=== PATIENT | female | born 1955 | race African-American/Black ===

== ENCOUNTER 2016-06-05 21:15 | Inpatient (IN) | payer BC ==
--- NOTE | 2016-06-05 17:16 | PDOC ---
[id number]: No Limitations - History of Present Illness Initial Comments: 06/05/16 17:45 The patient is a 61 year old female, with a significant past medical history of ETOH abuse, diabetes, GERD, hypertension, hyperlipidemia, who presents to the emergency department complaining of dyspnea and difficulty walking since earlier today. As per friend, the patient mixed some of her medications with ETOH (smirnoff) before the onset of her symptoms. The patient reports SOB, but denies any associated chest pain, palpitations, or diaphoresis. The patient reports overall decreased appetite after starting prednisone prescribed by her neurologist for an infection in the scalp. The patient states she has continued to take prednisone, because her neurologist did not tell her when to stop taking it. As a result, the patient states she has began to get sores in her mouth. The patient reports she has been experiencing high BGL, for which she went to see her PCP, Dr. Cross for further evaluation. As per patient, Dr. Cross prescribed glipiside with minimal change in her BGL. The patient denies any nausea, vomiting, diarrhea, constipation, or changes in urination patterns. The patient denies any fever, chills, cough, headache, or dizziness. Allergies: None reported. Past Surgical History: None reported. Social History: ETOH, abuse. No smoking or drug use history. PCP: Dr. Cross ([phone]) <Carli Campbell - Last Filed: 06/05/16 20:45> <Shaista Nunez - Last Filed: 06/05/16 20:50> - General Chief Complaint: Blood Sugar Problem Stated Complaint: INTOX Time Seen by Provider: 06/05/16 17:09 Past History <Carli Campbell - Last Filed: 06/05/16 20:45> - Past Medical History Diabetes: Yes (diet controlled) GI Disorders: Yes (gerd) HTN: Yes Hypercholesterolemia: Yes - Family Disease History Family Disease History: Diabetes: Mother - Psycho/Social/Smoking Cessation Hx Anxiety: No Suicidal Ideation: No Smoking Status: Yes Smoking History: Former smoker Have you smoked in the past 12 months: No Number of Cigarettes Smoked Daily: 0 If you are a former smoker, when did you quit?: 30 years ago Hx Alcohol Use: Yes (1/2 pint of vodka daily) Drug/Substance Use Hx: No Substance Use Type: None <Shaista Nunez - Last Filed: 06/05/16 20:50> - Past Medical History Allergies/Adverse Reactions: Allergies Allergy/AdvReac Type Severity Reaction Status Date / Time No Known Allergies Allergy Verified 09/18/15 21:51 Home Medications: Ambulatory Orders Losartan Potassium 100 mg PO DAILY 07/08/15 Omeprazole 20 mg PO DAILY 07/08/15 Metoprolol Tartrate [Lopressor -] 12.5 mg PO BID #60 tablet 07/10/15 Rivaroxaban [Xarelto] 1 each PO HS #60 tab.ds.pk 07/10/15 Amlodipine Besylate [Norvasc -] 0 mg PO DAILY 06/05/16 Atorvastatin Ca [Lipitor] 0 mg PO HS 06/05/16 Glipizide [Glucotrol -] 0 mg PO DAILY 06/05/16 Review of Systems - Review of Systems Able to Perform ROS?: Yes Comments:: 06/05/16 17:45 GENERAL/CONSTITUTIONAL: No fever or chills. No weakness. HEAD, EYES, EARS, NOSE AND THROAT: +Sores in mouth. No change in vision. No ear pain or discharge. No sore throat. CARDIOVASCULAR: +Shortness of breath. No chest pain. RESPIRATORY: No cough, wheezing, or hemoptysis. GASTROINTESTINAL: No nausea, vomiting, diarrhea or constipation. GENITOURINARY: No dysuria, frequency, or change in urination. MUSCULOSKELETAL: No joint or muscle swelling or pain. No neck or back pain. SKIN: No rash NEUROLOGIC: +Difficulty walking. No headache, vertigo, loss of consciousness, or change in strength/sensation. ENDOCRINE: +Decreased appetite. No increased thirst. No abnormal weight change. HEMATOLOGIC/LYMPHATIC: No anemia, easy bleeding, or history of blood clots. ALLERGIC/IMMUNOLOGIC: No hives or skin allergy. <Carli Campbell - Last Filed: 06/05/16 20:45> *Physical Exam - Vital Signs Last Vital Signs Temp Pulse Resp BP Pulse Ox 98.0 F 99 H 19 136/75 95 06/05/16 17:10 06/05/16 17:10 06/05/16 17:10 06/05/16 17:10 06/05/16 17:10 - Physical Exam Comments: 06/05/16 17:47 GENERAL: Awake, alert, and fully oriented, in no acute distress HEAD: No signs of trauma EYES: PERRLA, EOMI, sclera anicteric, conjunctiva clear ENT: +Mouth is erythematous. +Positive thrush in mouth. Auricles normal inspection, hearing grossly normal, nares patent. Moist mucosa NECK: Normal ROM, supple, no lymphadenopathy, JVD, or masses LUNGS: Breath sounds equal, clear to auscultation bilaterally. No wheezes, and no crackles HEART: Regular rate and rhythm, normal S1 and S2, no murmurs, rubs or gallops ABDOMEN: Soft, nontender, normoactive bowel sounds. No guarding, no rebound. No masses EXTREMITIES: Normal range of motion, no edema. No clubbing or cyanosis. No cords, erythema, or tenderness NEUROLOGICAL: Cranial nerves II through XII grossly intact. Normal speech, normal gait SKIN: Warm, Dry, normal turgor, no rashes or lesions noted. <Carli Campbell - Last Filed: 06/05/16 20:45> ED Treatment Course - LABORATORY CBC & Chemistry Diagram: 06/05/16 17:50 06/05/16 17:50 - Medications Given in the ED: ED Medications Discontinued Medications Generic Name Dose Route Start Last Admin Trade Name Guru PRN Reason Stop Dose Admin Dextrose 50 ml 06/05/16 17:17 06/05/16 17:20 D50w (Vial) - IVPUSH 06/05/16 17:18 50 ml NOW ONE Administration <Carli Campbell - Last Filed: 06/05/16 20:45> - LABORATORY CBC & Chemistry Diagram: 06/05/16 17:50 06/05/16 17:50 <Shaista Nunez - Last Filed: 06/05/16 20:50> Medical Decision Making - Medical Decision Making 06/05/16 20:24 First call placed to Dr. Martines([phone]) at 20:23. Awaiting call back. Case discussed with Dr. Martines at 20:35. <Carli Campbell - Last Filed: 06/05/16 20:45> - Medical Decision Making 06/05/16 20:46 Pt was not initially forthcoming with her history, but later was stating that she did not want to go home, her legs were weak. On observation I noted that she was breathing rapidly with tremors in her hands and feet. She stated that she drinks "every other day". However, noted to have tongue fasciculations as well. Her immigration case worker later approached me and said that she drinks vodka daily, approximately a quarter of a bottle. Symptoms make sense with the whole picture. Will admit for EtOH withdrawal, thrush (which I have treated). She was hypoglycemic because she has avoided eating due to thrush, but has still been drinking vodka. She had some food from a tray in the ED, but did not want to continue to eat. I have given librium and valium. Will continue to monitor. <Shaista Nunez - Last Filed: 06/05/16 20:50> *DC/Admit/Observation/Transfer - Attestations Scribe Attestion: 06/05/16 17:50 Documentation prepared by Carli Campbell, acting as clinical medical transcriptionist for Shaista Nunez MD. <Carli Campbell - Last Filed: 06/05/16 20:45> - Discharge Dispostion Admit: Yes <Shaista Nunez - Last Filed: 06/05/16 20:50> Diagnosis at time of Disposition: Hypoglycemia, Thrush Alcohol withdrawal Qualifiers: Complication of substance-induced condition: uncomplicated Qualified Code(s): F10.230 - Alcohol dependence with withdrawal, uncomplicated - Discharge Dispostion Condition at time of disposition: Stable - Patient Instructions Printed Discharge Instructions: DI for Thrush, DI for Hypoglycemia
[2016-06-05 18:01] LABS: EOSINOPHIL 0.9 % (0-4.5); MCH 31.6 pg (25.7-33.7); MCHC 32.8 g/dl (32.0-36.0); MEAN CELL VOLUME 96.1 fl (80-96); MEAN PLT VOLUME 8.2 fl (7.5-11.1); NEUTROPHILS 78.9 % (42.8-82.8); PLATELET COUNT 259 K/MM3 (134-434); RDW 14.2 % (11.6-15.6); WHITE BLOOD COUNT 6.3 K/mm3 (4.0-10.0)
[2016-06-05 18:04] LABS: URINE APPEARANCE CLEAR; URINE BILIRUBIN NEGATIVE (NEGATIVE); URINE BLOOD NEGATIVE (NEGATIVE); URINE COLOR STRAW; URINE GLUCOSE (UA) 1+ (NEGATIVE); URINE KETONE NEGATIVE (NEGATIVE); URINE LEUK ESTERASE NEGATIVE (NEGATIVE); URINE NITRITE NEGATIVE (NEGATIVE); URINE PROTEIN NEGATIVE (NEGATIVE); URINE UROBILINOGEN NEGATIVE E.U./dl (0.2-1.0)
[2016-06-05 18:34] LABS: ALBUMIN 2.5 g/dl (3.4-5.0); ALK PHOS 96 U/L (45-117); ANION GAP 17 (8-16); BILIRUBIN,TOTAL 0.2 mg/dL (0.2-1.0); CALCIUM 8.4 mg/dL (8.5-10.1); CO2 17 mmol/L (21-32); CREATININE 1.3 mg/dL (0.55-1.02); GLUCOSE,RANDOM 219 mg/dL (74-106); SGOT/AST 36 U/L (15-37); SGPT/ALT 19 U/L (12-78); TOT PROT 6.3 g/dl (6.4-8.2)
[2016-06-05 19:09] LABS: ACETONE SERUM NEGATIVE (NEGATIVE)
[~2016-06-05 21:15] MED LIST: DEXTROSE 50%-WATER 50 ML DISP.SYRIN ONE; DEXTROSE 50%-WATER 50 ML VIAL IVPUSH ONE; FLUCONAZOLE 100 MG TABLET (UD) ONE; FLUCONAZOLE 100 MG TABLET (UD) PO ONE; SODIUM CHLORIDE 1,000 ML IV STA; chlordiazePOXIDE HCL 25 MG CAPSULE ONE; chlordiazePOXIDE HCL 25 MG CAPSULE PO ONE; diazePAM CARPU-JECT 10 MG/2 ML DISP.SYRIN IVPUSH ONE; diazePAM CARPU-JECT 10 MG/2 ML DISP.SYRIN ONE
[2016-06-05] MEDS ORDERED: ACETAMINOPHEN INJECTION 100 ML IVPB ONE (21:20)
[2016-06-05] MEDS ORDERED: ACETAMINOPHEN 1000 MG/100 ML VIAL (NON FORMULARY) IVPB ONE (22:10)
[2016-06-05] MEDS ORDERED: PANTOPRAZOLE 20 MG TABLET (FP) PO SCH (22:15)
[2016-06-05] MEDS ORDERED: OSELTAMIVIR PHOSPHATE 75 MG CAPSULE PO ONE (22:44)
[2016-06-05] MEDS ORDERED: OSELTAMIVIR PHOSPHATE 75 MG CAPSULE ONE (23:28)
[2016-06-05] MEDS ORDERED: chlordiazePOXIDE HCL 25 MG CAPSULE ONE (23:28)
[2016-06-05] MEDS ORDERED: METOPROLOL TARTRATE 25 MG TABLET (FP) ONE (23:29)
[2016-06-05] MEDS: ATORVASTATIN CA 10 MG TABLET (FP) PO SCH (23:32)
[2016-06-05] MEDS: RIVAROXABAN 20 MG TABLET PO SCH (23:32)
[2016-06-05] MEDS: chlordiazePOXIDE HCL 25 MG CAPSULE PO SCH (23:32)
[2016-06-05] MEDS: METOPROLOL TARTRATE 25 MG TABLET (FP) PO SCH (23:32)
[2016-06-06] MEDS: INSULIN SLIDING SCALE (NOVOLOG) 1 VIAL SQ SCH ×5 (00:40→23:25)
[2016-06-06] MEDS: MAG HYDROX/ALH/SMC/DPHA/LIDO 240 ML MOUTHWASH MM SCH ×4 (00:56→18:03)
[2016-06-06] MEDS ORDERED: ACETAMINOPHEN 325 MG TABLET (FP) ONE ×2 (01:02→19:57)
[2016-06-06] MEDS: ACETAMINOPHEN 325 MG TABLET (FP) PO PRN ×2 (01:05→20:02)
[2016-06-06] MEDS ORDERED: chlordiazePOXIDE HCL 25 MG CAPSULE ONE ×3 (05:23→15:53)
[2016-06-06] MEDS: chlordiazePOXIDE HCL 25 MG CAPSULE PO SCH ×3 (06:16→16:51)
[2016-06-06 06:40] LABS: BASOPHIL 1.2 % (0-2.0); EOSINOPHIL 1.7 % (0-4.5); MCH 31.6 pg (25.7-33.7); MCHC 33.1 g/dl (32.0-36.0); MEAN CELL VOLUME 95.5 fl (80-96); MEAN PLT VOLUME 8.3 fl (7.5-11.1); NEUTROPHILS 64.7 % (42.8-82.8); PLATELET COUNT 228 K/MM3 (134-434); RDW 14.3 % (11.6-15.6); WHITE BLOOD COUNT 4.9 K/mm3 (4.0-10.0)
[2016-06-06 07:09] LABS: ALBUMIN 2.2 g/dl (3.4-5.0); CALCIUM 7.5 mg/dL (8.5-10.1)
[2016-06-06 07:12] LABS: BILIRUBIN,TOTAL 0.3 mg/dL (0.2-1.0); CREATININE 1.3 mg/dL (0.55-1.02); TOT PROT 5.2 g/dl (6.4-8.2)
[2016-06-06] MEDS: amLODIPine BESYLATE 10 MG TABLET (FP) PO SCH (09:57)
[2016-06-06] MEDS: LOSARTAN POTASSIUM 50 MG TABLET (FP) PO SCH (09:57)
[2016-06-06] MEDS: METOPROLOL TARTRATE 25 MG TABLET (FP) PO SCH (09:57)
[2016-06-06] MEDS: PANTOPRAZOLE 20 MG TABLET (FP) PO SCH (09:57)
--- NOTE | 2016-06-06 09:58 | HP ---
Admitting History and Physical - Primary Care Physician PCP: Anirudh Cross - Admission Chief Complaint: not feeling well History of Present Illness: The patient is a 61 year old female, with a significant past medical history of ETOH abuse, diabetes, GERD, hypertension, hyperlipidemia, who presents to the emergency department complaining of dyspnea and difficulty walking since earlier today. As per friend, the patient mixed some of her medications with ETOH (smirnoff) before the onset of her symptoms. The patient reports SOB, but denies any associated chest pain, palpitations, or diaphoresis. The patient reports overall decreased appetite after starting prednisone prescribed by her neurologist for an infection in the scalp. The patient states she has continued to take prednisone, because her neurologist did not tell her when to stop taking it. As a result, the patient states she has began to get sores in her mouth. The patient reports she has been experiencing high BGL, for which she went to see her PCP, Dr. Cross for further evaluation. As per patient, Dr. Cross prescribed glipiside with minimal change in her BGL. The patient denies any nausea, vomiting, diarrhea, constipation, or changes in urination patterns. The patient denies any fever, chills, cough, headache, or dizziness. Allergies: None reported. Past Surgical History: None reported. Social History: ETOH, abuse. No smoking or drug use history. PCP: Dr. Cross ([phone]) Pt found to have etoh abuse / withdrawl also spiked in er 105- tamiflu -ve pt started on librium and admitted to tele Pt seen this am- still in er sleepy but arousable feels better still having fever denies cp/sob/ abd pain/ urinary burning cxr -ve u/a -ve pt also given diflucan for thrush History Source: Patient Limitations to Obtaining History: No Limitations - Past Medical History Cardiovascular: Yes: AFIB, HTN, Hyperlipdemia, Murmur Gastrointestinal: Yes: GERD ENT: Yes: Other (early cataracts) Endocrine: Yes: Diabetes Mellitus (NIDDM- diet controlled, diagnosed > 10 years ago; self d/c'd metformin due to weight loss) - Past Surgical History Past Surgical History: Yes: None - Smoking History Smoking history: Former smoker Have you smoked in the past 12 months: No Aproximately how many cigarettes per day: 0 If you are a former smoker, when did you quit?: 30 years ago - Alcohol/Substance Use Hx Alcohol Use: Yes (1/2 pint of vodka daily) History of Substance Use: reports: None - Social History ADL: Independent 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 [employer] History of Recent Travel: No Home Medications - Allergies Allergies/Adverse Reactions: Allergies Allergy/AdvReac Type Severity Reaction Status Date / Time No Known Allergies Allergy Verified 09/18/15 21:51 - Home Medications Home Medications: Ambulatory Orders Losartan Potassium 100 mg PO DAILY 07/08/15 Omeprazole 20 mg PO DAILY 07/08/15 Metoprolol Tartrate [Lopressor -] 12.5 mg PO BID #60 tablet 07/10/15 Rivaroxaban [Xarelto] 1 each PO HS #60 tab.ds.pk 07/10/15 Amlodipine Besylate [Norvasc -] 0 mg PO DAILY 06/05/16 Atorvastatin Ca [Lipitor] 0 mg PO HS 06/05/16 Glipizide [Glucotrol -] 0 mg PO DAILY 06/05/16 Family Disease History - Family Disease History Family Disease History: Heart Disease: Father (50 ), CA: Mother (lung 72 ), Other: Sister (? uterine Ca-58, alive) Review of Systems Unable to obtain ROS, reason: see [place] Physical Examination Vital Signs: Vital Signs Temperature 100 F H 06/06/16 09:04 Pulse Rate 100 H 06/06/16 09:04 Respiratory Rate 18 06/06/16 09:04 Blood Pressure 124/60 06/06/16 09:04 O2 Sat by Pulse Oximetry (%) 100 06/06/16 09:04 Constitutional: Yes: No Distress, Calm Eyes: Yes: Conjunctiva Clear HENT: Yes: Other (thrush) Neck: Yes: Supple Cardiovascular: Yes: Regular Rate and Rhythm Respiratory: Yes: CTA Bilaterally Gastrointestinal: Yes: Normal Bowel Sounds, Soft Edema: No Neurological: Yes: Other (sleepy but arousable- no shaking) Labs: CBC, BMP 06/06/16 05:45 06/06/16 05:45 Imaging - Results Chest X-ray: Report Reviewed EKG: Report Reviewed Problem List - Problems (1) Alcohol withdrawal Code(s): F10.239 - ALCOHOL DEPENDENCE WITH WITHDRAWAL, UNSPECIFIED Qualifiers : Complication of substance-induced condition: with unspecified complication Qualified Code(s): F10.239 - Alcohol dependence with withdrawal, unspecified (2) Hypoglycemia Code(s): E16.2 - HYPOGLYCEMIA, UNSPECIFIED (3) Thrush Code(s): B37.0 - CANDIDAL STOMATITIS (4) HTN (hypertension) Code(s): I10 - ESSENTIAL (PRIMARY) HYPERTENSION (6) Paroxysmal atrial fibrillation Code(s): I48.0 - PAROXYSMAL ATRIAL FIBRILLATION Assessment/Plan Monitor on tele for Dts Detox with librium Banana bag monitor bgm fever-- source ? influenza -ve f/u cultures Emperic Levaquin for now Hold diabetic meds sliding scale will follow MM mouthwash.
[2016-06-06] MEDS ORDERED: QUINAPRIL HCL 5 MG TABLET (FP) PO SCH (10:00)
[2016-06-06] MEDS: LEVOFLOXACIN 500 MG IVPB 100 ML IVPB SCH (10:01)
[2016-06-06] MEDS ORDERED: LEVOFLOXACIN 500 MG IVPB 100 ML IVPB ONE (10:03)
[2016-06-06] MEDS ORDERED: FOLIC ACID INJECTION - 1 MG, THIAMINE HCL 100 MG, MULTIVIT INJECTION ADULT 10 ML in SOD... IVPB ONE ×2 (14:14)
[2016-06-06] MEDS ORDERED: INSULIN REGULAR HUMAN 100 UNITS/ML *VIAL ONE (16:43)
[2016-06-06 19:01] VITALS: BMI 24.7
[2016-06-06] MEDS ORDERED: PNEUMOC 13-VAL CONJ-DIP CRM/PF 0.5 ML DISP.SYRIN IM ONE (19:02)
--- NOTE | 2016-06-06 23:25 | EKG ---
Test Reason : Blood Pressure : / mmHG Vent. Rate : 103 BPM Atrial Rate : 103 BPM P-R Int : 170 ms QRS Dur : 060 ms QT Int : 302 ms P-R-T Axes : 030 011 -01 degrees QTc Int : 395 ms SINUS TACHYCARDIA WITH PREMATURE ATRIAL COMPLEXES OTHERWISE NORMAL ECG WHEN COMPARED WITH ECG OF 05-JUN-2016 17:56, NO SIGNIFICANT CHANGE WAS FOUND Confirmed by MYRON BUCHANAN MD ([id number]) on 06/06/2016 11:25:20 PM Referred By: Confirmed By:MYRON BUCHANAN MD
[2016-06-06] MEDS ORDERED: METOPROLOL TARTRATE 25 MG TABLET (FP) ONE (23:29)
--- NOTE | 2016-06-06 23:31 | EKG ---
Test Reason : Blood Pressure : / mmHG Vent. Rate : 107 BPM Atrial Rate : 107 BPM P-R Int : 150 ms QRS Dur : 058 ms QT Int : 316 ms P-R-T Axes : 038 022 026 degrees QTc Int : 421 ms SINUS TACHYCARDIA OTHERWISE NORMAL ECG WHEN COMPARED WITH ECG OF 08-JUL-2015 14:54, VENT. RATE HAS INCREASED BY 43 BPM T WAVE VARIATION Confirmed by MYRON BUCHANAN MD ([id number]) on 06/06/2016 11:31:03 PM Referred By: Confirmed By:MYRON BUCHANAN MD
[2016-06-07] MEDS: ATORVASTATIN CA 10 MG TABLET (FP) PO SCH ×2 (00:09→21:50)
[2016-06-07] MEDS: METOPROLOL TARTRATE 25 MG TABLET (FP) PO SCH ×3 (00:10→21:50)
[2016-06-07] MEDS: RIVAROXABAN 20 MG TABLET PO SCH (00:10)
[2016-06-07] MEDS: MAG HYDROX/ALH/SMC/DPHA/LIDO 240 ML MOUTHWASH MM SCH ×4 (00:22→18:44)
[2016-06-07] MEDS ORDERED: chlordiazePOXIDE HCL 25 MG CAPSULE ONE ×4 (01:34→16:32)
[2016-06-07] MEDS: chlordiazePOXIDE HCL 25 MG CAPSULE PO SCH ×4 (01:36→16:38)
[2016-06-07] MEDS: INSULIN SLIDING SCALE (NOVOLOG) 1 VIAL SQ SCH ×4 (07:43→21:51)
[2016-06-07] MEDS ORDERED: FOLIC ACID INJECTION - 1 MG, THIAMINE HCL 100 MG, MULTIVIT INJECTION ADULT 10 ML in SOD... IVPB SCH (08:00)
--- NOTE | 2016-06-07 08:07 | PN ---
Progress Note (short form) - Note Progress Note: Subjective Patient seen and examined. Chief complaint: "whole body hurts" No distress Had fever last night also. Afebrile today so far. Cultures negative. Patient is hypoxic. Saturation is 93% on 3L nasal cannula. Objective Last Vital Signs Temp Pulse Resp BP Pulse Ox 98.7 F 86 18 105/59 90 L 06/07/16 08:07 06/07/16 08:07 06/07/16 08:07 06/07/16 08:07 06/07/16 08:07 Physical Exam Constitutional: Yes: Mild Distress, Calm Eyes: Yes: Conjunctiva Clear HENT: Yes: Other (thrush) Neck: Yes: Supple Cardiovascular: Yes: Regular Rate and Rhythm Respiratory: Yes: CTA Bilaterally Gastrointestinal: Yes: Normal Bowel Sounds, Soft Edema: No Neurological: Alert and awake. Labs: Laboratory Results - last 24 hr 06/06/16 06/06/16 06/06/16 10:05 15:59 20:49 POC Glucometer 130.29978 213.69158 104.67995 06/07/16 06:18 POC Glucometer 130.50754 Imaging - Results Chest X-ray: Report Reviewed EKG: Report Reviewed Assessment/Plan Clinically better. Detox with librium Banana bag monitor bgm fever-- source ? Cultures negative so far. influenza -ve f/u cultures Emperic Levaquin for now Hold diabetic meds sliding scale MM mouthwash Patient hypoxic CXR reviewed. Concern of PE Will do VQ scan and D-Dimer Will follow. Documentation prepared by Mae Barrera, acting as a medical records assistant for Dalton Martines MD. <Mae Barrera - Last Filed: 06/07/16 09:47> Problem List - Problems (1) Alcohol withdrawal Code(s): F10.239 - ALCOHOL DEPENDENCE WITH WITHDRAWAL, UNSPECIFIED Qualifiers : Complication of substance-induced condition: with unspecified complication Qualified Code(s): F10.239 - Alcohol dependence with withdrawal, unspecified (2) Hypoglycemia Code(s): E16.2 - HYPOGLYCEMIA, UNSPECIFIED (3) Thrush Code(s): B37.0 - CANDIDAL STOMATITIS (4) HTN (hypertension) Code(s): I10 - ESSENTIAL (PRIMARY) HYPERTENSION (6) Paroxysmal atrial fibrillation Code(s): I48.0 - PAROXYSMAL ATRIAL FIBRILLATION <Dalton Martines - Last Filed: 06/07/16 08:07>
[2016-06-07 09:44] LABS: EOSINOPHIL 1.5 % (0-4.5); MCH 32.1 pg (25.7-33.7); MCHC 33.1 g/dl (32.0-36.0); MEAN CELL VOLUME 96.7 fl (80-96); MEAN PLT VOLUME 7.8 fl (7.5-11.1); NEUTROPHILS 70.4 % (42.8-82.8); PLATELET COUNT 272 K/MM3 (134-434); WHITE BLOOD COUNT 5.5 K/mm3 (4.0-10.0)
[2016-06-07 10:05] LABS: ALBUMIN 2.2 g/dl (3.4-5.0); ANION GAP 7 (8-16); CALCIUM 7.9 mg/dL (8.5-10.1); CO2 21 mmol/L (21-32); CREATININE 1.3 mg/dL (0.55-1.02); GLUCOSE,RANDOM 168 mg/dL (74-106); SGOT/AST 30 U/L (15-37); SGPT/ALT 18 U/L (12-78)
[2016-06-07 10:06] LABS: ALK PHOS 81 U/L (45-117); BILIRUBIN,TOTAL 0.4 mg/dL (0.2-1.0); TOT PROT 5.5 g/dl (6.4-8.2)
[2016-06-07] MEDS: amLODIPine BESYLATE 10 MG TABLET (FP) PO SCH (11:01)
[2016-06-07] MEDS: PANTOPRAZOLE 20 MG TABLET (FP) PO SCH (11:01)
[2016-06-07] MEDS: LEVOFLOXACIN 500 MG IVPB 100 ML IVPB SCH (11:01)
[2016-06-07] MEDS: LOSARTAN POTASSIUM 50 MG TABLET (FP) PO SCH (11:01)
[2016-06-07] MEDS ORDERED: INSULIN (NOVOLOG) ASPART 100 UNITS/ML 10ML VIAL ONE ×2 (11:30→16:34)
--- NOTE | 2016-06-07 16:24 | PN ---
Progress Note (short form) - Note Progress Note: ID consult dictated FUO elevated ESR hypoxia etoh withdrawal quite alert recent course of steroids apparently for possible temporal arteritis, biopsy per patient negative, steroids tapered off reports fevers over the last one month - intermittent +etoh- now on librium no headaches no vision changes high grade fever on admission now resolved empirically on levaquin Day #2 influenza screen negative blod cultures negative ?fever due to withdrawal- normal wbc improved check abg pulmonary to see f/u v/q scan may need ct scan chest/abd/pelvis hiv testing ordered (patient agrees)
--- NOTE | 2016-06-07 17:41 | CONSULT ---
Consult Consult Specialty:: PULM/CCM Referred by:: SUZANNA Reason for Consultation:: SOB / hypoxemia - History of Present Illness Chief Complaint: Fever / generalized weakness History of Present Illness: 61 F, AFib on Xarelto, daily vodka intact (at least 1/2 pint), diabetes, GERD, hypertension, and hyperlipidemia. Admitted via the ER due to SOB and difficulty walking. Symptoms started earlier this AM. Noted to have fever of 106 (?). Reports a history that sounded like TA, and placed on prednisone, which was stopped. Reports "sores" in her mouth. No travel history or sick contacts. No hemoptysis or night sweats. Noted V/Q performed. Intermediate for PE. No personal or family history of VTE. CXR: essentially clear - History Source History Provided By: Patient Limitations to Obtaining History: No Limitations - Past Medical History Cardio/Vascular: Yes: AFIB, HTN, Hyperlipdemia, Murmur Gastrointestinal: Yes: GERD ENT: Yes: Other (early cataracts) Endocrine: Yes: Diabetes Mellitus (NIDDM- diet controlled, diagnosed > 10 years ago; self d/c'd metformin due to weight loss) - Past Surgical History Past Surgical History: Yes: None - Alcohol/Substance Use Hx Alcohol Use: Yes (1/2 pint of vodka daily) History of Substance Use: reports: None - Smoking History Smoking history: Former smoker Have you smoked in the past 12 months: No Aproximately how many cigarettes per day: 0 If you are a former smoker, when did you quit?: 30 years ago - Social History ADL: Independent 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 History of Recent Travel: No Home Medications - Allergies Allergies/Adverse Reactions: Allergies Allergy/AdvReac Type Severity Reaction Status Date / Time No Known Allergies Allergy Verified 09/18/15 21:51 - Home Medications Home Medications: Ambulatory Orders Losartan Potassium 100 mg PO DAILY 07/08/15 Omeprazole 20 mg PO DAILY 07/08/15 Metoprolol Tartrate [Lopressor -] 12.5 mg PO BID #60 tablet 07/10/15 Amlodipine Besylate [Norvasc -] 5 mg PO DAILY 06/05/16 Atorvastatin Ca [Lipitor] 20 mg PO HS 06/05/16 Glipizide [Glucotrol -] 0 mg PO DAILY 06/05/16 Rivaroxaban [Xarelto -] 20 mg PO DAILY 06/06/16 Family Disease History - Family Disease History Family Disease History: Heart Disease: Father (50 ), CA: Mother (lung 72 ), Other: Sister (? uterine Ca-58, alive) Review of Systems - Review of Systems Constitutional: reports: Chills, Fever, Lethargy, Loss of Appetite, Malaise, Weakness. denies: Night Sweats, Unintentional Wgt. Loss Eyes: reports: No Symptoms HENT: reports: No Symptoms Neck: reports: No Symptoms Cardiovascular: reports: Shortness of Breath. denies: Chest Pain, Edema, Palpitations Respiratory: reports: Cough, SOB, SOB on Exertion. denies: Hemoptysis, Wheezing Gastrointestinal: reports: No Symptoms Genitourinary: reports: No Symptoms Breasts: reports: No Symptoms Reported Musculoskeletal: reports: Extremity Pain, Muscle Cramps Integumentary: reports: No Symptoms Neurological: reports: No Symptoms Endocrine: reports: No Symptoms Hematology/Lymphatic: reports: No Symptoms Psychiatric: reports: No Symptoms Physical Exam Vital Signs: Vital Signs Temperature 98.5 F 06/07/16 16:31 Pulse Rate 81 06/07/16 16:31 Respiratory Rate 20 06/07/16 16:31 Blood Pressure 111/59 06/07/16 16:31 O2 Sat by Pulse Oximetry (%) 90 L 06/07/16 16:31 Constitutional: Yes: Mild Distress Eyes: Yes: Conjunctiva Clear, EOM Intact HENT: Yes: Atraumatic, Normocephalic Neck: Yes: Supple, Trachea Midline Cardiovascular: Yes: Regular Rate and Rhythm Respiratory: Yes: Cough, On Nasal O2, Rhonchi, SOB, SOB on Exertion, Tachypnea. No: Accessory Muscle Use, Rales, Stridor, Wheezes Gastrointestinal: Yes: Normal Bowel Sounds, Soft ...Rectal Exam: Yes: Deferred Renal/: Yes: WNL Musculoskeletal: Yes: WNL Extremities: Yes: WNL Edema: No Peripheral Pulses WNL: Yes Integumentary: Yes: WNL Neurological: Yes: Alert, Oriented ...Motor Strength: WNL Psychiatric: Yes: Alert, Oriented Labs: CBC, BMP 06/07/16 09:10 06/07/16 09:10 Imaging - Results Chest X-ray: Report Reviewed, Image Reviewed Problem List - Problems (1) Alcohol withdrawal Code(s): F10.239 - ALCOHOL DEPENDENCE WITH WITHDRAWAL, UNSPECIFIED Qualifiers : Complication of substance-induced condition: with unspecified complication Qualified Code(s): F10.239 - Alcohol dependence with withdrawal, unspecified (2) GERD (gastroesophageal reflux disease) Code(s): K21.9 - GASTRO-ESOPHAGEAL REFLUX DISEASE WITHOUT ESOPHAGITIS Qualifiers: Esophagitis presence: without esophagitis Qualified Code(s): K21.9 - Gastro-esophageal reflux disease without esophagitis (3) Paroxysmal atrial fibrillation Code(s): I48.0 - PAROXYSMAL ATRIAL FIBRILLATION (4) Renal insufficiency Code(s): N28.9 - DISORDER OF KIDNEY AND URETER, UNSPECIFIED (6) Pulmonary embolism Assessment/Plan: V/Q scan intermediate Code(s): I26.99 - OTHER PULMONARY EMBOLISM WITHOUT ACUTE COR PULMONALE (7) Viral respiratory illness Code(s): J98.8 - OTHER SPECIFIED RESPIRATORY DISORDERS B97.89 - OTH VIRAL AGENTS THE CAUSE OF DISEASES CLASSD ELSWHR Assessment/Plan PLAN: O2 to maintain saturation LE doppler Lovenox BID IV hydration Receiving "banana bag" now Monitor for withdrawal Berkowitz-culture Hopefully if creatinine improves or remains stable -> CT chest with contrast BD TX ABX per ID Will follow Thank you. Dr Arias
[2016-06-07] MEDS ORDERED: ACETAMINOPHEN 325 MG TABLET (FP) ONE (17:48)
[2016-06-07] MEDS: ACETAMINOPHEN 325 MG TABLET (FP) PO PRN (18:16)
[2016-06-07] MEDS: NYSTATIN 500,000 UNITS/5 ML SUSPENSION PO SCH (18:44)
--- NOTE | 2016-06-07 21:19 | CONS ---
DATE OF CONSULTATION: 06/07/2016 REQUESTED BY: Dalton Martines MD This is a 61-year-old woman who presented to the hospital with dyspnea and generalized weakness and muscle aches. She is an active alcohol user. She had apparently mixed some of her medications with alcohol before the onset of her symptoms. She noted some overall generalized weakness. She reports having a very poor appetite due to oral lesions. She apparently had been having headaches and was referred by her PCP, Dr. Cross, to a ironing pleater, Dr. Juliann Lang, who she saw for her headaches and it is apparently temporal arteritis. She underwent a temporal artery biopsy. She was on high-dose steroid. She reports that the biopsy was negative and it was ultimately stopped. During the course of this, she began to get sores in her mouth, which really resulted in a poor appetite. As well, she had high blood sugars. She presented to the emergency room with these complaints. She admitted to some intermittent alcohol use. In the emergency room, she was felt to be having DTs. She was also noted to have a high-grade fever but a normal white count. She was admitted for alcohol withdrawal and fever. She had cultures drawn and was started on Levaquin. This afternoon when I saw her, she was in V/Q scan but she was afebrile. She was alert. She is now on Librium. She was able to give me all this history. She reports no history of any travel. She lives with her partner. 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 She reports intermittent fevers but reports she has been going to work anyway. To me, she denied shortness of breath or cough. She denies history of TB or TB exposure. Her past medical history is notable for a history of atrial fibrillation, hypertension, hyperlipidemia, GERD, cataracts, diabetes, and no surgeries in the past. She has no known drug allergies. Her medications as an outpatient include losartan and omeprazole, metoprolol, Xarelto, amlodipine, Lipitor, and Glucotrol. Family history is notable for heart disease, lung cancer, and uterine cancer. SOCIAL HISTORY: She lives with her partner. She is a former smoker. She quit 30 years ago. She does admit to alcohol use. She works as a sales receptionist and states she is able to work despite her chronic alcohol use. REVIEW OF SYSTEMS: Currently she denies any cough. She reports feeling improved. She denies any weakness. She has no headache, no visual changes. She reports a dry mouth but no difficulty swallowing. No nausea, vomiting. No diarrhea or dysuria. PHYSICAL EXAMINATION: General: She is in no acute distress. She is lying flat. Vital Signs: Her temperature is 98.5. T-max was the day of admission, which was 2 days ago on the when her temperature was 105.7. Pulse is 81. Blood pressure is 111/59. Respiratory rate is 20. She is saturating 90% on 4 L. HEENT: Normocephalic. Eyes are anicteric. She has no thrush but very dry oral mucosa. Neck: Supple. Lungs: Clear to auscultation. Heart: Regular rate and rhythm. Abdomen: Soft, nontender. Extremities: Without edema. Skin: She has no rash. Her white count is 5.5, hemoglobin is 10, her platelets are 272, sedimentation rate is 122. BUN 9, creatinine 1.3. Her LFTs are normal. Urinalysis is negative. The alcohol level is 88 on admission. OLEKSANDR screen is pending. Rheumatoid factor is negative. In summary, this is a 61-year-old woman admitted with alcohol withdrawal, fever of unknown origin, elevated ESR, and hypoxia. She is quite alert. No real source for fever is noted. She is empirically on Levaquin day 2. Cultures at 24 hours were all negative. Influenza screen is negative as well. I would check an ABG. I would follow up her V/Q scan. She has agreed to HIV testing, which I would obtain as well. Would consider CT scan of the chest, abdomen and pelvis if fevers recur. Further recommendations to follow. This was all discussed with Dr. Martines. PRO MENDOZA M.D. [id number] [facility]
[2016-06-07] MEDS: ARFORMOTEROL TARTRATE 15 MCG/2 ML VIAL NEB SCH (21:50)
[2016-06-07] MEDS: ENOXAPARIN NA (PORCINE) 80 MG/0.8 ML DISP.SYRIN SQ SCH (21:50)
[2016-06-08] MEDS: MAG HYDROX/ALH/SMC/DPHA/LIDO 240 ML MOUTHWASH MM SCH ×4 (00:51→17:24)
[2016-06-08] MEDS: NYSTATIN 500,000 UNITS/5 ML SUSPENSION PO SCH ×4 (00:51→17:24)
[2016-06-08] MEDS: chlordiazePOXIDE HCL 25 MG CAPSULE PO SCH ×4 (00:51→22:53)
[2016-06-08] MEDS: ACETAMINOPHEN 325 MG TABLET (FP) PO PRN ×2 (03:54→20:10)
[2016-06-08] MEDS: INSULIN SLIDING SCALE (NOVOLOG) 1 VIAL SQ SCH ×4 (06:24→22:52)
[2016-06-08 08:14] LABS: CALCIUM 7.1 mg/dL (8.5-10.1); CREATININE 1.2 mg/dL (0.55-1.02)
[2016-06-08] MEDS ORDERED: PT OWN MED DRAWER 7, Y5N ONE (09:02)
[2016-06-08] MEDS: ARFORMOTEROL TARTRATE 15 MCG/2 ML VIAL NEB SCH ×2 (10:20→22:11)
[2016-06-08] MEDS: METOPROLOL TARTRATE 25 MG TABLET (FP) PO SCH ×2 (10:39→22:43)
[2016-06-08] MEDS: amLODIPine BESYLATE 10 MG TABLET (FP) PO SCH (10:39)
[2016-06-08] MEDS: LOSARTAN POTASSIUM 50 MG TABLET (FP) PO SCH ×2 (10:39→12:33)
--- NOTE | 2016-06-08 10:39 | PN ---
Progress Note, Physician History of Present Illness: PULMONARY DROWSY,NAD,-SOB,-CP,-COUGH - Current Medication List Current Medications: Active Medications Acetaminophen (Tylenol -) 650 mg PO Q6H PRN PRN Reason: FEVER OR PAIN Last Admin: 06/08/16 03:54 Dose: 650 mg Amlodipine Besylate (Norvasc -) 10 mg PO DAILY [facility] Last Admin: 06/07/16 11:01 Dose: 10 mg Arformoterol Tartrate (Brovana (Restricted To Pulmonology/Resp) -) 1 amp NEB BID [facility] Last Admin: 06/07/16 21:50 Dose: 1 amp Atorvastatin Calcium (Lipitor -) 10 mg PO HS [facility] Last Admin: 06/07/16 21:50 Dose: 10 mg Enoxaparin Sodium (Lovenox -) 70 mg SQ BID [facility] Last Admin: 06/07/16 21:50 Dose: 70 mg Levofloxacin (Levaquin 500 Mg Premixed Ivpb -) 100 mls @ 100 mls/hr IVPB DAILY [facility] Last Admin: 06/07/16 11:01 Dose: 100 mls/hr Folic Acid 1 mg/ Thiamine HCl 100 mg/ Multivitamins/Minerals 10 ml/ Sodium Chloride 1,000 mls @ 125 mls/hr IVPB DAILY@0800 [facility] Last Admin: 06/07/16 08:07 Dose: 125 mls/hr Insulin Aspart (Novolog Vial Sliding Scale -) 1 vial SQ ACHS [facility] PRN Reason: Protocol Last Admin: 06/08/16 06:24 Dose: Not Given Lidocaine/Aluminum/Magnesium/Simeth (Magic Mouthwash *Sjr Formula* -) 5 ml MM Q6HPO [facility] Last Admin: 06/08/16 06:45 Dose: Not Given Losartan Potassium (Cozaar -) 100 mg PO DAILY [facility] Last Admin: 06/07/16 11:01 Dose: 100 mg Metoprolol Tartrate (Lopressor -) 12.5 mg PO BID [facility] Last Admin: 06/07/16 21:50 Dose: 12.5 mg Nystatin (Nystatin Oral Suspension -) 500,000 units PO Q6HPO [facility] Last Admin: 06/08/16 06:26 Dose: 500,000 units Pantoprazole Sodium (Protonix -) 20 mg PO DAILY [facility] Last Admin: 06/07/16 11:01 Dose: 20 mg Pneumococcal 13-Valent Conj Vacc (Prevnar 13 Syringe -) 0.5 ml IM .ONCE ONE Stop: 06/06/16 19:03 - Objective Vital Signs: Vital Signs Temperature 99.9 F H 06/08/16 05:00 Pulse Rate 76 06/08/16 05:00 Respiratory Rate 20 06/08/16 05:00 Blood Pressure 99/60 06/08/16 05:00 O2 Sat by Pulse Oximetry (%) 91 L 06/07/16 20:00 Constitutional: Yes: Well Nourished, Other (DROWSY) Eyes: Yes: WNL HENT: Yes: WNL Neck: Yes: WNL Cardiovascular: Yes: Regular Rate and Rhythm, S1, S2 Respiratory: Yes: Diminished Gastrointestinal: Yes: WNL Extremities: Yes: WNL Edema: No Labs: CBC, BMP 06/07/16 09:10 06/08/16 05:40 Assessment/Plan Problem List - Problems (1) Alcohol withdrawal Code(s): F10.239 - ALCOHOL DEPENDENCE WITH WITHDRAWAL, UNSPECIFIED Qualifiers : Complication of substance-induced condition: with unspecified complication Qualified Code(s): F10.239 - Alcohol dependence with withdrawal, unspecified (2) GERD (gastroesophageal reflux disease) Code(s): K21.9 - GASTRO-ESOPHAGEAL REFLUX DISEASE WITHOUT ESOPHAGITIS Qualifiers: Esophagitis presence: without esophagitis Qualified Code(s): K21.9 - Gastro-esophageal reflux disease without esophagitis (3) Paroxysmal atrial fibrillation Code(s): I48.0 - PAROXYSMAL ATRIAL FIBRILLATION (4) Renal insufficiency Code(s): N28.9 - DISORDER OF KIDNEY AND URETER, UNSPECIFIED IMPROVING (6) Pulmonary embolism Assessment/Plan: V/Q scan intermediate Code(s): I26.99 - OTHER PULMONARY EMBOLISM WITHOUT ACUTE COR PULMONALE (7) Viral respiratory illness Code(s): J98.8 - OTHER SPECIFIED RESPIRATORY DISORDERS B97.89 - OTH VIRAL AGENTS THE CAUSE OF DISEASES CLASSD ELSWHR Assessment/Plan PLAN: O2 to maintain saturation Lovenox BID IV hydration Montor lytes Monitor for withdrawal if creatinine improves or remains stable -> CT chest with contrast BD TX ABX per ID DR JENSEN
[2016-06-08] MEDS ORDERED: chlordiazePOXIDE HCL 25 MG CAPSULE PO PRN (10:40)
[2016-06-08] MEDS: PANTOPRAZOLE 20 MG TABLET (FP) PO SCH (10:41)
[2016-06-08] MEDS: LEVOFLOXACIN 500 MG IVPB 100 ML IVPB SCH (10:41)
[2016-06-08] MEDS: ENOXAPARIN NA (PORCINE) 80 MG/0.8 ML DISP.SYRIN SQ SCH ×2 (10:41→22:42)
--- NOTE | 2016-06-08 11:07 | PN ---
Progress Note, Physician Chief Complaint: Events noted Pt is sleepy Denies any SOB , or chest pain - Current Medication List Current Medications: Active Medications Acetaminophen (Tylenol -) 650 mg PO Q6H PRN PRN Reason: FEVER OR PAIN Last Admin: 06/08/16 03:54 Dose: 650 mg Amlodipine Besylate (Norvasc -) 10 mg PO DAILY [facility] Last Admin: 06/08/16 10:39 Dose: Not Given Arformoterol Tartrate (Brovana (Restricted To Pulmonology/Resp) -) 1 amp NEB BID [facility] Last Admin: 06/08/16 10:20 Dose: 1 amp Atorvastatin Calcium (Lipitor -) 10 mg PO HS [facility] Last Admin: 06/07/16 21:50 Dose: 10 mg Chlordiazepoxide HCl (Librium -) 25 mg PO Q4H PRN PRN Reason: WITHDRAWAL(CONT SUBST) Stop: 06/11/16 10:39 Chlordiazepoxide HCl (Librium -) 25 mg PO [id number] [facility] Stop: 06/09/16 05:01 Chlordiazepoxide HCl (Librium -) 20 mg PO [id number] [facility] Stop: 06/10/16 05:01 Chlordiazepoxide HCl (Librium -) 10 mg PO [id number] [facility] Stop: 06/11/16 05:01 Enoxaparin Sodium (Lovenox -) 70 mg SQ BID [facility] Last Admin: 06/08/16 10:41 Dose: 70 mg Levofloxacin (Levaquin 500 Mg Premixed Ivpb -) 100 mls @ 100 mls/hr IVPB DAILY [facility] Last Admin: 06/08/16 10:41 Dose: 100 mls/hr Folic Acid 1 mg/ Thiamine HCl 100 mg/ Multivitamins/Minerals 10 ml/ Sodium Chloride 1,000 mls @ 125 mls/hr IVPB DAILY@0800 [facility] Last Admin: 06/07/16 08:07 Dose: 125 mls/hr Insulin Aspart (Novolog Vial Sliding Scale -) 1 vial SQ ACHS [facility] PRN Reason: Protocol Last Admin: 06/08/16 06:24 Dose: Not Given Lidocaine/Aluminum/Magnesium/Simeth (Magic Mouthwash *Sjr Formula* -) 5 ml MM Q6HPO [facility] Last Admin: 06/08/16 06:45 Dose: Not Given Losartan Potassium (Cozaar -) 100 mg PO DAILY [facility] Last Admin: 06/08/16 10:39 Dose: Not Given Metoprolol Tartrate (Lopressor -) 12.5 mg PO BID [facility] Last Admin: 06/08/16 10:39 Dose: Not Given Nystatin (Nystatin Oral Suspension -) 500,000 units PO Q6HPO [facility] Last Admin: 06/08/16 06:26 Dose: 500,000 units Pantoprazole Sodium (Protonix -) 20 mg PO DAILY [facility] Last Admin: 06/08/16 10:41 Dose: 20 mg Pneumococcal 13-Valent Conj Vacc (Prevnar 13 Syringe -) 0.5 ml IM .ONCE ONE Stop: 06/06/16 19:03 - Objective Vital Signs: Vital Signs Temperature 99.9 F H 06/08/16 05:00 Pulse Rate 76 06/08/16 05:00 Respiratory Rate 20 06/08/16 05:00 Blood Pressure 99/60 06/08/16 05:00 O2 Sat by Pulse Oximetry (%) 91 L 06/07/16 20:00 Constitutional: Yes: No Distress, Calm Cardiovascular: Yes: Pulse Irregular Respiratory: Yes: Diminished Gastrointestinal: Yes: Normal Bowel Sounds, Soft, Abdomen, Obese. No: Distention, Tenderness Edema: No Psychiatric: Yes: Alert Labs: CBC, BMP 06/07/16 09:10 06/08/16 05:40 Problem List - Problems (1) Alcohol withdrawal Code(s): F10.239 - ALCOHOL DEPENDENCE WITH WITHDRAWAL, UNSPECIFIED Qualifiers : Complication of substance-induced condition: with unspecified complication Qualified Code(s): F10.239 - Alcohol dependence with withdrawal, unspecified (2) Aortic regurgitation Code(s): I35.1 - NONRHEUMATIC AORTIC (VALVE) INSUFFICIENCY (3) GERD (gastroesophageal reflux disease) Code(s): K21.9 - GASTRO-ESOPHAGEAL REFLUX DISEASE WITHOUT ESOPHAGITIS Qualifiers: Esophagitis presence: without esophagitis Qualified Code(s): K21.9 - Gastro-esophageal reflux disease without esophagitis (4) Paroxysmal atrial fibrillation Code(s): I48.0 - PAROXYSMAL ATRIAL FIBRILLATION (5) Pulmonary embolism Code(s): I26.99 - OTHER PULMONARY EMBOLISM WITHOUT ACUTE COR PULMONALE (6) Renal insufficiency Code(s): N28.9 - DISORDER OF KIDNEY AND URETER, UNSPECIFIED (7) Thrush Code(s): B37.0 - CANDIDAL STOMATITIS (8) Viral respiratory illness Code(s): J98.8 - OTHER SPECIFIED RESPIRATORY DISORDERS B97.89 - OT VIRAL AGENTS THE CAUSE OF DISEASES CLASSD ELSWHR Assessment/Plan PLAN -- Still has low grade fever, normal WBC -- HIV test pending -- cultures negative-- possibly viral fever -- CXR clear -- on Lovenox for PE- indeterminate on V/Q scan -- creatinine still elevated -- pending CT chest -- change fluids -- Librium protocol -- fall precautions -- check echo today -- cardiology eval
--- NOTE | 2016-06-08 13:46 | PN ---
Progress Note (short form) - Note Progress Note: awake and alert no complaints no cough Vital Signs Period Temp Pulse Resp BP Sys/Sharma Pulse Ox Last 24 Hr 98.5 F-101.6 F 70-94 20-20 91-111/50-62 89-99 cor-rrr lungs clear abd soft,nt ext no edema esr 122 CBC, BMP 06/07/16 09:10 06/08/16 05:40 Microbiology 06/05/16 22:48 Blood - Peripheral Venous Blood Culture - Preliminary NO GROWTH OBTAINED AFTER 48 HOURS, INCUBATION TO CONTINUE FOR 3 DAYS. 06/05/16 23:12 Blood - Peripheral Venous Blood Culture - Preliminary NO GROWTH OBTAINED AFTER 48 HOURS, INCUBATION TO CONTINUE FOR 3 DAYS. 06/05/16 21:50 Nasopharyngeal Swab Respiratory Virus Panel - Preliminary 06/05/16 21:50 Nasopharyngeal Swab Influenza Types A,B Antigen (REGAN) - Final 06/05/16 21:50 Nasopharyngeal Swab - Final a/p fevers elevated esr hypoxia intermediate VQ scan etoh use on librium continue levaquin day #3 if creatinine improves she will have chest ct- echo pending collagen vascular w/u pending
[2016-06-08] MEDS: POTASSIUM CHLORIDE 10 MEQ in SODIUM CHLORIDE 1,000 ML IVPB SCH ×2 (15:25→22:54)
--- NOTE | 2016-06-08 15:55 | CONSULT ---
Consult Detox [facility] Reason for Current Admission/Consult: ALCOHOL WITHDRAWAL SX. Referred by:: FRED LE MD - History History of Present Illness: 61 Y/O WOMAN WITH HX. OF ALCOHOLISM IS ADMITTED WITH SOB,DIFFICULTY WALKING & WITHDRAWAL SX. PT. ADMITS TO PREVIOUS ALCOHOL TREATMENT AND SOBRIETY X 10 YRS.? - History Source History Provided By: Patient, Medical Record - Alcohol/Substance Use Hx Alcohol Use: Yes (1/2 pint of vodka daily) - Current Drug/Alcohol Use Alcohol Route: Oral Frequency: Daily Amount used: VODKA 1/2 PINT Age of first use: 19 Date of Last Use: 06/05/16 - Past Medical History Cardio/Vascular: Yes: AFIB, HTN, Hyperlipdemia, Murmur Gastrointestinal: Yes: GERD ENT: Yes: Other (early cataracts) Endocrine: Yes: Diabetes Mellitus (NIDDM- diet controlled, diagnosed > 10 years ago; self d/c'd metformin due to weight loss) - Past Surgical History Past Surgical History: Yes: None - Significant Medical Findings: Laboratory Last Values WBC 5.5 K/mm3 (4.0-10.0) 06/07/16 09:10 RBC 3.12 M/mm3 (3.60-5.2) L 06/07/16 09:10 Hgb 10.0 GM/dL (10.7-15.3) L 06/07/16 09:10 Hct 30.2 % (32.4-45.2) L 06/07/16 09:10 MCV 96.7 fl (80-96) H 06/07/16 09:10 MCHC 33.1 g/dl (32.0-36.0) 06/07/16 09:10 RDW 14.0 % (11.6-15.6) 06/07/16 09:10 Plt Count 272 K/MM3 (134-434) 06/07/16 09:10 MPV 7.8 fl (7.5-11.1) 06/07/16 09:10 Neutrophils % 70.4 % (42.8-82.8) 06/07/16 09:10 Lymphocytes % 17.6 % (8-40) 06/07/16 09:10 Monocytes % 9.5 % (3.8-10.2) 06/07/16 09:10 Eosinophils % 1.5 % (0-4.5) 06/07/16 09:10 Basophils % 1.0 % (0-2.0) 06/07/16 09:10 ESR 122 mm/hr (0-30) H 06/07/16 09:10 D-Dimer 355 ng/ml (<200-235) H 06/07/16 13:53 Sodium 139 mmol/L (136-145) 06/08/16 05:40 Potassium 4.2 mmol/L (3.5-5.1) 06/08/16 05:40 Chloride 110 mmol/L (98-107) H 06/08/16 05:40 Carbon Dioxide 20 mmol/L (21-32) L 06/08/16 05:40 Anion Gap 9 (8-16) 06/08/16 05:40 BUN 10 mg/dL (7-18) 06/08/16 05:40 Creatinine 1.2 mg/dL (0.55-1.02) H 06/08/16 05:40 Creat Clearance w eGFR 41.50 (>60) 06/07/16 09:10 POC Glucometer 185 UNITS (()) 06/08/16 12:14 Random Glucose 136 mg/dL (74-106) H 06/08/16 05:40 Hemoglobin A1c % 9.8 % (4.8-6.0) H D 06/06/16 05:45 Lactic Acid 1.165 mmol/L (0.4-2.0) 06/05/16 23:13 Calcium 7.1 mg/dL (8.5-10.1) L 06/08/16 05:40 Magnesium 1.0 mg/dL (1.8-2.4) L D 06/06/16 05:45 Total Bilirubin 0.4 mg/dL (0.2-1.0) D 06/07/16 09:10 AST 30 U/L (15-37) D 06/07/16 09:10 ALT 18 U/L (12-78) 06/07/16 09:10 Alkaline Phosphatase 81 U/L (45-117) 06/07/16 09:10 Total Protein 5.5 g/dl (6.4-8.2) L 06/07/16 09:10 Albumin 2.2 g/dl (3.4-5.0) L 06/07/16 09:10 Urine Color Straw 06/05/16 17:50 Urine Appearance Clear 06/05/16 17:50 Urine pH 6.0 (5.0-8.0) 06/05/16 17:50 Ur Specific [place] 1.003 (1.001-1.035) 06/05/16 17:50 Urine Protein Negative (NEGATIVE) 06/05/16 17:50 Urine Glucose (UA) 1+ (NEGATIVE) H 06/05/16 17:50 Urine Ketones Negative (NEGATIVE) 06/05/16 17:50 Urine Blood Negative (NEGATIVE) 06/05/16 17:50 Urine Nitrite Negative (NEGATIVE) 06/05/16 17:50 Urine Bilirubin Negative (NEGATIVE) 06/05/16 17:50 Urine Urobilinogen Negative E.U./dl (0.2-1.0) 06/05/16 17:50 Ur Leukocyte Esterase Negative (NEGATIVE) 06/05/16 17:50 Alcohol, Quantitative 88.7 mg/dl (0-5) H* 06/05/16 17:50 Acetone, Qual Negative (NEGATIVE) L 06/05/16 17:50 Rheumatoid Factor < 10.0 IU/mL (0-15) 06/07/16 09:10 LABS NOTED CIWA Score - CIWA Score Nausea/Vomitin-Mild Nausea/No Vomiting Muscle Tremors: 4-Moderate,w/Arms Extend Anxiety: 4-Mod. Anxious/Guarded Agitation: 3 Paroxysmal Sweats: 3 Orientation: 0-Oriented Tacttile Disturbances: 1-Very Mild Itch/Numbness Auditory Disturbances: 0-None Visual Disturbances: 0-None Headache: 0-None Present CIWA-Ar Total Score: 16 Assessment Plan - Diagnosis (1) Alcohol dependence with uncomplicated withdrawal Status: Acute - Plan Plan: DETOX WITH LIBRIUM - Medication Detox Regimen/Protocol: Librium
--- NOTE | 2016-06-08 16:24 | CON.CARD ---
Consult Consult Specialty:: cardio Referred by:: liz Reason for Consultation:: sob - History of Present Illness Chief Complaint: same History of Present Illness: 61 year old female admitted 06/05 with sob. As per friend, the patient mixed some of her medications with ETOH (smirnoff) before the onset of her symptoms. she denied any associated chest pain, palpitations, or diaphoresis to ER. had been rx'd prednisone as outpt and had continued it for unknown duration of time, resulting in elevated blood glucose recently. also c/o diffuse body pains. to me, she denies sob and cannot elaborate why she came to the ER on DOA-- states it had to do with the prednisone she was taking. she states she was breathing thru her mouth and this explains her breathlessness feeling she was experiencing, and denies overt sob. she denies cp or palpitations says was dx'd with afib about 1 mo ago and started on xarelto then noted to have hi fever in hospital, with hi ESR but no obvious source of infection. hypoxic to 86% on RA. being tested for HIV. being tx'd for etoh withdrawal. she had V/Q with intermediate prob of PE--treated by pulm with full dose AC ( lovenox), while await creatinine trend with IVF and plan for possible CTA later PMH: ETOH abuse, DM2, GERD, hypertension, hyperlipidemia, parox AF - Past Medical History Cardio/Vascular: Yes: AFIB, HTN, Hyperlipdemia, Murmur Gastrointestinal: Yes: GERD ENT: Yes: Other (early cataracts) Endocrine: Yes: Diabetes Mellitus (NIDDM- diet controlled, diagnosed > 10 years ago; self d/c'd metformin due to weight loss) - Past Surgical History Past Surgical History: Yes: None - Alcohol/Substance Use Hx Alcohol Use: Yes (1/2 pint of vodka daily) History of Substance Use: reports: None - Smoking History Smoking history: Former smoker Have you smoked in the past 12 months: No Aproximately how many cigarettes per day: 0 If you are a former smoker, when did you quit?: 30 years ago - Social History ADL: Independent 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 History of Recent Travel: No Home Medications - Allergies Allergies/Adverse Reactions: Allergies Allergy/AdvReac Type Severity Reaction Status Date / Time No Known Allergies Allergy Verified 05/05/16 21:51 - Home Medications Home Medications: Ambulatory Orders Losartan Potassium 100 mg PO DAILY 07/08/15 Omeprazole 20 mg PO DAILY 07/08/15 Metoprolol Tartrate [Lopressor -] 12.5 mg PO BID #60 tablet 07/10/15 Amlodipine Besylate [Norvasc -] 5 mg PO DAILY 06/05/16 Atorvastatin Ca [Lipitor] 20 mg PO HS 06/05/16 Glipizide [Glucotrol -] 0 mg PO DAILY 06/05/16 Rivaroxaban [Xarelto -] 20 mg PO DAILY 06/06/16 Family Disease History - Family Disease History Family Disease History: Heart Disease: Father (50 ), CA: Mother (lung 72 ), Other: Sister (? uterine Ca-58, alive) Review of Systems - Review of Systems Constitutional: denies: Chills, Fever Eyes: denies: Eye Pain HENT: denies: Nasal Congestion Neck: denies: Stiffness Cardiovascular: denies: Palpitations Respiratory: denies: Orthopnea, PND Gastrointestinal: denies: Diarrhea, Rectal Bleeding Genitourinary: denies: Burning, Hematuria Musculoskeletal: denies: Muscle Pain Integumentary: denies: Rash Neurological: denies: Numbness, Seizure, Syncope Endocrine: denies: Excessive Sweating Hematology/Lymphatic: denies: Excessive Bleeding Vital Signs: Vital Signs Temperature 98.4 F 06/08/16 14:15 Pulse Rate 72 06/08/16 14:15 Respiratory Rate 20 06/08/16 14:15 Blood Pressure 104/69 06/08/16 14:15 O2 Sat by Pulse Oximetry (%) 99 06/08/16 10:00 Constitutional: Yes: Well Nourished, No Distress Eyes: No: Sclera Icterus HENT: No: Nasal Congestion Neck: No: Decreased ROM Respiratory: Yes: CTA Bilaterally. No: Accessory Muscle Use, Rales, Wheezes Gastrointestinal: Yes: Normal Bowel Sounds. No: Distention, Hepatomegaly, Palpable Mass, Tenderness Cardiovascular: Yes: Regular Rate and Rhythm JVD: No Carotid Bruit: No PMI: Non-Displaced Heart Sounds: Yes: S1, S2. No: Gallop Murmur: No: Systolic Murmur, Diastolic Murmur Musculoskeletal: Yes: Other (No kyphosis) Extremities: No: Cold, Cyanosis Edema: No Peripheral Pulses: 2+ Left Carotid, 2+ Right Carotid, 2+ Left Doralis Pedis, 2+ Right Dorsalis Pedis Integumentary: No: Jaundice Neurological: Yes: Alert. No: Seizure Psychiatric: No: Agitated - Other Data Labs, Other Data: CBC, BMP 06/07/16 09:10 06/08/16 05:40 Laboratory Tests 06/06/16 06/07/16 06/07/16 05:45 09:10 09:10 WBC 5.5 Hgb 10.0 L Plt Count 272 Sodium Potassium Carbon Dioxide BUN Creatinine Hemoglobin A1c % 9.8 H D AST 30 D ALT 18 06/08/16 05:40 WBC Hgb Plt Count Sodium 139 Potassium 4.2 Carbon Dioxide 20 L BUN 10 Creatinine 1.2 H Hemoglobin A1c % AST ALT ekg x 2: sinus tach 100s, normal axis/intervals; no path q's; nonsp TWA inferior (no old) tele: NSR Imaging - Results Chest X-ray: Report Reviewed Assessment/Plan Echo 06/08/16: nl LV/EF, no RWMA; nl RV; nl LA; mild-mod AI, mild MR; RVSP 30-40 fever: -hi fever, sed rate 122 -treated with prednisone for ? T.A. as outpt -BCx's here NGTD, no vegetations seen on echo -infectious w/u per ID -? rheum w/u--defer to pmd hypoxia, ? sob (equivocal history): -CXR has remained clear with no signs infiltrate or congestion -clinically euvolemic without signs of volume excess -V/Q intermediate, with plans for CTA once creatinine is acceptable -of note, large airways dz suggested by the ventilation part of V/Q scan--? copd --defer to pulm (outpt PFTs? empiric MDIs?) paroxysmal AFib: -d/w'd dr hill/harshil--dr cook has been treating pt in office for paroxysmal afib with xarelto -AC changed to lovenox here when was nauseated in ER, for more reliable drug administration due to concerns of not being able to take PO -CHADS-VASC score = 3, for which AC is reasonable for cva prevention; however, the safety of this approach will need to be re-evaluated based on whether or not pt is to continue abusing etoh--will defer this assessment to dr cook who will continue to follow pt as outpt HTN: -bp controlled, to at times low (sbp 90s), in setting of w/u for ongoing infection/sepsis -hold amlodpine 10mg, cont losartan -trend bp's DM2, uncontrolled with hyperglycemia: -A1c 9s% here -per pmd thrush: -tx per pmd/ID NO INDICATION FOR ONGOING TELE MONITORING--D/C'D
[2016-06-08] MEDS ORDERED: PNEUMOCOCCAL 23 VACCINE 0.5 ML VIAL IM ONE (17:00)
[2016-06-08] MEDS: THIAMINE HCL 100 MG TABLET (FP) PO SCH (22:43)
[2016-06-08] MEDS: ATORVASTATIN CA 10 MG TABLET (FP) PO SCH (22:43)
[2016-06-09] MEDS: NYSTATIN 500,000 UNITS/5 ML SUSPENSION PO SCH ×4 (00:29→18:29)
[2016-06-09] MEDS: MAG HYDROX/ALH/SMC/DPHA/LIDO 240 ML MOUTHWASH MM SCH ×4 (00:29→18:29)
[2016-06-09] MEDS: chlordiazePOXIDE HCL 25 MG CAPSULE PO SCH (05:30)
[2016-06-09] MEDS: INSULIN SLIDING SCALE (NOVOLOG) 1 VIAL SQ SCH ×4 (06:10→23:36)
[2016-06-09 08:16] LABS: MCH 31.4 pg (25.7-33.7); MCHC 32.9 g/dl (32.0-36.0); MEAN CELL VOLUME 95.4 fl (80-96); PLATELET COUNT 253 K/MM3 (134-434); RDW 14.1 % (11.6-15.6); WHITE BLOOD COUNT 4.9 K/mm3 (4.0-10.0)
[2016-06-09 09:10] LABS: CALCIUM 7.1 mg/dL (8.5-10.1); CREATININE 1.2 mg/dL (0.55-1.02)
[2016-06-09 09:36] LABS: HIV 1 & 2 AB NEGATIVE; HIV 1 AGp24 NEGATIVE
[2016-06-09] MEDS: ARFORMOTEROL TARTRATE 15 MCG/2 ML VIAL NEB SCH ×2 (09:50→23:26)
[2016-06-09] MEDS: LOSARTAN POTASSIUM 50 MG TABLET (FP) PO SCH (11:00)
[2016-06-09] MEDS: FOLIC ACID 1 MG TABLET (FP) PO SCH (11:00)
[2016-06-09] MEDS ORDERED: TUBERCULIN PPD 5 TU/0.1ML SYRINGE (IN PATIENT USE ONLY) ID ONE (11:00)
[2016-06-09] MEDS: MULTIVITAMINS (DAILY MVI) TABLET (FP) PO SCH (11:00)
[2016-06-09] MEDS: THIAMINE HCL 100 MG TABLET (FP) PO SCH ×2 (11:00→22:46)
[2016-06-09] MEDS: METOPROLOL TARTRATE 25 MG TABLET (FP) PO SCH ×2 (11:00→22:46)
[2016-06-09] MEDS: LEVOFLOXACIN 500 MG IVPB 100 ML IVPB SCH (11:00)
[2016-06-09] MEDS ORDERED: chlordiazePOXIDE 5 MG CAPSULE PO SCH (11:00)
[2016-06-09] MEDS: PANTOPRAZOLE 20 MG TABLET (FP) PO SCH (11:00)
[2016-06-09] MEDS ORDERED: chlordiazePOXIDE HCL 25 MG CAPSULE PO PRN (11:18)
--- NOTE | 2016-06-09 11:24 | PN ---
Progress Note, Physician Chief Complaint: Febrile yesterday and today She is coughing bloody sputum into the tissues feels weak and has body aches - Current Medication List Current Medications: Active Medications Acetaminophen (Tylenol -) 650 mg PO Q6H PRN PRN Reason: FEVER OR PAIN Last Admin: 06/08/16 20:10 Dose: 650 mg Arformoterol Tartrate (Brovana (Restricted To Pulmonology/Resp) -) 1 amp NEB BID [facility] Last Admin: 06/09/16 09:50 Dose: 1 amp Atorvastatin Calcium (Lipitor -) 10 mg PO HS [facility] Last Admin: 06/08/16 22:43 Dose: 10 mg Chlordiazepoxide HCl (Librium -) 25 mg PO Q4H PRN PRN Reason: WITHDRAWAL(CONT SUBST) Stop: 06/11/16 10:39 Chlordiazepoxide HCl (Librium -) 25 mg PO Q6H PRN PRN Reason: WITHDRAWAL(CONT SUBST) Enoxaparin Sodium (Lovenox -) 70 mg SQ BID [facility] Last Admin: 06/08/16 22:42 Dose: 70 mg Folic Acid (Folic Acid -) 1 mg PO DAILY [facility] Levofloxacin (Levaquin 500 Mg Premixed Ivpb -) 100 mls @ 100 mls/hr IVPB DAILY [facility] Last Admin: 06/08/16 10:41 Dose: 100 mls/hr Potassium Chloride 10 meq/ (Sodium Chloride) 1,005 mls @ 83 mls/hr IVPB Q12H [facility] Last Admin: 06/08/16 22:54 Dose: 83 mls/hr Insulin Aspart (Novolog Vial Sliding Scale -) 1 vial SQ ACHS [facility] PRN Reason: Protocol Last Admin: 06/09/16 06:10 Dose: Not Given Lidocaine/Aluminum/Magnesium/Simeth (Magic Mouthwash *Sjr Formula* -) 5 ml MM Q6HPO [facility] Last Admin: 06/09/16 06:09 Dose: 5 ml Losartan Potassium (Cozaar -) 50 mg PO DAILY [facility] Last Admin: 06/08/16 12:33 Dose: Not Given Metoprolol Tartrate (Lopressor -) 12.5 mg PO BID [facility] Last Admin: 06/08/16 22:43 Dose: 12.5 mg Multivitamins/Minerals/Vitamin C (Tab-A-Vit -) 1 tab PO DAILY [facility] Nystatin (Nystatin Oral Suspension -) 500,000 units PO Q6HPO [facility] Last Admin: 06/09/16 06:09 Dose: 500,000 units Pantoprazole Sodium (Protonix -) 20 mg PO DAILY [facility] Last Admin: 06/08/16 10:41 Dose: 20 mg Thiamine HCl (Vitamin B1 -) 100 mg PO BID [facility] Last Admin: 06/08/16 22:43 Dose: 100 mg - Objective Vital Signs: Vital Signs Temperature 98.2 F 06/09/16 06:00 Pulse Rate 75 06/09/16 06:00 Respiratory Rate 19 06/09/16 06:00 Blood Pressure 98/61 06/09/16 06:00 O2 Sat by Pulse Oximetry (%) 96 06/09/16 06:00 Constitutional: Yes: Mild Distress Cardiovascular: Yes: Regular Rate and Rhythm Respiratory: Yes: Diminished, Rales Gastrointestinal: Yes: Normal Bowel Sounds, Soft. No: Distention, Tenderness Edema: No Psychiatric: Yes: Alert, Oriented, Other (weak, sleepy) Labs: CBC, BMP 06/09/16 05:38 06/09/16 05:38 Problem List - Problems (1) Alcohol withdrawal Code(s): F10.239 - ALCOHOL DEPENDENCE WITH WITHDRAWAL, UNSPECIFIED Qualifiers : Complication of substance-induced condition: with unspecified complication Qualified Code(s): F10.239 - Alcohol dependence with withdrawal, unspecified (2) Aortic regurgitation Code(s): I35.1 - NONRHEUMATIC AORTIC (VALVE) INSUFFICIENCY (3) GERD (gastroesophageal reflux disease) Code(s): K21.9 - GASTRO-ESOPHAGEAL REFLUX DISEASE WITHOUT ESOPHAGITIS Qualifiers: Esophagitis presence: without esophagitis Qualified Code(s): K21.9 - Gastro-esophageal reflux disease without esophagitis (4) Paroxysmal atrial fibrillation Code(s): I48.0 - PAROXYSMAL ATRIAL FIBRILLATION (5) Pulmonary embolism Code(s): I26.99 - OTHER PULMONARY EMBOLISM WITHOUT ACUTE COR PULMONALE (6) Renal insufficiency Code(s): N28.9 - DISORDER OF KIDNEY AND URETER, UNSPECIFIED (7) Thrush Code(s): B37.0 - CANDIDAL STOMATITIS (8) Viral respiratory illness Code(s): J98.8 - OTHER SPECIFIED RESPIRATORY DISORDERS B97.89 - OTH VIRAL AGENTS THE CAUSE OF DISEASES CLASSD ELSWHR Assessment/Plan PLAN -- fever with normal WBC -- HIV negative -- she has h/o positive PPD -- previous CXR did not show infiltrates -- hemoptysis due to Lovenox or PE ? -- on isolation -- ID follow up -- check sputum cultures, AFB -- on Lovenox for PE- indeterminate on V/Q scan -- creatinine same-- maybe her baseline now-- will speak to pulmonary on getting CT chest with contrast using mucomyst and fluids -- Librium as needed now-- she did not receive yesterday or today as she was too sleepy -- fall precautions -- Echo noted -- cardiology eval appreciated
--- NOTE | 2016-06-09 11:31 | PN ---
Progress Note (short form) - Note Progress Note: s: no cp palps dizzy; sob better o: Vital Signs Period Temp Pulse Resp BP Sys/Sharma Pulse Ox Last 24 Hr 98.2 F-101 F 72-100 18-20 96-112/51-69 96-99 Constitutional: Yes: Well Nourished, No Distress Eyes: No: Sclera Icterus Respiratory: Yes: CTA Bilaterally. No: Accessory Muscle Use, Rales, Wheezes Gastrointestinal: Yes: Normal Bowel Sounds. No: Distention, Hepatomegaly, Palpable Mass, Tenderness Cardiovascular: Yes: Regular Rate and Rhythm JVD: No Heart Sounds: Yes: S1, S2. No: Gallop Murmur: No: Systolic Murmur, Diastolic Murmur Extremities: No: Cold, Cyanosis Edema: No Integumentary: No: Jaundice Neurological: Yes: Alert. No: Seizure Psychiatric: No: Agitated Current Medications Generic Name Dose Route Start Last Admin Trade Name Freq PRN Reason Stop Dose Admin Acetaminophen 650 mg 06/05/16 21:15 06/08/16 20:10 Tylenol - PO 650 mg Q6H PRN Administration FEVER OR PAIN Arformoterol Tartrate 1 amp 06/07/16 22:00 06/09/16 09:50 Brovana (Restricted To Pulmonology/Resp) - NEB 1 amp BID [facility] Administration Atorvastatin Calcium 10 mg 06/05/16 22:00 06/08/16 22:43 Lipitor - PO 10 mg HS [facility] Administration Chlordiazepoxide HCl 25 mg 06/08/16 10:40 Librium - PO 06/11/16 10:39 Q4H PRN WITHDRAWAL(CONT SUBST) Chlordiazepoxide HCl 25 mg 06/09/16 11:18 Librium - PO Q6H PRN WITHDRAWAL(CONT SUBST) Enoxaparin Sodium 70 mg 06/07/16 22:00 06/08/16 22:42 Lovenox - SQ 70 mg BID [facility] Administration Folic Acid 1 mg 06/09/16 10:00 Folic Acid - PO DAILY [facility] Levofloxacin 100 mls @ 100 mls/hr 06/06/16 10:00 06/08/16 10:41 Levaquin 500 Mg Premixed Ivpb - IVPB 100 mls/hr DAILY [facility] Administration Potassium Chloride 10 meq/ 1,005 mls @ 83 mls/hr 06/08/16 11:15 06/08/16 22:54 Sodium Chloride IVPB 83 mls/hr Q12H [facility] Administration Insulin Aspart 1 vial 06/05/16 22:00 06/09/16 06:10 Novolog Vial Sliding Scale - SQ Not Given ACHS [facility] Protocol Lidocaine/Aluminum/Magnesium/Simeth 5 ml 06/06/16 00:00 06/09/16 06:09 Magic Mouthwash *Sjr Formula* - MM 5 ml Q6HPO [facility] Administration Losartan Potassium 50 mg 06/08/16 12:00 06/08/16 12:33 Cozaar - PO Not Given DAILY [facility] Metoprolol Tartrate 12.5 mg 06/05/16 22:00 06/08/16 22:43 Lopressor - PO 12.5 mg BID [facility] Administration Multivitamins/Minerals/Vitamin C 1 tab 06/09/16 10:00 Tab-A-Vit - PO DAILY [facility] Nystatin 500,000 units 06/07/16 18:00 06/09/16 06:09 Nystatin Oral Suspension - PO 500,000 units Q6HPO [facility] Administration Pantoprazole Sodium 20 mg 06/06/16 10:00 06/08/16 10:41 Protonix - PO 20 mg DAILY [facility] Administration Thiamine HCl 100 mg 06/08/16 22:00 06/08/16 22:43 Vitamin B1 - PO 100 mg BID [facility] Administration CBC, BMP 06/09/16 05:38 06/09/16 05:38 ekg x 2: sinus tach 100s, normal axis/intervals; no path q's; nonsp TWA inferior (no old) tele: SR Echo 06/08/16: nl LV/EF, no RWMA; nl RV; nl LA; mild-mod AI, mild MR; RVSP 30-40 Assessment/Plan fever: -hi fever, sed rate 122 -treated with prednisone for ? T.A. as outpt -BCx's here NGTD, no vegetations seen on echo -infectious w/u per ID -? rheum w/u--defer to pmd hypoxia, ? sob (equivocal history): -CXR has remained clear with no signs infiltrate or congestion -clinically euvolemic without signs of volume excess -V/Q intermediate, with plans for CTA once creatinine is acceptable -of note, large airways dz suggested by the ventilation part of V/Q scan--? copd --defer to pulm paroxysmal AFib: -d/w'd dr hill/harshil--dr cook has been treating pt in office for paroxysmal afib with xarelto -AC changed to lovenox here when was nauseated in ER, for more reliable drug administration due to concerns of not being able to take PO -CHADS-VASC score = 3, for which AC is reasonable for cva prevention; however, the safety of this approach will need to be re-evaluated based on whether or not pt is to continue abusing etoh--will defer this assessment to dr cook who will continue to follow pt as outpt HTN: -bp controlled, to at times low (sbp 90s), in setting of w/u for ongoing infection/sepsis -hold amlodpine 10mg, cont losartan -trend bp's DM2, uncontrolled with hyperglycemia: -A1c 9s% here -per pmd NO INDICATION FOR ONGOING TELE MONITORING--D/C'D
[2016-06-09 11:47] LABS: MCH 31.2 pg (25.7-33.7); MCHC 32.8 g/dl (32.0-36.0); MEAN CELL VOLUME 95.3 fl (80-96); PLATELET COUNT 261 K/MM3 (134-434); RDW 14.3 % (11.6-15.6); WHITE BLOOD COUNT 5.6 K/mm3 (4.0-10.0)
[2016-06-09] MEDS: POTASSIUM CHLORIDE 10 MEQ in SODIUM CHLORIDE 1,000 ML IVPB SCH (14:56)
[2016-06-09] MEDS: ENOXAPARIN NA (PORCINE) 80 MG/0.8 ML DISP.SYRIN SQ SCH (14:56)
--- NOTE | 2016-06-09 15:00 | PN ---
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 06/05/16 23:12 Blood - Peripheral Venous Blood Culture - Preliminary NO GROWTH OBTAINED AFTER 72 HOURS, INCUBATION TO CONTINUE FOR 2 DAYS. 06/05/16 21:50 Nasopharyngeal Swab Respiratory Virus Panel - Preliminary 06/05/16 21:50 Nasopharyngeal Swab Influenza Types A,B Antigen (REGAN) - Final 06/05/16 21:50 Nasopharyngeal Swab - Final a/p fever etoh withdrawal on a/c for intermediate probability v/q scan hemoptysis- now with bilateral infiltrates on cxray d/c levaquin afb isolation sputum afb, quant gold chest ct to evaluate infiltrates sputum culture new infiltrates on cxray - switch to cefepime/flagyl d/w pulmonary
--- NOTE | 2016-06-09 15:07 | PN ---
Progress Note (short form) - Note Progress Note: PULMONARY LOW GRADE TEMPS/SPO2 89 R/A ANICTERIC BIBASILAR CRACKLES S1S2 BS+ OBESE NO EDEMA/NO CALF TENDERNESS LABS/MEDS/NOTES/MICRO/IMAGING NOTED (1) Alcohol withdrawal Code(s): F10.239 - ALCOHOL DEPENDENCE WITH WITHDRAWAL, UNSPECIFIED Qualifiers : Complication of substance-induced condition: with unspecified complication Qualified Code(s): F10.239 - Alcohol dependence with withdrawal, unspecified (2) GERD (gastroesophageal reflux disease) Code(s): K21.9 - GASTRO-ESOPHAGEAL REFLUX DISEASE WITHOUT ESOPHAGITIS Qualifiers: Esophagitis presence: without esophagitis Qualified Code(s): K21.9 - Gastro-esophageal reflux disease without esophagitis (3) Paroxysmal atrial fibrillation Code(s): I48.0 - PAROXYSMAL ATRIAL FIBRILLATION (4) Renal insufficiency Code(s): N28.9 - DISORDER OF KIDNEY AND URETER, UNSPECIFIED IMPROVING (6) Pulmonary embolism Assessment/Plan: V/Q scan intermediate Code(s): I26.99 - OTHER PULMONARY EMBOLISM WITHOUT ACUTE COR PULMONALE (7) Viral respiratory illness Code(s): J98.8 - OTHER SPECIFIED RESPIRATORY DISORDERS B97.89 - OTH VIRAL AGENTS THE CAUSE OF DISEASES CLASSD ELSWHR Assessment/Plan PLAN: O2 to maintain saturation Lovenox BID IV hydration Jose Eduardo fuentes Monitor for withdrawal CT chest with contrast BD TX ABX per ID WILL FOLLOW Torsten BENTON MD
[2016-06-09] MEDS ORDERED: CEFEPIME HCL 1 GM VIAL (RESTRICTED TO ID) IVPB SCH (15:15)
[2016-06-09] MEDS: METRONIDAZOLE 500 MG PREMIXED 100 ML IVPB SCH (18:29)
[2016-06-09] MEDS: ATORVASTATIN CA 10 MG TABLET (FP) PO SCH (22:46)
[2016-06-09] MEDS: RIVAROXABAN 20 MG TABLET PO SCH (22:47)
[2016-06-09] MEDS: CEFEPIME 1 GM/100 ML BAG PRE-DOCKED IVPB SCH (22:47)
[2016-06-10] MEDS: METRONIDAZOLE 500 MG PREMIXED 100 ML IVPB SCH ×2 (03:00→09:50)
[2016-06-10] MEDS: CEFEPIME 1 GM/100 ML BAG PRE-DOCKED IVPB SCH ×2 (04:08→09:51)
[2016-06-10] MEDS: POTASSIUM CHLORIDE 10 MEQ in SODIUM CHLORIDE 1,000 ML IVPB SCH ×2 (06:53→12:12)
[2016-06-10] MEDS: MAG HYDROX/ALH/SMC/DPHA/LIDO 240 ML MOUTHWASH MM SCH ×3 (06:53→12:13)
[2016-06-10] MEDS: NYSTATIN 500,000 UNITS/5 ML SUSPENSION PO SCH ×3 (06:53→12:13)
[2016-06-10] MEDS: INSULIN SLIDING SCALE (NOVOLOG) 1 VIAL SQ SCH ×2 (06:56→12:12)
[2016-06-10 08:09] LABS: MCH 31.6 pg (25.7-33.7); MEAN CELL VOLUME 95.6 fl (80-96); MEAN PLT VOLUME 7.6 fl (7.5-11.1); PLATELET COUNT 292 K/MM3 (134-434); RDW 14.4 % (11.6-15.6); WHITE BLOOD COUNT 5.5 K/mm3 (4.0-10.0)
[2016-06-10 08:55] LABS: CALCIUM 7.7 mg/dL (8.5-10.1); CREATININE 1.2 mg/dL (0.55-1.02)
[2016-06-10] MEDS: FOLIC ACID 1 MG TABLET (FP) PO SCH (09:52)
[2016-06-10] MEDS: RIVAROXABAN 20 MG TABLET PO SCH (09:53)
[2016-06-10] MEDS: MULTIVITAMINS (DAILY MVI) TABLET (FP) PO SCH (09:53)
[2016-06-10] MEDS: PANTOPRAZOLE 20 MG TABLET (FP) PO SCH (09:53)
[2016-06-10] MEDS: THIAMINE HCL 100 MG TABLET (FP) PO SCH (09:53)
[2016-06-10] MEDS: METOPROLOL TARTRATE 25 MG TABLET (FP) PO SCH (09:54)
[2016-06-10] MEDS: ARFORMOTEROL TARTRATE 15 MCG/2 ML VIAL NEB SCH (10:30)
--- NOTE | 2016-06-10 10:43 | PN ---
Progress Note, Physician Chief Complaint: awake, alert Not coughing much no further episodes of hemoptysis No SOB No pain wants to go home - Current Medication List Current Medications: Active Medications Acetaminophen (Tylenol -) 650 mg PO Q6H PRN PRN Reason: FEVER OR PAIN Last Admin: 06/08/16 20:10 Dose: 650 mg Arformoterol Tartrate (Brovana (Restricted To Pulmonology/Resp) -) 1 amp NEB BID [facility] Last Admin: 06/09/16 23:26 Dose: 1 amp Atorvastatin Calcium (Lipitor -) 10 mg PO HS [facility] Last Admin: 06/09/16 22:46 Dose: 10 mg Cefepime HCl (Maxipime 1gm Ivpb Pre-Docked) 1 gm IVPB Q8H-IV [facility] Last Admin: 06/10/16 09:51 Dose: 1 gm Chlordiazepoxide HCl (Librium -) 25 mg PO Q4H PRN PRN Reason: WITHDRAWAL(CONT SUBST) Stop: 06/11/16 10:39 Chlordiazepoxide HCl (Librium -) 25 mg PO Q6H PRN PRN Reason: WITHDRAWAL(CONT SUBST) Folic Acid (Folic Acid -) 1 mg PO DAILY [facility] Last Admin: 06/10/16 09:52 Dose: 1 mg Potassium Chloride 10 meq/ (Sodium Chloride) 1,005 mls @ 83 mls/hr IVPB Q12H [facility] Last Admin: 06/10/16 06:53 Dose: Not Given Metronidazole (Flagyl 500mg Premixed Ivpb -) 100 mls @ 100 mls/hr IVPB Q8H-IV [facility] Last Admin: 06/10/16 09:50 Dose: 100 mls/hr Insulin Aspart (Novolog Vial Sliding Scale -) 1 vial SQ ACHS [facility] PRN Reason: Protocol Last Admin: 06/10/16 06:56 Dose: 2 units Lidocaine/Aluminum/Magnesium/Simeth (Magic Mouthwash *Sjr Formula* -) 5 ml MM Q6HPO [facility] Last Admin: 06/10/16 06:53 Dose: Not Given Metoprolol Tartrate (Lopressor -) 12.5 mg PO BID [facility] Last Admin: 06/10/16 09:54 Dose: 12.5 mg Multivitamins/Minerals/Vitamin C (Tab-A-Vit -) 1 tab PO DAILY [facility] Last Admin: 06/10/16 09:53 Dose: 1 tab Nystatin (Nystatin Oral Suspension -) 500,000 units PO Q6HPO [facility] Last Admin: 06/10/16 06:53 Dose: 500,000 units Pantoprazole Sodium (Protonix -) 20 mg PO DAILY [facility] Last Admin: 06/10/16 09:53 Dose: 20 mg Rivaroxaban (Xarelto -) 20 mg PO DAILY [facility] Last Admin: 06/10/16 09:53 Dose: 20 mg Thiamine HCl (Vitamin B1 -) 100 mg PO BID [facility] Last Admin: 06/10/16 09:53 Dose: 100 mg - Objective Vital Signs: Vital Signs Temperature 100.4 F H 06/10/16 05:59 Pulse Rate 78 06/10/16 05:59 Respiratory Rate 20 06/10/16 05:59 Blood Pressure 92/50 06/10/16 05:59 O2 Sat by Pulse Oximetry (%) 96 06/09/16 23:39 Constitutional: Yes: No Distress Cardiovascular: Yes: Regular Rate and Rhythm Respiratory: Yes: Diminished, Rhonchi Gastrointestinal: Yes: Normal Bowel Sounds, Soft, Abdomen, Obese. No: Distention, Tenderness Edema: No Neurological: Yes: Alert, Oriented Labs: CBC, BMP 06/10/16 06:10 06/10/16 06:10 - ....Imaging Cat Scan: Report Reviewed Problem List - Problems (1) Alcohol withdrawal Code(s): F10.239 - ALCOHOL DEPENDENCE WITH WITHDRAWAL, UNSPECIFIED Qualifiers : Complication of substance-induced condition: with unspecified complication Qualified Code(s): F10.239 - Alcohol dependence with withdrawal, unspecified (2) Aortic regurgitation Code(s): I35.1 - NONRHEUMATIC AORTIC (VALVE) INSUFFICIENCY (3) GERD (gastroesophageal reflux disease) Code(s): K21.9 - GASTRO-ESOPHAGEAL REFLUX DISEASE WITHOUT ESOPHAGITIS Qualifiers: Esophagitis presence: without esophagitis Qualified Code(s): K21.9 - Gastro-esophageal reflux disease without esophagitis (4) Paroxysmal atrial fibrillation Code(s): I48.0 - PAROXYSMAL ATRIAL FIBRILLATION (5) Pulmonary embolism Code(s): I26.99 - OTHER PULMONARY EMBOLISM WITHOUT ACUTE COR PULMONALE (6) Renal insufficiency Code(s): N28.9 - DISORDER OF KIDNEY AND URETER, UNSPECIFIED (7) Thrush Code(s): B37.0 - CANDIDAL STOMATITIS (8) Viral respiratory illness Code(s): J98.8 - OTHER SPECIFIED RESPIRATORY DISORDERS B97.89 - OTH VIRAL AGENTS THE CAUSE OF DISEASES CLASSD ELSWHR (9) Pneumonia Code(s): J18.9 - PNEUMONIA, UNSPECIFIED ORGANISM Assessment/Plan PLAN -- fever with normal WBC -- HIV negative -- Quanteron test pending -- pt is on IV antibiotics for pneumonia -- b/l consolidation and effusion on CT chest-- no PE -- pt is back on Xarelto -- decrease iv fluids -- on isolation -- ID follow up noted -- sputum AFB not sent due to lack of sputum now -- Librium as needed - no evidence of withdrawal -- fall precautions -- will not be able to dc pt home as she is still acute , she needs antibiotics, still febrile
--- NOTE | 2016-06-10 10:44 | PN ---
Progress Note (short form) - Note Progress Note: s: no cp palps dizzy; sob better o: Vital Signs Period Temp Pulse Resp BP Sys/Sharma Pulse Ox Last 24 Hr 97.7 F-100.6 F 76-94 20-20 90-104/50-65 96 Constitutional: Yes: Well Nourished, No Distress Eyes: No: Sclera Icterus Respiratory: Yes: CTA Bilaterally. No: Accessory Muscle Use, Rales, Wheezes Gastrointestinal: Yes: Normal Bowel Sounds. No: Distention, Hepatomegaly, Palpable Mass, Tenderness Cardiovascular: Yes: Regular Rate and Rhythm JVD: No Heart Sounds: Yes: S1, S2. No: Gallop Murmur: No: Systolic Murmur, Diastolic Murmur Extremities: No: Cold, Cyanosis Edema: No Integumentary: No: Jaundice Neurological: Yes: Alert. No: Seizure Psychiatric: No: Agitated Current Medications Generic Name Dose Route Start Last Admin Trade Name Freq PRN Reason Stop Dose Admin Acetaminophen 650 mg 06/05/16 21:15 06/08/16 20:10 Tylenol - PO 650 mg Q6H PRN Administration FEVER OR PAIN Arformoterol Tartrate 1 amp 06/07/16 22:00 06/09/16 23:26 Brovana (Restricted To Pulmonology/Resp) - NEB 1 amp BID [facility] Administration Atorvastatin Calcium 10 mg 06/05/16 22:00 06/09/16 22:46 Lipitor - PO 10 mg HS [facility] Administration Cefepime HCl 1 gm 06/09/16 18:00 06/10/16 09:51 Maxipime 1gm Ivpb Pre-Docked IVPB 1 gm Q8H-IV [facility] Administration Chlordiazepoxide HCl 25 mg 06/08/16 10:40 Librium - PO 06/11/16 10:39 Q4H PRN WITHDRAWAL(CONT SUBST) Chlordiazepoxide HCl 25 mg 06/09/16 11:18 Librium - PO Q6H PRN WITHDRAWAL(CONT SUBST) Folic Acid 1 mg 06/09/16 10:00 06/10/16 09:52 Folic Acid - PO 1 mg DAILY [facility] Administration Potassium Chloride 10 meq/ 1,005 mls @ 83 mls/hr 06/08/16 11:15 06/10/16 06:53 Sodium Chloride IVPB Not Given Q12H [facility] Metronidazole 100 mls @ 100 mls/hr 06/09/16 17:00 06/10/16 09:50 Flagyl 500mg Premixed Ivpb - IVPB 100 mls/hr Q8H-IV [facility] Administration Insulin Aspart 1 vial 06/05/16 22:00 06/10/16 06:56 Novolog Vial Sliding Scale - SQ 2 units ACHS [facility] Administration Protocol Lidocaine/Aluminum/Magnesium/Simeth 5 ml 06/06/16 00:00 06/10/16 06:53 Magic Mouthwash *Sjr Formula* - MM Not Given Q6HPO [facility] Metoprolol Tartrate 12.5 mg 06/05/16 22:00 06/10/16 09:54 Lopressor - PO 12.5 mg BID [facility] Administration Multivitamins/Minerals/Vitamin C 1 tab 06/09/16 10:00 06/10/16 09:53 Tab-A-Vit - PO 1 tab DAILY [facility] Administration Nystatin 500,000 units 06/07/16 18:00 06/10/16 06:53 Nystatin Oral Suspension - PO 500,000 units Q6HPO [facility] Administration Pantoprazole Sodium 20 mg 06/06/16 10:00 06/10/16 09:53 Protonix - PO 20 mg DAILY [facility] Administration Rivaroxaban 20 mg 06/09/16 20:00 06/10/16 09:53 Xarelto - PO 20 mg DAILY [facility] Administration Thiamine HCl 100 mg 06/08/16 22:00 06/10/16 09:53 Vitamin B1 - PO 100 mg BID [facility] Administration CBC, BMP 06/10/16 06:10 06/10/16 06:10 ekg x 2: sinus tach 100s, normal axis/intervals; no path q's; nonsp TWA inferior (no old) Echo 06/08/16: nl LV/EF, no RWMA; nl RV; nl LA; mild-mod AI, mild MR; RVSP 30-40 Assessment/Plan fever: -hi fever, sed rate 122 -treated with prednisone for ? T.A. as outpt -BCx's here NGTD, no vegetations seen on echo -infectious w/u per ID -? rheum w/u--defer to pmd hypoxia, ? sob (equivocal history): -CXR has remained clear with no signs infiltrate or congestion -clinically euvolemic without signs of volume excess -V/Q intermediate, with plans for CTA once creatinine is acceptable -of note, large airways dz suggested by the ventilation part of V/Q scan--? copd --defer to pulm paroxysmal AFib: -d/w'd dr hill/harshil--dr cook has been treating pt in office for paroxysmal afib with xarelto -AC changed to lovenox here when was nauseated in ER, for more reliable drug administration due to concerns of not being able to take PO -CHADS-VASC score = 3, for which AC is reasonable for cva prevention; however, the safety of this approach will need to be re-evaluated based on whether or not pt is to continue abusing etoh--will defer this assessment to dr ocok who will continue to follow pt as outpt HTN: -bp controlled, to at times low (sbp 90s), in setting of w/u for ongoing infection/sepsis -have been holding amlodipine 10mg, will also hold losartan 50. cont bb for now DM2, uncontrolled with hyperglycemia: -A1c 9s% here -per pmd
[2016-06-10 10:57] VITALS: BP 105/50; PULSE 79; TEMP 99
[2016-06-10] MEDS ORDERED: chlordiazePOXIDE 5 MG CAPSULE PO SCH (11:00)
--- NOTE | 2016-06-10 12:00 | PN ---
Progress Note, Physician History of Present Illness: Dyspneic at rest Denies she had hemopytsis No c/o chest pain + low grade fever WBC WNL HIV (-) CT bilateral ground-glass infitrates, bibasilar infiltrates Wants to sign out AMA - Current Medication List Current Medications: Active Medications Acetaminophen (Tylenol -) 650 mg PO Q6H PRN PRN Reason: FEVER OR PAIN Last Admin: 06/08/16 20:10 Dose: 650 mg Arformoterol Tartrate (Brovana (Restricted To Pulmonology/Resp) -) 1 amp NEB BID [facility] Last Admin: 06/09/16 23:26 Dose: 1 amp Atorvastatin Calcium (Lipitor -) 10 mg PO HS [facility] Last Admin: 06/09/16 22:46 Dose: 10 mg Cefepime HCl (Maxipime 1gm Ivpb Pre-Docked) 1 gm IVPB Q8H-IV [facility] Last Admin: 06/10/16 09:51 Dose: 1 gm Chlordiazepoxide HCl (Librium -) 25 mg PO Q4H PRN PRN Reason: WITHDRAWAL(CONT SUBST) Stop: 06/11/16 10:39 Chlordiazepoxide HCl (Librium -) 25 mg PO Q6H PRN PRN Reason: WITHDRAWAL(CONT SUBST) Folic Acid (Folic Acid -) 1 mg PO DAILY [facility] Last Admin: 06/10/16 09:52 Dose: 1 mg Potassium Chloride 10 meq/ (Sodium Chloride) 1,005 mls @ 83 mls/hr IVPB Q12H [facility] Last Admin: 06/10/16 06:53 Dose: Not Given Metronidazole (Flagyl 500mg Premixed Ivpb -) 100 mls @ 100 mls/hr IVPB Q8H-IV [facility] Last Admin: 06/10/16 09:50 Dose: 100 mls/hr Insulin Aspart (Novolog Vial Sliding Scale -) 1 vial SQ ACHS [facility] PRN Reason: Protocol Last Admin: 06/10/16 06:56 Dose: 2 units Lidocaine/Aluminum/Magnesium/Simeth (Magic Mouthwash *Sjr Formula* -) 5 ml MM Q6HPO [facility] Last Admin: 06/10/16 06:53 Dose: Not Given Metoprolol Tartrate (Lopressor -) 12.5 mg PO BID [facility] Last Admin: 06/10/16 09:54 Dose: 12.5 mg Multivitamins/Minerals/Vitamin C (Tab-A-Vit -) 1 tab PO DAILY [facility] Last Admin: 06/10/16 09:53 Dose: 1 tab Nystatin (Nystatin Oral Suspension -) 500,000 units PO Q6HPO [facility] Last Admin: 06/10/16 06:53 Dose: 500,000 units Pantoprazole Sodium (Protonix -) 20 mg PO DAILY [facility] Last Admin: 06/10/16 09:53 Dose: 20 mg Rivaroxaban (Xarelto -) 20 mg PO DAILY [facility] Last Admin: 06/10/16 09:53 Dose: 20 mg Thiamine HCl (Vitamin B1 -) 100 mg PO BID [facility] Last Admin: 06/10/16 09:53 Dose: 100 mg - Objective Vital Signs: Vital Signs Temperature 99.0 F 06/10/16 10:00 Pulse Rate 79 06/10/16 10:00 Respiratory Rate 18 06/10/16 10:00 Blood Pressure 105/50 06/10/16 10:00 O2 Sat by Pulse Oximetry (%) 92 L 06/10/16 09:00 Constitutional: Yes: Other (OOB mildly dyspneic at rest) Eyes: Yes: Conjunctiva Clear Cardiovascular: Yes: Regular Rate and Rhythm, S1, S2 Respiratory: Yes: Diminished Gastrointestinal: Yes: Normal Bowel Sounds, Soft. No: Tenderness Labs: CBC, BMP 06/10/16 06:10 06/10/16 06:10 Assessment/Plan Bilateral pneumonia Hx +PPD Possible hemoptysis- pt denies Encouraged continued impatient care, IV antibiotics, bronchodilators
[2016-06-10] MEDS ORDERED: PT OWN MED DRAWER 7, Y5N ONE (12:08)
--- NOTE | 2016-06-10 13:27 | DS ---
Physical Examination Vital Signs: Vital Signs Temperature 99.0 F 06/10/16 10:00 Pulse Rate 79 06/10/16 10:00 Respiratory Rate 18 06/10/16 10:00 Blood Pressure 105/50 06/10/16 10:00 O2 Sat by Pulse Oximetry (%) 92 L 06/10/16 09:00 Labs: CBC, BMP 06/10/16 06:10 06/10/16 06:10 Discharge Summary Reason For Visit: HYPOGLYCEMIA, THRUSH, ALCOHOL WITHDRAWAL Current Active Problems Aortic regurgitation (Acute) Atypical chest pain (Acute) Chest pain (Acute) GERD (gastroesophageal reflux disease) (Acute) New onset a-fib (Acute) Renal insufficiency (Acute) Hospital Course: see progress note Condition: Stable - Instructions Disposition: AGAINST MEDICAL ADVICE - Home Medications Comprehensive Discharge Medication List: Ambulatory Orders Losartan Potassium 100 mg PO DAILY 07/08/15 Omeprazole 20 mg PO DAILY 07/08/15 Metoprolol Tartrate [Lopressor -] 12.5 mg PO BID #60 tablet 07/10/15 Amlodipine Besylate [Norvasc -] 5 mg PO DAILY 06/05/16 Atorvastatin Ca [Lipitor] 20 mg PO HS 06/05/16 Glipizide [Glucotrol -] 0 mg PO DAILY 06/05/16 Rivaroxaban [Xarelto -] 20 mg PO DAILY 06/06/16
== END 2016-06-10 13:24 | disposition left against medical advice (07) | DRG 894 ==
LOC: JER 21:15 → JERBED 06-06 00:26 → J4W 06-07 19:40
PROVIDERS: ADMIT Internal Medicine; ATTEND Internal Medicine
PROC: HZ2ZZZZ Detoxification Services for Substance Abuse Treatment (ICD-10-PCS; principal; 2016-06-06)
DX: F10.239 Alcohol dependence with withdrawal, unspecified (principal); B37.0 Candidal stomatitis; R04.2 Hemoptysis; I10 Essential (primary) hypertension; I48.0 Paroxysmal atrial fibrillation; K21.9 Gastro-esophageal reflux disease without esophagitis; E78.5 Hyperlipidemia, unspecified; E11.65 Type 2 diabetes mellitus with hyperglycemia; I35.1 Nonrheumatic aortic (valve) insufficiency; N28.9 Disorder of kidney and ureter, unspecified; Z87.891 Personal history of nicotine dependence
CPT/HCPCS: 36415; 71010-TC; 71260-TC; 78582-TC; 80048; 80053; 80307; 81003; 82009; 83036; 83605; 83735; 85025; 85027; 85379; 85651; 86038; 86431; 86480; 87040; 87116; 87206; 87254; 87389; 87804; 93005; 93010; 93306-TC; 94640; 99285-25; A9539; A9540

== ENCOUNTER 2016-07-10 21:31 | Emergency (ER) | payer BC ==
[2016-07-10 21:57] VITALS: BP 120/68; PULSE 71; TEMP 98.1; BMI 19.8
[2016-07-10] MEDS ORDERED: SODIUM CHLORIDE 1,000 ML IV STA (22:06)
[2016-07-10] MEDS ORDERED: METOCLOPRAMIDE HCL INJECTION 10 MG/2 ML VIAL IVPB ONE (22:06)
[2016-07-10] MEDS ORDERED: METOCLOPRAMIDE HCL INJECTION 10 MG/2 ML VIAL ONE (22:14)
[2016-07-10 22:38] LABS: BASOPHIL 0.9 % (0-2.0); EOSINOPHIL 1.4 % (0-4.5); MCH 31.4 pg (25.7-33.7); MCHC 33.1 g/dl (32.0-36.0); MEAN CELL VOLUME 94.7 fl (80-96); MEAN PLT VOLUME 8.4 fl (7.5-11.1); NEUTROPHILS 58.5 % (42.8-82.8); PLATELET COUNT 135 K/MM3 (134-434); RDW 16.3 % (11.6-15.6); WHITE BLOOD COUNT 7.4 K/mm3 (4.0-10.0)
[2016-07-10 23:02] LABS: ALBUMIN 2.8 g/dl (3.4-5.0); BILIRUBIN,TOTAL 0.1 mg/dL (0.2-1.0); CALCIUM 8.4 mg/dL (8.5-10.1); TOT PROT 7.1 g/dl (6.4-8.2)
--- NOTE | 2016-07-11 04:08 | PDOC ---
History of Present Illness - General Chief Complaint: Alcohol intoxication Stated Complaint: INTOXIFICATION Time Seen by Provider: 07/10/16 21:41 History Source: Patient, Significant Other Exam Limitations: Intoxication - History of Present Illness Initial Comments: 07/10/16 22:00 61yo Female patient presented to ED via EMS from home with significant other. Patients' girlfriend called EMS because she found patient vomiting violently after a night of drinking lots of alcohol and then she went unresponsive per girlfriend. She denies head injury but is unsure. Patient denies any other complaints at this time. Past History - Travel Traveled outside of the country in the last 30 days: No Close contact w/someone who was outside of country & ill: No - Past Medical History Allergies/Adverse Reactions: Allergies Allergy/AdvReac Type Severity Reaction Status Date / Time No Known Allergies Allergy Verified 07/10/16 21:53 Home Medications: Ambulatory Orders Losartan Potassium 100 mg PO DAILY 07/08/15 Omeprazole 20 mg PO DAILY 07/08/15 Metoprolol Tartrate [Lopressor -] 12.5 mg PO BID #60 tablet 07/10/15 Amlodipine Besylate [Norvasc -] 5 mg PO DAILY 06/05/16 Atorvastatin Ca [Lipitor] 20 mg PO HS 06/05/16 Glipizide [Glucotrol -] 0 mg PO DAILY 06/05/16 Rivaroxaban [Xarelto -] 20 mg PO DAILY 06/06/16 Diabetes: Yes (diet controlled) GI Disorders: Yes (gerd) HTN: Yes Hypercholesterolemia: Yes - Family Disease History Family Disease History: Diabetes: Mother - Immunization History Immunization Up to Date: Yes - Psycho/Social/Smoking Cessation Hx Anxiety: No Suicidal Ideation: No Smoking Status: Yes Smoking History: Never smoked Have you smoked in the past 12 months: No Number of Cigarettes Smoked Daily: 0 If you are a former smoker, when did you quit?: 30 years ago Information on smoking cessation initiated: No Hx Alcohol Use: Yes Drug/Substance Use Hx: No Substance Use Type: Alcohol Review of Systems - Review of Systems Able to Perform ROS?: No Is the patient limited Pakistani proficient: No Constitutional: No: Fever HEENTM: No: Blurred Vision, Double Vision, Throat Pain, Difficulty Swallowing Respiratory: No: Cough, Stridor, Wheezing Cardiac (ROS): No: Chest Pain, Lightheadedness, Palpitations, Chest Tightness ABD/GI: Yes: Nausea, Vomiting. No: Constipated, Diarrhea, Poor Appetite, Poor Fluid Intake, Rectal Bleeding : No: Burning, Dysuria, Frequency, Pain, Urgency Musculoskeletal: No: Back Pain Integumentary: No: Rash Neurological: No: Headache, Numbness, Paresthesia, Seizure, Tingling, Tremors, Weakness All Other Systems: Reviewed and Negative *Physical Exam - Vital Signs Last Vital Signs Temp Pulse Resp BP Pulse Ox 98.1 F 71 20 120/68 95 07/10/16 21:53 07/10/16 21:53 07/10/16 21:53 07/10/16 21:53 07/10/16 21:53 - Physical Exam General Appearance: Yes: Disheveled, Alcohol on Breath, Intoxicated HEENT: positive: EOMI, Normal ENT Inspection, Normal Voice, Symmetrical, TMs Normal, Pharynx Normal. negative: DAYO (sluggish pupil response), Pharyngeal Erythema, Tonsillar Exudate, Tonsillar Erythema, Nasal Congestion, Rhinorrhea, TM Bulging, TM Dull, TM Erythema Neck: positive: Trachea midline, Supple. negative: Stridor Respiratory/Chest: positive: Lungs Clear, Normal Breath Sounds. negative: Respiratory Distress, Accessory Muscle Use, Labored Respiration, Rapid RR Cardiovascular: positive: Regular Rhythm, Regular Rate. negative: Edema, JVD, Murmur Gastrointestinal/Abdominal: positive: Normal Bowel Sounds, Soft. negative: Distended, Guarding, Rebound, Tenderness Musculoskeletal: positive: Normal Inspection. negative: CVA Tenderness Extremity: positive: Normal Capillary Refill, Normal Inspection, Normal Range of Motion. negative: Pedal Edema, Swelling, Calf Tenderness Integumentary: positive: Normal Color, Dry, Warm. negative: Hives, Petechiae, Rash, Swelling, Bruising Neurologic: positive: cash posting specialist II-XII NML intact, Alert, Normal Mood/Affect, Normal Response, Motor Strength 09/17 ED Treatment Course - LABORATORY CBC & Chemistry Diagram: 07/10/16 22:25 07/10/16 22:25 - ADDITIONAL ORDERS Additional order review: Laboratory Results 07/10/16 07/10/16 22:25 22:25 Sodium 145 Potassium 3.6 Chloride 110 H Carbon Dioxide 21 D Anion Gap 14 BUN 11 D Creatinine 1.0 Creat Clearance w eGFR 56.18 Random Glucose 139 H D Calcium 8.4 L Total Bilirubin 0.1 L D AST 45 H D ALT 38 D Alkaline Phosphatase 113 D Total Protein 7.1 D Albumin 2.8 L D Alcohol, Quantitative 413.2 H* 07/10/16 22:25 RBC 3.57 L D MCV 94.7 MCHC 33.1 RDW 16.3 H D MPV 8.4 D Neutrophils % 58.5 Lymphocytes % 29.3 D Monocytes % 9.9 Eosinophils % 1.4 Basophils % 0.9 - RADIOLOGY Radiology Studies Ordered: Category Date Time Status HEAD CT WITHOUT CONTRAST [CT] Stat CT Scan 07/10/16 22:06 Taken - Medications Given in the ED: ED Medications Discontinued Medications Generic Name Dose Route Start Last Admin Trade Name Guru PRN Reason Stop Dose Admin Sodium Chloride 1,000 mls @ 1,000 mls/hr 07/10/16 22:06 07/10/16 22:35 Normal Saline - IV 07/10/16 23:05 1,000 mls/hr ASDIR STA Administration Metoclopramide HCl 10 mg 07/10/16 22:06 07/10/16 22:35 Reglan Injection - IVPB 07/10/16 22:07 10 mg ONCE ONE Administration *DC/Admit/Observation/Transfer Diagnosis at time of Disposition: Intoxication - Discharge Dispostion Disposition: HOME Condition at time of disposition: Improved Admit: No - Patient Instructions Printed Discharge Instructions: DI for Alcohol Abuse Additional Instructions: GET PLENTY REST WHEN HOME. DRINK LOTS OF WATER TO HYDRATE YOURSELF. RETURN IF ANY CONCERNS FOR FURTHER EVALUATION. Print Language: BANGLADESHI Progress Note - Progress Note Progress Note: This patient called her significant other (girlfriend) to pick her up. When the girlfriend arrived she as well appear to be under the influence. It was explained to patient that her girlfriend could not legally sign her out of the hospital. Patient girlfriend states she just woke up, however is slurring her speech. I explained more than a hand full of times that her girlfriend can not sign her out, and to have someone sober pick her up or wait until 7am. Patient is refusing to wait until 7am, and is getting dressed to walk out. Security is called to the bedside and girlfriend is ask to wait in the waiting room until patient disposition is final. Girlfriend began shouting, calling this author a little boy multiple times. ---Familia Hammer NP
== END 2016-07-11 06:34 | disposition home or self-care (01) ==
LOC: JER 21:31
PROC: 3E033GC Introduction of Other Therapeutic Substance into Peripheral Vein, Percutaneous Approach (ICD-10-PCS; principal; 2016-07-10)
DX: F10.120 Alcohol abuse with intoxication, uncomplicated (principal); I10 Essential (primary) hypertension; E11.9 Type 2 diabetes mellitus without complications; Z79.84 Long term (current) use of oral hypoglycemic drugs; E78.00 Pure hypercholesterolemia, unspecified; K21.9 Gastro-esophageal reflux disease without esophagitis; Y90.8 Blood alcohol level of 240 mg/100 ml or more
CPT/HCPCS: 36415; 70450-TC; 80053; 80307; 85025; 99283-25

== ENCOUNTER 2016-12-21 21:31 | Inpatient (IN) | payer BC ==
[2016-12-21 21:58] VITALS: BMI 21.8
[2016-12-21] MEDS ORDERED: SODIUM CHLORIDE 1,000 ML IV STA (22:17)
[2016-12-21] MEDS ORDERED: ONDANSETRON 4 MG/2 ML VIAL IVPB ONE (22:17)
--- NOTE | 2016-12-21 22:17 | PDOC ---
History of Present Illness - General History Source: Patient, Old Records Exam Limitations: No Limitations - History of Present Illness Initial Comments: 12/21/16 22:23 The patient is a 61 year old female with past medical history of Afib, hypertension, hyperlipidemia, NIDDM, GERD, and alcoholism who presents to the ED with complaints of decreased appetite and nausea for a week. She states that she vomits everything she ingests and cannot even hold down ensure. She states that she called her PCP to ask for a supplement to help her appetite but he explained that those are only prescribed to cancer patients. She complains of generalized pain as well. The patient denies any fevers, chills, diarrhea, cough , SOB, CP, or urinary symptoms. PCP: Anirudh Cross Social History: Drinks pint of vodka daily <Bella Vang - Last Filed: 12/22/16 01:24> <Louisa Alejandro - Last Filed: 12/22/16 03:22> - General Chief Complaint: Nausea/Vomiting Stated Complaint: PAIN Time Seen by Provider: 12/21/16 21:59 Past History <Bella Vang - Last Filed: 12/22/16 01:24> - Past Medical History Diabetes: Yes (diet controlled) GI Disorders: Yes (gerd) HTN: Yes Hypercholesterolemia: Yes - Family Disease History Family Disease History: Diabetes: Mother - Immunization History Immunization Up to Date: Yes - Psycho/Social/Smoking Cessation Hx Anxiety: No Suicidal Ideation: No Smoking Status: Yes Smoking History: Never smoked Have you smoked in the past 12 months: No Number of Cigarettes Smoked Daily: 0 If you are a former smoker, when did you quit?: 30 years ago Information on smoking cessation initiated: No Hx Alcohol Use: No Drug/Substance Use Hx: No Substance Use Type: Alcohol <Louisa Alejandro - Last Filed: 12/22/16 03:22> - Past Medical History Allergies/Adverse Reactions: Allergies Allergy/AdvReac Type Severity Reaction Status Date / Time No Known Allergies Allergy Verified 07/10/16 21:53 Home Medications: Ambulatory Orders Losartan Potassium 100 mg PO DAILY 07/08/15 Omeprazole 20 mg PO DAILY 07/08/15 Metoprolol Tartrate [Lopressor -] 12.5 mg PO BID #60 tablet 07/10/15 Amlodipine Besylate [Norvasc -] 5 mg PO DAILY 06/05/16 Atorvastatin Ca [Lipitor] 20 mg PO HS 06/05/16 Glipizide [Glucotrol -] 0 mg PO DAILY 06/05/16 Rivaroxaban [Xarelto -] 20 mg PO DAILY 06/06/16 Review of Systems - Review of Systems Able to Perform ROS?: Yes Comments:: 12/21/16 22:24 CONSTITUTIONAL: Present: loss of appetite, generalized pain Absent: fever, chills, diaphoresis HEENT: Absent: rhinorrhea, nasal congestion, throat pain, throat swelling, difficulty swallowing, mouth swelling, ear pain, eye pain, visual Changes CARDIOVASCULAR: Absent: chest pain, syncope, palpitations, irregular heart rate, lightheadedness , peripheral edema RESPIRATORY: Absent: cough, shortness of breath, dyspnea with exertion, orthopnea, wheezing, stridor, hemoptysis GASTROINTESTINAL: Present: nausea, vomiting Absent: abdominal pain, abdominal distension, diarrhea, constipation, melena, hematochezia GENITOURINARY: Absent: dysuria, frequency, urgency, hesitancy, hematuria, flank pain, genital pain SKIN: Absent: rash, itching, pallor HEMATOLOGIC/IMMUNOLOGIC: Absent: easy bleeding, easy bruising, lymphadenopathy, frequent infections ENDOCRINE: Absent: unexplained weight gain, unexplained weight loss, heat intolerance, cold intolerance NEUROLOGIC: Absent: headache, focal weakness or paresthesias, dizziness, unsteady gait, seizure, mental status changes, bladder or bowel incontinence PSYCHIATRIC: Absent: anxiety, depression, suicidal or homicidal ideation, hallucinations. All Other Systems: Reviewed and Negative <Bella Vang - Last Filed: 12/22/16 01:24> *Physical Exam - Vital Signs Last Vital Signs Temp Pulse Resp BP Pulse Ox 98.5 F 83 14 126/59 100 12/21/16 21:48 12/21/16 21:48 12/21/16 21:48 12/21/16 21:48 12/21/16 21:48 - Physical Exam Comments: 12/21/16 22:27 GENERAL: Well developed, well nourished. Awake and alert. No acute distress. HEENT: Normocephalic, atraumatic. PERRLA, EOMI. No conjunctival pallor. Sclera are non- icteric. Moist mucous membranes. Oropharynx is clear. NECK: Supple. Full ROM. No JVD. Carotid pulses 2+ and symmetric, without bruits. No thyromegaly. No lymphadenopathy. CARDIOVASCULAR: Regular rate and rhythm. No murmurs, rubs, or gallops. Distal pulses are 2+ and symmetric. PULMONARY: No evidence of respiratory distress. Lungs clear to auscultation bilaterally. No wheezing, rales or rhonchi. ABDOMINAL: Diffuse tenderness to palpation. No rebound or guarding. No organomegaly. Normoactive bowel sounds. MUSCULOSKELETAL Normal range of motion at all joints. No bony deformities or tenderness. No CVA tenderness. EXTREMITIES: No cyanosis. No clubbing. No edema. No calf tenderness. SKIN: Warm and dry. Normal capillary refill. No rashes. No jaundice. NEUROLOGICAL: Alert, awake, appropriate. Cranial nerves 2-12 intact. No deficits to light touch and temperature in face, upper extremities and lower extremities. No motor deficits in the in face, upper extremities and lower extremities. Normoreflexic in the upper and lower extremities. Normal speech. Toes are down-going bilaterally. Gait is normal without ataxia. PSYCHIATRIC: Cooperative. Good eye contact. Appropriate mood and affect. <Bella Vang - Last Filed: 12/22/16 01:24> - Vital Signs Last Vital Signs Temp Pulse Resp BP Pulse Ox 98.5 F 83 14 126/59 100 12/21/16 21:48 12/21/16 21:48 12/21/16 21:48 12/21/16 21:48 12/21/16 21:48 <Louisa Alejandro - Last Filed: 12/22/16 03:22> Heart Score/ECG Review - ECG Intrepretation Comment:: 12/22/16 00:07 ECG obtained at 22:50 normal sinus at 75 bpm low voltage QRS T wave abnormality <Bella Vang - Last Filed: 12/22/16 01:24> ED Treatment Course - LABORATORY CBC & Chemistry Diagram: 12/21/16 22:30 12/21/16 22:30 <Bella Vang - Last Filed: 12/22/16 01:24> - LABORATORY CBC & Chemistry Diagram: 12/21/16 22:30 12/21/16 22:30 <Louisa Alejandro - Last Filed: 12/22/16 03:22> Medical Decision Making - Medical Decision Making 12/22/16 00:21 Phone call placed to Dr. Thornton. Call returned promptly and case discussed 0:28 Phone call placed to Dr. Trish Conteh answering service. Call returned promptly and case discussed. 12/22/16 01:24 Phone call sent to nephrology research nutritionist, Dr. Torres <Bella Vang - Last Filed: 12/22/16 01:24> - Medical Decision Making 12/22/16 03:15 61-year-old female presents with 1 week of nausea and vomiting and decreased appetite Stable vital signs with no fever. She is normotensive Exam she had some diffuse abdominal pain CBC was unremarkable However, reviewing her chemistries ,her creatinine = 5.8, reviewing her old records. Her prior creatinine was 1.0 in June of this year Her potassium was 6.3 and she was given IV insulin IV dextrose and IV calcium gluconate Her liver function tests within normal limits. However, her lipase was over 10, 000. CAT scan of the abdomen and pelvis revealed that she had acute pancreatitis. Dr. Trish Cabrera was informed and she said she DID NOT want any antibiotics at this time Patient admitted to the ICU <Louisa Alejandro - Last Filed: 12/22/16 03:22> *DC/Admit/Observation/Transfer - Attestations Scribe Attestion: 12/21/16 22:28 Documentation prepared by Bella Vang, acting as medical transcription for Louisa Alejandro MD. <Bella Vang - Last Filed: 12/22/16 01:24> - Discharge Dispostion Admit: Yes <Louisa Alejandro - Last Filed: 12/22/16 03:22> Diagnosis at time of Disposition: Hyperkalemia, NIDDM, Elevated lipase Acute renal failure Qualifiers: Acute renal failure type: unspecified Qualified Code(s): N17.9 - Acute kidney failure, unspecified Vomiting Qualifiers: Vomiting type: unspecified Vomiting Intractability: intractable Nausea presence : with nausea Qualified Code(s): R11.2 - Nausea with vomiting, unspecified Abdominal pain Qualifiers: Abdominal location: generalized Qualified Code(s): R10.84 - Generalized abdominal pain Pancreatitis Qualifiers: Chronicity: acute Pancreatitis type: unspecified pancreatitis type Acute pancreatitis complication: unspecified Qualified Code(s): K85.90 - Acute pancreatitis without necrosis or infection, unspecified - Referrals
[2016-12-21] MEDS ORDERED: ONDANSETRON 4 MG/2 ML VIAL ONE (22:42)
[2016-12-21] MEDS ORDERED: FAMOTIDINE 20 MG/50 ML IVPB 50 ML IVPB ONE ×2 (22:44→22:50)
[2016-12-21 23:17] LABS: BASOPHIL 0.3 % (0-2.0); MCH 34.8 pg (25.7-33.7); MCHC 32.3 g/dl (32.0-36.0); MEAN PLT VOLUME 8.8 fl (7.5-11.1); NEUTROPHILS 78.6 % (42.8-82.8); PLATELET COUNT 98 K/MM3 (134-434); RDW 14.2 % (11.6-15.6); WHITE BLOOD COUNT 6.7 K/mm3 (4.0-10.0)
[2016-12-21 23:42] LABS: ALBUMIN 3.4 g/dl (3.4-5.0); ANION GAP 28 (8-16); BILIRUBIN,TOTAL 0.4 mg/dL (0.2-1.0); CALCIUM 7.8 mg/dL (8.5-10.1); CO2 8 mmol/L (21-32); CREATININE 5.8 mg/dL (0.55-1.02); GLUCOSE,RANDOM 89 mg/dL (74-106); SGPT/ALT 23 U/L (12-78); TOT PROT 7.5 g/dl (6.4-8.2)
[2016-12-21 23:43] LABS: ALK PHOS 111 U/L (45-117)
[2016-12-22] LABS: SGOT/AST 53 U/L (15-37)
[2016-12-22] MEDS ORDERED: DEXTROSE 50%-WATER - 25 GM/50 ML VIAL IVPUSH ONE (00:11)
[2016-12-22] MEDS ORDERED: INSULIN REGULAR HUMAN 100 UNITS/ML *VIAL IVPUSH STA (00:11)
[2016-12-22] MEDS ORDERED: DEXTROSE 50%-WATER 50 ML DISP.SYRIN ONE (00:12)
[2016-12-22] MEDS ORDERED: morphine CARPU-JECT 4 MG/1 ML DISP.SYRIN ONE (00:19)
[2016-12-22] MEDS ORDERED: morphine CARPU-JECT 2 MG/1 ML DISP.SYRIN IVPUSH ONE (00:30)
[2016-12-22] MEDS ORDERED: CALCIUM GLUCONATE 10% - 1,000 MG/10 ML VIAL IVPB ONE (01:31)
--- NOTE | 2016-12-22 02:08 | CONSULT ---
Consult - text type - Consultation Consultation Note: Pulm/CCM Pt seen and examined in ICU Reason for Admission; acute renal failure, pancreatitis CC: abd pain, n/v HPI: Briefly Ms Sauceda is a 61 yo woman with past medical history of Afib, hypertension, hyperlipidemia, NIDDM, GERD, and alcoholism near daily use) who presents to the ED with complaints of decreased appetite and nausea for a week. Relates has intractable vomiting and thus has had poor PO intake. C/o generalized pain as well. The patient denies any LOC, chest pain, SOB, fevers, chills, diarrhea, cough, or urinary symptoms. Recently had bought of gastroenteritis In ED pt was afebrile, non-toxic, normotensive, without distress. Labs were notable for SARA 60/5.8 with K 6.3 and HCO3 8. Lipase 10K (appears to have low Toño score, no LDH sent). Received hyperkalemia cocktail. Nephrology consulted. CTAP appears to show pancreatitis, no hydro, and no cholecystitis or stones, bladder moderately distended (my read). Wilson was placed with 300cc return. Transfered to ICU for further care. . 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 Ambulatory Orders Omeprazole 20 mg PO DAILY 07/08/15 Metoprolol Tartrate [Lopressor -] 12.5 mg PO BID #60 tablet 07/10/15 Atorvastatin Ca [Lipitor] 20 mg PO HS 06/05/16 Rivaroxaban [Xarelto -] 20 mg PO DAILY 06/06/16 Valsartan 40 mg PO DAILY 12/22/16 Current Medications Hydromorphone HCl (Dilaudid Injection -) 0.5 mg IVPUSH Q3H PRN PRN Reason: PAIN LEVEL 1-5 Stop: 12/23/16 05:14 Hydromorphone HCl (Dilaudid Injection -) 1 mg IVPUSH ONCE ONE Stop: 12/22/16 05:04 Sodium Chloride (Normal Saline -) 1,000 ml IV ONCE ONE Stop: 12/22/16 05:04 CBCD WBC 6.7 K/mm3 (4.0-10.0) 12/21/16 22:30 RBC 3.05 M/mm3 (3.60-5.2) L 12/21/16 22:30 Hgb 10.6 GM/dL (10.7-15.3) L 12/21/16 22:30 Hct 32.9 % (32.4-45.2) 12/21/16 22:30 MCV 108.0 fl (80-96) H 12/21/16 22:30 MCHC 32.3 g/dl (32.0-36.0) 12/21/16 22:30 RDW 14.2 % (11.6-15.6) D 12/21/16 22:30 Plt Count 98 K/MM3 (134-434) L D 12/21/16 22:30 MPV 8.8 fl (7.5-11.1) 12/21/16 22:30 CMP Sodium 133 mmol/L (136-145) L 12/21/16 22:30 Potassium 6.3 mmol/L (3.5-5.1) H* D 12/21/16 22:30 Chloride 97 mmol/L (98-107) L D 12/21/16 22:30 Carbon Dioxide 8 mmol/L (21-32) L D 12/21/16 22:30 Anion Gap 28 (8-16) H 12/21/16 22:30 BUN 61 mg/dL (7-18) H D 12/21/16 22:30 Creatinine 5.8 mg/dL (0.55-1.02) H D 12/21/16 22:30 Creat Clearance w eGFR 7.39 (>60) 12/21/16 22:30 Random Glucose 89 mg/dL (74-106) D 12/21/16 22:30 Calcium 7.8 mg/dL (8.5-10.1) L 12/21/16 22:30 Total Bilirubin 0.4 mg/dL (0.2-1.0) D 12/21/16 22:30 AST 53 U/L (15-37) H 12/21/16 22:30 ALT 23 U/L (12-78) D 12/21/16 22:30 Alkaline Phosphatase 111 U/L (45-117) 12/21/16 22:30 Total Protein 7.5 g/dl (6.4-8.2) 12/21/16 22:30 Albumin 3.4 g/dl (3.4-5.0) D 12/21/16 22:30 ROS: 9 pt review of systems unreveal save a per HPI GENERAL: Well developed, well nourished. Awake and alert. No acute distress. HEENT:Normocephalic, atraumatic. PERRLA, EOMI. No conjunctival pallor. Sclera are non-icteric. NECK: No JVP,No LAD Supple. Full ROM. . Carotid pulses 2+ and symmetric, without bruits. CARDIOVASCULAR:Regular rate and rhythm. DELORIS III/ RSB, no: rubs, or gallops. Distal pulses are 2+ and symmetric. PULMONARY: Clear anterior, no distress, no wheezes ABDOMINAL:Diffuse tenderness to palpation. No rebound or guarding. No organomegaly. +BS, No [place] MUSCULOSKELETAL:Normal range of motion at all joints. No bony deformities or tenderness. No CVA tenderness. EXTREMITIES: No cyanosis. No clubbing. No edema. No calf tenderness. SKIN: Warm and dry. Normal capillary refill. No rashes. No jaundice. NEUROLOGICAL: Non focal exam, no facial droop, no pronator drift. intact sensorium PSYCHIATRIC: Cooperative. Good eye contact. Appropriate mood and affect. EKG: Sinus, normal axis, non ischemic changes CXR: no infitrates CTAP w/o: pancreatitis, no hydro (final read pending) A/ 61 y/o woman with ETOH pancreatitis and ARF likely 2/2 dehydration from intractable vomiting Current Active Problems Abdominal pain (Acute) Acute renal failure (Acute) Aortic regurgitation (Acute) Atypical chest pain (Acute) Chest pain (Acute) Elevated lipase (Acute) GERD (gastroesophageal reflux disease) (Acute) Hyperkalemia (Acute) New onset a-fib (Acute) Pancreatitis (Acute) Renal insufficiency (Acute) Vomiting (Acute) NIDDM (Chronic) P/ -fluid resuscitation -medically manage K, now some UOP, nephrology following -repeat full set of labs including LDH, lipase -pain control -no indication for abx in simple pancreatitis -f/u on formal CTAP read -hold anti-htn and xarelto, can restart if repeat labs down trending -monitor in ICU today -Prophy: SCD, omeprozole as outpt Wili Rosenthal [facility] [id number] Critical Care Total Critical Care Time (in minutes): 35 Critical Care Statement: The care of this patient involved high complexity decision making to prevent further life threatening deterioration of the patient 's condition and/or to evalute & treat vital organ system(s) failure or risk of failure.
[2016-12-22] MEDS ORDERED: CALCIUM GLUCONATE 10% - 1,000 MG/10 ML VIAL ONE (02:28)
[2016-12-22 03:57] LABS: URINE APPEARANCE CLEAR; URINE BILIRUBIN NEGATIVE (NEGATIVE); URINE BLOOD 2+ (NEGATIVE); URINE COLOR STRAW; URINE GLUCOSE (UA) NEGATIVE (NEGATIVE); URINE KETONE 1+ (NEGATIVE); URINE LEUK ESTERASE NEGATIVE (NEGATIVE); URINE NITRITE NEGATIVE (NEGATIVE); URINE UROBILINOGEN NEGATIVE mg/dL (0.2-1.0)
[2016-12-22 03:59] LABS: URINE PROTEIN 1+ (NEGATIVE)
[2016-12-22] MEDS ORDERED: HYDROmorphone HCL CARPU-JECT 1 MG/1 ML DISP.SYRIN ONE (04:29)
[2016-12-22 04:43] LABS: URINE BACTERIA RARE /hpf (NONE SEEN); URINE RBC 2 /hpf (0-3); URINE WBC <1 /hpf (3-5)
[2016-12-22] MEDS ORDERED: SODIUM CHLORIDE 0.9% 1000 ML INFUS.BAG IV ONE (05:03)
[2016-12-22] MEDS ORDERED: HYDROmorphone HCL CARPU-JECT 1 MG/1 ML DISP.SYRIN IVPUSH ONE (05:03)
[2016-12-22 08:44] LABS: MCH 34.1 pg (25.7-33.7); MCHC 32.1 g/dl (32.0-36.0); MEAN CELL VOLUME 106.3 fl (80-96); MEAN PLT VOLUME 9.9 fl (7.5-11.1); PLATELET COUNT 92 K/MM3 (134-434); WHITE BLOOD COUNT 4.6 K/mm3 (4.0-10.0)
[2016-12-22] MEDS: HYDROmorphone HCL CARPU-JECT 1 MG/1 ML DISP.SYRIN IVPUSH PRN ×3 (08:45→20:54)
[2016-12-22 09:04] LABS: ALBUMIN 2.9 g/dl (3.4-5.0); ANION GAP 19 (8-16); BILIRUBIN,DIRECT 0.2 mg/dL (0.0-0.2); BILIRUBIN,TOTAL 0.5 mg/dL (0.2-1.0); CALCIUM 7.7 mg/dL (8.5-10.1); CO2 12 mmol/L (21-32); CREATININE 4.5 mg/dL (0.55-1.02); GLUCOSE,RANDOM 111 mg/dL (74-106); LDH 161 U/L (84-246); MAGNESIUM 1.9 mg/dL (1.8-2.4); PHOSPHOROUS 4.5 mg/dL (2.5-4.9); SGOT/AST 40 U/L (15-37); SGPT/ALT 19 U/L (12-78); TOT PROT 6.3 g/dl (6.4-8.2)
[2016-12-22 09:05] LABS: ALK PHOS 94 U/L (45-117)
[2016-12-22 09:06] LABS: AMYLASE 831 U/L (25-115)
[2016-12-22] MEDS ORDERED: RIVAROXABAN 20 MG TABLET PO SCH (10:00)
[2016-12-22] MEDS ORDERED: PANTOPRAZOLE 20 MG TABLET (FP) PO SCH (10:00)
[2016-12-22] MEDS ORDERED: METOPROLOL TARTRATE 25 MG TABLET (FP) PO SCH (10:00)
--- NOTE | 2016-12-22 10:20 | HP ---
Admitting History and Physical - Primary Care Physician PCP: Anirudh Cross - Admission Chief Complaint: acute renal failure and acute pancreatitis History of Present Illness: ER HISTORY - History of Present Illness Initial Comments: 12/21/16 22:23 The patient is a 61 year old female with past medical history of Afib, hypertension, hyperlipidemia, NIDDM, GERD, and alcoholism who presents to the ED with complaints of decreased appetite and nausea for a week. She states that she vomits everything she ingests and cannot even hold down ensure. She states that she called her PCP to ask for a supplement to help her appetite but he explained that those are only prescribed to cancer patients. She complains of generalized pain as well. The patient denies any fevers, chills, diarrhea, cough , SOB, CP, or urinary symptoms. PCP: Anirudh Cross Social History: Drinks pint of vodka daily Pt examined by me in the ER- Known alcoholic--drinks about a couple of glasses of Smirnoff at night-- last drink was the night before she came to ER. C/O few weeks of abdominal pain , nausea, decreased appetite and diarrhea. She had seen Dr Cross 2 weeks earlier and he did blood work and told her she had gastroenteritis-- gave her imodium which helped diarrhea. Never was told she had pancreas problems in the past Takes Motrin as needed for an occasional headache. History Source: Patient - Past Medical History Cardiovascular: Yes: AFIB (-paroxysmal), HTN, Hyperlipdemia, Murmur Gastrointestinal: Yes: GERD ...: No ENT: Yes: Other (early cataracts) Endocrine: Yes: Diabetes Mellitus (NIDDM- diet controlled, diagnosed > 10 years ago; self d/c'd metformin due to weight loss) - Past Surgical History Past Surgical History: Yes: None - Smoking History Smoking history: Never smoked Have you smoked in the past 12 months: No Aproximately how many cigarettes per day: 0 If you are a former smoker, when did you quit?: 30 years ago - Alcohol/Substance Use Hx Alcohol Use: No History of Substance Use: reports: None - Social History ADL: Independent 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 History of Recent Travel: No Home Medications - Allergies Allergies/Adverse Reactions: Allergies Allergy/AdvReac Type Severity Reaction Status Date / Time No Known Allergies Allergy Verified 12/22/16 03:35 - Home Medications Home Medications: Ambulatory Orders Omeprazole 20 mg PO DAILY 07/08/15 Metoprolol Tartrate [Lopressor -] 12.5 mg PO BID #60 tablet 07/10/15 Atorvastatin Ca [Lipitor] 20 mg PO HS 06/05/16 Rivaroxaban [Xarelto -] 20 mg PO DAILY 06/06/16 Valsartan 40 mg PO DAILY 12/22/16 Family Disease History - Family Disease History Family Disease History: Heart Disease: Father (50 ), CA: Mother (lung 72 ), Other: Sister (? uterine Ca-58, alive) Review of Systems - Review of Systems Constitutional: reports: Loss of Appetite, Weakness. denies: Chills, Fever Gastrointestinal: reports: Abdominal Pain, Diarrhea, Nausea, Vomiting Physical Examination Vital Signs: Vital Signs Temperature 98.7 F 12/22/16 05:06 Pulse Rate 70 12/22/16 07:07 Respiratory Rate 17 12/22/16 07:57 Blood Pressure 129/65 12/22/16 07:07 O2 Sat by Pulse Oximetry (%) 100 12/22/16 07:57 Constitutional: Yes: No Distress Cardiovascular: Yes: Regular Rate and Rhythm, Murmur Respiratory: Yes: CTA Bilaterally Gastrointestinal: Yes: Normal Bowel Sounds, Soft, Distention (slight distension) , Tenderness (generalized) Edema: No Psychiatric: Yes: Alert, Oriented Labs: CBC, BMP 12/22/16 08:00 12/22/16 08:00 Imaging - Results Chest X-ray: Image Reviewed Cat Scan: Report Reviewed EKG: Image Reviewed (NSR) Problem List - Problems (1) Abdominal pain Code(s): R10.9 - UNSPECIFIED ABDOMINAL PAIN Qualifiers: Abdominal location: generalized Qualified Code(s): R10.84 - Generalized abdominal pain (2) Acute renal failure Code(s): N17.9 - ACUTE KIDNEY FAILURE, UNSPECIFIED Qualifiers: Acute renal failure type: unspecified Qualified Code(s): N17.9 - Acute kidney failure, unspecified (3) Elevated lipase Code(s): R74.8 - ABNORMAL LEVELS OF OTHER SERUM ENZYMES (4) Hyperkalemia Code(s): E87.5 - HYPERKALEMIA (5) Pancreatitis Code(s): K85.90 - ACUTE PANCREATITIS WITHOUT NECROSIS OR INFECTION, UNSP Qualifiers: Chronicity: acute Pancreatitis type: unspecified pancreatitis type Acute pancreatitis complication: unspecified Qualified Code(s): K85.90 - Acute pancreatitis without necrosis or infection, unspecified Assessment/Plan PLAN Keep NPO IV fluids IV Protonix May hold off Xarelto and give Heparin infusion for P.Afib-- currently sinus -- monitor platelets pain control pt is alcoholic-- monitor for withdrawals-- may need ATivan iv as needed GI and Renal eval Check urine output Spoke with resident and ICU attending Time spent 40 min
[2016-12-22] MEDS ORDERED: SODIUM CHLORIDE 1,000 ML IV SCH (10:45)
[2016-12-22] MEDS ORDERED: HEPARIN NA (PORCINE) 5,000 UNITS/ML 1ML VIAL IVPUSH PRN ×2 (10:52)
[2016-12-22] MEDS ORDERED: LACTATED RINGERS SOLUTION 1,000 ML IV SCH (11:00)
[2016-12-22] MEDS ORDERED: HEPARIN INFUSION - 500 ML IVPB ONE (11:08)
[2016-12-22] MEDS: DEXTROSE 5%-LACTATED RINGERS 1,000 ML IV SCH (11:16)
[2016-12-22] MEDS: HEPARIN - 25,000 UNIT in SODIUM CHLORIDE 495 ML IV SCH (11:20)
[2016-12-22] MEDS ORDERED: PANTOPRAZOLE SODIUM 100 ML IVPB ONE (11:39)
--- NOTE | 2016-12-22 12:20 | PN ---
Teaching Attending Note Name of Resident: Tiara Soria ATTENDING PHYSICIAN STATEMENT I saw and evaluated the patient. I reviewed the resident's note and discussed the case with the resident. I agree with the resident's findings and plan as documented. SUBJECTIVE: Patient seen and examined in the ICU. Awake and alert. Still with significant abdominal pain. No CP or SOB. No signs of withdrawal. Intake & Output 12/19/16 12/20/16 12/21/16 12/22/16 23:59 23:59 23:59 23:59 Output Total 300 Balance -300 Weight 131 lb 131 lb 6.328 oz Last Vital Signs Temp Pulse Resp BP Pulse Ox 98.5 F 74 20 106/60 100 12/22/16 10:00 12/22/16 10:00 12/22/16 10:00 12/22/16 10:00 12/22/16 07:57 Active Medications Heparin Sodium (Porcine) (Heparin -) 1,000 unit IVPUSH PRN PRN PRN Reason: Heparin Heparin Sodium (Porcine) (Heparin -) 5,000 unit IVPUSH PRN PRN PRN Reason: Heparin Hydromorphone HCl (Dilaudid Injection -) 0.5 mg IVPUSH Q3H PRN PRN Reason: PAIN LEVEL 1-5 Stop: 12/23/16 05:14 Last Admin: 12/22/16 08:45 Dose: 0.5 mg Pantoprazole Sodium (Protonix 40mg Ivpb (Pre-Docked)) 100 mls @ 200 mls/hr IVPB DAILY YONNY Heparin Sodium (Porcine) 25, (000 unit/ Sodium Chloride) 500 mls @ 16 mls/hr IV TITR YONNY; 800 UNIT/HR PRN Reason: Protocol Last Admin: 12/22/16 11:20 Dose: 16 mls/hr Dextrose/Lactated Ringer's (D5-Lr -) 1,000 mls @ 200 mls/hr IV ASDIR YONNY Last Admin: 12/22/16 11:16 Dose: 200 mls/hr Lorazepam (Ativan Injection -) 1 mg IVPUSH Q4H PRN PRN Reason: WITHDRAWAL(CONT SUBST) Metoprolol Tartrate (Lopressor -) 12.5 mg PO BID YONNY Last Admin: 12/22/16 11:00 Dose: Not Given GENERAL: Awake and alert. Mildly uncomfortable due to pain HEENT: Normocephalic, atraumatic. PERRLA, EOMI. No conjunctival pallor. Sclera are non-icteric. NECK: No JVP,No LAD Supple. Full ROM. CARDIOVASCULAR:Regular rate and rhythm. (+) ESM; No rubs, or gallops. PULMONARY: Clear anterior, no distress, no wheezes ABDOMINAL: Diffuse tenderness to palpation. No rebound or guarding. (+) BS MUSCULOSKELETAL:Normal range of motion at all joints. No bony deformities or tenderness. EXTREMITIES: No cyanosis. No clubbing. No edema. No calf tenderness. SKIN: Warm and dry. Normal capillary refill. No rashes. No jaundice. NEUROLOGICAL: Non focal exam PSYCHIATRIC: Cooperative. Laboratory Results - last 24 hr 12/21/16 12/21/16 12/22/16 22:30 22:30 03:45 WBC 6.7 RBC 3.05 L Hgb 10.6 L Hct 32.9 MCV 108.0 H MCH 34.8 H D MCHC 32.3 RDW 14.2 D Plt Count 98 L D MPV 8.8 Neutrophils % 78.6 D Lymphocytes % 12.0 D Monocytes % 9.1 Eosinophils % 0.0 D Basophils % 0.3 Macrocytosis 1+ Sodium 133 L Potassium 6.3 H* D Chloride 97 L D Carbon Dioxide 8 L D Anion Gap 28 H BUN 61 H D Creatinine 5.8 H D Creat Clearance w eGFR 7.39 Random Glucose 89 D Calcium 7.8 L Phosphorus Magnesium Total Bilirubin 0.4 D Direct Bilirubin AST 53 H ALT 23 D Alkaline Phosphatase 111 LD Total Total Protein 7.5 Albumin 3.4 D Total Amylase Lipase 81717 H Urine Color Straw Urine Appearance Clear Urine pH 5.0 Urine Protein 1+ H Urine Glucose (UA) Negative Urine Ketones 1+ H Urine Blood 2+ H Urine Nitrite Negative Urine Bilirubin Negative Urine Urobilinogen Negative Ur Leukocyte Esterase Negative Urine RBC 2 Urine WBC <1 Urine Bacteria Rare 12/22/16 12/22/16 08:00 08:00 WBC 4.6 D RBC 2.78 L Hgb 9.5 L D Hct 29.5 L MCV 106.3 H MCH 34.1 H MCHC 32.1 RDW 14.0 Plt Count 92 L MPV 9.9 D Neutrophils % Lymphocytes % Monocytes % Eosinophils % Basophils % Macrocytosis Sodium 137 Potassium 5.7 H Chloride 106 Carbon Dioxide 12 L D Anion Gap 19 H BUN 56 H Creatinine 4.5 H D Creat Clearance w eGFR 9.90 Random Glucose 111 H D Calcium 7.7 L Phosphorus 4.5 D Magnesium 1.9 D Total Bilirubin 0.5 D Direct Bilirubin 0.2 AST 40 H D ALT 19 Alkaline Phosphatase 94 LD Total 161 Total Protein 6.3 L Albumin 2.9 L Total Amylase 831 H Lipase Urine Color Urine Appearance Urine pH Urine Protein Urine Glucose (UA) Urine Ketones Urine Blood Urine Nitrite Urine Bilirubin Urine Urobilinogen Ur Leukocyte Esterase Urine RBC Urine WBC Urine Bacteria IMP: Acute ETOH Pancreatitis Abdominal pain (Acute) Acute renal failure (Acute) Aortic regurgitation (Acute) Atypical chest pain (Acute) Chest pain (Acute) Elevated lipase (Acute) GERD (gastroesophageal reflux disease) (Acute) Hyperkalemia (Acute) New onset a-fib (Acute) Pancreatitis (Acute) Renal insufficiency (Acute) Vomiting (Acute) NIDDM (Chronic) PLAN: -fluid resuscitation with LR -Strict I&O -Follow chemistry -Pain control -Monitor off ABX for now -AC with IV Heparin -NPO Dr Arias Critical Care Total Critical Care Time (in minutes): 35 Critical Care Statement: The care of this patient involved high complexity decision making to prevent further life threatening deterioration of the patient 's condition and/or to evalute & treat vital organ system(s) failure or risk of failure.
--- NOTE | 2016-12-22 13:53 | CONSULT ---
Consult Consult Specialty:: Nephrology Reason for Consultation:: sara and hyperkalemia - History of Present Illness Chief Complaint: abdominal pain and vomiting History of Present Illness: Pt is a 61 year old female with pmhx of a-fib, HTN, chol, DM, GERD and etoh abuse who presents to the ER with abdominal pain and nausea. She says she has had several episodes of vomiting before admission. She was found to have pancreatitis and admitted to the ICU for treatment. I was called to evaluate her for SARA. Pt denies history of kidney disease. She denies dysuria or hematuria. She denies drinks alcohol daily. She was also found to be hyperkalemic. She is awake and alert. She still complains of abdominal pain. - History Source History Provided By: Patient, Medical Record - Past Medical History Cardio/Vascular: Yes: AFIB (-paroxysmal), HTN, Hyperlipdemia, Murmur Gastrointestinal: Yes: GERD ...: No ENT: Yes: Other (early cataracts) Endocrine: Yes: Diabetes Mellitus (NIDDM- diet controlled, diagnosed > 10 years ago; self d/c'd metformin due to weight loss) - Past Surgical History Past Surgical History: Yes: None - Alcohol/Substance Use Hx Alcohol Use: Yes History of Substance Use: reports: None - Smoking History Smoking history: Never smoked Have you smoked in the past 12 months: No Aproximately how many cigarettes per day: 0 If you are a former smoker, when did you quit?: 30 years ago - Social History ADL: Independent 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 History of Recent Travel: No Home Medications - Allergies Allergies/Adverse Reactions: Allergies Allergy/AdvReac Type Severity Reaction Status Date / Time No Known Allergies Allergy Verified 12/22/16 03:35 - Home Medications Home Medications: Ambulatory Orders Omeprazole 20 mg PO DAILY 07/08/15 Metoprolol Tartrate [Lopressor -] 12.5 mg PO BID #60 tablet 07/10/15 Atorvastatin Ca [Lipitor] 20 mg PO HS 06/05/16 Rivaroxaban [Xarelto -] 20 mg PO DAILY 06/06/16 Valsartan 40 mg PO DAILY 12/22/16 Family Disease History - Family Disease History Family Disease History: Heart Disease: Father (50 ), CA: Mother (lung 72 ), Other: Sister (? uterine Ca-58, alive) Review of Systems - Review of Systems Constitutional: reports: Malaise Eyes: reports: No Symptoms HENT: reports: No Symptoms Neck: reports: No Symptoms Cardiovascular: reports: No Symptoms Respiratory: reports: No Symptoms Gastrointestinal: reports: Abdominal Pain, Vomiting Genitourinary: reports: No Symptoms Musculoskeletal: reports: No Symptoms Endocrine: reports: No Symptoms Hematology/Lymphatic: reports: No Symptoms Psychiatric: reports: No Symptoms Physical Exam Vital Signs: Vital Signs Temperature 98.5 F 12/22/16 10:00 Pulse Rate 74 12/22/16 10:00 Respiratory Rate 20 12/22/16 10:00 Blood Pressure 106/60 12/22/16 10:00 O2 Sat by Pulse Oximetry (%) 100 12/22/16 07:57 Constitutional: Yes: Calm Eyes: Yes: Conjunctiva Clear HENT: Yes: Atraumatic Cardiovascular: Yes: S1, S2 Respiratory: Yes: CTA Bilaterally Gastrointestinal: Yes: Tenderness, Tenderness, Epigastrium Renal/: Yes: Wilson Present Musculoskeletal: Yes: WNL Edema: No Neurological: Yes: Oriented Psychiatric: Yes: Oriented Labs: CBC, BMP 12/22/16 08:00 12/22/16 08:00 Laboratory Tests 12/21/16 12/22/16 12/22/16 22:30 08:00 08:00 WBC 4.6 D Hgb 9.5 L D Sodium 133 L 137 Potassium 6.3 H* D 5.7 H Carbon Dioxide 12 L D Anion Gap 19 H BUN 61 H D 56 H Creatinine 5.8 H D 4.5 H D Imaging - Results Cat Scan: Report Reviewed (acute pancreatitis, kidneys appear normal on report) Problem List - Problems (1) Abdominal pain Code(s): R10.9 - UNSPECIFIED ABDOMINAL PAIN Qualifiers: Abdominal location: generalized Qualified Code(s): R10.84 - Generalized abdominal pain (2) Acute renal failure Code(s): N17.9 - ACUTE KIDNEY FAILURE, UNSPECIFIED Qualifiers: Acute renal failure type: unspecified Qualified Code(s): N17.9 - Acute kidney failure, unspecified (3) Hyperkalemia Code(s): E87.5 - HYPERKALEMIA (4) Pancreatitis Code(s): K85.90 - ACUTE PANCREATITIS WITHOUT NECROSIS OR INFECTION, UNSP Qualifiers: Chronicity: acute Pancreatitis type: unspecified pancreatitis type Acute pancreatitis complication: unspecified Qualified Code(s): K85.90 - Acute pancreatitis without necrosis or infection, unspecified Assessment/Plan Current Medications Generic Name Dose Route Start Last Admin Trade Name Freq PRN Reason Stop Dose Admin Heparin Sodium (Porcine) 1,000 unit 12/22/16 10:52 Heparin - IVPUSH PRN PRN Heparin Heparin Sodium (Porcine) 5,000 unit 12/22/16 10:52 12/22/16 14:51 Heparin - IVPUSH 5,000 unit PRN PRN Administration Heparin Hydromorphone HCl 0.5 mg 12/22/16 05:01 12/22/16 15:33 Dilaudid Injection - IVPUSH 12/23/16 05:14 0.5 mg Q3H PRN Administration PAIN LEVEL 1-5 Pantoprazole Sodium 100 mls @ 200 mls/hr 12/23/16 10:00 Protonix 40mg Ivpb (Pre-Docked) IVPB DAILY YONNY Heparin Sodium (Porcine) 25, 500 mls @ 16 mls/hr 12/22/16 11:00 12/22/16 14:38 000 unit/ Sodium Chloride IV 950 unit/hr TITR YONNY Titration Protocol 800 UNIT/HR Dextrose/Lactated Ringer's 1,000 mls @ 200 mls/hr 12/22/16 11:00 12/22/16 11:16 D5-Lr - IV 200 mls/hr ASDIR YONNY Administration Lorazepam 1 mg 12/22/16 11:04 Ativan Injection - IVPUSH Q4H PRN WITHDRAWAL(CONT SUBST) Metoprolol Tartrate 1.25 mg 12/22/16 16:30 Lopressor Injection - IVPUSH Q6H-IV YONNY Impression 1. SARA 2. hyperkalemia 3. hx etoh use 4. pancreatitis 5. abdominal pain 6. vomiting 7. anemia 8. HTN Plan - renal function is improving - potassium is improving - caution with LR as it has potassium - monitor urine output - repeat labs to evaluate lytes - check ultrasound kidneys when abdominal pain improves - will follow - admit to ICU Dr Torres
[2016-12-22] MEDS ORDERED: PT OWN MED DRAWER 7, Y5N ONE (14:05)
--- NOTE | 2016-12-22 14:41 | EKG ---
Test Reason : Blood Pressure : / mmHG Vent. Rate : 075 BPM Atrial Rate : 075 BPM P-R Int : 174 ms QRS Dur : 072 ms QT Int : 408 ms P-R-T Axes : 047 026 060 degrees QTc Int : 455 ms NORMAL SINUS RHYTHM LOW VOLTAGE QRS T WAVE ABNORMALITY, CONSIDER ANTERIOR ISCHEMIA ABNORMAL ECG WHEN COMPARED WITH ECG OF 05-JUN-2016 22:43, PREMATURE ATRIAL COMPLEXES ARE NO LONGER PRESENT NONSPECIFIC T WAVE ABNORMALITY HAS REPLACED INVERTED T WAVES IN INFERIOR LEADS T WAVE INVERSION NOW EVIDENT IN ANTERIOR LEADS QT HAS LENGTHENED Confirmed by CLEOPATRA ELIZABETH, DANILO ([id number]) on 12/22/2016 2:41:17 PM Referred By: Confirmed By:DANILO WHELAN MD
--- NOTE | 2016-12-22 16:10 | PN ---
Physical Exam: SUBJECTIVE: Patient seen and examined. She was found lying in bed in moderate distress due to pain. She states that the pain is felt all over the abdomen, but has improved since yesterday. She states that her pain is controlled with her current medication. OBJECTIVE: Vital Signs Period Temp Pulse Resp BP Sys/Sharma Pulse Ox Last 24 Hr 98.0 F-98.7 F 70-81 17-29 106-142/60-74 100-100 GENERAL: The patient is awake, alert, and fully oriented, in mild distress due to pain. HEAD: Normal with no signs of trauma. EYES: PERRL, extraocular movements intact, sclera anicteric, conjunctiva clear. No ptosis. NECK: Trachea midline, full range of motion, supple. LUNGS: Breath sounds equal, clear to auscultation bilaterally, no wheezes, no crackles, no accessory muscle use. HEART: Regular rate and rhythm, S1, S2 without murmur, rub or gallop. ABDOMEN: Soft, tenderness to palpation over all 4 quadrants, nondistended, normoactive bowel sounds, no guarding, no rebound. EXTREMITIES: 2+ pulses, warm, well-perfused, no edema. NEUROLOGICAL: Cranial nerves II through X grossly intact. Normal speech, gait not observed. PSYCH: Normal mood, normal affect. SKIN: Warm, dry, normal turgor, no rashes or lesions noted Laboratory Results - last 24 hr 12/22/16 12/22/16 12/22/16 03:45 08:00 08:00 WBC 4.6 D RBC 2.78 L Hgb 9.5 L D Hct 29.5 L MCV 106.3 H MCH 34.1 H MCHC 32.1 RDW 14.0 Plt Count 92 L MPV 9.9 D PTT (Actin FS) Sodium 137 Potassium 5.7 H Chloride 106 Carbon Dioxide 12 L D Anion Gap 19 H BUN 56 H Creatinine 4.5 H D Creat Clearance w eGFR 9.90 Random Glucose 111 H D Calcium 7.7 L Phosphorus 4.5 D Magnesium 1.9 D Total Bilirubin 0.5 D Direct Bilirubin 0.2 AST 40 H D ALT 19 Alkaline Phosphatase 94 LD Total 161 Total Protein 6.3 L Albumin 2.9 L Total Amylase 831 H Urine Color Straw Urine Appearance Clear Urine pH 5.0 Ur Specific [place] 1.015 Urine Protein 1+ H Urine Glucose (UA) Negative Urine Ketones 1+ H Urine Blood 2+ H Urine Nitrite Negative Urine Bilirubin Negative Urine Urobilinogen Negative Ur Leukocyte Esterase Negative Urine RBC 2 Urine WBC <1 Urine Bacteria Rare 12/22/16 12:35 WBC RBC Hgb Hct MCV MCH MCHC RDW Plt Count MPV PTT (Actin FS) 38.1 H Sodium Potassium Chloride Carbon Dioxide Anion Gap BUN Creatinine Creat Clearance w eGFR Random Glucose Calcium Phosphorus Magnesium Total Bilirubin Direct Bilirubin AST ALT Alkaline Phosphatase LD Total Total Protein Albumin Total Amylase Urine Color Urine Appearance Urine pH Ur Specific [place] Urine Protein Urine Glucose (UA) Urine Ketones Urine Blood Urine Nitrite Urine Bilirubin Urine Urobilinogen Ur Leukocyte Esterase Urine RBC Urine WBC Urine Bacteria Active Medications Generic Name Dose Route Start Last Admin Trade Name Freq PRN Reason Stop Dose Admin Heparin Sodium (Porcine) 1,000 unit 12/22/16 10:52 Heparin - IVPUSH PRN PRN Heparin Heparin Sodium (Porcine) 5,000 unit 12/22/16 10:52 12/22/16 14:51 Heparin - IVPUSH 5,000 unit PRN PRN Administration Heparin Hydromorphone HCl 0.5 mg 12/22/16 05:01 12/22/16 15:33 Dilaudid Injection - IVPUSH 12/23/16 05:14 0.5 mg Q3H PRN Administration PAIN LEVEL 1-5 Pantoprazole Sodium 100 mls @ 200 mls/hr 12/23/16 10:00 Protonix 40mg Ivpb (Pre-Docked) IVPB DAILY YONNY Heparin Sodium (Porcine) 25, 500 mls @ 16 mls/hr 12/22/16 11:00 12/22/16 14:38 000 unit/ Sodium Chloride IV 950 unit/hr TITR YONNY Titration Protocol 800 UNIT/HR Dextrose/Lactated Ringer's 1,000 mls @ 200 mls/hr 12/22/16 11:00 12/22/16 11:16 D5-Lr - IV 200 mls/hr ASDIR YONNY Administration Lorazepam 1 mg 12/22/16 11:04 Ativan Injection - IVPUSH Q4H PRN WITHDRAWAL(CONT SUBST) Metoprolol Tartrate 12.5 mg 12/22/16 10:00 12/22/16 11:00 Lopressor - PO Not Given BID [facility] ASSESSMENT/PLAN: Neuro: -patient is A&Ox3 -Patient drinks "a couple of glasses of smirnoff" daily -CIWA score 3 -will continue to monitor for alcohol withdrawal symptoms -ativan 1mg Q4H PRN withdrawal ssx Cardio: -PMH Afib; currently in NSR -Lopressor 1.25mg q6h -was on xarelto 20 PO as an outpatient -on heparin drip as patient is NPO; will restart home meds when patient can eat -PMH HTN -BP controlled Abdominal: -acute pancreatitis -CT shows edematous head and uncinate process of pancreas with stranding -D5LR running at 200 -monitor fluid status -Dilaudid .5mg IV Q3H PRN pain -GI consult with Dr. Valero FEN: -D5LR @ 200 -will continue to monitor lytes -NPO Prophylaxis: -protonix 40 IV Dispo: -continue to monitor in the ICU Problem List - Problems (1) Abdominal pain Code(s): R10.9 - UNSPECIFIED ABDOMINAL PAIN Qualifiers: Abdominal location: generalized Qualified Code(s): R10.84 - Generalized abdominal pain (2) Acute renal failure Code(s): N17.9 - ACUTE KIDNEY FAILURE, UNSPECIFIED Qualifiers: Acute renal failure type: unspecified Qualified Code(s): N17.9 - Acute kidney failure, unspecified (3) Elevated lipase Code(s): R74.8 - ABNORMAL LEVELS OF OTHER SERUM ENZYMES (4) Pancreatitis Code(s): K85.90 - ACUTE PANCREATITIS WITHOUT NECROSIS OR INFECTION, UNSP Qualifiers: Chronicity: acute Pancreatitis type: unspecified pancreatitis type Acute pancreatitis complication: unspecified Qualified Code(s): K85.90 - Acute pancreatitis without necrosis or infection, unspecified (5) Vomiting Code(s): R11.10 - VOMITING, UNSPECIFIED Qualifiers: Vomiting type: unspecified Vomiting Intractability: intractable Nausea presence: with nausea Qualified Code(s): R11.2 - Nausea with vomiting , unspecified Visit type - Emergency Visit Emergency Visit: Yes ED Registration Date: 12/22/16 Care time: The patient presented to the Emergency Department on the above date and was hospitalized for further evaluation of their emergent condition. - New Patient This patient is new to me today: Yes Date on this admission: 12/22/16 - Critical Care Critical Care patient: Yes Total Critical Care Time (in minutes): 35 Critical Care Statement: The care of this patient involved high complexity decision making to prevent further life threatening deterioration of the patient 's condition and/or to evalute & treat vital organ system(s) failure or risk of failure.
[2016-12-22 16:34] LABS: MAGNESIUM 1.8 mg/dL (1.8-2.4); PHOSPHOROUS 2.9 mg/dL (2.5-4.9)
[2016-12-22] MEDS: METOPROLOL TARTRATE 5 MG/5 ML VIAL IVPUSH SCH ×2 (17:25→22:26)
[2016-12-22 18:47] LABS: ANION GAP 15 (8-16); CALCIUM 8.4 mg/dL (8.5-10.1); CO2 15 mmol/L (21-32); CREATININE 3.8 mg/dL (0.55-1.02); GLUCOSE,RANDOM 233 mg/dL (74-106)
--- NOTE | 2016-12-22 19:43 | CON.GI ---
Consult Consult Specialty:: gastroenterology - History of Present Illness History of Present Illness: 61 year old female with past medical history of Afib, hypertension, hyperlipidemia, NIDDM, GERD, and alcoholism on chronic Aspirin use and Xarelto who presents to the ED with progressive epigastric pain nausea andn vomiting for the past 3 days. She drinks 3 oz of vodka for manuy years The patient denies any fevers, chills, diarrhea, cough, SOB, CP, or urinary symptoms. - Past Medical History Cardio/Vascular: Yes: AFIB (-paroxysmal), HTN, Hyperlipdemia, Murmur Gastrointestinal: Yes: GERD ...: No ENT: Yes: Other (early cataracts) Endocrine: Yes: Diabetes Mellitus (NIDDM- diet controlled, diagnosed > 10 years ago; self d/c'd metformin due to weight loss) - Past Surgical History Past Surgical History: Yes: None - Alcohol/Substance Use Hx Alcohol Use: Yes History of Substance Use: reports: None - Smoking History Smoking history: Never smoked Have you smoked in the past 12 months: No Aproximately how many cigarettes per day: 0 If you are a former smoker, when did you quit?: 30 years ago - Social History ADL: Independent 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 History of Recent Travel: No Home Medications - Allergies Allergies/Adverse Reactions: Allergies Allergy/AdvReac Type Severity Reaction Status Date / Time No Known Allergies Allergy Verified 12/22/16 03:35 - Home Medications Home Medications: Ambulatory Orders Omeprazole 20 mg PO DAILY 07/08/15 Metoprolol Tartrate [Lopressor -] 12.5 mg PO BID #60 tablet 07/10/15 Atorvastatin Ca [Lipitor] 20 mg PO HS 06/05/16 Rivaroxaban [Xarelto -] 20 mg PO DAILY 06/06/16 Valsartan 40 mg PO DAILY 12/22/16 Family Disease History - Family Disease History Family Disease History: Heart Disease: Father (50 ), CA: Mother (lung 72 ), Other: Sister (? uterine Ca-58, alive) Review of Systems - Review of Systems Constitutional: denies: Fever Eyes: denies: Blurred Vision HENT: denies: Difficult Swallowing Neck: denies: Decreased ROM Cardiovascular: denies: Chest Pain Respiratory: denies: Cough Gastrointestinal: reports: Abdominal Pain, Nausea, Vomiting. denies: Bloating, Diarrhea, Dysphagia, Indigestion, Melena Physical Exam-GI Vital Signs: Vital Signs Temperature 98.4 F 12/22/16 18:00 Pulse Rate 76 12/22/16 18:00 Respiratory Rate 24 12/22/16 18:00 Blood Pressure 127/73 12/22/16 18:00 O2 Sat by Pulse Oximetry (%) 100 12/22/16 07:57 Constitutional: Yes: Well Nourished Eyes: Yes: Conjunctiva Clear HENT: Yes: Atraumatic Neck: Yes: Supple Cardiovascular: Yes: Regular Rate and Rhythm Respiratory: Yes: CTA Bilaterally ...Palpate: Yes: Soft. No: Firm/Rigid, Guarding, Hepatomegaly, Mass, Pulsatile Mass, Splenomegaly, Tenderness, Tenderness, Epigastium Labs: CBC, BMP 12/22/16 08:00 12/22/16 18:00 Problem List - Problems (1) Epigastric abdominal pain Assessment/Plan: r/o peptic ulcer disease R> inrease Protonix 40mg bid stool guaiac od x 3 will need to switch to Coumadin due to the possibility of occult gi bleeding will need gi w/u once pancreatitis has resolved as an outpatient' she was made aware to follow-up Code(s): R10.13 - EPIGASTRIC PAIN (2) Acute pancreatitis Assessment/Plan: R. continue IV hydration Code(s): K85.90 - ACUTE PANCREATITIS WITHOUT NECROSIS OR INFECTION, UNSP Qualifiers: Pancreatitis type: alcohol induced (3) Acute renal failure Assessment/Plan: R> conitnue IV hydration Code(s): N17.9 - ACUTE KIDNEY FAILURE, UNSPECIFIED Qualifiers: Acute renal failure type: unspecified Qualified Code(s): N17.9 - Acute kidney failure, unspecified
[2016-12-22] MEDS ORDERED: ATORVASTATIN CA 10 MG TABLET (FP) PO SCH (22:00)
[2016-12-22] MEDS: INSULIN SLIDING SCALE (NOVOLOG) 1 VIAL SQ SCH (23:27)
[2016-12-22] MEDS: LORazepam 2 MG/ML SDV VIAL IVPUSH PRN (23:57)
[2016-12-23] MEDS ORDERED: HEMOQUE CONTROL SOLUTION ONE (01:07)
[2016-12-23] MEDS ORDERED: HALOPERIDOL LACTATE 5 MG/ML IM ONE (01:51)
[2016-12-23] MEDS: METOPROLOL TARTRATE 5 MG/5 ML VIAL IVPUSH SCH ×4 (02:00→22:58)
[2016-12-23] MEDS: HYDROmorphone HCL CARPU-JECT 1 MG/1 ML DISP.SYRIN IVPUSH PRN (05:20)
[2016-12-23] MEDS: INSULIN SLIDING SCALE (NOVOLOG) 1 VIAL SQ SCH ×4 (06:02→22:58)
[2016-12-23 06:30] LABS: MCH 34.9 pg (25.7-33.7); MCHC 33.7 g/dl (32.0-36.0); MEAN CELL VOLUME 103.6 fl (80-96); MEAN PLT VOLUME 10.2 fl (7.5-11.1); PLATELET COUNT 71 K/MM3 (134-434); RDW 13.8 % (11.6-15.6); WHITE BLOOD COUNT 4.4 K/mm3 (4.0-10.0)
[2016-12-23] MEDS: PANTOPRAZOLE SODIUM 100 ML IVPB SCH ×2 (09:12→22:58)
[2016-12-23 09:15] LABS: ALBUMIN 2.6 g/dl (3.4-5.0); ALK PHOS 84 U/L (45-117); ANION GAP 12 (8-16); BILIRUBIN,TOTAL 0.3 mg/dL (0.2-1.0); CALCIUM 8.1 mg/dL (8.5-10.1); CO2 19 mmol/L (21-32); CREATININE 2.3 mg/dL (0.55-1.02); GLUCOSE,RANDOM 183 mg/dL (74-106); SGOT/AST 28 U/L (15-37); SGPT/ALT 13 U/L (12-78); TOT PROT 5.7 g/dl (6.4-8.2)
[2016-12-23] MEDS ORDERED: PANTOPRAZOLE SODIUM 100 ML IVPB SCH (10:00)
--- NOTE | 2016-12-23 10:20 | PN ---
Progress Note (short form) - Note Progress Note: pt seen/examined in icu. chart reviewed awake/ comfortable. no distress passing urine Vital Signs Temp 98.5 F 12/23/16 06:00 Pulse 88 12/23/16 09:07 Resp 16 12/23/16 08:14 BP 128/73 12/23/16 09:07 Pulse Ox 100 12/22/16 20:40 Intake & Output 12/22/16 12/22/16 12/23/16 11:59 23:59 11:59 Intake Total 2425 2454 Output Total 300 1000 400 Balance -300 1425 2054 Weight 131 lb 6.328 oz 137 lb 5.568 oz Intake: IV 2425 2404 Heparin - 25,000 Unit In 105 204 Normal Saline - 495 ml @ 800 UNIT/HR 16 mls/hr IV TITR YONNY Rx#:[id number] D5-Lr - 1,000 ml @ 200 2320 2200 mls/hr IV ASDIR YONNY Rx#: [id number] IVPB 50 Output: Urine 300 1000 400 Wilson 300 1000 400 Other: Voiding Method Indwelling Catheter Indwelling Catheter Indwelling Catheter Height 5 ft 5 in Body Mass Index (BMI) 21.8 Weight Measurement Method Built in Bedscale Built in Bedscale Active Medications Heparin Sodium (Porcine) (Heparin -) 1,000 unit IVPUSH PRN PRN PRN Reason: Heparin Heparin Sodium (Porcine) (Heparin -) 5,000 unit IVPUSH PRN PRN PRN Reason: Heparin Last Admin: 12/22/16 14:51 Dose: 5,000 unit Heparin Sodium (Porcine) 25, (000 unit/ Sodium Chloride) 500 mls @ 16 mls/hr IV TITR YONNY; 800 UNIT/HR PRN Reason: Protocol Last Titration: 12/22/16 23:00 Dose: 800 unit/hr Dextrose/Lactated Ringer's (D5-Lr -) 1,000 mls @ 200 mls/hr IV ASDIR YONNY Last Admin: 12/22/16 11:16 Dose: 200 mls/hr Pantoprazole Sodium (Protonix 40mg Ivpb (Pre-Docked)) 100 mls @ 200 mls/hr IVPB BID YONNY Last Admin: 12/23/16 09:12 Dose: 200 mls/hr Insulin Aspart (Novolog Vial Sliding Scale -) 1 vial SQ ACHS YONNY PRN Reason: Protocol Last Admin: 12/23/16 06:02 Dose: 1 units Lorazepam (Ativan Injection -) 1 mg IVPUSH Q4H PRN PRN Reason: WITHDRAWAL(CONT SUBST) Last Admin: 12/22/16 23:57 Dose: 1 mg Metoprolol Tartrate (Lopressor Injection -) 1.25 mg IVPUSH Q6H-IV YONNY Last Admin: 12/23/16 09:07 Dose: 1.25 mg CBC, BMP 12/23/16 05:15 12/23/16 05:15 Physical Examination Constitutional: Yes: No Distress/ comfortable Cardiovascular: Yes: Regular Rate and Rhythm, Murmur Respiratory: Yes: CTA Bilaterally Gastrointestinal: Yes: Normal Bowel Sounds, Soft, Distention (slight distension) , Tenderness (generalized) Edema: No Psychiatric: Yes: Alert, awake Wilson + Imaging - Results Chest X-ray: Image Reviewed Cat Scan: Report Reviewed EKG: Image Reviewed (NSR) Problem List - Problems (1) Abdominal pain Code(s): R10.9 - UNSPECIFIED ABDOMINAL PAIN Qualifiers: Abdominal location: generalized Qualified Code(s): R10.84 - Generalized abdominal pain (2) Acute renal failure Code(s): N17.9 - ACUTE KIDNEY FAILURE, UNSPECIFIED Qualifiers: Acute renal failure type: unspecified Qualified Code(s): N17.9 - Acute kidney failure, unspecified (3) Elevated lipase Code(s): R74.8 - ABNORMAL LEVELS OF OTHER SERUM ENZYMES (4) Hyperkalemia Code(s): E87.5 - HYPERKALEMIA (5) Pancreatitis Code(s): K85.90 - ACUTE PANCREATITIS WITHOUT NECROSIS OR INFECTION, UNSP Qualifiers: Chronicity: acute Pancreatitis type: unspecified pancreatitis type Acute pancreatitis complication: unspecified Qualified Code(s): K85.90 - Acute pancreatitis without necrosis or infection, unspecified Assessment/Plan better Keep NPO IV fluids IV Protonix continue other meds f/u labs closely improving renal function. oob - chair stable for transfer to floor care. cc time 30 min will follow
[2016-12-23] MEDS ORDERED: HEMOQUE TEST 1 EACH EACH ONE (10:54)
--- NOTE | 2016-12-23 13:58 | PN ---
Teaching Attending Note Name of Resident: Jonatan Parra ATTENDING PHYSICIAN STATEMENT I saw and evaluated the patient. I reviewed the resident's note and discussed the case with the resident. I agree with the resident's findings and plan as documented. SUBJECTIVE: Patient seen and examined in the ICU. Awake and alert. Drowsy due to medications. Reports that abdominal pain is better today. Denies CP or SOB. No signs of withdrawal. Intake & Output 12/20/16 12/21/16 12/22/16 12/23/16 23:59 23:59 23:59 23:59 Intake Total 2425 2454 Output Total 1300 400 Balance 1125 2054 Weight 131 lb 131 lb 6.328 oz 137 lb 5.568 oz Last Vital Signs Temp Pulse Resp BP Pulse Ox 98.5 F 93 H 26 H 172/74 100 12/23/16 06:00 12/23/16 12:00 12/23/16 12:00 12/23/16 12:00 12/23/16 09:00 Active Medications Heparin Sodium (Porcine) (Heparin -) 1,000 unit IVPUSH PRN PRN PRN Reason: Heparin Heparin Sodium (Porcine) (Heparin -) 5,000 unit IVPUSH PRN PRN PRN Reason: Heparin Last Admin: 12/22/16 14:51 Dose: 5,000 unit Heparin Sodium (Porcine) 25, (000 unit/ Sodium Chloride) 500 mls @ 16 mls/hr IV TITR YONNY; 800 UNIT/HR PRN Reason: Protocol Last Titration: 12/22/16 23:00 Dose: 800 unit/hr Dextrose/Lactated Ringer's (D5-Lr -) 1,000 mls @ 200 mls/hr IV ASDIR YONNY Last Admin: 12/22/16 11:16 Dose: 200 mls/hr Pantoprazole Sodium (Protonix 40mg Ivpb (Pre-Docked)) 100 mls @ 200 mls/hr IVPB BID YONNY Last Admin: 12/23/16 09:12 Dose: 200 mls/hr Insulin Aspart (Novolog Vial Sliding Scale -) 1 vial SQ ACHS YONNY PRN Reason: Protocol Last Admin: 12/23/16 12:54 Dose: Not Given Lorazepam (Ativan Injection -) 1 mg IVPUSH Q4H PRN PRN Reason: WITHDRAWAL(CONT SUBST) Last Admin: 12/22/16 23:57 Dose: 1 mg Metoprolol Tartrate (Lopressor Injection -) 1.25 mg IVPUSH Q6H-IV YONNY Last Admin: 12/23/16 09:07 Dose: 1.25 mg GENERAL: Awake and alert. Mildly uncomfortable due to pain HEENT: Normocephalic, atraumatic. PERRLA, EOMI. No conjunctival pallor. Sclera are non-icteric. NECK: No JVP,No LAD Supple. Full ROM. CARDIOVASCULAR:Regular rate and rhythm. (+) ESM; No rubs, or gallops. PULMONARY: Clear anterior, no distress, no wheezes ABDOMINAL: Diffuse tenderness to palpation. No rebound or guarding. (+) BS MUSCULOSKELETAL:Normal range of motion at all joints. No bony deformities or tenderness. EXTREMITIES: No cyanosis. No clubbing. No edema. No calf tenderness. SKIN: Warm and dry. Normal capillary refill. No rashes. No jaundice. NEUROLOGICAL: Non focal exam PSYCHIATRIC: Cooperative. Laboratory Results - last 24 hr 12/22/16 12/22/16 12/22/16 12:35 15:45 18:00 WBC RBC Hgb Hct MCV MCH MCHC RDW Plt Count MPV PTT (Actin FS) 38.1 H Sodium 138 Potassium 5.0 Chloride 108 H Carbon Dioxide 15 L D Anion Gap 15 BUN 49 H Creatinine 3.8 H Creat Clearance w eGFR Random Glucose 233 H D Calcium 8.4 L Phosphorus 2.9 D Magnesium 1.8 Total Bilirubin AST ALT Alkaline Phosphatase Total Protein Albumin 12/22/16 12/23/16 12/23/16 20:40 05:15 05:15 WBC 4.4 RBC 2.39 L Hgb 8.3 L D Hct 24.8 L D MCV 103.6 H MCH 34.9 H MCHC 33.7 RDW 13.8 Plt Count 71 L D MPV 10.2 PTT (Actin FS) 144.8 H D Sodium 143 Potassium 4.4 Chloride 112 H Carbon Dioxide 19 L D Anion Gap 12 BUN 34 H D Creatinine 2.3 H D Creat Clearance w eGFR 21.49 Random Glucose 183 H D Calcium 8.1 L Phosphorus Magnesium Total Bilirubin 0.3 D AST 28 D ALT 13 D Alkaline Phosphatase 84 Total Protein 5.7 L Albumin 2.6 L 12/23/16 07:35 WBC RBC Hgb Hct MCV MCH MCHC RDW Plt Count MPV PTT (Actin FS) 67.5 H D Sodium Potassium Chloride Carbon Dioxide Anion Gap BUN Creatinine Creat Clearance w eGFR Random Glucose Calcium Phosphorus Magnesium Total Bilirubin AST ALT Alkaline Phosphatase Total Protein Albumin IMP: Acute ETOH Pancreatitis Abdominal pain (Acute) Acute renal failure (Acute) Aortic regurgitation (Acute) Atypical chest pain (Acute) Chest pain (Acute) Elevated lipase (Acute) GERD (gastroesophageal reflux disease) (Acute) Hyperkalemia (Acute) New onset a-fib (Acute) Pancreatitis (Acute) Renal insufficiency (Acute) Vomiting (Acute) NIDDM (Chronic) PLAN: -IVF : LR -Strict I&O -Follow chemistry -Pain control -Monitor off ABX for now -AC with IV Heparin as patient with AFib history and no active sign of bleeding -Follow CBC -NPO Dr Arias Critical Care Total Critical Care Time (in minutes): 35 Critical Care Statement: The care of this patient involved high complexity decision making to prevent further life threatening deterioration of the patient 's condition and/or to evalute & treat vital organ system(s) failure or risk of failure.
--- NOTE | 2016-12-23 15:16 | PN ---
Physical Exam: SUBJECTIVE: Patient seen and examined. She was sleepy on examination. she states her pain is better today and is being controlled with her current medication. OBJECTIVE: Vital Signs Period Temp Pulse Resp BP Sys/Sharma Pulse Ox Last 24 Hr 98.2 F-98.8 F 74-98 16-26 127-172/53-79 100-100 GENERAL: The patient is awake, alert, transiently disoriented, in no acute distress. HEAD: Normal with no signs of trauma. EYES: PERRL, extraocular movements intact, sclera anicteric, conjunctiva clear. No ptosis. ENT: Ears normal, nares patent, oropharynx clear without exudates, moist mucous membranes. NECK: Trachea midline, full range of motion, supple. LUNGS: Breath sounds equal, clear to auscultation bilaterally, no wheezes, no crackles, no accessory muscle use. HEART: Regular rate and rhythm, S1, S2 without murmur, rub or gallop. ABDOMEN: Soft, nontender, nondistended, normoactive bowel sounds, no guarding, no rebound. NEUROLOGICAL: Cranial nerves II through X grossly intact. Normal speech, gait not observed. PSYCH: Normal mood, normal affect. SKIN: Warm, dry, normal turgor, no rashes or lesions noted Laboratory Results - last 24 hr 12/22/16 12/22/16 12/22/16 15:45 18:00 20:40 WBC RBC Hgb Hct MCV MCH MCHC RDW Plt Count MPV PTT (Actin FS) 144.8 H D Sodium 138 Potassium 5.0 Chloride 108 H Carbon Dioxide 15 L D Anion Gap 15 BUN 49 H Creatinine 3.8 H Creat Clearance w eGFR POC Glucometer Random Glucose 233 H D Calcium 8.4 L Phosphorus 2.9 D Magnesium 1.8 Total Bilirubin AST ALT Alkaline Phosphatase Total Protein Albumin 12/22/16 12/23/16 12/23/16 23:24 05:15 05:15 WBC 4.4 RBC 2.39 L Hgb 8.3 L D Hct 24.8 L D MCV 103.6 H MCH 34.9 H MCHC 33.7 RDW 13.8 Plt Count 71 L D MPV 10.2 PTT (Actin FS) Sodium 143 Potassium 4.4 Chloride 112 H Carbon Dioxide 19 L D Anion Gap 12 BUN 34 H D Creatinine 2.3 H D Creat Clearance w eGFR 21.49 POC Glucometer [phone] Random Glucose 183 H D Calcium 8.1 L Phosphorus Magnesium Total Bilirubin 0.3 D AST 28 D ALT 13 D Alkaline Phosphatase 84 Total Protein 5.7 L Albumin 2.6 L 12/23/16 12/23/16 05:57 07:35 WBC RBC Hgb Hct MCV MCH MCHC RDW Plt Count MPV PTT (Actin FS) 67.5 H D Sodium Potassium Chloride Carbon Dioxide Anion Gap BUN Creatinine Creat Clearance w eGFR POC Glucometer [phone] Random Glucose Calcium Phosphorus Magnesium Total Bilirubin AST ALT Alkaline Phosphatase Total Protein Albumin Active Medications Generic Name Dose Route Start Last Admin Trade Name Freq PRN Reason Stop Dose Admin Heparin Sodium (Porcine) 1,000 unit 12/22/16 10:52 Heparin - IVPUSH PRN PRN Heparin Heparin Sodium (Porcine) 5,000 unit 12/22/16 10:52 12/22/16 14:51 Heparin - IVPUSH 5,000 unit PRN PRN Administration Heparin Heparin Sodium (Porcine) 25, 500 mls @ 16 mls/hr 12/22/16 11:00 12/22/16 23:00 000 unit/ Sodium Chloride IV 800 unit/hr TITR YONNY Titration Protocol 800 UNIT/HR Dextrose/Lactated Ringer's 1,000 mls @ 200 mls/hr 12/22/16 11:00 12/22/16 11:16 D5-Lr - IV 200 mls/hr ASDIR YONNY Administration Pantoprazole Sodium 100 mls @ 200 mls/hr 12/23/16 10:00 12/23/16 09:12 Protonix 40mg Ivpb (Pre-Docked) IVPB 200 mls/hr BID YONNY Administration Insulin Aspart 1 vial 12/23/16 07:00 12/23/16 12:54 Novolog Vial Sliding Scale - SQ Not Given ACHS YONNY Protocol Lorazepam 1 mg 12/22/16 11:04 12/22/16 23:57 Ativan Injection - IVPUSH 1 mg Q4H PRN Administration WITHDRAWAL(CONT SUBST) Metoprolol Tartrate 1.25 mg 12/22/16 16:30 12/23/16 09:07 Lopressor Injection - IVPUSH 1.25 mg Q6H-IV YONNY Administration ASSESSMENT/PLAN: Neuro: -patient is A&Ox3 -Patient drinks "a couple of glasses of smirnoff" daily -CIWA score 6 today, was 3 -will continue to monitor for alcohol withdrawal symptoms -ativan 1mg Q4H PRN withdrawal ssx Cardio: -PMH Afib; currently in NSR -Lopressor 1.25mg q6h -was on xarelto 20 PO as an outpatient -on heparin drip as patient is NPO; will restart home meds when patient can eat -PMH HTN -BP controlled Abdominal: -acute pancreatitis -CT shows edematous head and uncinate process of pancreas with stranding -D5LR running at 200 -monitor fluid status -Dilaudid .5mg IV Q3H PRN pain -GI requests stool guiac daily for 3 days FEN: -D5LR @ 200 -will continue to monitor lytes -NPO Prophylaxis: -protonix 40 IV BID Dispo: -continue to monitor in the ICU Problem List - Problems (1) Abdominal pain Code(s): R10.9 - UNSPECIFIED ABDOMINAL PAIN Qualifiers: Abdominal location: generalized Qualified Code(s): R10.84 - Generalized abdominal pain (2) Acute renal failure Code(s): N17.9 - ACUTE KIDNEY FAILURE, UNSPECIFIED Qualifiers: Acute renal failure type: unspecified Qualified Code(s): N17.9 - Acute kidney failure, unspecified (3) Elevated lipase Code(s): R74.8 - ABNORMAL LEVELS OF OTHER SERUM ENZYMES (4) Pancreatitis Code(s): K85.90 - ACUTE PANCREATITIS WITHOUT NECROSIS OR INFECTION, UNSP Qualifiers: Chronicity: acute Pancreatitis type: unspecified pancreatitis type Acute pancreatitis complication: unspecified Qualified Code(s): K85.90 - Acute pancreatitis without necrosis or infection, unspecified (5) Vomiting Code(s): R11.10 - VOMITING, UNSPECIFIED Qualifiers: Vomiting type: unspecified Vomiting Intractability: intractable Nausea presence: with nausea Qualified Code(s): R11.2 - Nausea with vomiting , unspecified Visit type - Emergency Visit Emergency Visit: Yes ED Registration Date: 12/22/16 Care time: The patient presented to the Emergency Department on the above date and was hospitalized for further evaluation of their emergent condition. - New Patient This patient is new to me today: No - Critical Care Critical Care patient: Yes Total Critical Care Time (in minutes): 35 Critical Care Statement: The care of this patient involved high complexity decision making to prevent further life threatening deterioration of the patient 's condition and/or to evaluate & treat vital organ system(s) failure or risk of failure.
[2016-12-23 15:33] LABS: MAGNESIUM 1.2 mg/dL (1.8-2.4)
[2016-12-23] MEDS: HEPARIN - 25,000 UNIT in SODIUM CHLORIDE 495 ML IV SCH (15:40)
[2016-12-23] MEDS: DEXTROSE 5%-LACTATED RINGERS 1,000 ML IV SCH (15:41)
[2016-12-23 15:42] LABS: PHOSPHOROUS 1.2 mg/dL (2.5-4.9)
[2016-12-23] MEDS: LORazepam 2 MG/ML SDV VIAL IVPUSH PRN (16:06)
--- NOTE | 2016-12-23 16:45 | PN ---
Progress Note, Physician History of Present Illness: Pt seen and examined at bedside. She is awake but confused. She denies shortness of breath. - Current Medication List Current Medications: Active Medications Heparin Sodium (Porcine) (Heparin -) 1,000 unit IVPUSH PRN PRN PRN Reason: Heparin Heparin Sodium (Porcine) (Heparin -) 5,000 unit IVPUSH PRN PRN PRN Reason: Heparin Last Admin: 12/22/16 14:51 Dose: 5,000 unit Heparin Sodium (Porcine) 25, (000 unit/ Sodium Chloride) 500 mls @ 16 mls/hr IV TITR YONNY; 800 UNIT/HR PRN Reason: Protocol Last Admin: 12/23/16 15:40 Dose: 16 mls/hr Dextrose/Lactated Ringer's (D5-Lr -) 1,000 mls @ 200 mls/hr IV ASDIR YONNY Last Admin: 12/23/16 15:41 Dose: 200 mls/hr Pantoprazole Sodium (Protonix 40mg Ivpb (Pre-Docked)) 100 mls @ 200 mls/hr IVPB BID YONNY Last Admin: 12/23/16 09:12 Dose: 200 mls/hr Insulin Aspart (Novolog Vial Sliding Scale -) 1 vial SQ ACHS YONNY PRN Reason: Protocol Last Admin: 12/23/16 12:54 Dose: Not Given Lorazepam (Ativan Injection -) 1 mg IVPUSH Q4H PRN PRN Reason: WITHDRAWAL(CONT SUBST) Last Admin: 12/23/16 16:06 Dose: 1 mg Metoprolol Tartrate (Lopressor Injection -) 1.25 mg IVPUSH Q6H-IV YONNY Last Admin: 12/23/16 15:36 Dose: 1.25 mg - Objective Vital Signs: Vital Signs Temperature 100.4 F H 12/23/16 14:00 Pulse Rate 98 H 12/23/16 15:36 Respiratory Rate 22 12/23/16 14:00 Blood Pressure 161/82 12/23/16 15:36 O2 Sat by Pulse Oximetry (%) 100 12/23/16 09:00 Constitutional: Yes: Calm Eyes: Yes: Conjunctiva Clear HENT: Yes: Atraumatic Neck: Yes: Supple Cardiovascular: Yes: S1, S2 Respiratory: Yes: CTA Bilaterally Gastrointestinal: Yes: Tenderness, Tenderness, Epigastrium Genitourinary: Yes: Wilson Present Musculoskeletal: Yes: Muscle Weakness Edema: No Integumentary: Yes: WNL Neurological: Yes: Confusion Labs: CBC, BMP 12/23/16 05:15 12/23/16 05:15 Problem List - Problems (1) Abdominal pain Code(s): R10.9 - UNSPECIFIED ABDOMINAL PAIN Qualifiers: Abdominal location: generalized Qualified Code(s): R10.84 - Generalized abdominal pain (2) Acute renal failure Code(s): N17.9 - ACUTE KIDNEY FAILURE, UNSPECIFIED Qualifiers: Acute renal failure type: unspecified Qualified Code(s): N17.9 - Acute kidney failure, unspecified (3) Hyperkalemia Code(s): E87.5 - HYPERKALEMIA (4) Pancreatitis Code(s): K85.90 - ACUTE PANCREATITIS WITHOUT NECROSIS OR INFECTION, UNSP Qualifiers: Chronicity: acute Pancreatitis type: unspecified pancreatitis type Acute pancreatitis complication: unspecified Qualified Code(s): K85.90 - Acute pancreatitis without necrosis or infection, unspecified Assessment/Plan Current Medications Generic Name Dose Route Start Last Admin Trade Name Freq PRN Reason Stop Dose Admin Heparin Sodium (Porcine) 1,000 unit 12/22/16 10:52 Heparin - IVPUSH PRN PRN Heparin Heparin Sodium (Porcine) 5,000 unit 12/22/16 10:52 12/22/16 14:51 Heparin - IVPUSH 5,000 unit PRN PRN Administration Heparin Heparin Sodium (Porcine) 25, 500 mls @ 16 mls/hr 12/22/16 11:00 12/23/16 15:40 000 unit/ Sodium Chloride IV 16 mls/hr TITR YONNY Administration Protocol 800 UNIT/HR Dextrose/Lactated Ringer's 1,000 mls @ 200 mls/hr 12/22/16 11:00 12/23/16 15:41 D5-Lr - IV 200 mls/hr ASDIR YONNY Administration Pantoprazole Sodium 100 mls @ 200 mls/hr 12/23/16 10:00 12/23/16 09:12 Protonix 40mg Ivpb (Pre-Docked) IVPB 200 mls/hr BID YONNY Administration Insulin Aspart 1 vial 12/23/16 07:00 12/23/16 12:54 Novolog Vial Sliding Scale - SQ Not Given ACHS YONNY Protocol Lorazepam 1 mg 12/22/16 11:04 12/23/16 16:06 Ativan Injection - IVPUSH 1 mg Q4H PRN Administration WITHDRAWAL(CONT SUBST) Metoprolol Tartrate 1.25 mg 12/22/16 16:30 12/23/16 15:36 Lopressor Injection - IVPUSH 1.25 mg Q6H-IV YONNY Administration Impression 1. SARA 2. hyperkalemia 3. hx etoh use 4. pancreatitis 5. abdominal pain 6. vomiting 7. anemia 8. HTN Plan - renal function continues to improve - potassium has stabilized - cont fluids - discussed with ICU team - check cxr - replace mag and phos - monitor urine output - check ultrasound kidneys when abdominal pain improves - will follow Dr Torres
[2016-12-23] MEDS ORDERED: MAGNESIUM SULF 50% (8.12 MEQ/2 ML-1 GM VIAL) IVPB ONE (16:46)
[2016-12-23] MEDS ORDERED: POTASSIUM PHOSPHATE 30 MM in SODIUM CHLORIDE 250 ML IVPB ONE (16:46)
[2016-12-23] MEDS ORDERED: PT OWN MED DRAWER 7, Y5N ONE (22:57)
[2016-12-24] MEDS: METOPROLOL TARTRATE 5 MG/5 ML VIAL IVPUSH SCH ×4 (03:00→23:42)
[2016-12-24 06:02] LABS: BASOPHIL 0.6 % (0-2.0); EOSINOPHIL 0.5 % (0-4.5); MCH 34.7 pg (25.7-33.7); MCHC 33.3 g/dl (32.0-36.0); MEAN PLT VOLUME 10.3 fl (7.5-11.1); NEUTROPHILS 78.7 % (42.8-82.8); PLATELET COUNT 65 K/MM3 (134-434); RDW 13.5 % (11.6-15.6); WHITE BLOOD COUNT 7.2 K/mm3 (4.0-10.0)
[2016-12-24 07:07] LABS: ALBUMIN 2.3 g/dl (3.4-5.0); ANION GAP 9 (8-16); BILIRUBIN,TOTAL 0.3 mg/dL (0.2-1.0); CALCIUM 7.6 mg/dL (8.5-10.1); CO2 21 mmol/L (21-32); CREATININE 1.4 mg/dL (0.55-1.02); GLUCOSE,RANDOM 239 mg/dL (74-106); SGOT/AST 19 U/L (15-37); SGPT/ALT 10 U/L (12-78); TOT PROT 5.2 g/dl (6.4-8.2)
[2016-12-24 07:08] LABS: ALK PHOS 79 U/L (45-117)
[2016-12-24] MEDS: INSULIN SLIDING SCALE (NOVOLOG) 1 VIAL SQ SCH ×4 (07:46→23:55)
[2016-12-24] MEDS: DEXTROSE 5%-LACTATED RINGERS 1,000 ML IV SCH (08:33)
[2016-12-24 08:53] LABS: MAGNESIUM 1.8 mg/dL (1.8-2.4); PHOSPHOROUS 3.3 mg/dL (2.5-4.9)
[2016-12-24] MEDS ORDERED: DEXTROSE 5%-LACTATED RINGERS 1,000 ML IV SCH ×2 (09:28→12:01)
--- NOTE | 2016-12-24 09:29 | PN ---
Physical Exam: SUBJECTIVE: Patient seen and examined. Patient states that her abdominal pain is better today, but now complaints of a headache. She states that she has been having some shortness of breath, but states that she has been having is at home as well. OBJECTIVE: Vital Signs Period Temp Pulse Resp BP Sys/Sharma Pulse Ox Last 24 Hr 98.4 F-100.4 F 73-100 16-35 118-172/56-82 94-96 GENERAL: The patient is awake, alert, transiently disoriented, in no acute distress. HEAD: Normal with no signs of trauma. EYES: PERRL, extraocular movements intact, sclera anicteric, conjunctiva clear. No ptosis. ENT: Ears normal, nares patent, oropharynx clear without exudates, moist mucous membranes. NECK: Trachea midline, full range of motion, supple. LUNGS: Breath sounds equal, mild expiratory wheezes and inspiratory crackles, worse at bases, no accessory muscle use. HEART: Regular rate and rhythm, S1, S2 without murmur, rub or gallop. ABDOMEN: Soft, nontender, nondistended, normoactive bowel sounds, no guarding, no rebound. NEUROLOGICAL: Cranial nerves II through X grossly intact. Normal speech, gait not observed. PSYCH: Normal mood, normal affect. SKIN: Warm, dry, normal turgor, no rashes or lesions noted Laboratory Results - last 24 hr 12/22/16 12/23/16 12/23/16 23:24 05:57 14:15 WBC RBC Hgb Hct MCV MCH MCHC RDW Plt Count MPV Neutrophils % Lymphocytes % Monocytes % Eosinophils % Basophils % PTT (Actin FS) Sodium Potassium Chloride Carbon Dioxide Anion Gap BUN Creatinine Creat Clearance w eGFR POC Glucometer [phone] Random Glucose Calcium Phosphorus 1.2 L D Magnesium 1.2 L D Total Bilirubin AST ALT Alkaline Phosphatase Total Protein Albumin Lipase Stool Occult Blood 12/23/16 12/23/16 12/23/16 16:22 16:54 22:54 WBC RBC Hgb Hct MCV MCH MCHC RDW Plt Count MPV Neutrophils % Lymphocytes % Monocytes % Eosinophils % Basophils % PTT (Actin FS) Sodium Potassium Chloride Carbon Dioxide Anion Gap BUN Creatinine Creat Clearance w eGFR POC Glucometer [phone] Random Glucose Calcium Phosphorus Magnesium Total Bilirubin AST ALT Alkaline Phosphatase Total Protein Albumin Lipase Stool Occult Blood Negative 12/24/16 12/24/16 12/24/16 05:10 05:10 05:10 WBC 7.2 D RBC 2.09 L Hgb 7.2 L D Hct 21.7 L MCV 104.0 H MCH 34.7 H MCHC 33.3 RDW 13.5 Plt Count 65 L MPV 10.3 Neutrophils % 78.7 Lymphocytes % 12.9 Monocytes % 7.3 Eosinophils % 0.5 D Basophils % 0.6 PTT (Actin FS) 61.2 H Sodium 144 Potassium 3.9 Chloride 114 H Carbon Dioxide 21 Anion Gap 9 BUN 20 H D Creatinine 1.4 H D Creat Clearance w eGFR 38.10 POC Glucometer Random Glucose 239 H D Calcium 7.6 L Phosphorus Magnesium Total Bilirubin 0.3 AST 19 D ALT 10 L D Alkaline Phosphatase 79 Total Protein 5.2 L Albumin 2.3 L Lipase Stool Occult Blood 12/24/16 12/24/16 05:10 05:10 WBC RBC Hgb Hct MCV MCH MCHC RDW Plt Count MPV Neutrophils % Lymphocytes % Monocytes % Eosinophils % Basophils % PTT (Actin FS) Sodium Potassium Chloride Carbon Dioxide Anion Gap BUN Creatinine Creat Clearance w eGFR POC Glucometer Random Glucose Calcium Phosphorus 3.3 D Cancelled Magnesium 1.8 D Cancelled Total Bilirubin AST ALT Alkaline Phosphatase Total Protein Albumin Lipase 719 H Stool Occult Blood Active Medications Generic Name Dose Route Start Last Admin Trade Name Freq PRN Reason Stop Dose Admin Heparin Sodium (Porcine) 1,000 unit 12/22/16 10:52 Heparin - IVPUSH PRN PRN Heparin Heparin Sodium (Porcine) 5,000 unit 12/22/16 10:52 12/22/16 14:51 Heparin - IVPUSH 5,000 unit PRN PRN Administration Heparin Heparin Sodium (Porcine) 25, 500 mls @ 16 mls/hr 12/22/16 11:00 12/23/16 15:40 000 unit/ Sodium Chloride IV 16 mls/hr TITR YONNY Administration Protocol 800 UNIT/HR Pantoprazole Sodium 100 mls @ 200 mls/hr 12/23/16 10:00 12/23/16 22:58 Protonix 40mg Ivpb (Pre-Docked) IVPB 200 mls/hr BID YONNY Administration Dextrose/Lactated Ringer's 1,000 mls @ 100 mls/hr 12/24/16 09:28 D5-Lr - IV ASDIR YONNY Insulin Aspart 1 vial 12/23/16 07:00 12/24/16 07:46 Novolog Vial Sliding Scale - SQ 2 units ACHS YONNY Administration Protocol Lorazepam 1 mg 12/22/16 11:04 12/23/16 16:06 Ativan Injection - IVPUSH 1 mg Q4H PRN Administration WITHDRAWAL(CONT SUBST) Metoprolol Tartrate 1.25 mg 12/22/16 16:30 12/24/16 08:52 Lopressor Injection - IVPUSH 1.25 mg Q6H-IV YONNY Administration ASSESSMENT/PLAN: Neuro: -patient is A&Ox3 -Patient drinks "a couple of glasses of smirnoff" daily -CIWA score 6 again today -will continue to monitor for alcohol withdrawal symptoms -ativan 1mg Q4H PRN withdrawal ssx Cardio: -PMH Afib; currently in NSR -continue Lopressor 1.25mg q6h -was on xarelto 20 PO as an outpatient -on heparin drip as patient is NPO; will restart home meds when patient can eat -PMH HTN -BP controlled Abdominal: -acute pancreatitis -CT shows edematous head and uncinate process of pancreas with stranding -D5LR decreased to 50 -monitor fluid status -Guiac negative x1 -lipase 98429, decreased at 719 today Renal: -patient with SARA on admission -resolving, 2.3 -> 1.4 -renal u/s shows normal kidneys with incidental finding of pulmonary edema -will discontinue lee today FEN: -D5LR @ 50 -will continue to monitor lytes -NPO Prophylaxis: -protonix 40 IV BID Dispo: -continue to monitor in the ICU Problem List - Problems (1) Abdominal pain Code(s): R10.9 - UNSPECIFIED ABDOMINAL PAIN Qualifiers: Abdominal location: generalized Qualified Code(s): R10.84 - Generalized abdominal pain (2) Acute renal failure Code(s): N17.9 - ACUTE KIDNEY FAILURE, UNSPECIFIED Qualifiers: Acute renal failure type: unspecified Qualified Code(s): N17.9 - Acute kidney failure, unspecified (3) Elevated lipase Code(s): R74.8 - ABNORMAL LEVELS OF OTHER SERUM ENZYMES (4) Pancreatitis Code(s): K85.90 - ACUTE PANCREATITIS WITHOUT NECROSIS OR INFECTION, UNSP Qualifiers: Chronicity: acute Pancreatitis type: unspecified pancreatitis type Acute pancreatitis complication: unspecified Qualified Code(s): K85.90 - Acute pancreatitis without necrosis or infection, unspecified (5) Vomiting Code(s): R11.10 - VOMITING, UNSPECIFIED Qualifiers: Vomiting type: unspecified Vomiting Intractability: intractable Nausea presence: with nausea Qualified Code(s): R11.2 - Nausea with vomiting , unspecified Visit type - Emergency Visit Emergency Visit: Yes ED Registration Date: 12/22/16 Care time: The patient presented to the Emergency Department on the above date and was hospitalized for further evaluation of their emergent condition. - New Patient This patient is new to me today: No - Critical Care Critical Care patient: Yes Total Critical Care Time (in minutes): 35 Critical Care Statement: The care of this patient involved high complexity decision making to prevent further life threatening deterioration of the patient 's condition and/or to evaluate & treat vital organ system(s) failure or risk of failure.
[2016-12-24] MEDS: PANTOPRAZOLE SODIUM 100 ML IVPB SCH ×2 (09:37→23:43)
--- NOTE | 2016-12-24 11:56 | PN ---
Teaching Attending Note Name of Resident: Jonatan Parra ATTENDING PHYSICIAN STATEMENT I saw and evaluated the patient. I reviewed the resident's note and discussed the case with the resident. I agree with the resident's findings and plan as documented. SUBJECTIVE: Patient seen and examined in the ICU. Sleepy but easily arousable. Once awake she is appropriate and able to follow commands. (+) mild diffuse abdominal discomfort. Denies CP or SOB. No signs of withdrawal. CXR: Increasing bilateral pleural effusions R>L Intake & Output 12/21/16 12/22/16 12/23/16 12/24/16 23:59 23:59 23:59 23:59 Intake Total 2425 4280 2442 Output Total 1300 1500 300 Balance 1125 2780 2142 Weight 131 lb 131 lb 6.328 oz 137 lb 5.568 oz 145 lb 8.081 oz Last Vital Signs Temp Pulse Resp BP Pulse Ox 98.4 F 78 22 133/72 94 L 12/24/16 06:00 12/24/16 10:00 12/24/16 10:00 12/24/16 10:00 12/24/16 09:00 Active Medications Heparin Sodium (Porcine) (Heparin -) 1,000 unit IVPUSH PRN PRN PRN Reason: Heparin Heparin Sodium (Porcine) (Heparin -) 5,000 unit IVPUSH PRN PRN PRN Reason: Heparin Last Admin: 12/22/16 14:51 Dose: 5,000 unit Heparin Sodium (Porcine) 25, (000 unit/ Sodium Chloride) 500 mls @ 16 mls/hr IV TITR YONNY; 800 UNIT/HR PRN Reason: Protocol Last Admin: 12/23/16 15:40 Dose: 16 mls/hr Pantoprazole Sodium (Protonix 40mg Ivpb (Pre-Docked)) 100 mls @ 200 mls/hr IVPB BID YONNY Last Admin: 12/24/16 09:37 Dose: 200 mls/hr Dextrose/Lactated Ringer's (D5-Lr -) 1,000 mls @ 100 mls/hr IV ASDIR YONNY Last Admin: 12/24/16 09:37 Dose: 100 mls/hr Insulin Aspart (Novolog Vial Sliding Scale -) 1 vial SQ ACHS YONNY PRN Reason: Protocol Last Admin: 12/24/16 07:46 Dose: 2 units Lorazepam (Ativan Injection -) 1 mg IVPUSH Q4H PRN PRN Reason: WITHDRAWAL(CONT SUBST) Last Admin: 12/23/16 16:06 Dose: 1 mg Metoprolol Tartrate (Lopressor Injection -) 1.25 mg IVPUSH Q6H-IV YONNY Last Admin: 12/24/16 08:52 Dose: 1.25 mg GENERAL: Awake and alert. Mildly uncomfortable due to pain HEENT: Normocephalic, atraumatic. PERRLA, EOMI. No conjunctival pallor. Sclera are non-icteric. NECK: No JVP,No LAD Supple. Full ROM. CARDIOVASCULAR:Regular rate and rhythm. (+) ESM; No rubs, or gallops. PULMONARY: Clear anterior, no distress, no wheezes ABDOMINAL: Diffuse tenderness to palpation. No rebound or guarding. (+) BS MUSCULOSKELETAL:Normal range of motion at all joints. No bony deformities or tenderness. EXTREMITIES: No cyanosis. No clubbing. No edema. No calf tenderness. SKIN: Warm and dry. Normal capillary refill. No rashes. No jaundice. NEUROLOGICAL: Non focal exam PSYCHIATRIC: Cooperative. Laboratory Results - last 24 hr 12/22/16 12/23/16 12/23/16 23:24 05:57 14:15 WBC RBC Hgb Hct MCV MCH MCHC RDW Plt Count MPV Neutrophils % Lymphocytes % Monocytes % Eosinophils % Basophils % PTT (Actin FS) Sodium Potassium Chloride Carbon Dioxide Anion Gap BUN Creatinine Creat Clearance w eGFR POC Glucometer 279.13519 199.80224 Random Glucose Calcium Phosphorus 1.2 L D Magnesium 1.2 L D Total Bilirubin AST ALT Alkaline Phosphatase Total Protein Albumin Lipase Stool Occult Blood 12/23/16 12/23/16 12/23/16 16:22 16:54 22:54 WBC RBC Hgb Hct MCV MCH MCHC RDW Plt Count MPV Neutrophils % Lymphocytes % Monocytes % Eosinophils % Basophils % PTT (Actin FS) Sodium Potassium Chloride Carbon Dioxide Anion Gap BUN Creatinine Creat Clearance w eGFR POC Glucometer [phone] Random Glucose Calcium Phosphorus Magnesium Total Bilirubin AST ALT Alkaline Phosphatase Total Protein Albumin Lipase Stool Occult Blood Negative 12/24/16 12/24/16 12/24/16 05:10 05:10 05:10 WBC 7.2 D RBC 2.09 L Hgb 7.2 L D Hct 21.7 L MCV 104.0 H MCH 34.7 H MCHC 33.3 RDW 13.5 Plt Count 65 L MPV 10.3 Neutrophils % 78.7 Lymphocytes % 12.9 Monocytes % 7.3 Eosinophils % 0.5 D Basophils % 0.6 PTT (Actin FS) 61.2 H Sodium 144 Potassium 3.9 Chloride 114 H Carbon Dioxide 21 Anion Gap 9 BUN 20 H D Creatinine 1.4 H D Creat Clearance w eGFR 38.10 POC Glucometer Random Glucose 239 H D Calcium 7.6 L Phosphorus Magnesium Total Bilirubin 0.3 AST 19 D ALT 10 L D Alkaline Phosphatase 79 Total Protein 5.2 L Albumin 2.3 L Lipase Stool Occult Blood 12/24/16 12/24/16 05:10 05:10 WBC RBC Hgb Hct MCV MCH MCHC RDW Plt Count MPV Neutrophils % Lymphocytes % Monocytes % Eosinophils % Basophils % PTT (Actin FS) Sodium Potassium Chloride Carbon Dioxide Anion Gap BUN Creatinine Creat Clearance w eGFR POC Glucometer Random Glucose Calcium Phosphorus 3.3 D Cancelled Magnesium 1.8 D Cancelled Total Bilirubin AST ALT Alkaline Phosphatase Total Protein Albumin Lipase 719 H Stool Occult Blood IMP: Acute ETOH Pancreatitis Abdominal pain (Acute) Acute renal failure (Acute) Aortic regurgitation (Acute) Atypical chest pain (Acute) Chest pain (Acute) Elevated lipase (Acute) GERD (gastroesophageal reflux disease) (Acute) Hyperkalemia (Acute) New onset a-fib (Acute) Pancreatitis (Acute) Renal insufficiency (Acute) Vomiting (Acute) NIDDM (Chronic) PLAN: -Decrease IVF -Strict I&O -Follow chemistry -Pain control -Monitor off ABX for now -AC with IV Heparin as patient with AFib history and no active sign of bleeding -Follow CBC -PO when OK with GI Dr Arias Critical Care Total Critical Care Time (in minutes): 35 Critical Care Statement: The care of this patient involved high complexity decision making to prevent further life threatening deterioration of the patient 's condition and/or to evalute & treat vital organ system(s) failure or risk of failure. OBJECTIVE: ASSESSMENT AND PLAN:
[2016-12-24] MEDS: HEPARIN - 25,000 UNIT in SODIUM CHLORIDE 495 ML IV SCH (14:42)
[2016-12-24] MEDS: LORazepam 2 MG/ML SDV VIAL IVPUSH PRN ×2 (14:46→23:43)
--- NOTE | 2016-12-24 15:12 | PN ---
Progress Note, Physician History of Present Illness: Pt seen and examined at bedside. Pt says she has shortness of breath but it is better than yesterday. - Current Medication List Current Medications: Active Medications Heparin Sodium (Porcine) (Heparin -) 1,000 unit IVPUSH PRN PRN PRN Reason: Heparin Heparin Sodium (Porcine) (Heparin -) 5,000 unit IVPUSH PRN PRN PRN Reason: Heparin Last Admin: 12/22/16 14:51 Dose: 5,000 unit Heparin Sodium (Porcine) 25, (000 unit/ Sodium Chloride) 500 mls @ 16 mls/hr IV TITR YONNY; 800 UNIT/HR PRN Reason: Protocol Last Admin: 12/24/16 14:42 Dose: 16 mls/hr Pantoprazole Sodium (Protonix 40mg Ivpb (Pre-Docked)) 100 mls @ 200 mls/hr IVPB BID YONNY Last Admin: 12/24/16 09:37 Dose: 200 mls/hr Dextrose/Lactated Ringer's (D5-Lr -) 1,000 mls @ 50 mls/hr IV ASDIR YONNY Last Admin: 12/24/16 12:12 Dose: 50 mls/hr Insulin Aspart (Novolog Vial Sliding Scale -) 1 vial SQ ACHS YONNY PRN Reason: Protocol Last Admin: 12/24/16 13:07 Dose: 3 units Lorazepam (Ativan Injection -) 1 mg IVPUSH Q4H PRN PRN Reason: WITHDRAWAL(CONT SUBST) Last Admin: 12/24/16 14:46 Dose: 1 mg Metoprolol Tartrate (Lopressor Injection -) 1.25 mg IVPUSH Q6H-IV YONNY Last Admin: 12/24/16 14:45 Dose: 1.25 mg - Objective Vital Signs: Vital Signs Temperature 98.3 F 12/24/16 14:00 Pulse Rate 70 12/24/16 14:45 Respiratory Rate 27 H 12/24/16 14:00 Blood Pressure 140/68 12/24/16 14:45 O2 Sat by Pulse Oximetry (%) 94 L 12/24/16 09:00 Constitutional: Yes: Calm Eyes: Yes: Conjunctiva Clear HENT: Yes: Atraumatic Cardiovascular: Yes: S1, S2 Respiratory: Yes: On Nasal O2, Rhonchi Gastrointestinal: Yes: Soft Genitourinary: Yes: Wilson Present Edema: Yes Edema: LLE: Trace, RLE: Trace Neurological: Yes: Confusion Psychiatric: Yes: Oriented Labs: CBC, BMP 12/24/16 05:10 12/24/16 05:10 - ....Imaging Chest X-ray: Report Reviewed Ultrasound: Report Reviewed Problem List - Problems (1) Abdominal pain Code(s): R10.9 - UNSPECIFIED ABDOMINAL PAIN Qualifiers: Abdominal location: generalized Qualified Code(s): R10.84 - Generalized abdominal pain (2) Acute renal failure Code(s): N17.9 - ACUTE KIDNEY FAILURE, UNSPECIFIED Qualifiers: Acute renal failure type: unspecified Qualified Code(s): N17.9 - Acute kidney failure, unspecified (3) Hyperkalemia Code(s): E87.5 - HYPERKALEMIA (4) Pancreatitis Code(s): K85.90 - ACUTE PANCREATITIS WITHOUT NECROSIS OR INFECTION, UNSP Qualifiers: Chronicity: acute Pancreatitis type: unspecified pancreatitis type Acute pancreatitis complication: unspecified Qualified Code(s): K85.90 - Acute pancreatitis without necrosis or infection, unspecified Assessment/Plan Current Medications Generic Name Dose Route Start Last Admin Trade Name Freq PRN Reason Stop Dose Admin Heparin Sodium (Porcine) 1,000 unit 12/22/16 10:52 Heparin - IVPUSH PRN PRN Heparin Heparin Sodium (Porcine) 5,000 unit 12/22/16 10:52 12/22/16 14:51 Heparin - IVPUSH 5,000 unit PRN PRN Administration Heparin Heparin Sodium (Porcine) 25, 500 mls @ 16 mls/hr 12/22/16 11:00 12/24/16 14:42 000 unit/ Sodium Chloride IV 16 mls/hr TITR YONNY Administration Protocol 800 UNIT/HR Pantoprazole Sodium 100 mls @ 200 mls/hr 12/23/16 10:00 12/24/16 09:37 Protonix 40mg Ivpb (Pre-Docked) IVPB 200 mls/hr BID YONNY Administration Dextrose/Lactated Ringer's 1,000 mls @ 50 mls/hr 12/24/16 12:01 12/24/16 12:12 D5-Lr - IV 50 mls/hr ASDIR YONNY Administration Insulin Aspart 1 vial 12/23/16 07:00 12/24/16 13:07 Novolog Vial Sliding Scale - SQ 3 units ACHS YONNY Administration Protocol Lorazepam 1 mg 12/22/16 11:04 12/24/16 14:46 Ativan Injection - IVPUSH 1 mg Q4H PRN Administration WITHDRAWAL(CONT SUBST) Metoprolol Tartrate 1.25 mg 12/22/16 16:30 12/24/16 14:45 Lopressor Injection - IVPUSH 1.25 mg Q6H-IV YONNY Administration Impression 1. SARA 2. hyperkalemia 3. hx etoh use 4. pancreatitis 5. abdominal pain 6. vomiting 7. anemia 8. HTN Plan - renal function is improving - decrease rate of fluids and may need diuretics if she does not improve - monitor lytes - monitor pulse ox - daily cxr - monitor urine output - will follow Dr Torres
[2016-12-24] MEDS ORDERED: FUROSEMIDE 40 MG/4 ML INJECTABLE VIAL IVPUSH ONE (16:12)
[2016-12-24] MEDS ORDERED: ALBUTEROL SO4 2.5/IPRATROPIUM 0.5 INH SOL 3 ML VIAL.NEB. NEB PRN (16:12)
[2016-12-24] MEDS ORDERED: FUROSEMIDE 40 MG/4 ML INJECTABLE VIAL ONE (16:14)
[2016-12-24 17:13] LABS: PHOSPHOROUS 2.8 mg/dL (2.5-4.9)
[2016-12-24 17:14] LABS: MAGNESIUM 1.7 mg/dL (1.8-2.4)
--- NOTE | 2016-12-24 19:24 | PN ---
Progress Note, Physician Chief Complaint: Pt had Episode of SOB with Volume overload Responded to lasix History of Present Illness: Pt today is better but had SOB / Wheezing Due to volume overload Responded to Lasix - Current Medication List Current Medications: Active Medications Albuterol Sulfate (Ventolin 0.083% Nebulizer Soln -) 1 amp NEB Q4H PRN PRN Reason: SHORT OF BREATH/WHEEZING Albuterol/Ipratropium (Duoneb -) 1 amp NEB Q6H PRN PRN Reason: SHORTNESS OF BREATH Last Admin: 12/24/16 16:20 Dose: 1 amp Heparin Sodium (Porcine) (Heparin -) 1,000 unit IVPUSH PRN PRN PRN Reason: Heparin Heparin Sodium (Porcine) (Heparin -) 5,000 unit IVPUSH PRN PRN PRN Reason: Heparin Last Admin: 12/22/16 14:51 Dose: 5,000 unit Heparin Sodium (Porcine) 25, (000 unit/ Sodium Chloride) 500 mls @ 16 mls/hr IV TITR YONNY; 800 UNIT/HR PRN Reason: Protocol Last Admin: 12/24/16 14:42 Dose: 16 mls/hr Pantoprazole Sodium (Protonix 40mg Ivpb (Pre-Docked)) 100 mls @ 200 mls/hr IVPB BID YONNY Last Admin: 12/24/16 09:37 Dose: 200 mls/hr Dextrose/Lactated Ringer's (D5-Lr -) 1,000 mls @ 50 mls/hr IV ASDIR YONNY Last Admin: 12/24/16 12:12 Dose: 50 mls/hr Insulin Aspart (Novolog Vial Sliding Scale -) 1 vial SQ ACHS YONNY PRN Reason: Protocol Last Admin: 12/24/16 16:33 Dose: 1 units Lorazepam (Ativan Injection -) 1 mg IVPUSH Q4H PRN PRN Reason: WITHDRAWAL(CONT SUBST) Last Admin: 12/24/16 14:46 Dose: 1 mg Metoprolol Tartrate (Lopressor Injection -) 1.25 mg IVPUSH Q6H-IV YONNY Last Admin: 12/24/16 14:45 Dose: 1.25 mg - Objective Vital Signs: Vital Signs Temperature 98.6 F 12/24/16 18:00 Pulse Rate 94 H 12/24/16 18:00 Respiratory Rate 28 H 12/24/16 18:00 Blood Pressure 133/94 12/24/16 18:00 O2 Sat by Pulse Oximetry (%) 98 12/24/16 16:53 Constitutional: Yes: Other (Pt was anxious and better After 1mg Ativan) Eyes: Yes: Conjunctiva Clear, EOM Intact HENT: Yes: Atraumatic, Normocephalic Neck: Yes: Supple, Trachea Midline Cardiovascular: Yes: Regular Rate and Rhythm, S1, S2, S3 Respiratory: Yes: CTA Bilaterally (Bibasilar rales) Gastrointestinal: Yes: Normal Bowel Sounds, Other (Pt is abd pain is better) Extremities: Yes: WNL Edema: No Neurological: Yes: Alert, Oriented, Cran Nerves II-XII Intact Labs: CBC, BMP 12/24/16 05:10 12/24/16 05:10 Problem List - Problems (1) Abdominal pain Code(s): R10.9 - UNSPECIFIED ABDOMINAL PAIN Qualifiers: Abdominal location: generalized Qualified Code(s): R10.84 - Generalized abdominal pain (2) Acute pancreatitis Code(s): K85.90 - ACUTE PANCREATITIS WITHOUT NECROSIS OR INFECTION, UNSP Qualifiers: Pancreatitis type: alcohol induced (3) Acute renal failure Code(s): N17.9 - ACUTE KIDNEY FAILURE, UNSPECIFIED Qualifiers: Acute renal failure type: unspecified Qualified Code(s): N17.9 - Acute kidney failure, unspecified (4) Aortic regurgitation Code(s): I35.1 - NONRHEUMATIC AORTIC (VALVE) INSUFFICIENCY (5) Atypical chest pain Code(s): R07.89 - OTHER CHEST PAIN (6) Chest pain Code(s): R07.9 - CHEST PAIN, UNSPECIFIED Qualifiers: Chest pain type: unspecified Qualified Code(s): R07.9 - Chest pain, unspecified (7) Elevated lipase Code(s): R74.8 - ABNORMAL LEVELS OF OTHER SERUM ENZYMES (8) Epigastric abdominal pain Code(s): R10.13 - EPIGASTRIC PAIN (9) Pulmonary congestion Code(s): R09.89 - OTH SYMPTOMS AND SIGNS INVOLVING THE CIRC AND RESP SYSTEMS Assessment/Plan Pt Had volume overload Off IV fluids Pt had Lasix 20 and had Diuresed More than one liter Feels better Pt on nebulizer Rx feels better Pt also got Ativan 1mg for Anxiety better now case discusssed with ICU resident and Nurse on floor CXR Stat and BNP
[2016-12-24 21:19] LABS: BASOPHIL 0.4 % (0-2.0); EOSINOPHIL 0.6 % (0-4.5); MCH 34.6 pg (25.7-33.7); MEAN CELL VOLUME 104.8 fl (80-96); NEUTROPHILS 82.8 % (42.8-82.8); RDW 13.9 % (11.6-15.6)
[2016-12-24 21:41] LABS: ANION GAP 10 (8-16); CALCIUM 8.2 mg/dL (8.5-10.1); CO2 20 mmol/L (21-32); CREATININE 1.3 mg/dL (0.55-1.02); GLUCOSE,RANDOM 227 mg/dL (74-106)
[2016-12-24] MEDS: ALBUTEROL SO4 0.083% IH SOL 2.5 MG/3 ML VIAL.NEB. NEB PRN (21:51)
[2016-12-24 22:10] LABS: PLATELET COUNT 95 K/MM3 (134-434)
[2016-12-25] MEDS: LORazepam 2 MG/ML SDV VIAL IVPUSH PRN ×2 (03:23→12:23)
[2016-12-25 06:19] LABS: MCH 34.6 pg (25.7-33.7); MEAN CELL VOLUME 104.8 fl (80-96); PLATELET COUNT 84 K/MM3 (134-434); RDW 13.4 % (11.6-15.6); WHITE BLOOD COUNT 8.1 K/mm3 (4.0-10.0)
[2016-12-25] MEDS: METOPROLOL TARTRATE 5 MG/5 ML VIAL IVPUSH SCH ×4 (07:05→20:51)
[2016-12-25] MEDS: INSULIN SLIDING SCALE (NOVOLOG) 1 VIAL SQ SCH ×3 (07:06→18:17)
[2016-12-25 07:21] LABS: ALBUMIN 2.4 g/dl (3.4-5.0); ANION GAP 12 (8-16); BILIRUBIN,TOTAL 0.4 mg/dL (0.2-1.0); CALCIUM 7.8 mg/dL (8.5-10.1); CO2 19 mmol/L (21-32); CREATININE 1.4 mg/dL (0.55-1.02); GLUCOSE,RANDOM 260 mg/dL (74-106); MAGNESIUM 1.4 mg/dL (1.8-2.4); SGOT/AST 20 U/L (15-37); SGPT/ALT 11 U/L (12-78); TOT PROT 5.5 g/dl (6.4-8.2)
[2016-12-25 07:24] LABS: ALK PHOS 86 U/L (45-117)
--- NOTE | 2016-12-25 09:11 | PN ---
Progress Note (short form) - Note Progress Note: Patient seen and examined in the ICU. Breathing appears better but still mildly tachypneic on 50% VM O2. Denies abdominal pain/discomfort. Only mildly tremulous. CXR: Increasing congestive pattern Intake & Output 12/22/16 12/23/16 12/24/16 12/25/16 23:59 23:59 23:59 23:59 Intake Total 2425 4280 3456 228 Output Total 1300 1500 1400 Balance 1125 2780 2056 228 Weight 131 lb 6.328 oz 137 lb 5.568 oz 145 lb 8.081 oz 141 lb 15.643 oz Last Vital Signs Temp Pulse Resp BP Pulse Ox 98.8 F 98 H 20 107/62 96 12/25/16 02:00 12/25/16 08:30 12/25/16 08:30 12/25/16 08:30 12/24/16 21:00 Active Medications Albuterol Sulfate (Ventolin 0.083% Nebulizer Soln -) 1 amp NEB Q4H PRN PRN Reason: SHORT OF BREATH/WHEEZING Last Admin: 12/24/16 21:51 Dose: 1 amp Albuterol/Ipratropium (Duoneb -) 1 amp NEB Q6H PRN PRN Reason: SHORTNESS OF BREATH Last Admin: 12/24/16 16:20 Dose: 1 amp Heparin Sodium (Porcine) (Heparin -) 1,000 unit IVPUSH PRN PRN PRN Reason: Heparin Heparin Sodium (Porcine) (Heparin -) 5,000 unit IVPUSH PRN PRN PRN Reason: Heparin Last Admin: 12/22/16 14:51 Dose: 5,000 unit Heparin Sodium (Porcine) 25, (000 unit/ Sodium Chloride) 500 mls @ 16 mls/hr IV TITR YONNY; 800 UNIT/HR PRN Reason: Protocol Last Admin: 12/24/16 14:42 Dose: 16 mls/hr Pantoprazole Sodium (Protonix 40mg Ivpb (Pre-Docked)) 100 mls @ 200 mls/hr IVPB BID YONNY Last Admin: 12/24/16 23:43 Dose: 200 mls/hr Insulin Aspart (Novolog Vial Sliding Scale -) 1 vial SQ ACHS YONNY PRN Reason: Protocol Last Admin: 12/25/16 07:06 Dose: 2 units Lorazepam (Ativan Injection -) 1 mg IVPUSH Q4H PRN PRN Reason: WITHDRAWAL(CONT SUBST) Last Admin: 12/25/16 03:23 Dose: 1 mg Metoprolol Tartrate (Lopressor Injection -) 1.25 mg IVPUSH Q6H-IV YONNY Last Admin: 12/25/16 07:05 Dose: 1.25 mg GENERAL: Awake and alert. Mildly tachypneic at rest HEENT: Normocephalic, atraumatic. PERRLA, EOMI. No conjunctival pallor. Sclera are non-icteric. NECK: No JVP,No LAD Supple. Full ROM. CARDIOVASCULAR:Regular rate and rhythm. (+) ESM; No rubs, or gallops. PULMONARY: Clear anterior, no distress, no wheezes ABDOMINAL: Diffuse tenderness to palpation. No rebound or guarding. (+) BS MUSCULOSKELETAL:Normal range of motion at all joints. No bony deformities or tenderness. EXTREMITIES: No cyanosis. No clubbing. No edema. No calf tenderness. SKIN: Warm and dry. Normal capillary refill. No rashes. No jaundice. NEUROLOGICAL: Non focal exam PSYCHIATRIC: Cooperative. Laboratory Results - last 24 hr 12/24/16 12/24/16 12/24/16 12:23 16:00 16:30 WBC RBC Hgb Hct MCV MCH MCHC RDW Plt Count MPV Neutrophils % Lymphocytes % Monocytes % Eosinophils % Basophils % Platelet Comment PTT (Actin FS) Sodium Potassium Chloride Carbon Dioxide Anion Gap BUN Creatinine Creat Clearance w eGFR POC Glucometer 262.54313 195.15892 Random Glucose Calcium Phosphorus 2.8 Magnesium 1.7 L Total Bilirubin AST ALT Alkaline Phosphatase B-Natriuretic Peptide Total Protein Albumin 12/24/16 12/24/16 12/24/16 19:32 20:50 20:50 WBC 9.0 RBC 2.36 L Hgb 8.2 L D Hct 24.8 L MCV 104.8 H MCH 34.6 H MCHC 33.0 RDW 13.9 Plt Count 95 L D MPV 10.0 Neutrophils % 82.8 Lymphocytes % 9.9 D Monocytes % 6.3 Eosinophils % 0.6 Basophils % 0.4 Platelet Comment No clumping noted PTT (Actin FS) Sodium 144 Potassium 4.1 Chloride 114 H Carbon Dioxide 20 L Anion Gap 10 BUN 16 Creatinine 1.3 H Creat Clearance w eGFR POC Glucometer Random Glucose 227 H Calcium 8.2 L Phosphorus Magnesium Total Bilirubin AST ALT Alkaline Phosphatase B-Natriuretic Peptide 77546.01 H Total Protein Albumin 12/24/16 12/25/16 12/25/16 23:51 05:35 05:35 WBC 8.1 RBC 2.07 L Hgb 7.1 L D Hct 21.7 L MCV 104.8 H MCH 34.6 H MCHC 33.0 RDW 13.4 Plt Count 84 L MPV 10.0 Neutrophils % Lymphocytes % Monocytes % Eosinophils % Basophils % Platelet Comment PTT (Actin FS) 54.1 H Sodium Potassium Chloride Carbon Dioxide Anion Gap BUN Creatinine Creat Clearance w eGFR POC Glucometer 208.46903 Random Glucose Calcium Phosphorus Magnesium Total Bilirubin AST ALT Alkaline Phosphatase B-Natriuretic Peptide Total Protein Albumin 12/25/16 12/25/16 05:35 05:35 WBC RBC Hgb Hct MCV MCH MCHC RDW Plt Count MPV Neutrophils % Lymphocytes % Monocytes % Eosinophils % Basophils % Platelet Comment PTT (Actin FS) Sodium 145 Potassium 4.1 Chloride 114 H Carbon Dioxide 19 L Anion Gap 12 BUN 16 Creatinine 1.4 H Creat Clearance w eGFR 38.10 POC Glucometer Random Glucose 260 H Calcium 7.8 L Phosphorus Magnesium 1.4 L Total Bilirubin 0.4 D AST 20 ALT 11 L Alkaline Phosphatase 86 B-Natriuretic Peptide 25202.91 H Cancelled Total Protein 5.5 L Albumin 2.4 L IMP: Acute ETOH Pancreatitis Abdominal pain (Acute) Acute renal failure (Acute) Aortic regurgitation (Acute) Atypical chest pain (Acute) Chest pain (Acute) Elevated lipase (Acute) GERD (gastroesophageal reflux disease) (Acute) Hyperkalemia (Acute) New onset a-fib (Acute) Pancreatitis (Acute) Renal insufficiency (Acute) Vomiting (Acute) NIDDM (Chronic) PLAN: -Hold IVF -Lasix -Strict I&O -Pain control -Monitor off ABX -AC with IV Heparin as patient with AFib history and no active sign of bleeding -> Would not transfuse unless Hct <7 -Follow CBC later today -Trial of tim Arias Critical Care Total Critical Care Time (in minutes): 35 Critical Care Statement: The care of this patient involved high complexity decision making to prevent further life threatening deterioration of the patient 's condition and/or to evalute & treat vital organ system(s) failure or risk of failure.
[2016-12-25] MEDS ORDERED: FUROSEMIDE 40 MG/4 ML INJECTABLE VIAL IVPUSH ONE (09:13)
[2016-12-25] MEDS ORDERED: chlordiazePOXIDE HCL 25 MG CAPSULE PO PRN (09:15)
[2016-12-25] MEDS ORDERED: MAGNESIUM SULF 50% (8.12 MEQ/2 ML-1 GM VIAL) IVPB ONE (09:30)
[2016-12-25] MEDS: PANTOPRAZOLE SODIUM 100 ML IVPB SCH (10:18)
[2016-12-25] MEDS ORDERED: LORazepam 2 MG/ML SDV VIAL ONE (12:17)
[2016-12-25] MEDS ORDERED: LORazepam 2 MG/ML SDV VIAL IVPUSH PRN (12:20)
--- NOTE | 2016-12-25 12:57 | PN ---
Progress Note (short form) - Note Progress Note: pt seen/ examined in icu chart reviewed pt comfortable- feels better agitated before- pulling lines denies pain. anxiety + all f/u noted Vital Signs Temp 98.5 F 12/25/16 10:00 Pulse 86 12/25/16 12:00 Resp 20 12/25/16 12:00 BP 166/82 12/25/16 12:00 Pulse Ox 96 12/25/16 11:36 Intake & Output 12/24/16 12/25/16 12/25/16 23:59 11:59 23:59 Intake Total 1014 228 Output Total 1100 Balance -86 228 Weight 141 lb 15.643 oz Intake: IV 814 128 Heparin - 25,000 Unit In 64 128 Normal Saline - 495 ml @ 800 UNIT/HR 16 mls/hr IV TITR YONNY Rx#:[id number] D5-Lr - 1,000 ml @ 200 500 mls/hr IV ASDIR YONNY Rx#: [id number] D5-Lr - 1,000 ml @ 100 250 mls/hr IV ASDIR YONNY Rx#: [id number] IVPB 200 100 Output: Urine 1100 Wilson 500 Void 600 Other: Voiding Method Incontinent Incontinent # Unmeasured Voids Void 3 4 Bowel Movement Yes: small formed Yes: small formed Weight Measurement Method Built in [facility] Active Medications Albuterol Sulfate (Ventolin 0.083% Nebulizer Soln -) 1 amp NEB Q4H PRN PRN Reason: SHORT OF BREATH/WHEEZING Last Admin: 12/24/16 21:51 Dose: 1 amp Albuterol/Ipratropium (Duoneb -) 1 amp NEB Q6H PRN PRN Reason: SHORTNESS OF BREATH Last Admin: 12/24/16 16:20 Dose: 1 amp Heparin Sodium (Porcine) (Heparin -) 1,000 unit IVPUSH PRN PRN PRN Reason: Heparin Heparin Sodium (Porcine) (Heparin -) 5,000 unit IVPUSH PRN PRN PRN Reason: Heparin Last Admin: 12/22/16 14:51 Dose: 5,000 unit Heparin Sodium (Porcine) 25, (000 unit/ Sodium Chloride) 500 mls @ 16 mls/hr IV TITR YONNY; 800 UNIT/HR PRN Reason: Protocol Last Admin: 12/24/16 14:42 Dose: 16 mls/hr Pantoprazole Sodium (Protonix 40mg Ivpb (Pre-Docked)) 100 mls @ 200 mls/hr IVPB BID YONNY Last Admin: 12/25/16 10:18 Dose: 200 mls/hr Insulin Aspart (Novolog Vial Sliding Scale -) 1 vial SQ ACHS YONNY PRN Reason: Protocol Last Admin: 12/25/16 12:12 Dose: 2 units Lorazepam (Ativan Injection -) 1 mg IVPUSH Q6H PRN PRN Reason: ANXIETY Metoprolol Tartrate (Lopressor Injection -) 1.25 mg IVPUSH Q6H-IV YONNY Last Admin: 12/25/16 10:18 Dose: 1.25 mg CBC, BMP 12/25/16 05:35 12/25/16 05:35 CBC,CMP WBC 8.1 K/mm3 (4.0-10.0) 12/25/16 05:35 RBC 2.07 M/mm3 (3.60-5.2) L 12/25/16 05:35 Hgb 7.1 GM/dL (10.7-15.3) L D 12/25/16 05:35 Hct 21.7 % (32.4-45.2) L 12/25/16 05:35 MCV 104.8 fl (80-96) H 12/25/16 05:35 MCH 34.6 pg (25.7-33.7) H 12/25/16 05:35 MCHC 33.0 g/dl (32.0-36.0) 12/25/16 05:35 RDW 13.4 % (11.6-15.6) 12/25/16 05:35 Plt Count 84 K/MM3 (134-434) L 12/25/16 05:35 MPV 10.0 fl (7.5-11.1) 12/25/16 05:35 Neutrophils % 82.8 % (42.8-82.8) 12/24/16 20:50 Lymphocytes % 9.9 % (8-40) D 12/24/16 20:50 Monocytes % 6.3 % (3.8-10.2) 12/24/16 20:50 Eosinophils % 0.6 % (0-4.5) 12/24/16 20:50 Basophils % 0.4 % (0-2.0) 12/24/16 20:50 Platelet Comment No clumping noted 12/24/16 20:50 Macrocytosis 1+ 12/21/16 22:30 Sodium 145 mmol/L (136-145) 12/25/16 05:35 Potassium 4.1 mmol/L (3.5-5.1) 12/25/16 05:35 Chloride 114 mmol/L (98-107) H 12/25/16 05:35 Carbon Dioxide 19 mmol/L (21-32) L 12/25/16 05:35 Anion Gap 12 (8-16) 12/25/16 05:35 BUN 16 mg/dL (7-18) 12/25/16 05:35 Creatinine 1.4 mg/dL (0.55-1.02) H 12/25/16 05:35 Creat Clearance w eGFR 38.10 (>60) 12/25/16 05:35 POC Glucometer 208.62905 UNITS (()) 12/24/16 23:51 Random Glucose 260 mg/dL (74-106) H 12/25/16 05:35 Calcium 7.8 mg/dL (8.5-10.1) L 12/25/16 05:35 Phosphorus 2.8 mg/dL (2.5-4.9) 12/24/16 16:00 Magnesium 1.4 mg/dL (1.8-2.4) L 12/25/16 05:35 Total Bilirubin 0.4 mg/dL (0.2-1.0) D 12/25/16 05:35 Direct Bilirubin 0.2 mg/dL (0.0-0.2) 12/22/16 08:00 AST 20 U/L (15-37) 12/25/16 05:35 ALT 11 U/L (12-78) L 12/25/16 05:35 Alkaline Phosphatase 86 U/L (45-117) 12/25/16 05:35 LD Total 161 U/L (84-246) 12/22/16 08:00 B-Natriuretic Peptide 61077.91 pg/ml (5-125) H 12/25/16 05:35 Total Protein 5.5 g/dl (6.4-8.2) L 12/25/16 05:35 Albumin 2.4 g/dl (3.4-5.0) L 12/25/16 05:35 Total Amylase 831 U/L (25-115) H 12/22/16 08:00 Lipase 719 U/L (73-393) H 12/24/16 05:10 cxr - reviewed echo- pending Physical Constitutional: Yes: comfortable Eyes: Yes: Conjunctiva Clear, EOM Intact HENT: Yes: Atraumatic, Normocephalic Neck: Yes: Supple, Trachea Midline Cardiovascular: Yes: Regular Rate and Rhythm, S1, S2, S3 Respiratory: Yes: CTA Bilaterally (Bibasilar rales) Gastrointestinal: Yes: Normal Bowel Sounds, soft Edema: No Neurological: Yes: awake/ Problem List - Problems (1) Abdominal pain Code(s): R10.9 - UNSPECIFIED ABDOMINAL PAIN Qualifiers: Abdominal location: generalized Qualified Code(s): R10.84 - Generalized abdominal pain (2) Acute pancreatitis Code(s): K85.90 - ACUTE PANCREATITIS WITHOUT NECROSIS OR INFECTION, UNSP Qualifiers: Pancreatitis type: alcohol induced (3) Acute renal failure Code(s): N17.9 - ACUTE KIDNEY FAILURE, UNSPECIFIED Qualifiers: Acute renal failure type: unspecified Qualified Code(s): N17.9 - Acute kidney failure, unspecified (4) Aortic regurgitation Code(s): I35.1 - NONRHEUMATIC AORTIC (VALVE) INSUFFICIENCY (5) Atypical chest pain Code(s): R07.89 - OTHER CHEST PAIN (6) Chest pain Code(s): R07.9 - CHEST PAIN, UNSPECIFIED Qualifiers: Chest pain type: unspecified Qualified Code(s): R07.9 - Chest pain, unspecified (7) Elevated lipase Code(s): R74.8 - ABNORMAL LEVELS OF OTHER SERUM ENZYMES (8) Epigastric abdominal pain Code(s): R10.13 - EPIGASTRIC PAIN (9) Pulmonary congestion Code(s): R09.89 - OTH SYMPTOMS AND SIGNS INVOLVING THE CIRC AND RESP SYSTEMS Assessment/Plan better ativan for agitiation agree with i/v lasix monitor lytes echo start on liquid diet discussed with nursing staff transfuse prn will follow
[2016-12-25] MEDS ORDERED: INSULIN REGULAR HUMAN 100 UNITS/ML *VIAL ONE (13:09)
[2016-12-25] MEDS: HEPARIN - 25,000 UNIT in SODIUM CHLORIDE 495 ML IV SCH (14:33)
--- NOTE | 2016-12-25 15:00 | PN ---
Progress Note, Physician History of Present Illness: Pt seen and examined at bedside. She remains confused. - Current Medication List Current Medications: Active Medications Albuterol Sulfate (Ventolin 0.083% Nebulizer Soln -) 1 amp NEB Q4H PRN PRN Reason: SHORT OF BREATH/WHEEZING Last Admin: 12/24/16 21:51 Dose: 1 amp Albuterol/Ipratropium (Duoneb -) 1 amp NEB Q6H PRN PRN Reason: SHORTNESS OF BREATH Last Admin: 12/24/16 16:20 Dose: 1 amp Heparin Sodium (Porcine) (Heparin -) 1,000 unit IVPUSH PRN PRN PRN Reason: Heparin Heparin Sodium (Porcine) (Heparin -) 5,000 unit IVPUSH PRN PRN PRN Reason: Heparin Last Admin: 12/22/16 14:51 Dose: 5,000 unit Heparin Sodium (Porcine) 25, (000 unit/ Sodium Chloride) 500 mls @ 16 mls/hr IV TITR YONNY; 800 UNIT/HR PRN Reason: Protocol Last Admin: 12/25/16 14:33 Dose: 16 mls/hr Pantoprazole Sodium (Protonix 40mg Ivpb (Pre-Docked)) 100 mls @ 200 mls/hr IVPB BID YONNY Last Admin: 12/25/16 10:18 Dose: 200 mls/hr Insulin Aspart (Novolog Vial Sliding Scale -) 1 vial SQ ACHS YONNY PRN Reason: Protocol Last Admin: 12/25/16 12:12 Dose: 2 units Lorazepam (Ativan Injection -) 1 mg IVPUSH Q6H PRN PRN Reason: ANXIETY Metoprolol Tartrate (Lopressor Injection -) 1.25 mg IVPUSH Q6H-IV YONNY Last Admin: 12/25/16 14:33 Dose: 1.25 mg - Objective Vital Signs: Vital Signs Temperature 98.0 F 12/25/16 14:37 Pulse Rate 93 H 12/25/16 14:33 Respiratory Rate 30 H 12/25/16 13:54 Blood Pressure 143/98 12/25/16 14:33 O2 Sat by Pulse Oximetry (%) 96 12/25/16 11:36 Constitutional: Yes: Other (restless) Cardiovascular: Yes: S1, S2 Respiratory: Yes: On Nasal O2, Rhonchi Gastrointestinal: Yes: Soft Genitourinary: Yes: Incontinence Musculoskeletal: Yes: WNL Edema: Yes Edema: LLE: Trace, RLE: Trace Neurological: Yes: Confusion Labs: CBC, BMP 12/25/16 05:35 12/25/16 05:35 - ....Imaging Chest X-ray: Report Reviewed Problem List - Problems (1) Abdominal pain Code(s): R10.9 - UNSPECIFIED ABDOMINAL PAIN Qualifiers: Abdominal location: generalized Qualified Code(s): R10.84 - Generalized abdominal pain (2) Acute renal failure Code(s): N17.9 - ACUTE KIDNEY FAILURE, UNSPECIFIED Qualifiers: Acute renal failure type: unspecified Qualified Code(s): N17.9 - Acute kidney failure, unspecified (3) Hyperkalemia Code(s): E87.5 - HYPERKALEMIA (4) Pancreatitis Code(s): K85.90 - ACUTE PANCREATITIS WITHOUT NECROSIS OR INFECTION, UNSP Qualifiers: Chronicity: acute Pancreatitis type: unspecified pancreatitis type Acute pancreatitis complication: unspecified Qualified Code(s): K85.90 - Acute pancreatitis without necrosis or infection, unspecified Assessment/Plan Current Medications Generic Name Dose Route Start Last Admin Trade Name Freq PRN Reason Stop Dose Admin Albuterol Sulfate 1 amp 12/24/16 16:13 12/24/16 21:51 Ventolin 0.083% Nebulizer Soln - NEB 1 amp Q4H PRN Administration SHORT OF BREATH/WHEEZING Albuterol/Ipratropium 1 amp 12/24/16 16:12 12/24/16 16:20 Duoneb - NEB 1 amp Q6H PRN Administration SHORTNESS OF BREATH Heparin Sodium (Porcine) 1,000 unit 12/22/16 10:52 Heparin - IVPUSH PRN PRN Heparin Heparin Sodium (Porcine) 5,000 unit 12/22/16 10:52 12/22/16 14:51 Heparin - IVPUSH 5,000 unit PRN PRN Administration Heparin Heparin Sodium (Porcine) 25, 500 mls @ 16 mls/hr 12/22/16 11:00 12/25/16 14:33 000 unit/ Sodium Chloride IV 16 mls/hr TITR YONNY Administration Protocol 800 UNIT/HR Pantoprazole Sodium 100 mls @ 200 mls/hr 12/23/16 10:00 12/25/16 10:18 Protonix 40mg Ivpb (Pre-Docked) IVPB 200 mls/hr BID YONNY Administration Insulin Aspart 1 vial 12/23/16 07:00 12/25/16 12:12 Novolog Vial Sliding Scale - SQ 2 units ACHS YONNY Administration Protocol Lorazepam 1 mg 12/25/16 12:20 Ativan Injection - IVPUSH Q6H PRN ANXIETY Metoprolol Tartrate 1.25 mg 12/22/16 16:30 12/25/16 14:33 Lopressor Injection - IVPUSH 1.25 mg Q6H-IV YONNY Administration Impression 1. SARA 2. hyperkalemia 3. hx etoh use 4. pancreatitis 5. abdominal pain 6. vomiting 7. anemia 8. HTN Plan - agree with diuretics - monitor lytes - cxr worse today - monitor pulse ox - daily cxr - will follow Dr Torres
[2016-12-25 17:37] LABS: MAGNESIUM 2.1 mg/dL (1.8-2.4); PHOSPHOROUS 2.1 mg/dL (2.5-4.9)
[2016-12-25 19:05] LABS: MCH 34.4 pg (25.7-33.7); MCHC 32.8 g/dl (32.0-36.0); MEAN PLT VOLUME 10.3 fl (7.5-11.1); PLATELET COUNT 97 K/MM3 (134-434); RDW 13.8 % (11.6-15.6); WHITE BLOOD COUNT 10.2 K/mm3 (4.0-10.0)
[2016-12-25] MEDS ORDERED: LORazepam 2 MG/ML SDV VIAL IVPUSH ONE (22:08)
[2016-12-25] MEDS: ALBUTEROL SO4 0.083% IH SOL 2.5 MG/3 ML VIAL.NEB. NEB PRN (22:20)
[2016-12-26] MEDS: INSULIN SLIDING SCALE (NOVOLOG) 1 VIAL SQ SCH ×5 (01:15→22:40)
[2016-12-26] MEDS: PANTOPRAZOLE SODIUM 100 ML IVPB SCH ×3 (01:15→22:07)
[2016-12-26] MEDS: METOPROLOL TARTRATE 5 MG/5 ML VIAL IVPUSH SCH ×4 (04:18→22:07)
[2016-12-26 06:26] LABS: MCH 34.3 pg (25.7-33.7); MCHC 32.9 g/dl (32.0-36.0); MEAN CELL VOLUME 104.2 fl (80-96); MEAN PLT VOLUME 9.9 fl (7.5-11.1); PLATELET COUNT 89 K/MM3 (134-434); RDW 13.8 % (11.6-15.6); WHITE BLOOD COUNT 6.4 K/mm3 (4.0-10.0)
[2016-12-26 06:56] LABS: ALBUMIN 2.4 g/dl (3.4-5.0); ANION GAP 8 (8-16); BILIRUBIN,TOTAL 0.4 mg/dL (0.2-1.0); CO2 24 mmol/L (21-32); CREATININE 1.3 mg/dL (0.55-1.02); GLUCOSE,RANDOM 249 mg/dL (74-106); MAGNESIUM 1.8 mg/dL (1.8-2.4); PHOSPHOROUS 2.9 mg/dL (2.5-4.9); SGOT/AST 17 U/L (15-37); SGPT/ALT 10 U/L (12-78); TOT PROT 5.5 g/dl (6.4-8.2)
[2016-12-26 06:57] LABS: ALK PHOS 81 U/L (45-117)
--- NOTE | 2016-12-26 09:24 | PN ---
Progress Note (short form) - Note Progress Note: Patient seen and examined in the ICU. Breathing appears a little better today but still mildly tachypneic on VM O2. Denies abdominal pain/discomfort. Tolerating clears. Only mildly tremulous. Noted drop in H&H -> No BM or blood loss noted overnight. Intake & Output 12/23/16 12/24/16 12/25/16 12/26/16 23:59 23:59 23:59 23:59 Intake Total 4280 3456 892 212 Output Total 1500 1400 Balance 2780 2056 892 212 Weight 137 lb 5.568 oz 145 lb 8.081 oz 141 lb 15.643 oz Last Vital Signs Temp Pulse Resp BP Pulse Ox 98.1 F 84 33 H 141/88 98 12/26/16 07:59 12/26/16 07:59 12/26/16 07:59 12/26/16 07:59 12/26/16 07:53 Active Medications Albuterol Sulfate (Ventolin 0.083% Nebulizer Soln -) 1 amp NEB Q4H PRN PRN Reason: SHORT OF BREATH/WHEEZING Last Admin: 12/25/16 22:20 Dose: 1 amp Albuterol/Ipratropium (Duoneb -) 1 amp NEB Q6H PRN PRN Reason: SHORTNESS OF BREATH Last Admin: 12/24/16 16:20 Dose: 1 amp Heparin Sodium (Porcine) (Heparin -) 1,000 unit IVPUSH PRN PRN PRN Reason: Heparin Heparin Sodium (Porcine) (Heparin -) 5,000 unit IVPUSH PRN PRN PRN Reason: Heparin Last Admin: 12/22/16 14:51 Dose: 5,000 unit Heparin Sodium (Porcine) 25, (000 unit/ Sodium Chloride) 500 mls @ 16 mls/hr IV TITR YONNY; 800 UNIT/HR PRN Reason: Protocol Last Admin: 12/25/16 14:33 Dose: 16 mls/hr Pantoprazole Sodium (Protonix 40mg Ivpb (Pre-Docked)) 100 mls @ 200 mls/hr IVPB BID YONNY Last Admin: 12/26/16 01:15 Dose: 200 mls/hr Insulin Aspart (Novolog Vial Sliding Scale -) 1 vial SQ ACHS YONNY PRN Reason: Protocol Last Admin: 12/26/16 07:31 Dose: 2 units Lorazepam (Ativan Injection -) 1 mg IVPUSH Q6H PRN PRN Reason: ANXIETY Last Admin: 12/25/16 18:01 Dose: 1 mg Metoprolol Tartrate (Lopressor Injection -) 1.25 mg IVPUSH Q6H-IV YONNY Last Admin: 12/26/16 04:18 Dose: 1.25 mg GENERAL: Awake and alert. Mildly tachypneic at rest HEENT: Normocephalic, atraumatic. PERRLA, EOMI. No conjunctival pallor. Sclera are non-icteric. NECK: No JVP,No LAD Supple. Full ROM. CARDIOVASCULAR:Regular rate and rhythm. (+) ESM; No rubs, or gallops. PULMONARY: Clear anterior, no distress, no wheezes ABDOMINAL: Only minimal tenderness to palpation. No rebound or guarding. (+) BS MUSCULOSKELETAL:Normal range of motion at all joints. No bony deformities or tenderness. EXTREMITIES: No cyanosis. No clubbing. No edema. No calf tenderness. SKIN: Warm and dry. Normal capillary refill. No rashes. No jaundice. NEUROLOGICAL: Non focal exam PSYCHIATRIC: Cooperative. Laboratory Results - last 24 hr 12/25/16 12/25/16 12/25/16 12:07 16:30 18:06 WBC RBC Hgb Hct MCV MCH MCHC RDW Plt Count MPV PTT (Actin FS) Sodium Potassium Chloride Carbon Dioxide Anion Gap BUN Creatinine Creat Clearance w eGFR POC Glucometer 230.98759 204.45143 Random Glucose Calcium Phosphorus 2.1 L D Magnesium 2.1 D Total Bilirubin AST ALT Alkaline Phosphatase Total Protein Albumin 12/25/16 12/26/16 12/26/16 18:40 05:35 05:35 WBC 10.2 H 6.4 D RBC 2.18 L 1.94 L Hgb 7.5 L 6.6 L* D Hct 22.9 L 20.2 L MCV 105.0 H 104.2 H MCH 34.4 H 34.3 H MCHC 32.8 32.9 RDW 13.8 13.8 Plt Count 97 L 89 L MPV 10.3 9.9 PTT (Actin FS) 29.3 D Sodium Potassium Chloride Carbon Dioxide Anion Gap BUN Creatinine Creat Clearance w eGFR POC Glucometer Random Glucose Calcium Phosphorus Magnesium Total Bilirubin AST ALT Alkaline Phosphatase Total Protein Albumin 12/26/16 05:35 WBC RBC Hgb Hct MCV MCH MCHC RDW Plt Count MPV PTT (Actin FS) Sodium 145 Potassium 4.3 Chloride 113 H Carbon Dioxide 24 D Anion Gap 8 BUN 15 Creatinine 1.3 H Creat Clearance w eGFR 41.50 POC Glucometer Random Glucose 249 H Calcium 8.0 L Phosphorus 2.9 D Magnesium 1.8 Total Bilirubin 0.4 AST 17 ALT 10 L Alkaline Phosphatase 81 Total Protein 5.5 L Albumin 2.4 L IMP: Acute ETOH Pancreatitis Abdominal pain (Acute) Acute renal failure (Acute) Aortic regurgitation (Acute) Atypical chest pain (Acute) Chest pain (Acute) Elevated lipase (Acute) GERD (gastroesophageal reflux disease) (Acute) Hyperkalemia (Acute) New onset a-fib (Acute) Pancreatitis (Acute) Renal insufficiency (Acute) Vomiting (Acute) NIDDM (Chronic) Acute Anemia PLAN: -1 unit p RBCs -Patient in NSR and with GI Bleed -> Will need to hold AC due to progressively worsening anemia -Strict I&O -Pain control -Monitor off ABX -Clears as tolerated Dr Arias Critical Care Total Critical Care Time (in minutes): 35 Critical Care Statement: The care of this patient involved high complexity decision making to prevent further life threatening deterioration of the patient 's condition and/or to evalute & treat vital organ system(s) failure or risk of failure.
[2016-12-26] MEDS ORDERED: FUROSEMIDE 40 MG/4 ML INJECTABLE VIAL IVPUSH SCH (09:25)
[2016-12-26] MEDS: HEPARIN - 25,000 UNIT in SODIUM CHLORIDE 495 ML IV SCH (11:55)
--- NOTE | 2016-12-26 13:19 | PN ---
Progress Note (short form) - Note Progress Note: pt seen/ examined in icu pt comfortable- mildly tremulous denies pain. tolerating liquid diet Afebrile Vital Signs Temp 98.1 F 12/26/16 07:59 Pulse 90 12/26/16 12:00 Resp 20 12/26/16 12:00 BP 158/92 12/26/16 12:00 Pulse Ox 93 L 12/26/16 11:45 Intake & Output 12/25/16 12/26/16 12/26/16 23:59 11:59 23:59 Intake Total 664 212 Balance 664 212 Intake: IV 64 112 Heparin - 25,000 Unit In 64 112 Normal Saline - 495 ml @ 800 UNIT/HR 16 mls/hr IV TITR YONNY Rx#:[id number] IVPB 100 Oral 600 Other: Voiding Method Incontinent Incontinent # Unmeasured Voids Void 4 2 Active Medications Albuterol Sulfate (Ventolin 0.083% Nebulizer Soln -) 1 amp NEB Q4H PRN PRN Reason: SHORT OF BREATH/WHEEZING Last Admin: 12/24/16 21:51 Dose: 1 amp Albuterol/Ipratropium (Duoneb -) 1 amp NEB Q6H PRN PRN Reason: SHORTNESS OF BREATH Last Admin: 12/24/16 16:20 Dose: 1 amp Heparin Sodium (Porcine) (Heparin -) 1,000 unit IVPUSH PRN PRN PRN Reason: Heparin Heparin Sodium (Porcine) (Heparin -) 5,000 unit IVPUSH PRN PRN PRN Reason: Heparin Last Admin: 12/22/16 14:51 Dose: 5,000 unit Heparin Sodium (Porcine) 25, (000 unit/ Sodium Chloride) 500 mls @ 16 mls/hr IV TITR YONNY; 800 UNIT/HR PRN Reason: Protocol Last Admin: 12/24/16 14:42 Dose: 16 mls/hr Pantoprazole Sodium (Protonix 40mg Ivpb (Pre-Docked)) 100 mls @ 200 mls/hr IVPB BID YONNY Last Admin: 12/25/16 10:18 Dose: 200 mls/hr Insulin Aspart (Novolog Vial Sliding Scale -) 1 vial SQ ACHS YONNY PRN Reason: Protocol Last Admin: 12/25/16 12:12 Dose: 2 units Lorazepam (Ativan Injection -) 1 mg IVPUSH Q6H PRN PRN Reason: ANXIETY Metoprolol Tartrate (Lopressor Injection -) 1.25 mg IVPUSH Q6H-IV YONNY Last Admin: 12/25/16 10:18 Dose: 1.25 mg CBC BMP 12/26/16 05:35 12/26/16 05:35 Physical Constitutional: Yes: comfortable Eyes: Yes: Conjunctiva Clear, EOM Intact HENT: Yes: Atraumatic, Normocephalic Neck: Yes: Supple, Trachea Midline Cardiovascular: Yes: Regular Rate and Rhythm, S1, S2, S3 Respiratory: Yes: CTA Bilaterally (Bibasilar rales)--improved Gastrointestinal: Yes: Normal Bowel Sounds, soft Edema: No Neurological: Yes: awake/ Problem List - Problems (1) Abdominal pain Code(s): R10.9 - UNSPECIFIED ABDOMINAL PAIN Qualifiers: Abdominal location: generalized Qualified Code(s): R10.84 - Generalized abdominal pain (2) Acute pancreatitis Code(s): K85.90 - ACUTE PANCREATITIS WITHOUT NECROSIS OR INFECTION, UNSP Qualifiers: Pancreatitis type: alcohol induced (3) Acute renal failure Code(s): N17.9 - ACUTE KIDNEY FAILURE, UNSPECIFIED Qualifiers: Acute renal failure type: unspecified Qualified Code(s): N17.9 - Acute kidney failure, unspecified (4) Aortic regurgitation Code(s): I35.1 - NONRHEUMATIC AORTIC (VALVE) INSUFFICIENCY (5) Atypical chest pain Code(s): R07.89 - OTHER CHEST PAIN (6) Chest pain Code(s): R07.9 - CHEST PAIN, UNSPECIFIED Qualifiers: Chest pain type: unspecified Qualified Code(s): R07.9 - Chest pain, unspecified (7) Elevated lipase Code(s): R74.8 - ABNORMAL LEVELS OF OTHER SERUM ENZYMES (8) Epigastric abdominal pain Code(s): R10.13 - EPIGASTRIC PAIN (9) Pulmonary congestion Code(s): R09.89 - OTH SYMPTOMS AND SIGNS INVOLVING THE CIRC AND RESP SYSTEMS Assessment/Plan clinically stable Problems as listed Decrease in H&H No obvious bleeding Transfuse hold heparin--possible occult bleeding Monitor Lasix after transfusion Ritchie for safety Continue present care Discussed with nursing staff Stool for occult blood--ordered Will follow Condition stable but remains guarded
--- NOTE | 2016-12-26 17:19 | PN ---
Progress Note, Physician History of Present Illness: Pt seen and examined at bedside. She is confused. Pt is getting PRBC. - Current Medication List Current Medications: Active Medications Albuterol Sulfate (Ventolin 0.083% Nebulizer Soln -) 1 amp NEB Q4H PRN PRN Reason: SHORT OF BREATH/WHEEZING Last Admin: 12/25/16 22:20 Dose: 1 amp Albuterol/Ipratropium (Duoneb -) 1 amp NEB Q6H PRN PRN Reason: SHORTNESS OF BREATH Last Admin: 12/24/16 16:20 Dose: 1 amp Pantoprazole Sodium (Protonix 40mg Ivpb (Pre-Docked)) 100 mls @ 200 mls/hr IVPB BID YONNY Last Admin: 12/26/16 09:36 Dose: 200 mls/hr Insulin Aspart (Novolog Vial Sliding Scale -) 1 vial SQ ACHS YONNY PRN Reason: Protocol Last Admin: 12/26/16 11:56 Dose: 2 units Lorazepam (Ativan Injection -) 1 mg IVPUSH Q6H PRN PRN Reason: ANXIETY Last Admin: 12/25/16 18:01 Dose: 1 mg Metoprolol Tartrate (Lopressor Injection -) 1.25 mg IVPUSH Q6H-IV YONNY Last Admin: 12/26/16 16:17 Dose: Not Given - Objective Vital Signs: Vital Signs Temperature 98.4 F 12/26/16 15:00 Pulse Rate 77 12/26/16 16:17 Respiratory Rate 20 12/26/16 15:00 Blood Pressure 125/77 12/26/16 16:17 O2 Sat by Pulse Oximetry (%) 93 L 12/26/16 11:45 Constitutional: Yes: Calm Eyes: Yes: Conjunctiva Clear HENT: Yes: Atraumatic Cardiovascular: Yes: S1, S2 Respiratory: Yes: On Nasal O2 Gastrointestinal: Yes: Soft Genitourinary: Yes: Incontinence Musculoskeletal: Yes: Muscle Weakness Edema: Yes Edema: LLE: Trace, RLE: Trace Neurological: Yes: Other (drowsy) Labs: CBC, BMP 12/26/16 05:35 12/26/16 05:35 Problem List - Problems (1) Abdominal pain Code(s): R10.9 - UNSPECIFIED ABDOMINAL PAIN Qualifiers: Abdominal location: generalized Qualified Code(s): R10.84 - Generalized abdominal pain (2) Acute renal failure Code(s): N17.9 - ACUTE KIDNEY FAILURE, UNSPECIFIED Qualifiers: Acute renal failure type: unspecified Qualified Code(s): N17.9 - Acute kidney failure, unspecified (3) Hyperkalemia Code(s): E87.5 - HYPERKALEMIA (4) Pancreatitis Code(s): K85.90 - ACUTE PANCREATITIS WITHOUT NECROSIS OR INFECTION, UNSP Qualifiers: Chronicity: acute Pancreatitis type: unspecified pancreatitis type Acute pancreatitis complication: unspecified Qualified Code(s): K85.90 - Acute pancreatitis without necrosis or infection, unspecified Assessment/Plan Current Medications Generic Name Dose Route Start Last Admin Trade Name Freq PRN Reason Stop Dose Admin Albuterol Sulfate 1 amp 12/24/16 16:13 12/25/16 22:20 Ventolin 0.083% Nebulizer Soln - NEB 1 amp Q4H PRN Administration SHORT OF BREATH/WHEEZING Albuterol/Ipratropium 1 amp 12/24/16 16:12 12/24/16 16:20 Duoneb - NEB 1 amp Q6H PRN Administration SHORTNESS OF BREATH Pantoprazole Sodium 100 mls @ 200 mls/hr 12/23/16 10:00 12/26/16 09:36 Protonix 40mg Ivpb (Pre-Docked) IVPB 200 mls/hr BID YONNY Administration Insulin Aspart 1 vial 12/23/16 07:00 12/26/16 11:56 Novolog Vial Sliding Scale - SQ 2 units ACHS YONNY Administration Protocol Lorazepam 1 mg 12/25/16 12:20 12/25/16 18:01 Ativan Injection - IVPUSH 1 mg Q6H PRN Administration ANXIETY Metoprolol Tartrate 1.25 mg 12/22/16 16:30 12/26/16 16:17 Lopressor Injection - IVPUSH Not Given Q6H-IV YONNY Impression 1. SARA 2. hyperkalemia 3. hx etoh use 4. pancreatitis 5. abdominal pain 6. vomiting 7. anemia 8. HTN Plan - renal function is improving - SARA likely secondary to pre-renal disease and pancreatitis - monitor volume status closely - may need diuretics with PRBC - cont management per ICU team - will follow - consider cxr Dr Torres
[2016-12-26] MEDS ORDERED: FUROSEMIDE 40 MG/4 ML INJECTABLE VIAL ONE (18:46)
[2016-12-27] MEDS: METOPROLOL TARTRATE 5 MG/5 ML VIAL IVPUSH SCH ×3 (02:46→16:18)
[2016-12-27 06:51] LABS: MCH 33.5 pg (25.7-33.7); MCHC 33.3 g/dl (32.0-36.0); MEAN CELL VOLUME 100.6 fl (80-96); MEAN PLT VOLUME 10.4 fl (7.5-11.1); PLATELET COUNT 110 K/MM3 (134-434)
[2016-12-27] MEDS: INSULIN SLIDING SCALE (NOVOLOG) 1 VIAL SQ SCH ×5 (07:12→22:05)
[2016-12-27 07:31] LABS: ALBUMIN 2.3 g/dl (3.4-5.0); ALK PHOS 79 U/L (45-117); ANION GAP 12 (8-16); CO2 22 mmol/L (21-32); CREATININE 1.3 mg/dL (0.55-1.02); GLUCOSE,RANDOM 173 mg/dL (74-106); MAGNESIUM 1.7 mg/dL (1.8-2.4); PHOSPHOROUS 2.6 mg/dL (2.5-4.9); SGOT/AST 11 U/L (15-37); SGPT/ALT 10 U/L (12-78); TOT PROT 5.3 g/dl (6.4-8.2)
[2016-12-27] MEDS ORDERED: FUROSEMIDE 40 MG/4 ML INJECTABLE VIAL IVPUSH SCH (10:00)
[2016-12-27] MEDS: PANTOPRAZOLE SODIUM 100 ML IVPB SCH (10:47)
--- NOTE | 2016-12-27 11:14 | PN ---
Progress Note (short form) - Note Progress Note: pt seen/ examined feels better alert and awake tolerating liquids denies pain afebrile got one unit of prbc yesterday Vital Signs Temp 97.5 F L 12/27/16 06:00 Pulse 79 12/27/16 10:05 Resp 26 H 12/27/16 10:00 BP 140/81 12/27/16 10:00 Pulse Ox 93 L 12/27/16 10:05 Intake & Output 12/26/16 12/26/16 12/27/16 11:59 23:59 11:59 Intake Total 212 828 Balance 212 828 Weight 141 lb 1.533 oz Intake: IV 112 48 Heparin - 25,000 Unit In 112 48 Normal Saline - 495 ml @ 800 UNIT/HR 16 mls/hr IV TITR YONNY Rx#:[id number] IVPB 100 100 Oral 400 Packed Cells 280 Other: Voiding Method Incontinent Incontinent Incontinent # Unmeasured Voids Void 2 2 1 Bowel Movement Yes Weight Measurement Method Built in [facility] Active Medications Albuterol Sulfate (Ventolin 0.083% Nebulizer Soln -) 1 amp NEB Q4H PRN PRN Reason: SHORT OF BREATH/WHEEZING Last Admin: 12/25/16 22:20 Dose: 1 amp Albuterol/Ipratropium (Duoneb -) 1 amp NEB Q6H PRN PRN Reason: SHORTNESS OF BREATH Last Admin: 12/24/16 16:20 Dose: 1 amp Furosemide (Lasix Injection -) 40 mg IVPUSH DAILY YONNY Pantoprazole Sodium (Protonix 40mg Ivpb (Pre-Docked)) 100 mls @ 200 mls/hr IVPB BID YONNY Last Admin: 12/27/16 10:47 Dose: 200 mls/hr Insulin Aspart (Novolog Vial Sliding Scale -) 1 vial SQ ACHS YONNY PRN Reason: Protocol Last Admin: 12/27/16 07:12 Dose: 1 units Lorazepam (Ativan Injection -) 1 mg IVPUSH Q6H PRN PRN Reason: ANXIETY Last Admin: 12/25/16 18:01 Dose: 1 mg Metoprolol Tartrate (Lopressor Injection -) 1.25 mg IVPUSH Q6H-IV YONNY Last Admin: 12/27/16 10:47 Dose: 1.25 mg Multivitamins/Minerals/Vitamin C (Tab-A-Vit -) 1 tab PO DAILY [facility] Thiamine HCl (Vitamin B1 -) 100 mg PO DAILY [facility] CBC, BMP 12/27/16 05:35 12/27/16 05:35 cxr- no change Physical Constitutional: Yes: comfortable Eyes: Yes: Conjunctiva Clear, EOM Intact HENT: Yes: Atraumatic, Normocephalic Neck: Yes: Supple, Trachea Midline Cardiovascular: Yes: Regular Rate and Rhythm, S1, S2, S3 Respiratory: Yes: CTA Bilaterally (Bibasilar rales)--scattered Gastrointestinal: Yes: Normal Bowel Sounds, soft/ non tender Edema: No Neurological: Yes: awake/ Problem List - Problems (1) Abdominal pain Code(s): R10.9 - UNSPECIFIED ABDOMINAL PAIN Qualifiers: Abdominal location: generalized Qualified Code(s): R10.84 - Generalized abdominal pain (2) Acute pancreatitis Code(s): K85.90 - ACUTE PANCREATITIS WITHOUT NECROSIS OR INFECTION, UNSP Qualifiers: Pancreatitis type: alcohol induced (3) Acute renal failure Code(s): N17.9 - ACUTE KIDNEY FAILURE, UNSPECIFIED Qualifiers: Acute renal failure type: unspecified Qualified Code(s): N17.9 - Acute kidney failure, unspecified (4) Aortic regurgitation Code(s): I35.1 - NONRHEUMATIC AORTIC (VALVE) INSUFFICIENCY (5) Atypical chest pain Code(s): R07.89 - OTHER CHEST PAIN (6) Chest pain Code(s): R07.9 - CHEST PAIN, UNSPECIFIED Qualifiers: Chest pain type: unspecified Qualified Code(s): R07.9 - Chest pain, unspecified (7) Elevated lipase Code(s): R74.8 - ABNORMAL LEVELS OF OTHER SERUM ENZYMES (8) Epigastric abdominal pain Code(s): R10.13 - EPIGASTRIC PAIN (9) Pulmonary congestion Code(s): R09.89 - OTH SYMPTOMS AND SIGNS INVOLVING THE CIRC AND RESP SYSTEMS Assessment/Plan clinically stable Problems as listed Transfuse prn hold heparin--possible occult bleeding sob -ve Monitor Lasix Continue present care oob -= chair echo pending . Will follow add thiamine/ mvi Condition stable - improved
[2016-12-27] MEDS ORDERED: THIAMINE HCL 100 MG TABLET (FP) PO SCH (11:15)
[2016-12-27] MEDS ORDERED: MULTIVITAMINS (DAILY MVI) TABLET (FP) PO SCH (11:15)
--- NOTE | 2016-12-27 12:24 | PN ---
Teaching Attending Note Name of Resident: Jonatan Parra ATTENDING PHYSICIAN STATEMENT I saw and evaluated the patient. I reviewed the resident's note and discussed the case with the resident. I agree with the resident's findings and plan as documented. SUBJECTIVE: Patient seen and examined in the ICU. Breathing appears better today, but still mildly tachypneic on NC O2. Denies abdominal pain/discomfort. Tolerating PO. Not tremulous. Intake & Output 12/24/16 12/25/16 12/26/16 12/27/16 23:59 23:59 23:59 23:59 Intake Total 3456 892 1040 Output Total 1400 Balance 2056 892 1040 Weight 145 lb 8.081 oz 141 lb 15.643 oz 141 lb 1.533 oz Last Vital Signs Temp Pulse Resp BP Pulse Ox 97.5 F L 79 26 H 140/81 93 L 12/27/16 06:00 12/27/16 10:05 12/27/16 10:00 12/27/16 10:00 12/27/16 10:05 Active Medications Albuterol Sulfate (Ventolin 0.083% Nebulizer Soln -) 1 amp NEB Q4H PRN PRN Reason: SHORT OF BREATH/WHEEZING Last Admin: 12/25/16 22:20 Dose: 1 amp Albuterol/Ipratropium (Duoneb -) 1 amp NEB Q6H PRN PRN Reason: SHORTNESS OF BREATH Last Admin: 12/24/16 16:20 Dose: 1 amp Furosemide (Lasix Injection -) 40 mg IVPUSH DAILY YONNY Pantoprazole Sodium (Protonix 40mg Ivpb (Pre-Docked)) 100 mls @ 200 mls/hr IVPB BID YONNY Last Admin: 12/27/16 10:47 Dose: 200 mls/hr Insulin Aspart (Novolog Vial Sliding Scale -) 1 vial SQ ACHS YONNY PRN Reason: Protocol Last Admin: 12/27/16 07:12 Dose: 1 units Lorazepam (Ativan Injection -) 1 mg IVPUSH Q6H PRN PRN Reason: ANXIETY Last Admin: 12/25/16 18:01 Dose: 1 mg Metoprolol Tartrate (Lopressor Injection -) 1.25 mg IVPUSH Q6H-IV YONNY Last Admin: 12/27/16 10:47 Dose: 1.25 mg Multivitamins/Minerals/Vitamin C (Tab-A-Vit -) 1 tab PO DAILY YONNY Thiamine HCl (Vitamin B1 -) 100 mg PO DAILY [facility]: Awake and alert. NAD HEENT: Normocephalic, atraumatic. PERRLA, EOMI. No conjunctival pallor. Sclera are non-icteric. NECK: No JVP,No LAD Supple. Full ROM. CARDIOVASCULAR:Regular rate and rhythm. (+) ESM; No rubs, or gallops. PULMONARY: Clear anterior, no distress, no wheezes ABDOMINAL: Only minimal tenderness to palpation. No rebound or guarding. (+) BS MUSCULOSKELETAL:Normal range of motion at all joints. No bony deformities or tenderness. EXTREMITIES: No cyanosis. No clubbing. No edema. No calf tenderness. SKIN: Warm and dry. Normal capillary refill. No rashes. No jaundice. NEUROLOGICAL: Non focal exam PSYCHIATRIC: Cooperative. Laboratory Results - last 24 hr 12/26/16 12/26/16 12/26/16 09:50 11:52 14:35 WBC RBC Hgb Hct MCV MCH MCHC RDW Plt Count MPV PTT (Actin FS) Sodium Potassium Chloride Carbon Dioxide Anion Gap BUN Creatinine Creat Clearance w eGFR POC Glucometer [phone] Random Glucose Calcium Phosphorus Magnesium Total Bilirubin AST ALT Alkaline Phosphatase Total Protein Albumin Stool Occult Blood Negative Blood Type O POSITIVE Antibody Screen Negative Crossmatch See Detail 12/26/16 12/26/16 12/27/16 17:42 23:37 05:35 WBC 6.0 RBC 2.20 L Hgb 7.4 L D Hct 22.2 L MCV 100.6 H MCH 33.5 MCHC 33.3 RDW 15.0 Plt Count 110 L D MPV 10.4 PTT (Actin FS) Sodium Potassium Chloride Carbon Dioxide Anion Gap BUN Creatinine Creat Clearance w eGFR POC Glucometer 221.97502 189.22199 Random Glucose Calcium Phosphorus Magnesium Total Bilirubin AST ALT Alkaline Phosphatase Total Protein Albumin Stool Occult Blood Blood Type Antibody Screen Crossmatch 12/27/16 12/27/16 12/27/16 05:35 05:35 07:10 WBC RBC Hgb Hct MCV MCH MCHC RDW Plt Count MPV PTT (Actin FS) 26.1 L Sodium 142 Potassium 4.1 Chloride 108 H Carbon Dioxide 22 Anion Gap 12 BUN 17 Creatinine 1.3 H Creat Clearance w eGFR 41.50 POC Glucometer [phone] Random Glucose 173 H D Calcium 8.0 L Phosphorus 2.6 Magnesium 1.7 L Total Bilirubin 1.0 D AST 11 L D ALT 10 L Alkaline Phosphatase 79 Total Protein 5.3 L Albumin 2.3 L Stool Occult Blood Blood Type Antibody Screen Crossmatch IMP: Acute ETOH Pancreatitis Abdominal pain (Acute) Acute renal failure (Acute) Aortic regurgitation (Acute) Atypical chest pain (Acute) Chest pain (Acute) Elevated lipase (Acute) GERD (gastroesophageal reflux disease) (Acute) Hyperkalemia (Acute) New onset a-fib (Acute) Pancreatitis (Acute) Renal insufficiency (Acute) Vomiting (Acute) NIDDM (Chronic) Acute Anemia PLAN: -Normal transfusion -Patient in NSR and with GI Bleed -> Will need to hold AC due to anemia -Strict I&O -Pain control -Monitor off ABX -PO as tolerated Dr Arias Critical Care Total Critical Care Time (in minutes): 35 Critical Care Statement: The care of this patient involved high complexity decision making to prevent further life threatening deterioration of the patient 's condition and/or to evalute & treat vital organ system(s) failure or risk of failure.
[2016-12-27] MEDS ORDERED: HEMOQUE TEST 1 EACH EACH ONE (12:40)
[2016-12-27] MEDS ORDERED: INSULIN (NOVOLOG) ASPART 100 UNITS/ML 10ML VIAL ONE (13:00)
[2016-12-27] MEDS ORDERED: chlordiazePOXIDE HCL 25 MG CAPSULE PO PRN ×2 (13:10→17:46)
--- NOTE | 2016-12-27 14:08 | PN ---
Physical Exam: SUBJECTIVE: Patient seen and examined. She states she feels much better today and has near resolution of abdominal pain and shortness of breath. Was anemic over the weekend; required 1 U PRBC. OBJECTIVE: Vital Signs Period Temp Pulse Resp BP Sys/Sharma Pulse Ox Last 24 Hr 97.5 F-98.9 F 73-101 14-29 107-158/70-90 93-95 GENERAL: The patient is awake, alert, and fully oriented, in no acute distress. HEAD: Normal with no signs of trauma. EYES: PERRL, extraocular movements intact, sclera anicteric, conjunctiva clear. No ptosis. NECK: Trachea midline, full range of motion, supple. LUNGS: Breath sounds equal, inspiratory wheezes b/l crackles at the bases, no accessory muscle use. HEART: Regular rate and rhythm, S1, S2 without murmur, rub or gallop. ABDOMEN: Soft, nontender, nondistended, normoactive bowel sounds, no guarding, no rebound. EXTREMITIES: 2+ pulses, warm, well-perfused, no edema. NEUROLOGICAL: Cranial nerves II through X grossly intact. Normal speech, gait not observed. PSYCH: Normal mood, normal affect. SKIN: Warm, dry, normal turgor, no rashes or lesions noted Laboratory Results - last 24 hr 12/26/16 12/26/16 12/26/16 09:50 11:52 14:35 WBC RBC Hgb Hct MCV MCH MCHC RDW Plt Count MPV PTT (Actin FS) Sodium Potassium Chloride Carbon Dioxide Anion Gap BUN Creatinine Creat Clearance w eGFR POC Glucometer [phone] Random Glucose Calcium Phosphorus Magnesium Total Bilirubin AST ALT Alkaline Phosphatase Total Protein Albumin Stool Occult Blood Negative Blood Type O POSITIVE Antibody Screen Negative Crossmatch See Detail 12/26/16 12/26/16 12/27/16 17:42 23:37 05:35 WBC 6.0 RBC 2.20 L Hgb 7.4 L D Hct 22.2 L MCV 100.6 H MCH 33.5 MCHC 33.3 RDW 15.0 Plt Count 110 L D MPV 10.4 PTT (Actin FS) Sodium Potassium Chloride Carbon Dioxide Anion Gap BUN Creatinine Creat Clearance w eGFR POC Glucometer 221.37305 189.59681 Random Glucose Calcium Phosphorus Magnesium Total Bilirubin AST ALT Alkaline Phosphatase Total Protein Albumin Stool Occult Blood Blood Type Antibody Screen Crossmatch 12/27/16 12/27/16 12/27/16 05:35 05:35 07:10 WBC RBC Hgb Hct MCV MCH MCHC RDW Plt Count MPV PTT (Actin FS) 26.1 L Sodium 142 Potassium 4.1 Chloride 108 H Carbon Dioxide 22 Anion Gap 12 BUN 17 Creatinine 1.3 H Creat Clearance w eGFR 41.50 POC Glucometer [phone] Random Glucose 173 H D Calcium 8.0 L Phosphorus 2.6 Magnesium 1.7 L Total Bilirubin 1.0 D AST 11 L D ALT 10 L Alkaline Phosphatase 79 Total Protein 5.3 L Albumin 2.3 L Stool Occult Blood Blood Type Antibody Screen Crossmatch 12/27/16 12:43 WBC RBC Hgb Hct MCV MCH MCHC RDW Plt Count MPV PTT (Actin FS) Sodium Potassium Chloride Carbon Dioxide Anion Gap BUN Creatinine Creat Clearance w eGFR POC Glucometer [phone] Random Glucose Calcium Phosphorus Magnesium Total Bilirubin AST ALT Alkaline Phosphatase Total Protein Albumin Stool Occult Blood Blood Type Antibody Screen Crossmatch Active Medications Generic Name Dose Route Start Last Admin Trade Name Freq PRN Reason Stop Dose Admin Albuterol Sulfate 1 amp 12/24/16 16:13 12/25/16 22:20 Ventolin 0.083% Nebulizer Soln - NEB 1 amp Q4H PRN Administration SHORT OF BREATH/WHEEZING Albuterol/Ipratropium 1 amp 12/24/16 16:12 12/24/16 16:20 Duoneb - NEB 1 amp Q6H PRN Administration SHORTNESS OF BREATH Chlordiazepoxide HCl 25 mg 12/27/16 13:10 Librium - PO 12/28/16 13:09 Q6H PRN WITHDRAWAL(CONT SUBST) Furosemide 40 mg 12/27/16 10:00 12/27/16 12:52 Lasix Injection - IVPUSH 40 mg DAILY YONNY Administration Insulin Aspart 1 vial 12/23/16 07:00 12/27/16 12:52 Novolog Vial Sliding Scale - SQ 3 units ACHS YONNY Administration Protocol Metoprolol Tartrate 1.25 mg 12/22/16 16:30 12/27/16 10:47 Lopressor Injection - IVPUSH 1.25 mg Q6H-IV YONNY Administration Multivitamins/Minerals/Vitamin C 1 tab 12/27/16 11:15 12/27/16 12:53 Tab-A-Vit - PO 1 tab DAILY YONNY Administration Ranitidine HCl 150 mg 12/27/16 22:00 Zantac - PO BID YONNY Thiamine HCl 100 mg 12/27/16 11:15 12/27/16 12:53 Vitamin B1 - PO 100 mg DAILY YONNY Administration ASSESSMENT/PLAN: This is a 61 yo F w/ PMH of Afib on AC, hypertension, hyperlipidemia, DM, GERD, and alcoholism (near daily use) admitted to the ICU for treatment of acute pancreatitis. Neuro: -patient is A&Ox3 -Patient drinks "a couple of glasses of smirnoff" daily -Patient is now outside of the detox window where withdrawal may occur -Librium 25mg Q6H PRN withdrawal symptoms Cardio: -PMH Afib; currently in NSR -Heparin discontinued as patient had an acute drop in Hb -will resume AC once Hb has stabilized -PMH HTN -BP controlled -acute drop in Hb -Hb 7.5 -> 6.6 -> 7.4 today -s/p 1U PRBCs yesterday -will monitor Abdominal: -acute pancreatitis -fluids decreased -monitor fluid status -Guiac negative x2 Renal: -patient with SARA on admission -resolving, Cr 1.3 today -renal u/s shows normal kidneys FEN: -no fluids indicated at this time -will continue to monitor lytes -Soft diet Prophylaxis: -protonix 40 IV BID changed to Zantac 150 PO BID Dispo: -patient is stable for transfer to floors Problem List - Problems (1) Abdominal pain Code(s): R10.9 - UNSPECIFIED ABDOMINAL PAIN Qualifiers: Abdominal location: generalized Qualified Code(s): R10.84 - Generalized abdominal pain (2) Acute renal failure Code(s): N17.9 - ACUTE KIDNEY FAILURE, UNSPECIFIED Qualifiers: Acute renal failure type: unspecified Qualified Code(s): N17.9 - Acute kidney failure, unspecified (3) Elevated lipase Code(s): R74.8 - ABNORMAL LEVELS OF OTHER SERUM ENZYMES (4) Pancreatitis Code(s): K85.90 - ACUTE PANCREATITIS WITHOUT NECROSIS OR INFECTION, UNSP Qualifiers: Chronicity: acute Pancreatitis type: unspecified pancreatitis type Acute pancreatitis complication: unspecified Qualified Code(s): K85.90 - Acute pancreatitis without necrosis or infection, unspecified (5) Vomiting Code(s): R11.10 - VOMITING, UNSPECIFIED Qualifiers: Vomiting type: unspecified Vomiting Intractability: intractable Nausea presence: with nausea Qualified Code(s): R11.2 - Nausea with vomiting , unspecified (6) Anemia Code(s): D64.9 - ANEMIA, UNSPECIFIED Visit type - Emergency Visit Emergency Visit: Yes ED Registration Date: 12/22/16 Care time: The patient presented to the Emergency Department on the above date and was hospitalized for further evaluation of their emergent condition. - New Patient This patient is new to me today: No - Critical Care Critical Care patient: Yes Total Critical Care Time (in minutes): 35 Critical Care Statement: The care of this patient involved high complexity decision making to prevent further life threatening deterioration of the patient 's condition and/or to evaluate & treat vital organ system(s) failure or risk of failure.
--- NOTE | 2016-12-27 15:27 | PN ---
Progress Note, Physician History of Present Illness: Pt seen and examined at bedside. She is more awake and alert today. Her mental status is markedly improved. - Current Medication List Current Medications: Active Medications Albuterol Sulfate (Ventolin 0.083% Nebulizer Soln -) 1 amp NEB Q4H PRN PRN Reason: SHORT OF BREATH/WHEEZING Last Admin: 12/25/16 22:20 Dose: 1 amp Albuterol/Ipratropium (Duoneb -) 1 amp NEB Q6H PRN PRN Reason: SHORTNESS OF BREATH Last Admin: 12/24/16 16:20 Dose: 1 amp Chlordiazepoxide HCl (Librium -) 25 mg PO Q6H PRN PRN Reason: WITHDRAWAL(CONT SUBST) Stop: 12/28/16 13:09 Furosemide (Lasix Injection -) 40 mg IVPUSH DAILY [facility] Last Admin: 12/27/16 12:52 Dose: 40 mg Insulin Aspart (Novolog Vial Sliding Scale -) 1 vial SQ ACHS YONNY PRN Reason: Protocol Last Admin: 12/27/16 12:52 Dose: 3 units Magnesium Sulfate (Magnesium Sulfate) 2 gm IVPB ONCE ONE Stop: 12/27/16 15:31 Metoprolol Tartrate (Lopressor Injection -) 1.25 mg IVPUSH Q6H-IV YONNY Last Admin: 12/27/16 10:47 Dose: 1.25 mg Multivitamins/Minerals/Vitamin C (Tab-A-Vit -) 1 tab PO DAILY [facility] Last Admin: 12/27/16 12:53 Dose: 1 tab Ranitidine HCl (Zantac -) 150 mg PO BID [facility] Thiamine HCl (Vitamin B1 -) 100 mg PO DAILY [facility] Last Admin: 12/27/16 12:53 Dose: 100 mg - Objective Vital Signs: Vital Signs Temperature 97.6 F 12/27/16 12:00 Pulse Rate 74 12/27/16 12:00 Respiratory Rate 24 12/27/16 12:00 Blood Pressure 138/80 12/27/16 12:00 O2 Sat by Pulse Oximetry (%) 93 L 12/27/16 10:05 Constitutional: Yes: Calm Eyes: Yes: Conjunctiva Clear HENT: Yes: Atraumatic Cardiovascular: Yes: S1, S2 Respiratory: Yes: CTA Bilaterally Gastrointestinal: Yes: Soft Genitourinary: Yes: WNL Musculoskeletal: Yes: WNL Edema: No Neurological: Yes: Oriented Psychiatric: Yes: Oriented Labs: CBC, BMP 12/27/16 05:35 12/27/16 05:35 Problem List - Problems (1) Abdominal pain Code(s): R10.9 - UNSPECIFIED ABDOMINAL PAIN Qualifiers: Abdominal location: generalized Qualified Code(s): R10.84 - Generalized abdominal pain (2) Acute renal failure Code(s): N17.9 - ACUTE KIDNEY FAILURE, UNSPECIFIED Qualifiers: Acute renal failure type: unspecified Qualified Code(s): N17.9 - Acute kidney failure, unspecified (3) Hyperkalemia Code(s): E87.5 - HYPERKALEMIA (4) Pancreatitis Code(s): K85.90 - ACUTE PANCREATITIS WITHOUT NECROSIS OR INFECTION, UNSP Qualifiers: Chronicity: acute Pancreatitis type: unspecified pancreatitis type Acute pancreatitis complication: unspecified Qualified Code(s): K85.90 - Acute pancreatitis without necrosis or infection, unspecified Assessment/Plan Current Medications Generic Name Dose Route Start Last Admin Trade Name Freq PRN Reason Stop Dose Admin Albuterol Sulfate 1 amp 12/24/16 16:13 12/25/16 22:20 Ventolin 0.083% Nebulizer Soln - NEB 1 amp Q4H PRN Administration SHORT OF BREATH/WHEEZING Albuterol/Ipratropium 1 amp 12/24/16 16:12 12/24/16 16:20 Duoneb - NEB 1 amp Q6H PRN Administration SHORTNESS OF BREATH Chlordiazepoxide HCl 25 mg 12/27/16 13:10 Librium - PO 12/28/16 13:09 Q6H PRN WITHDRAWAL(CONT SUBST) Furosemide 40 mg 12/27/16 10:00 12/27/16 12:52 Lasix Injection - IVPUSH 40 mg DAILY YONNY Administration Insulin Aspart 1 vial 12/23/16 07:00 12/27/16 12:52 Novolog Vial Sliding Scale - SQ 3 units ACHS YONNY Administration Protocol Magnesium Sulfate 2 gm 12/27/16 15:30 Magnesium Sulfate IVPB 12/27/16 15:31 ONCE ONE Metoprolol Tartrate 1.25 mg 12/22/16 16:30 12/27/16 10:47 Lopressor Injection - IVPUSH 1.25 mg Q6H-IV YONNY Administration Multivitamins/Minerals/Vitamin C 1 tab 12/27/16 11:15 12/27/16 12:53 Tab-A-Vit - PO 1 tab DAILY YONNY Administration Ranitidine HCl 150 mg 12/27/16 22:00 Zantac - PO BID YONNY Thiamine HCl 100 mg 12/27/16 11:15 12/27/16 12:53 Vitamin B1 - PO 100 mg DAILY YONNY Administration Impression 1. SARA 2. hyperkalemia 3. hx etoh use 4. pancreatitis 5. abdominal pain 6. vomiting 7. anemia 8. HTN Plan - will monitor renal function - agree with dose if lasix as needed - repeat labs in am - SARA likely secondary to pre-renal disease and pancreatitis - monitor volume status closely - cont management per ICU team - will follow - reviewed cxr Dr Torres
[2016-12-27] MEDS ORDERED: MAGNESIUM SULF 50% (8.12 MEQ/2 ML-1 GM VIAL) IVPB ONE (15:30)
[2016-12-27] MEDS ORDERED: ALBUTEROL SO4 0.083% IH SOL 2.5 MG/3 ML VIAL.NEB. NEB PRN (17:46)
[2016-12-27] MEDS ORDERED: ALBUTEROL SO4 2.5/IPRATROPIUM 0.5 INH SOL 3 ML VIAL.NEB. NEB PRN (17:46)
[2016-12-27] MEDS: METOPROLOL TARTRATE 25 MG TABLET (FP) PO SCH (21:24)
[2016-12-27] MEDS: RANITIDINE HCL 150 MG TABLET (FP) PO SCH (21:24)
[2016-12-27] MEDS ORDERED: RANITIDINE HCL 150 MG TABLET (FP) PO SCH (22:00)
[2016-12-27] MEDS: ACETAMINOPHEN 325 MG TABLET (FP) PO PRN (22:06)
[2016-12-28] MEDS ORDERED: INSULIN (NOVOLOG) ASPART 100 UNITS/ML 10ML VIAL ONE ×4 (05:45→21:40)
[2016-12-28] MEDS ORDERED: ONDANSETRON 4 MG/2 ML VIAL IVPB PRN (06:14)
[2016-12-28] MEDS: INSULIN SLIDING SCALE (NOVOLOG) 1 VIAL SQ SCH ×4 (06:25→21:50)
[2016-12-28 08:03] LABS: BASOPHIL 0.4 % (0-2.0); EOSINOPHIL 2.3 % (0-4.5); MCH 33.3 pg (25.7-33.7); MCHC 33.3 g/dl (32.0-36.0); MEAN CELL VOLUME 99.9 fl (80-96); NEUTROPHILS 60.7 % (42.8-82.8); PLATELET COUNT 142 K/MM3 (134-434); WHITE BLOOD COUNT 5.9 K/mm3 (4.0-10.0)
[2016-12-28 08:21] LABS: ALBUMIN 2.2 g/dl (3.4-5.0); CALCIUM 8.1 mg/dL (8.5-10.1)
[2016-12-28 08:26] LABS: ALK PHOS 83 U/L (45-117); ANION GAP 10 (8-16); BILIRUBIN,TOTAL 0.5 mg/dL (0.2-1.0); CO2 22 mmol/L (21-32); CREATININE 1.2 mg/dL (0.55-1.02); GLUCOSE,RANDOM 196 mg/dL (74-106); SGOT/AST 7 U/L (15-37); SGPT/ALT 10 U/L (12-78); TOT PROT 5.3 g/dl (6.4-8.2)
[2016-12-28 08:55] LABS: MAGNESIUM 1.8 mg/dL (1.8-2.4); PHOSPHOROUS 1.8 mg/dL (2.5-4.9)
[2016-12-28 09:00] LABS: URINE APPEARANCE CLEAR; URINE BILIRUBIN NEGATIVE (NEGATIVE); URINE BLOOD NEGATIVE (NEGATIVE); URINE COLOR YELLOW; URINE GLUCOSE (UA) 1+ (NEGATIVE); URINE KETONE TRACE (NEGATIVE); URINE LEUK ESTERASE NEGATIVE (NEGATIVE); URINE NITRITE NEGATIVE (NEGATIVE); URINE UROBILINOGEN NEGATIVE mg/dL (0.2-1.0)
[2016-12-28 09:07] LABS: URINE PROTEIN 1+ (NEGATIVE)
[2016-12-28 09:28] LABS: URINE BACTERIA FEW /hpf (NONE SEEN); URINE HYALINE CAST 1 /lpf; URINE WBC 3 /hpf (3-5)
[2016-12-28] MEDS: THIAMINE HCL 100 MG TABLET (FP) PO SCH (09:29)
[2016-12-28] MEDS: MULTIVITAMINS (DAILY MVI) TABLET (FP) PO SCH (09:29)
[2016-12-28] MEDS: METOPROLOL TARTRATE 25 MG TABLET (FP) PO SCH ×2 (09:30→21:49)
[2016-12-28] MEDS: RANITIDINE HCL 150 MG TABLET (FP) PO SCH ×2 (09:30→21:50)
[2016-12-28] MEDS: FUROSEMIDE 40 MG/4 ML INJECTABLE VIAL IVPUSH SCH (09:30)
--- NOTE | 2016-12-28 11:01 | PN ---
Progress Note (short form) - Note Progress Note: PULMONARY Breathing better today. +nonproductive cough. No fevers, chills. +abdominal pain. Saturating 83% on room air, up to 96% on O2. Last Vital Signs Temp Pulse Resp BP Pulse Ox 98.5 F 85 22 123/67 95 12/28/16 09:20 12/28/16 09:20 12/28/16 09:20 12/28/16 09:20 12/27/16 22:00 Gen: NAD at rest Heart: RRR Lung: basilar rales Abd: soft, mild TTP, no rebound Ext: no edema CBC, BMP 12/28/16 06:40 12/28/16 06:40 Active Medications Acetaminophen (Tylenol -) 650 mg PO Q6H PRN PRN Reason: PAIN OR FEVER Last Admin: 12/27/16 22:06 Dose: 650 mg Albuterol Sulfate (Ventolin 0.083% Nebulizer Soln -) 1 amp NEB Q4H PRN PRN Reason: SHORT OF BREATH/WHEEZING Albuterol/Ipratropium (Duoneb -) 1 amp NEB Q6H PRN PRN Reason: SHORTNESS OF BREATH Chlordiazepoxide HCl (Librium -) 25 mg PO Q6H PRN PRN Reason: WITHDRAWAL(CONT SUBST) Stop: 12/28/16 13:09 Furosemide (Lasix Injection -) 40 mg IVPUSH DAILY [facility] Last Admin: 12/28/16 09:30 Dose: 40 mg Insulin Aspart (Novolog Vial Sliding Scale -) 1 vial SQ ACHS [facility] PRN Reason: Protocol Last Admin: 12/28/16 06:25 Dose: 2 units Metoprolol Tartrate (Lopressor -) 12.5 mg PO BID [facility] Last Admin: 12/28/16 09:30 Dose: 12.5 mg Multivitamins/Minerals/Vitamin C (Tab-A-Vit -) 1 tab PO DAILY [facility] Last Admin: 12/28/16 09:29 Dose: 1 tab Ondansetron HCl (Zofran Injection) 4 mg IVPB Q6H PRN PRN Reason: NAUSEA AND/OR VOMITING Last Admin: 12/28/16 06:21 Dose: 4 mg Ranitidine HCl (Zantac -) 150 mg PO BID [facility] Last Admin: 12/28/16 09:30 Dose: 150 mg Thiamine HCl (Vitamin B1 -) 100 mg PO DAILY [facility] Last Admin: 12/28/16 09:29 Dose: 100 mg A/P Acute Pancreatitis improving Volume Overload with 3rd spacing Acute Kidney Injury HTN - lasix as needed - monitor urine output, creatinine - incentive spirometry - O2 to keep SpO2 >90% - DVT prophylaxis
--- NOTE | 2016-12-28 14:11 | PN ---
Progress Note, Physician Chief Complaint: no distress no SOB Noted low O2 sat off oxygen had low grade fever yesterday, cultures pending - Current Medication List Current Medications: Active Medications Acetaminophen (Tylenol -) 650 mg PO Q6H PRN PRN Reason: PAIN OR FEVER Last Admin: 12/27/16 22:06 Dose: 650 mg Albuterol Sulfate (Ventolin 0.083% Nebulizer Soln -) 1 amp NEB Q4H PRN PRN Reason: SHORT OF BREATH/WHEEZING Last Admin: 12/28/16 11:47 Dose: 1 amp Albuterol/Ipratropium (Duoneb -) 1 amp NEB Q6H PRN PRN Reason: SHORTNESS OF BREATH Furosemide (Lasix Injection -) 40 mg IVPUSH DAILY [facility] Last Admin: 12/28/16 09:30 Dose: 40 mg Insulin Aspart (Novolog Vial Sliding Scale -) 1 vial SQ ACHS [facility] PRN Reason: Protocol Last Admin: 12/28/16 11:57 Dose: 5 units Metoprolol Tartrate (Lopressor -) 12.5 mg PO BID [facility] Last Admin: 12/28/16 09:30 Dose: 12.5 mg Multivitamins/Minerals/Vitamin C (Tab-A-Vit -) 1 tab PO DAILY [facility] Last Admin: 12/28/16 09:29 Dose: 1 tab Ondansetron HCl (Zofran Injection) 4 mg IVPB Q6H PRN PRN Reason: NAUSEA AND/OR VOMITING Last Admin: 12/28/16 06:21 Dose: 4 mg Ranitidine HCl (Zantac -) 150 mg PO BID [facility] Last Admin: 12/28/16 09:30 Dose: 150 mg Thiamine HCl (Vitamin B1 -) 100 mg PO DAILY [facility] Last Admin: 12/28/16 09:29 Dose: 100 mg - Objective Vital Signs: Vital Signs Temperature 98.5 F 12/28/16 09:20 Pulse Rate 85 12/28/16 09:20 Respiratory Rate 22 12/28/16 09:20 Blood Pressure 123/67 12/28/16 09:20 O2 Sat by Pulse Oximetry (%) 95 12/27/16 22:00 Constitutional: Yes: No Distress, Calm Cardiovascular: Yes: Regular Rate and Rhythm Respiratory: Yes: Diminished Gastrointestinal: Yes: Normal Bowel Sounds, Soft. No: Tenderness Edema: No Labs: CBC, BMP 12/28/16 06:40 12/28/16 06:40 Problem List - Problems (1) Abdominal pain Code(s): R10.9 - UNSPECIFIED ABDOMINAL PAIN Qualifiers: Abdominal location: generalized Qualified Code(s): R10.84 - Generalized abdominal pain (2) Acute renal failure Code(s): N17.9 - ACUTE KIDNEY FAILURE, UNSPECIFIED Qualifiers: Acute renal failure type: unspecified Qualified Code(s): N17.9 - Acute kidney failure, unspecified (3) Elevated lipase Code(s): R74.8 - ABNORMAL LEVELS OF OTHER SERUM ENZYMES (4) Hyperkalemia Code(s): E87.5 - HYPERKALEMIA (5) Pancreatitis Code(s): K85.90 - ACUTE PANCREATITIS WITHOUT NECROSIS OR INFECTION, UNSP Qualifiers: Chronicity: acute Pancreatitis type: unspecified pancreatitis type Acute pancreatitis complication: unspecified Qualified Code(s): K85.90 - Acute pancreatitis without necrosis or infection, unspecified Assessment/Plan PLAN lasix daily check CXR tomorrow OOB daily Hb low-- GI follow up DVT prophylaxis-- SCD
--- NOTE | 2016-12-28 15:37 | PN ---
Progress Note, Physician History of Present Illness: Pt seen and examined at bedside. She is much more awake and alert. She denies shortness of breath. She is tolerating diet. - Current Medication List Current Medications: Active Medications Acetaminophen (Tylenol -) 650 mg PO Q6H PRN PRN Reason: PAIN OR FEVER Last Admin: 12/27/16 22:06 Dose: 650 mg Albuterol Sulfate (Ventolin 0.083% Nebulizer Soln -) 1 amp NEB Q4H PRN PRN Reason: SHORT OF BREATH/WHEEZING Last Admin: 12/28/16 11:47 Dose: 1 amp Albuterol/Ipratropium (Duoneb -) 1 amp NEB Q6H PRN PRN Reason: SHORTNESS OF BREATH Furosemide (Lasix Injection -) 40 mg IVPUSH DAILY [facility] Last Admin: 12/28/16 09:30 Dose: 40 mg Insulin Aspart (Novolog Vial Sliding Scale -) 1 vial SQ ACHS [facility] PRN Reason: Protocol Last Admin: 12/28/16 11:57 Dose: 5 units Metoprolol Tartrate (Lopressor -) 12.5 mg PO BID [facility] Last Admin: 12/28/16 09:30 Dose: 12.5 mg Multivitamins/Minerals/Vitamin C (Tab-A-Vit -) 1 tab PO DAILY [facility] Last Admin: 12/28/16 09:29 Dose: 1 tab Ondansetron HCl (Zofran Injection) 4 mg IVPB Q6H PRN PRN Reason: NAUSEA AND/OR VOMITING Last Admin: 12/28/16 06:21 Dose: 4 mg Ranitidine HCl (Zantac -) 150 mg PO BID [facility] Last Admin: 12/28/16 09:30 Dose: 150 mg Thiamine HCl (Vitamin B1 -) 100 mg PO DAILY [facility] Last Admin: 12/28/16 09:29 Dose: 100 mg - Objective Vital Signs: Vital Signs Temperature 98.3 F 12/28/16 14:31 Pulse Rate 85 12/28/16 09:20 Respiratory Rate 22 12/28/16 09:20 Blood Pressure 123/67 12/28/16 09:20 O2 Sat by Pulse Oximetry (%) 96 12/28/16 09:00 Constitutional: Yes: Calm Eyes: Yes: Conjunctiva Clear HENT: Yes: Atraumatic Cardiovascular: Yes: S1, S2 Respiratory: Yes: CTA Bilaterally Gastrointestinal: Yes: Soft Genitourinary: Yes: WNL Extremities: Yes: WNL Edema: No Neurological: Yes: Oriented Psychiatric: Yes: Oriented Labs: CBC, BMP 12/28/16 06:40 12/28/16 06:40 Problem List - Problems (1) Abdominal pain Code(s): R10.9 - UNSPECIFIED ABDOMINAL PAIN Qualifiers: Abdominal location: generalized Qualified Code(s): R10.84 - Generalized abdominal pain (2) Acute renal failure Code(s): N17.9 - ACUTE KIDNEY FAILURE, UNSPECIFIED Qualifiers: Acute renal failure type: unspecified Qualified Code(s): N17.9 - Acute kidney failure, unspecified (3) Hyperkalemia Code(s): E87.5 - HYPERKALEMIA (4) Pancreatitis Code(s): K85.90 - ACUTE PANCREATITIS WITHOUT NECROSIS OR INFECTION, UNSP Qualifiers: Chronicity: acute Pancreatitis type: unspecified pancreatitis type Acute pancreatitis complication: unspecified Qualified Code(s): K85.90 - Acute pancreatitis without necrosis or infection, unspecified Assessment/Plan Current Medications Generic Name Dose Route Start Last Admin Trade Name Freq PRN Reason Stop Dose Admin Acetaminophen 650 mg 12/27/16 21:59 12/27/16 22:06 Tylenol - PO 650 mg Q6H PRN Administration PAIN OR FEVER Albuterol Sulfate 1 amp 12/27/16 17:46 12/28/16 11:47 Ventolin 0.083% Nebulizer Soln - NEB 1 amp Q4H PRN Administration SHORT OF BREATH/WHEEZING Albuterol/Ipratropium 1 amp 12/27/16 17:46 Duoneb - NEB Q6H PRN SHORTNESS OF BREATH Furosemide 40 mg 12/28/16 10:00 12/28/16 09:30 Lasix Injection - IVPUSH 40 mg DAILY [facility] Administration Insulin Aspart 1 vial 12/27/16 22:00 12/28/16 11:57 Novolog Vial Sliding Scale - SQ 5 units ACHS [facility] Administration Protocol Metoprolol Tartrate 12.5 mg 12/27/16 22:00 12/28/16 09:30 Lopressor - PO 12.5 mg BID [facility] Administration Multivitamins/Minerals/Vitamin C 1 tab 12/28/16 10:00 12/28/16 09:29 Tab-A-Vit - PO 1 tab DAILY [facility] Administration Ondansetron HCl 4 mg 12/28/16 06:14 12/28/16 06:21 Zofran Injection IVPB 4 mg Q6H PRN Administration NAUSEA AND/OR VOMITING Ranitidine HCl 150 mg 12/27/16 22:00 12/28/16 09:30 Zantac - PO 150 mg BID [facility] Administration Thiamine HCl 100 mg 12/28/16 10:00 12/28/16 09:29 Vitamin B1 - PO 100 mg DAILY [facility] Administration Impression 1. SARA 2. hyperkalemia 3. hx etoh use 4. pancreatitis 5. abdominal pain 6. vomiting 7. anemia 8. HTN Plan - renal function stabilizing - can likely switch lasix to po tomorrow - repeat cxr tomorrow - will give dose of potassium today - replace phos - SARA likely secondary to pre-renal disease and pancreatitis - monitor volume status closely - will follow Dr Torres
[2016-12-28] MEDS ORDERED: POTASSIUM CHLORIDE TABS 20 MEQ TABLET.ER (FP) PO ONE (16:00)
[2016-12-28] MEDS: ALPRAZolam 0.25 MG TABLET PO PRN (21:49)
[2016-12-28] MEDS: ACETAMINOPHEN 325 MG TABLET (FP) PO PRN (21:49)
[2016-12-28] MEDS: NAPH,MB-DB/K PH,MBDB POWDER PACKET PO SCH (21:50)
[2016-12-29] MEDS: INSULIN SLIDING SCALE (NOVOLOG) 1 VIAL SQ SCH ×4 (06:02→21:36)
[2016-12-29] MEDS ORDERED: INSULIN (NOVOLOG) ASPART 100 UNITS/ML 10ML VIAL ONE ×4 (06:24→21:32)
[2016-12-29 08:21] LABS: MCH 32.9 pg (25.7-33.7); MCHC 32.5 g/dl (32.0-36.0); MEAN PLT VOLUME 9.9 fl (7.5-11.1); PLATELET COUNT 209 K/MM3 (134-434); RDW 14.6 % (11.6-15.6); WHITE BLOOD COUNT 5.9 K/mm3 (4.0-10.0)
[2016-12-29 08:50] LABS: ALBUMIN 2.2 g/dl (3.4-5.0); ANION GAP 11 (8-16); CALCIUM 8.2 mg/dL (8.5-10.1); CO2 25 mmol/L (21-32); GLUCOSE,RANDOM 295 mg/dL (74-106)
[2016-12-29 08:56] LABS: ALK PHOS 85 U/L (45-117); BILIRUBIN,TOTAL 0.7 mg/dL (0.2-1.0); CREATININE 1.2 mg/dL (0.55-1.02); SGOT/AST 6 U/L (15-37); SGPT/ALT 8 U/L (12-78); TOT PROT 5.4 g/dl (6.4-8.2)
[2016-12-29] MEDS ORDERED: PT OWN MED DRAWER 7, Y5N ONE (10:07)
[2016-12-29] MEDS: FUROSEMIDE 40 MG/4 ML INJECTABLE VIAL IVPUSH SCH (10:15)
[2016-12-29] MEDS: METOPROLOL TARTRATE 25 MG TABLET (FP) PO SCH ×2 (10:16→21:35)
[2016-12-29] MEDS: RANITIDINE HCL 150 MG TABLET (FP) PO SCH ×2 (10:17→21:50)
[2016-12-29] MEDS: MULTIVITAMINS (DAILY MVI) TABLET (FP) PO SCH (10:17)
[2016-12-29] MEDS: THIAMINE HCL 100 MG TABLET (FP) PO SCH (10:17)
[2016-12-29] MEDS: NAPH,MB-DB/K PH,MBDB POWDER PACKET PO SCH ×2 (10:17→21:37)
--- NOTE | 2016-12-29 11:10 | PN ---
Progress Note (short form) - Note Progress Note: PULMONARY Breathing continues to improve. +nonproductive cough. No fevers, chills. abdominal pain. Still saturating 84% on room air. Last Vital Signs Temp Pulse Resp BP Pulse Ox 99.1 F 69 24 119/60 93 L 12/29/16 06:00 12/29/16 06:00 12/29/16 06:00 12/29/16 06:00 12/28/16 22:00 Gen: NAD at rest Heart: RRR Lung: basilar rales Abd: soft, mild TTP, no rebound Ext: no edema CBC, BMP 12/29/16 07:20 12/29/16 07:20 Active Medications Acetaminophen (Tylenol -) 650 mg PO Q6H PRN PRN Reason: PAIN OR FEVER Last Admin: 12/28/16 21:49 Dose: 650 mg Albuterol Sulfate (Ventolin 0.083% Nebulizer Soln -) 1 amp NEB Q4H PRN PRN Reason: SHORT OF BREATH/WHEEZING Last Admin: 12/28/16 11:47 Dose: 1 amp Albuterol/Ipratropium (Duoneb -) 1 amp NEB Q6H PRN PRN Reason: SHORTNESS OF BREATH Alprazolam (Xanax -) 0.5 mg PO Q8H PRN PRN Reason: ANXIETY Last Admin: 12/28/16 21:49 Dose: 0.5 mg Furosemide (Lasix Injection -) 40 mg IVPUSH DAILY [facility] Last Admin: 12/29/16 10:15 Dose: 40 mg Insulin Aspart (Novolog Vial Sliding Scale -) 1 vial SQ ACHS [facility] PRN Reason: Protocol Last Admin: 12/29/16 06:02 Dose: 3 units Metoprolol Tartrate (Lopressor -) 12.5 mg PO BID [facility] Last Admin: 12/29/16 10:16 Dose: 12.5 mg Multivitamins/Minerals/Vitamin C (Tab-A-Vit -) 1 tab PO DAILY [facility] Last Admin: 12/29/16 10:17 Dose: 1 tab Ondansetron HCl (Zofran Injection) 4 mg IVPB Q6H PRN PRN Reason: NAUSEA AND/OR VOMITING Last Admin: 12/28/16 06:21 Dose: 4 mg Potassium Phos/Sodium Phos (Phos-Nak Packet -) 1 packet PO BID [facility] Last Admin: 12/29/16 10:17 Dose: 1 packet Ranitidine HCl (Zantac -) 150 mg PO BID [facility] Last Admin: 12/29/16 10:17 Dose: 150 mg Thiamine HCl (Vitamin B1 -) 100 mg PO DAILY [facility] Last Admin: 12/29/16 10:17 Dose: 100 mg A/P Acute Pancreatitis improving Volume Overload with 3rd spacing Acute Kidney Injury improving HTN - continue lasix - monitor urine output, creatinine - incentive spirometry - O2 to keep SpO2 >90% - DVT prophylaxis
--- NOTE | 2016-12-29 12:51 | PN ---
Progress Note, Physician Chief Complaint: no distress no SOB urine cultures positive - Current Medication List Current Medications: Active Medications Acetaminophen (Tylenol -) 650 mg PO Q6H PRN PRN Reason: PAIN OR FEVER Last Admin: 12/28/16 21:49 Dose: 650 mg Albuterol Sulfate (Ventolin 0.083% Nebulizer Soln -) 1 amp NEB Q4H PRN PRN Reason: SHORT OF BREATH/WHEEZING Last Admin: 12/28/16 11:47 Dose: 1 amp Albuterol/Ipratropium (Duoneb -) 1 amp NEB Q6H PRN PRN Reason: SHORTNESS OF BREATH Alprazolam (Xanax -) 0.5 mg PO Q8H PRN PRN Reason: ANXIETY Last Admin: 12/28/16 21:49 Dose: 0.5 mg Furosemide (Lasix Injection -) 40 mg IVPUSH DAILY [facility] Last Admin: 12/29/16 10:15 Dose: 40 mg Ceftriaxone Sodium 1 gm/ (Dextrose) 50 mls @ 100 mls/hr IVPB DAILY [facility] Insulin Aspart (Novolog Vial Sliding Scale -) 1 vial SQ ACHS [facility] PRN Reason: Protocol Last Admin: 12/29/16 12:07 Dose: 5 units Metoprolol Tartrate (Lopressor -) 12.5 mg PO BID [facility] Last Admin: 12/29/16 10:16 Dose: 12.5 mg Multivitamins/Minerals/Vitamin C (Tab-A-Vit -) 1 tab PO DAILY [facility] Last Admin: 12/29/16 10:17 Dose: 1 tab Ondansetron HCl (Zofran Injection) 4 mg IVPB Q6H PRN PRN Reason: NAUSEA AND/OR VOMITING Last Admin: 12/28/16 06:21 Dose: 4 mg Potassium Phos/Sodium Phos (Phos-Nak Packet -) 1 packet PO BID [facility] Last Admin: 12/29/16 10:17 Dose: 1 packet Ranitidine HCl (Zantac -) 150 mg PO BID [facility] Last Admin: 12/29/16 10:17 Dose: 150 mg Thiamine HCl (Vitamin B1 -) 100 mg PO DAILY [facility] Last Admin: 12/29/16 10:17 Dose: 100 mg - Objective Vital Signs: Vital Signs Temperature 99.1 F 12/29/16 06:00 Pulse Rate 69 12/29/16 06:00 Respiratory Rate 24 12/29/16 06:00 Blood Pressure 119/60 12/29/16 06:00 O2 Sat by Pulse Oximetry (%) 93 L 12/28/16 22:00 Constitutional: Yes: No Distress Cardiovascular: Yes: Regular Rate and Rhythm Respiratory: Yes: Diminished Gastrointestinal: Yes: Normal Bowel Sounds, Soft. No: Distention, Tenderness Edema: No Labs: CBC, BMP 12/29/16 07:20 12/29/16 07:20 Problem List - Problems (1) Abdominal pain Code(s): R10.9 - UNSPECIFIED ABDOMINAL PAIN Qualifiers: Abdominal location: generalized Qualified Code(s): R10.84 - Generalized abdominal pain (2) Acute renal failure Code(s): N17.9 - ACUTE KIDNEY FAILURE, UNSPECIFIED Qualifiers: Acute renal failure type: unspecified Qualified Code(s): N17.9 - Acute kidney failure, unspecified (3) Elevated lipase Code(s): R74.8 - ABNORMAL LEVELS OF OTHER SERUM ENZYMES (4) Hyperkalemia Code(s): E87.5 - HYPERKALEMIA (5) Pancreatitis Code(s): K85.90 - ACUTE PANCREATITIS WITHOUT NECROSIS OR INFECTION, UNSP Qualifiers: Chronicity: acute Pancreatitis type: unspecified pancreatitis type Acute pancreatitis complication: unspecified Qualified Code(s): K85.90 - Acute pancreatitis without necrosis or infection, unspecified (6) CHF (congestive heart failure) Code(s): I50.9 - HEART FAILURE, UNSPECIFIED Qualifiers: Congestive heart failure type: diastolic Congestive heart failure chronicity: acute on chronic Qualified Code(s): I50.33 - Acute on chronic diastolic (congestive) heart failure Assessment/Plan PLAN lasix daily check CXR tomorrow OOB daily Hb better cardiology eval with regards to echo results monitor BMP DVT prophylaxis-- SCD
[2016-12-29] MEDS ORDERED: cefTRIAXone SODIUM 1 GM VIAL ONE (13:09)
[2016-12-29] MEDS: CEFTRIAXONE 1 GM in DEXTROSE 5%-WATER - 50 ML IVPB SCH (13:15)
--- NOTE | 2016-12-29 13:30 | PN ---
Progress Note, Physician History of Present Illness: Pt seen and examined at bedside. She denies shortness of breath. - Current Medication List Current Medications: Active Medications Acetaminophen (Tylenol -) 650 mg PO Q6H PRN PRN Reason: PAIN OR FEVER Last Admin: 12/28/16 21:49 Dose: 650 mg Albuterol Sulfate (Ventolin 0.083% Nebulizer Soln -) 1 amp NEB Q4H PRN PRN Reason: SHORT OF BREATH/WHEEZING Last Admin: 12/28/16 11:47 Dose: 1 amp Albuterol/Ipratropium (Duoneb -) 1 amp NEB Q6H PRN PRN Reason: SHORTNESS OF BREATH Alprazolam (Xanax -) 0.5 mg PO Q8H PRN PRN Reason: ANXIETY Last Admin: 12/28/16 21:49 Dose: 0.5 mg Furosemide (Lasix Injection -) 40 mg IVPUSH DAILY [facility] Last Admin: 12/29/16 10:15 Dose: 40 mg Ceftriaxone Sodium 1 gm/ (Dextrose) 50 mls @ 100 mls/hr IVPB DAILY [facility] Last Admin: 12/29/16 13:15 Dose: 100 mls/hr Insulin Aspart (Novolog Vial Sliding Scale -) 1 vial SQ ACHS [facility] PRN Reason: Protocol Last Admin: 12/29/16 12:07 Dose: 5 units Metoprolol Tartrate (Lopressor -) 12.5 mg PO BID [facility] Last Admin: 12/29/16 10:16 Dose: 12.5 mg Multivitamins/Minerals/Vitamin C (Tab-A-Vit -) 1 tab PO DAILY [facility] Last Admin: 12/29/16 10:17 Dose: 1 tab Ondansetron HCl (Zofran Injection) 4 mg IVPB Q6H PRN PRN Reason: NAUSEA AND/OR VOMITING Last Admin: 12/28/16 06:21 Dose: 4 mg Potassium Phos/Sodium Phos (Phos-Nak Packet -) 1 packet PO BID [facility] Last Admin: 12/29/16 10:17 Dose: 1 packet Ranitidine HCl (Zantac -) 150 mg PO BID [facility] Last Admin: 12/29/16 10:17 Dose: 150 mg Thiamine HCl (Vitamin B1 -) 100 mg PO DAILY [facility] Last Admin: 12/29/16 10:17 Dose: 100 mg - Objective Vital Signs: Vital Signs Temperature 99.1 F 12/29/16 06:00 Pulse Rate 69 12/29/16 06:00 Respiratory Rate 24 12/29/16 06:00 Blood Pressure 119/60 12/29/16 06:00 O2 Sat by Pulse Oximetry (%) 93 L 12/28/16 22:00 Constitutional: Yes: Calm Eyes: Yes: Conjunctiva Clear HENT: Yes: Atraumatic Neck: Yes: Supple Cardiovascular: Yes: S1, S2 Respiratory: Yes: CTA Bilaterally Gastrointestinal: Yes: Soft Genitourinary: Yes: WNL Edema: No Neurological: Yes: Oriented Psychiatric: Yes: Oriented Labs: CBC, BMP 12/29/16 07:20 12/29/16 07:20 Problem List - Problems (1) Abdominal pain Code(s): R10.9 - UNSPECIFIED ABDOMINAL PAIN Qualifiers: Abdominal location: generalized Qualified Code(s): R10.84 - Generalized abdominal pain (2) Acute renal failure Code(s): N17.9 - ACUTE KIDNEY FAILURE, UNSPECIFIED Qualifiers: Acute renal failure type: unspecified Qualified Code(s): N17.9 - Acute kidney failure, unspecified (3) Hyperkalemia Code(s): E87.5 - HYPERKALEMIA (4) Pancreatitis Code(s): K85.90 - ACUTE PANCREATITIS WITHOUT NECROSIS OR INFECTION, UNSP Qualifiers: Chronicity: acute Pancreatitis type: unspecified pancreatitis type Acute pancreatitis complication: unspecified Qualified Code(s): K85.90 - Acute pancreatitis without necrosis or infection, unspecified Assessment/Plan Current Medications Generic Name Dose Route Start Last Admin Trade Name Freq PRN Reason Stop Dose Admin Acetaminophen 650 mg 12/27/16 21:59 12/28/16 21:49 Tylenol - PO 650 mg Q6H PRN Administration PAIN OR FEVER Albuterol Sulfate 1 amp 12/27/16 17:46 12/28/16 11:47 Ventolin 0.083% Nebulizer Soln - NEB 1 amp Q4H PRN Administration SHORT OF BREATH/WHEEZING Albuterol/Ipratropium 1 amp 12/27/16 17:46 Duoneb - NEB Q6H PRN SHORTNESS OF BREATH Alprazolam 0.5 mg 12/28/16 18:37 12/28/16 21:49 Xanax - PO 0.5 mg Q8H PRN Administration ANXIETY Furosemide 40 mg 12/28/16 10:00 12/29/16 10:15 Lasix Injection - IVPUSH 40 mg DAILY [facility] Administration Ceftriaxone Sodium 1 gm/ 50 mls @ 100 mls/hr 12/29/16 12:30 12/29/16 13:15 Dextrose IVPB 100 mls/hr DAILY [facility] Administration Insulin Aspart 1 vial 12/27/16 22:00 12/29/16 12:07 Novolog Vial Sliding Scale - SQ 5 units ACHS [facility] Administration Protocol Metoprolol Tartrate 12.5 mg 12/27/16 22:00 12/29/16 10:16 Lopressor - PO 12.5 mg BID [facility] Administration Multivitamins/Minerals/Vitamin C 1 tab 12/28/16 10:00 12/29/16 10:17 Tab-A-Vit - PO 1 tab DAILY [facility] Administration Ondansetron HCl 4 mg 12/28/16 06:14 12/28/16 06:21 Zofran Injection IVPB 4 mg Q6H PRN Administration NAUSEA AND/OR VOMITING Potassium Phos/Sodium Phos 1 packet 12/28/16 22:00 12/29/16 10:17 Phos-Nak Packet - PO 1 packet BID [facility] Administration Ranitidine HCl 150 mg 12/27/16 22:00 12/29/16 10:17 Zantac - PO 150 mg BID [facility] Administration Thiamine HCl 100 mg 12/28/16 10:00 12/29/16 10:17 Vitamin B1 - PO 100 mg DAILY [facility] Administration Impression 1. SARA 2. hyperkalemia 3. hx etoh use 4. pancreatitis 5. abdominal pain 6. vomiting 7. anemia 8. HTN Plan - renal function stable - will order am cxr - echo reviewed - repeat bmp in am - cont with lasix - repeat phos levels - SARA likely secondary to pre-renal disease and pancreatitis - monitor volume status closely - will follow Dr Torres
[2016-12-29] MEDS: ACETAMINOPHEN 325 MG TABLET (FP) PO PRN (17:00)
[2016-12-29] MEDS ORDERED: ARTIFICIAL TEARS (POLYVINYL ALCOHOL 1.4%) OPTH DROPS OU PRN (18:17)
[2016-12-29] MEDS: ALPRAZolam 0.25 MG TABLET PO PRN (21:36)
[2016-12-30] MEDS: ACETAMINOPHEN 325 MG TABLET (FP) PO PRN (06:17)
[2016-12-30] MEDS: INSULIN SLIDING SCALE (NOVOLOG) 1 VIAL SQ SCH ×2 (06:32→11:38)
[2016-12-30] MEDS ORDERED: INSULIN (NOVOLOG) ASPART 100 UNITS/ML 10ML VIAL ONE (06:41)
[2016-12-30 08:39] LABS: MCHC 33.9 g/dl (32.0-36.0); MEAN CELL VOLUME 100.4 fl (80-96); MEAN PLT VOLUME 9.3 fl (7.5-11.1); PLATELET COUNT 257 K/MM3 (134-434); RDW 14.6 % (11.6-15.6); WHITE BLOOD COUNT 4.9 K/mm3 (4.0-10.0)
[2016-12-30 08:57] LABS: ALBUMIN 2.1 g/dl (3.4-5.0); ANION GAP 9 (8-16); CALCIUM 8.5 mg/dL (8.5-10.1); CO2 26 mmol/L (21-32); GLUCOSE,RANDOM 160 mg/dL (74-106); MAGNESIUM 1.3 mg/dL (1.8-2.4)
[2016-12-30 09:01] LABS: ALK PHOS 82 U/L (45-117); BILIRUBIN,TOTAL 0.3 mg/dL (0.2-1.0); CREATININE 1.2 mg/dL (0.55-1.02); PHOSPHOROUS 3.5 mg/dL (2.5-4.9); SGOT/AST 10 U/L (15-37); SGPT/ALT 8 U/L (12-78); TOT PROT 5.3 g/dl (6.4-8.2)
--- NOTE | 2016-12-30 09:27 | CON.CARD ---
Consult Consult Specialty:: Cardiology Referred by:: Dr. Conteh Reason for Consultation:: Valvular heart disease, CHF, hypoxia - History of Present Illness Chief Complaint: abdominal pain, nausea, vomiting History of Present Illness: 61 year old woman with a history of HTN, HLD, DMII, Pafib, alcoholism, admitted with nausea, vomiting, decreased appetite found to have pancreatitis, hypoxia, valvular heart disease, pleural effusions, GRIFFIN initially admitted to the ICU now on med/surg, Echo was done showing valvular heart disease, right heart dysfunction, pleural effusion. Pt was treated initially with IVF hydration, but developed volume overload thus has been on IV Lasix for the past 3 days. Heparin gtt was initially used but pt developed anemia and suspected GI bleed thus heparin stopped and Xarelto stoppled. Pt was seen and examined today in the [facility]. she states that she is feeling much better since admission. she states that she is urinating a lot. She follows with Dr. Cross as outpatient but states that she has not seen a molder due to insurance issues and too many bills. She denies having any chest pain or sob prior to admission. Denies pnd, orthopnea, or LE edema. - History Source History Provided By: Patient, Medical Record Limitations to Obtaining History: Poor Historian - Past Medical History Cardio/Vascular: Yes: AFIB (-paroxysmal), Aortic Insufficiency, HTN, Hyperlipdemia, Mitral Insufficiency, Murmur, Pulmonary Hypertension Gastrointestinal: Yes: GERD ...: No ENT: Yes: Other (early cataracts) Endocrine: Yes: Diabetes Mellitus (NIDDM- diet controlled, diagnosed > 10 years ago; self d/c'd metformin due to weight loss) - Past Surgical History Past Surgical History: Yes: None - Alcohol/Substance Use Hx Alcohol Use: Yes History of Substance Use: reports: None - Smoking History Smoking history: Never smoked Have you smoked in the past 12 months: No Aproximately how many cigarettes per day: 0 If you are a former smoker, when did you quit?: 30 years ago - Social History ADL: Independent 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 History of Recent Travel: No Home Medications - Allergies Allergies/Adverse Reactions: Allergies Allergy/AdvReac Type Severity Reaction Status Date / Time No Known Allergies Allergy Verified 12/22/16 03:35 - Home Medications Home Medications: Ambulatory Orders Omeprazole 20 mg PO DAILY 07/08/15 Metoprolol Tartrate [Lopressor -] 12.5 mg PO BID #60 tablet 07/10/15 Atorvastatin Ca [Lipitor] 20 mg PO HS 06/05/16 Rivaroxaban [Xarelto -] 20 mg PO DAILY 06/06/16 Valsartan 40 mg PO DAILY 12/22/16 Family Disease History - Family Disease History Family Disease History: Heart Disease: Father (50 ), CA: Mother (lung 72 ), Other: Sister (? uterine Ca-58, alive) Review of Systems - Review of Systems Constitutional: reports: Loss of Appetite, Weakness. denies: No Symptoms, Chills, Diaphoresis, Fever, Lethargy, Malaise, Night Sweats, Unintentional Wgt. Loss, Other Eyes: denies: No Symptoms, Blind Spots, Blurred Vision, Double Vision, Eye Pain , Floaters, Photophobia, Recent Change in Vision, Other HENT: denies: No Symptoms, Difficult Swallowing, Ear Discharge, Ear Pain, Epistaxis, Gingival Bleeding, Hearing Loss, Mouth Swelling, Nasal Congestion, Ocular Prosthesis, Throat Pain, Toothache, Ringing in Ears, Other Neck: denies: No Symptoms, Decreased ROM, Lumps, Pain on Movement, Stiffness, Swollen Glands, Tenderness, Other Cardiovascular: reports: Shortness of Breath. denies: No Symptoms, Chest Pain, Edema, Palpitations, Other Respiratory: reports: SOB. denies: No Symptoms, Cough, Exercise Intolerance, Hemoptysis, Orthopnea, PND, Snoring, SOB on Exertion, Wheezing, Other Gastrointestinal: reports: Abdominal Pain, Bloating, Indigestion, Nausea, Vomiting. denies: No Symptoms, Constipation, Diarrhea, Dysphagia, Melena, Rectal Bleeding, Vomiting Blood, Other Genitourinary: denies: No Symptoms, Burning, Discharge, Dysuria, Flank Pain, Frequency, Hematuria, Incontinence, Lesions, Menses, Pain, Testicular Mass, Testicular Pain, Testicular Swelling, Urgency, Vaginal Bleeding, Other Breasts: denies: No Symptoms Reported, See HPI, Breast Implants, Discharge from Nipple, Lumps, Pain, Skin Changes, Other Musculoskeletal: denies: No Symptoms, Back Pain, Crepitus, Decreased ROM, Extremity Pain, Joint Pain, Joint Swelling, Muscle Pain, Muscle Cramps, Muscle Weakness, Other Integumentary: denies: No Symptoms, Blister, Bruising, Change in Color, Eczema, Erythema, Incision, Lesions, Lump, Pallor, Pruritis, Rash, Wound, Other Neurological: denies: No Symptoms, Change in LOC, Change in Speech, Confusion, Dizziness, Headache, Incoordination, Numbness, Parasthesia, Pre-Existing Deficit , Seizure, Syncope, Tremors, Unsteady Gait, Weakness, Other Endocrine: denies: No Symptoms, Excessive Sweating, Flushing, Increased Hunger, Increased Thirst, Intolerance to Cold, Intolerance to Heat, Unexplained Weight Gain, Unexplained Weight Loss, Other Hematology/Lymphatic: denies: No Symptoms, Easily Bruised, Excessive Bleeding, Swollen Glands, Other Psychiatric: denies: No Symptoms, Altered Sleep Pattern, Anxiety, Depression, Hallucinations, Panic, Paranoia, Suicidal, Other - Risk Factors Known Risk Factors: Yes: Diabetes Mellitus, Hypercholesterolemia, Hypertension Vital Signs: Vital Signs Temperature 100.0 F H 12/30/16 06:00 Pulse Rate 74 12/30/16 06:00 Respiratory Rate 20 12/30/16 06:00 Blood Pressure 132/69 12/30/16 06:00 O2 Sat by Pulse Oximetry (%) 97 12/29/16 21:00 Constitutional: Yes: No Distress, Calm Eyes: Yes: Conjunctiva Clear, EOM Intact, PERRL HENT: Yes: Atraumatic, Normocephalic Neck: Yes: Supple, Trachea Midline Respiratory: Yes: Regular, Diminished, Rales. No: Rhonchi, SOB, Wheezes Gastrointestinal: Yes: Normal Bowel Sounds, Soft. No: Distention, Tenderness Renal/: Yes: WNL Cardiovascular: Yes: Regular Rate and Rhythm. No: Bradycardia, Tachycardia, Pulse Irregular, Gallop, Rub, Varicosities JVD: No Carotid Bruit: No PMI: Non-Displaced Heart Sounds: Yes: S1, S2. No: Split S2, S3, S4, Clicks, Gallop, Rub, Bruit Murmur: Yes: Systolic Murmur, Diastolic Murmur, Grade 3 Musculoskeletal: Yes: WNL Extremities: Yes: WNL Edema: No Peripheral Pulses WNL: Yes Peripheral Pulses: 2+ Left Doralis Pedis, 2+ Right Dorsalis Pedis Integumentary: Yes: WNL Neurological: Yes: Alert, Oriented Psychiatric: Yes: Alert, Oriented - Other Data Labs, Other Data: CBC, BMP 12/30/16 07:30 12/30/16 07:30 ekg-12/21-NSR 75bpm, T inversions anterior leads, nonspecific ST Echo: Report Reviewed, Image Reviewed Imaging - Results Chest X-ray: Report Reviewed, Image Reviewed EKG: Report Reviewed, Image Reviewed Other: Report Reviewed, Image Reviewed Assessment/Plan 61 year old woman with a history of HTN, HLD, DMII, Pafib, alcoholism, admitted with nausea, vomiting, decreased appetite found to have pancreatitis, hypoxia, valvular heart disease, pleural effusions, GRIFFIN initially admitted to the ICU now on med/surg, Echo was done showing valvular heart disease, right heart dysfunction, pleural effusion. Valvular heart disease/acute on likely chronic diastolic CHF secondary to diastolic dysfunction and valvular heart disease, hypoxia -Echo report reviewed. Echo images reviewed -on my review of echo images the TR and AR are at most moderate, the MR is mild to moderate, mild Pulm HTN, Normal LV systolic function, grade I diastolic dysfunction, RV is dilated with moderately reduced function, large pleural effusion -Overall her echo does not seem significantly changed from echos done in the recent past -she likely has baseline chronic diastolic CHF with associated valvular heart disease, pulm htn, and suspect that she developed flash pulm edema and worsening pleural effusions in the setting of etoh abuse and fluids required during admission to treat pancreatitis and GRIFFIN -clinically appears to be improving in volume status after 3 days of IV Lasix -cont IV Lasix today and will re-evaluate to transition to po Lasix tomorrow ( may not continue po Lasix custodial as outpatient given alcoholism and poor diet and presentation with GRIFFIN presumed due to intravascular depletion) -would plan to repeat an echo as an outpatient to re-evaluate valvular function once euvolemic -of note she had similar presentation with hypoxia 05/2016 at which time V/Q and CTA chest were done and ruled out PE Atrial fibrillation-paroxysmal -NSR during admission -Heparin gtt was initially used but pt developed anemia and suspected GI bleed thus heparin stopped and Xarelto stopped. -due to anemia, possible GI bleed, alcoholism likely risk > benefit to full AC custodial, would not restart it, and would have pt followed as outpatient for further discussion -cont metoprolol at current dose HTN-adequately controlled -cont current medical regimen
[2016-12-30] MEDS ORDERED: DEXTROSE 5%-WATER - 50 ML IVPB ONE (09:34)
[2016-12-30] MEDS ORDERED: PT OWN MED DRAWER 7, Y5N ONE (09:34)
[2016-12-30] MEDS ORDERED: cefTRIAXone SODIUM 1 GM VIAL ONE (09:34)
[2016-12-30] MEDS: FUROSEMIDE 40 MG/4 ML INJECTABLE VIAL IVPUSH SCH (10:04)
[2016-12-30] MEDS: METOPROLOL TARTRATE 25 MG TABLET (FP) PO SCH (10:05)
[2016-12-30] MEDS: MULTIVITAMINS (DAILY MVI) TABLET (FP) PO SCH (10:06)
[2016-12-30] MEDS: THIAMINE HCL 100 MG TABLET (FP) PO SCH (10:06)
[2016-12-30] MEDS: CEFTRIAXONE 1 GM in DEXTROSE 5%-WATER - 50 ML IVPB SCH (10:06)
[2016-12-30] MEDS: NAPH,MB-DB/K PH,MBDB POWDER PACKET PO SCH (10:06)
[2016-12-30] MEDS: RANITIDINE HCL 150 MG TABLET (FP) PO SCH (10:07)
[2016-12-30 11:05] VITALS: TEMP 98.1
[2016-12-30] MEDS ORDERED: MAGNESIUM SULF 50% (8.12 MEQ/2 ML-1 GM VIAL) IVPB ONE (11:15)
--- NOTE | 2016-12-30 11:23 | PN ---
Progress Note (short form) - Note Progress Note: PULMONARY Denies shortness of breath, cough. Now saturating 96% on room air. Last Vital Signs Temp Pulse Resp BP Pulse Ox 98.1 F 71 20 103/59 97 12/30/16 10:00 12/30/16 10:00 12/30/16 10:00 12/30/16 10:00 12/29/16 21:00 Gen: NAD at rest Heart: RRR Lung: decreased breath sounds at the bases Abd: soft, mild TTP, no rebound Ext: no edema CBC, BMP 12/30/16 07:30 12/30/16 07:30 Active Medications Acetaminophen (Tylenol -) 650 mg PO Q6H PRN PRN Reason: PAIN OR FEVER Last Admin: 12/30/16 06:17 Dose: 650 mg Albuterol Sulfate (Ventolin 0.083% Nebulizer Soln -) 1 amp NEB Q4H PRN PRN Reason: SHORT OF BREATH/WHEEZING Last Admin: 12/28/16 11:47 Dose: 1 amp Albuterol/Ipratropium (Duoneb -) 1 amp NEB Q6H PRN PRN Reason: SHORTNESS OF BREATH Alprazolam (Xanax -) 0.5 mg PO Q8H PRN PRN Reason: ANXIETY Last Admin: 12/29/16 21:36 Dose: 0.5 mg Artificial Tears (Artificial Tears) 1 drop OU Q8H PRN PRN Reason: DRY EYES Furosemide (Lasix Injection -) 40 mg IVPUSH DAILY [facility] Last Admin: 12/30/16 10:04 Dose: 40 mg Ceftriaxone Sodium 1 gm/ (Dextrose) 50 mls @ 100 mls/hr IVPB DAILY [facility] Last Admin: 12/30/16 10:06 Dose: 100 mls/hr Insulin Aspart (Novolog Vial Sliding Scale -) 1 vial SQ ACHS YONNY PRN Reason: Protocol Last Admin: 12/30/16 06:32 Dose: 2 units Metoprolol Tartrate (Lopressor -) 12.5 mg PO BID [facility] Last Admin: 12/30/16 10:05 Dose: 12.5 mg Multivitamins/Minerals/Vitamin C (Tab-A-Vit -) 1 tab PO DAILY [facility] Last Admin: 12/30/16 10:06 Dose: 1 tab Ondansetron HCl (Zofran Injection) 4 mg IVPB Q6H PRN PRN Reason: NAUSEA AND/OR VOMITING Last Admin: 12/28/16 06:21 Dose: 4 mg Potassium Phos/Sodium Phos (Phos-Nak Packet -) 1 packet PO BID [facility] Last Admin: 12/30/16 10:06 Dose: 1 packet Ranitidine HCl (Zantac -) 150 mg PO BID [facility] Last Admin: 12/30/16 10:07 Dose: 150 mg Thiamine HCl (Vitamin B1 -) 100 mg PO DAILY [facility] Last Admin: 12/30/16 10:06 Dose: 100 mg A/P Acute Pancreatitis improving Volume Overload with 3rd spacing Acute Kidney Injury improving HTN - continue lasix - monitor urine output, creatinine - incentive spirometry - O2 to keep SpO2 >90% - DVT prophylaxis
[2016-12-30 14:55] VITALS: BP 101/56; PULSE 67
--- NOTE | 2016-12-30 15:14 | PN ---
Progress Note, Physician History of Present Illness: Pt seen and examined at bedside. She is awake and alert. She denies shortness of breath. - Current Medication List Current Medications: Active Medications Acetaminophen (Tylenol -) 650 mg PO Q6H PRN PRN Reason: PAIN OR FEVER Last Admin: 12/30/16 06:17 Dose: 650 mg Albuterol Sulfate (Ventolin 0.083% Nebulizer Soln -) 1 amp NEB Q4H PRN PRN Reason: SHORT OF BREATH/WHEEZING Last Admin: 12/28/16 11:47 Dose: 1 amp Albuterol/Ipratropium (Duoneb -) 1 amp NEB Q6H PRN PRN Reason: SHORTNESS OF BREATH Alprazolam (Xanax -) 0.5 mg PO Q8H PRN PRN Reason: ANXIETY Last Admin: 12/29/16 21:36 Dose: 0.5 mg Artificial Tears (Artificial Tears) 1 drop OU Q8H PRN PRN Reason: DRY EYES Last Admin: 12/30/16 11:38 Dose: 1 drop Furosemide (Lasix Injection -) 40 mg IVPUSH DAILY [facility] Last Admin: 12/30/16 10:04 Dose: 40 mg Ceftriaxone Sodium 1 gm/ (Dextrose) 50 mls @ 100 mls/hr IVPB DAILY [facility] Last Admin: 12/30/16 10:06 Dose: 100 mls/hr Insulin Aspart (Novolog Vial Sliding Scale -) 1 vial SQ ACHS YONNY PRN Reason: Protocol Last Admin: 12/30/16 11:38 Dose: 4 units Metoprolol Tartrate (Lopressor -) 12.5 mg PO BID [facility] Last Admin: 12/30/16 10:05 Dose: 12.5 mg Multivitamins/Minerals/Vitamin C (Tab-A-Vit -) 1 tab PO DAILY [facility] Last Admin: 12/30/16 10:06 Dose: 1 tab Ondansetron HCl (Zofran Injection) 4 mg IVPB Q6H PRN PRN Reason: NAUSEA AND/OR VOMITING Last Admin: 12/28/16 06:21 Dose: 4 mg Potassium Phos/Sodium Phos (Phos-Nak Packet -) 1 packet PO BID [facility] Last Admin: 12/30/16 10:06 Dose: 1 packet Ranitidine HCl (Zantac -) 150 mg PO BID [facility] Last Admin: 12/30/16 10:07 Dose: 150 mg Thiamine HCl (Vitamin B1 -) 100 mg PO DAILY [facility]ONNY Last Admin: 12/30/16 10:06 Dose: 100 mg - Objective Vital Signs: Vital Signs Temperature 98.1 F 12/30/16 14:53 Pulse Rate 67 12/30/16 14:53 Respiratory Rate 20 12/30/16 10:00 Blood Pressure 101/56 12/30/16 14:53 O2 Sat by Pulse Oximetry (%) 97 12/29/16 21:00 Constitutional: Yes: Calm Eyes: Yes: Conjunctiva Clear HENT: Yes: Atraumatic Neck: Yes: Supple Cardiovascular: Yes: S1, S2 Respiratory: Yes: CTA Bilaterally Gastrointestinal: Yes: Soft Genitourinary: Yes: WNL Musculoskeletal: Yes: WNL Edema: No Neurological: Yes: Oriented Psychiatric: Yes: Oriented Labs: CBC, BMP 12/30/16 07:30 12/30/16 07:30 Problem List - Problems (1) Abdominal pain Code(s): R10.9 - UNSPECIFIED ABDOMINAL PAIN Qualifiers: Abdominal location: generalized Qualified Code(s): R10.84 - Generalized abdominal pain (2) Acute renal failure Code(s): N17.9 - ACUTE KIDNEY FAILURE, UNSPECIFIED Qualifiers: Acute renal failure type: unspecified Qualified Code(s): N17.9 - Acute kidney failure, unspecified (3) Hyperkalemia Code(s): E87.5 - HYPERKALEMIA (4) Pancreatitis Code(s): K85.90 - ACUTE PANCREATITIS WITHOUT NECROSIS OR INFECTION, UNSP Qualifiers: Chronicity: acute Pancreatitis type: unspecified pancreatitis type Acute pancreatitis complication: unspecified Qualified Code(s): K85.90 - Acute pancreatitis without necrosis or infection, unspecified Assessment/Plan Current Medications Generic Name Dose Route Start Last Admin Trade Name Freq PRN Reason Stop Dose Admin Acetaminophen 650 mg 12/27/16 21:59 12/30/16 06:17 Tylenol - PO 650 mg Q6H PRN Administration PAIN OR FEVER Albuterol Sulfate 1 amp 12/27/16 17:46 12/28/16 11:47 Ventolin 0.083% Nebulizer Soln - NEB 1 amp Q4H PRN Administration SHORT OF BREATH/WHEEZING Albuterol/Ipratropium 1 amp 12/27/16 17:46 Duoneb - NEB Q6H PRN SHORTNESS OF BREATH Alprazolam 0.5 mg 12/28/16 18:37 12/29/16 21:36 Xanax - PO 0.5 mg Q8H PRN Administration ANXIETY Artificial Tears 1 drop 12/29/16 18:17 12/30/16 11:38 Artificial Tears OU 1 drop Q8H PRN Administration DRY EYES Furosemide 40 mg 12/28/16 10:00 12/30/16 10:04 Lasix Injection - IVPUSH 40 mg DAILY YONNY Administration Ceftriaxone Sodium 1 gm/ 50 mls @ 100 mls/hr 12/29/16 12:30 12/30/16 10:06 Dextrose IVPB 100 mls/hr DAILY YONNY Administration Insulin Aspart 1 vial 12/27/16 22:00 12/30/16 11:38 Novolog Vial Sliding Scale - SQ 4 units ACHS YONNY Administration Protocol Metoprolol Tartrate 12.5 mg 12/27/16 22:00 12/30/16 10:05 Lopressor - PO 12.5 mg BID YONNY Administration Multivitamins/Minerals/Vitamin C 1 tab 12/28/16 10:00 12/30/16 10:06 Tab-A-Vit - PO 1 tab DAILY YONNY Administration Ondansetron HCl 4 mg 12/28/16 06:14 12/28/16 06:21 Zofran Injection IVPB 4 mg Q6H PRN Administration NAUSEA AND/OR VOMITING Potassium Phos/Sodium Phos 1 packet 12/28/16 22:00 12/30/16 10:06 Phos-Nak Packet - PO 1 packet BID YONNY Administration Ranitidine HCl 150 mg 12/27/16 22:00 12/30/16 10:07 Zantac - PO 150 mg BID YONNY Administration Thiamine HCl 100 mg 12/28/16 10:00 12/30/16 10:06 Vitamin B1 - PO 100 mg DAILY YONNY Administration Laboratory Tests 12/30/16 07:30 Magnesium 1.3 L D Impression 1. SARA 2. hyperkalemia 3. hx etoh use 4. pancreatitis 5. abdominal pain 6. vomiting 7. anemia 8. HTN Plan - cxr reviewed - consider switching lasix to PO - volume status is improving - renal workup as outpt - replace mag - SARA likely secondary to pre-renal disease and pancreatitis - will follow Dr Torres
--- NOTE | 2016-12-30 15:37 | DS ---
Physical Examination Vital Signs: Vital Signs Temperature 98.1 F 12/30/16 14:53 Pulse Rate 67 12/30/16 14:53 Respiratory Rate 20 12/30/16 10:00 Blood Pressure 101/56 12/30/16 14:53 O2 Sat by Pulse Oximetry (%) 97 12/29/16 21:00 Constitutional: Yes: No Distress, Calm Cardiovascular: Yes: Regular Rate and Rhythm Respiratory: Yes: CTA Bilaterally Gastrointestinal: Yes: Normal Bowel Sounds, Soft. No: Tenderness Edema: No Labs: CBC, BMP 12/30/16 07:30 12/30/16 07:30 Discharge Summary Reason For Visit: PAIN, acute pancreatitis Current Active Problems Abdominal pain (Acute) Acute pancreatitis (Acute) Acute renal failure (Acute) Anemia (Acute) Aortic regurgitation (Acute) Atypical chest pain (Acute) CHF (congestive heart failure) (Acute) Chest pain (Acute) Elevated lipase (Acute) Epigastric abdominal pain (Acute) GERD (gastroesophageal reflux disease) (Acute) Hyperkalemia (Acute) New onset a-fib (Acute) Pancreatitis (Acute) Pulmonary congestion (Acute) Renal insufficiency (Acute) Vomiting (Acute) NIDDM (Chronic) Hospital Course: Admitted for acute pancreatitis and acute renal failure Pt is a known alcoholic-- likely reason for pancreatitis--lipid profile normal, no gall stones Seen by GI , Renal Initially admitted to ICU for dehydration , hemodynamic instability Kept NPO and was on iv fluids Course complicated by severe anemia, thought to due to GI bleeding from Heparin drip Heparin drip stopped, also decided not to restart Xarelto Pt stabilized, but had intravolume 3rd spacing due to iv fluids and received Lasix which improved her symptoms. 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 Pt also has UTI on antibiotics Pt's labs are better renal function improved Stable for dc home on PO lasix for 5 days and PO Keflex for 5 days Needs to follow up with Dr Valero for anemia work up . She will follow up with Dr cross Will not restart Xarelto now. Condition: Improved - Instructions Referrals: Anirudh Cross MD [Staff Physician] - 1 Week Madan Valero MD [Staff Physician] - 2 Weeks (For EGD and colonoscopy - for anemia work up ) Disposition: HOME - Home Medications Comprehensive Discharge Medication List: Ambulatory Orders Metoprolol Tartrate [Lopressor -] 12.5 mg PO BID #60 tablet 07/10/15 Atorvastatin Ca [Lipitor] 20 mg PO HS 06/05/16 Valsartan 40 mg PO DAILY 12/22/16 Cephalexin [Keflex] 500 mg PO TID #15 capsule 12/30/16 Furosemide [Lasix] 20 mg PO DAILY #5 tablet 12/30/16 Magnesium Oxide [Mag-Ox -] 400 mg PO BID #60 tablet 12/30/16 Ranitidine [Zantac -] 150 mg PO BID #60 tablet 12/30/16 Thiamine HCl [Vitamin B1 -] 100 mg PO DAILY #30 tablet 12/30/16
[2016-12-30] MEDS ORDERED: ALBUTEROL SO4 2.5/IPRATROPIUM 0.5 INH SOL 3 ML VIAL.NEB. NEB SCH (19:30)
[2016-12-30] MEDS ORDERED: MAGNESIUM OXIDE 400 MG TABLET (FP) PO SCH (22:00)
== END 2016-12-30 16:33 | disposition home or self-care (01) | DRG 682 ==
LOC: JER 21:31 → JICU 12-22 02:00 → J6S 12-27 19:20
PROVIDERS: ADMIT Internal Medicine; ATTEND Internal Medicine
PROC: 30233N1 Transfusion of Nonautologous Red Blood Cells into Peripheral Vein, Percutaneous Approach (ICD-10-PCS; principal; 2016-12-26)
DX: N17.9 Acute kidney failure, unspecified (principal); K85.20 Alcohol induced acute pancreatitis without necrosis or infection; N39.0 Urinary tract infection, site not specified; E87.5 Hyperkalemia; E78.5 Hyperlipidemia, unspecified; E11.9 Type 2 diabetes mellitus without complications; K21.9 Gastro-esophageal reflux disease without esophagitis; E86.0 Dehydration; D64.9 Anemia, unspecified; E87.70 Fluid overload, unspecified; I48.0 Paroxysmal atrial fibrillation; I10 Essential (primary) hypertension; I35.1 Nonrheumatic aortic (valve) insufficiency; R07.89 Other chest pain
CPT/HCPCS: 36415; 36430; 71010-TC; 74176-TC; 76775-TC; 80048; 80053; 80076; 81003; 81015; 82150; 82272; 83615; 83690; 83735; 83880; 84100; 85025; 85027; 85730; 86850; 86900; 86901; 86922; 87040; 87086; 87186; 93005; 93010; 93306-TC; 94010; 94640; 94761; 99285-25; J1644; P9038; P9058

== ENCOUNTER 2017-07-05 09:33 | Inpatient (IN) | payer BC ==
--- NOTE | 2017-07-05 10:08 | PDOC ---
Attending Attestation - Resident Resident Name: HussainbasiacarlYosi - ED Attending Attestation I have performed the following: I have examined & evaluated the patient, The case was reviewed & discussed with the resident, I agree w/resident's findings & plan, Exceptions are as noted - HPI HPI: 07/08/17 00:32 Ms Sauceda is a 62 yo F with a h/o Afib (no AC), hypertension, hyperlipidemia , NIDDM, GERD, and alcoholism who presents to the ER with complaints of abdominal pain and headache. She has had diffuse abdominal pain, described as sharp, rated 9/10, and constant. Her abdominal pain began yesterday. (+) nausea (+) vomiting - Non bloody, non bilious (+) diarrhea - nonbloody, nonmucoid. No fevers or chills No chest pain (+) palpitations Pt incidentally also noted a generalized headache which began 4 days ago, now worse with head movement - Physicial Exam PE: GENERAL: Well developed, well nourished. Awake and alert. No acute distress. HEENT: Normocephalic Dry mucous membranes. PERRLA, EOMI. Sclera are non- icteric. NECK: Supple. Full ROM. No JVD. CARDIOVASCULAR: Regular rate and rhythm. No murmurs, rubs, or gallops. PULMONARY: No evidence of respiratory distress. Lungs clear to auscultation bilaterally. ABDOMINAL: Soft. diffusely tender to palpation, no involuntary guarding or rebound EXTREMITIES: No lower extremity edema SKIN: Normal capillary refill. No rashes. No jaundice. NEUROLOGICAL: Alert, awake, appropriate. Cranial nerves 2-12 intact. No gross motor or sensory deficits - Medical Decision Making 07/08/17 00:56 Ms Sauceda's differential diagnosis is broad and includes: Pancreatitis, Biliary pathology, gastritis, SBO, diverticulitis, ischemic colitis Will do: Labs IV resuscitation Pain medications CT Pt labs hemolyzed and had to be re drawn CT read: IMPRESSION: 1. Findings consistent with acute pancreatitis without abscess or pseudocyst formation. Clinical and laboratory correlation and follow- up recommended. 2. Diffuse fatty infiltration of the liver. In the process, she was admitted to D Labs reveal: Laboratory Tests 07/05/17 07/05/17 11:10 13:20 WBC 6.8 D Hgb 11.7 D Hct 36.4 D Sodium 133 L Potassium 7.1 H* Chloride 96 L Carbon Dioxide 13 L Anion Gap 24 H BUN 76 H Creatinine 4.9 H Random Glucose 139 H Calcium 7.6 L Total Bilirubin 0.7 D AST 102 H ALT 48 Creatine Kinase 100 Troponin I < 0.02 Lipase 36108 H Acute pancreatitis New onset renal failure (baseline cr: 1.2!) Hyperkalemia Pt was given NS Pt switched to LR given pancreatitis Pt treated for hyperkalemia Labs will be re sent to monitor for improved potassium levels - Calcium Gluconate, Insulin, D50 Will hold Kayexylate for now (pt NPO) Pt seen in the ER by Dr Torres He requests: lee, urine lytes, place pt on NS instead of LR given hyperkalemia Pt PMD updated re: lab results Dr De Los Santos contacted for ICU admission Clinical impression: Acute pancreatitis, initial presentation New onset renal failure, initial presentation Hyperkalemia, initial presentation 07/08/17 01:06 Critical Care Time/MDM Note Total Critical Care Time: 35 Critical Care Statement: The care of this patient involved high complexity decision making to prevent further life threatening deterioration of the patient 's condition and/or to evaluate & treat vital organ system(s) failure or risk of failure.
[2017-07-05] MEDS ORDERED: SODIUM CHLORIDE 0.9% 1000 ML INFUS.BAG IV ONE ×2 (10:16→12:58)
[2017-07-05] MEDS ORDERED: morphine CARPU-JECT 4 MG/1 ML DISP.SYRIN IVPUSH ONE ×2 (10:16→11:13)
[2017-07-05] MEDS ORDERED: METOCLOPRAMIDE HCL INJECTION 10 MG/2 ML VIAL IVPB ONE (10:16)
--- NOTE | 2017-07-05 10:25 | PDOC ---
History of Present Illness <Liz Shafer - Last Filed: 07/05/17 15:40> - General History Source: Patient Exam Limitations: No Limitations - History of Present Illness Initial Comments: 07/05/17 10:18 The patient is a 62F with a PMH of Afib (not on blood thinners), hypertension, hyperlipidemia, NIDDM, GERD, and alcoholism who presents to the ER with complaints of abdominal pain, headache, and palpitations. The patient states that she's had a headache with palpitations since Tuesday (4 days ago). Her headache is diffuse and is worse with movements. She also states she has diffuse abdominal pain that does not radiate but feels sharp, 9/10, and constant since yesterday. It is associated with vomiting, nausea, and diarrhea. She had 5 bouts of nausea and diarrhea, both nonbloody. She denies any fever, chills, CP, SOB, hematuria, vaginal bleeding, discharge. <Yosi Rainey - Last Filed: 07/05/17 17:41> - General Chief Complaint: Pain Stated Complaint: DIARRHEA/VOMITING/PALPITATION Time Seen by Provider: 07/05/17 09:57 Past History <Liz Shafer - Last Filed: 07/05/17 15:40> - Past Medical History COPD: No Diabetes: Yes (NIDDM - diet controlled) GI Disorders: Yes (GERD) HTN: Yes Hypercholesterolemia: Yes - Family Disease History Family Disease History: Diabetes: Mother - Immunization History Immunization Up to Date: Yes - Suicide/Smoking/Psychosocial Hx Smoking Status: Yes Smoking History: Never smoked Have you smoked in the past 12 months: No Number of Cigarettes Smoked Daily: 0 If you are a former smoker, when did you quit?: 30 years ago Information on smoking cessation initiated: No Hx Alcohol Use: No Drug/Substance Use Hx: No Substance Use Type: Alcohol <Yosi Rainey - Last Filed: 07/05/17 17:41> - Past Medical History Allergies/Adverse Reactions: Allergies Allergy/AdvReac Type Severity Reaction Status Date / Time No Known Allergies Allergy Verified 07/05/17 09:57 Home Medications: Ambulatory Orders Metoprolol Tartrate [Lopressor -] 12.5 mg PO BID #60 tablet 07/10/15 Atorvastatin Ca [Lipitor] 20 mg PO HS 06/05/16 Valsartan 40 mg PO DAILY 12/22/16 Ranitidine [Zantac -] 150 mg PO BID #60 tablet 12/30/16 Thiamine HCl [Vitamin B1 -] 100 mg PO DAILY #30 tablet 12/30/16 Magnesium Oxide [Mag-Ox -] 400 mg PO DAILY 07/05/17 Review of Systems - Review of Systems Able to Perform ROS?: Yes Comments:: 07/05/17 10:21 GENERAL/CONSTITUTIONAL: No fever or chills. No weakness. HEAD, EYES, EARS, NOSE AND THROAT: No change in vision. No ear pain or discharge. No sore throat. CARDIOVASCULAR: Positive for palpitations. No chest pain or lightheadedness. RESPIRATORY: No cough, wheezing, shortness of breath, or hemoptysis. GASTROINTESTINAL: Positive for nausea, vomiting, diarrhea, and abdominal pain. GENITOURINARY: No dysuria, frequency, hematuria, or change in urination. MUSCULOSKELETAL: No joint or muscle swelling or pain. No neck or back pain. SKIN: No rash or lesions. NEUROLOGIC: Positive for headache. No numbness, tingling, weakness, loss of consciousness, or change in strength/sensation. ENDOCRINE: No increased thirst. No abnormal weight change. HEMATOLOGIC/LYMPHATIC: No anemia, easy bleeding, or history of blood clots. ALLERGIC/IMMUNOLOGIC: No hives or skin allergy. Is the patient limited Azeri proficient: No <Yosi Rainey - Last Filed: 07/05/17 17:41> *Physical Exam - Vital Signs Last Vital Signs Temp Pulse Resp BP Pulse Ox 97.3 F L 86 18 133/63 98 07/05/17 09:54 07/05/17 09:54 07/05/17 09:54 07/05/17 09:54 07/05/17 10:12 <Liz Shafer - Last Filed: 07/05/17 15:40> - Vital Signs Last Vital Signs Temp Pulse Resp BP Pulse Ox 97.3 F L 86 18 133/63 98 07/05/17 09:54 07/05/17 09:54 07/05/17 09:54 07/05/17 09:54 07/05/17 10:12 - Physical Exam Comments: 07/05/17 10:22 GENERAL: Well developed, well nourished. Awake and alert. No acute distress. HEENT: Normocephalic, atraumatic. Hearing grossly normal. Moist mucous membranes. PERRLA, EOMI. No conjunctival pallor. Sclera are non-icteric. NECK: Supple. Full ROM. No JVD. CARDIOVASCULAR: Regular rate and rhythm. No murmurs, rubs, or gallops. PULMONARY: No evidence of respiratory distress. Lungs clear to auscultation bilaterally. No wheezing, rales or rhonchi. ABDOMINAL: Soft. Non-tender. Non-distended. No rebound or guarding. No organomegaly. Normoactive bowel sounds. GENITOURINARY: No CVA tenderness bilaterally. MUSCULOSKELETAL: Normal range of motion at all joints. No bony deformities or tenderness. EXTREMITIES: No cyanosis. No clubbing. No edema. No calf tenderness. SKIN: Warm and dry. Normal capillary refill. No rashes. No jaundice. NEUROLOGICAL: Alert, awake, appropriate. Cranial nerves 2-12 intact. No deficits to light touch and temperature in face, upper extremities and lower extremities. No motor deficits in the in face, upper extremities and lower extremities. Normoreflexic in the upper and lower extremities. Toes are down- going bilaterally. Finger to nose normal bilaterally. Normal speech. Gait is normal without ataxia. PSYCHIATRIC: Cooperative. Good eye contact. Appropriate mood and affect. <Yosi Rainey - Last Filed: 07/05/17 17:41> ED Treatment Course - LABORATORY CBC & Chemistry Diagram: 07/05/17 11:10 07/05/17 13:20 - ADDITIONAL ORDERS Additional order review: Laboratory Results 07/05/17 07/05/17 07/05/17 11:10 11:10 11:10 PT with INR 9.60 L INR 0.85 L Sodium Cancelled Potassium Cancelled Chloride Cancelled Carbon Dioxide Cancelled Anion Gap Cancelled BUN Cancelled Creatinine Cancelled Creat Clearance w eGFR Cancelled Random Glucose Cancelled Calcium Cancelled Total Bilirubin Cancelled AST Cancelled ALT Cancelled Alkaline Phosphatase Cancelled Creatine Kinase Cancelled Troponin I Cancelled Total Protein Cancelled Albumin Cancelled Lipase Cancelled Blood Type Cancelled Antibody Screen Cancelled 07/05/17 11:10 RBC 3.43 L D MCV 106.2 H MCHC 32.2 RDW 13.9 MPV 10.6 D Neutrophils % 79.9 D Lymphocytes % 13.3 Monocytes % 6.3 Eosinophils % 0.0 D Basophils % 0.5 - Medications Given in the ED: ED Medications Discontinued Medications Generic Name Dose Route Start Last Admin Trade Name Guru PRN Reason Stop Dose Admin Metoclopramide HCl 10 mg 07/05/17 10:16 07/05/17 11:10 Reglan Injection - IVPB 07/05/17 10:17 10 mg ONCE ONE Administration Morphine Sulfate 2 mg 07/05/17 10:16 07/05/17 11:25 Morphine Injection - IVPUSH 07/05/17 10:17 Not Given ONCE ONE Morphine Sulfate 4 mg 07/05/17 11:13 07/05/17 11:10 Morphine Injection - IVPUSH 07/05/17 11:14 4 mg ONCE ONE Administration Sodium Chloride 1,000 ml 07/05/17 10:16 07/05/17 11:15 Normal Saline - IV 07/05/17 10:17 1,000 ml ONCE ONE Administration <Liz Shafer - Last Filed: 07/05/17 15:40> - LABORATORY CBC & Chemistry Diagram: 07/05/17 11:10 07/05/17 13:20 - RADIOLOGY Radiology Studies Ordered: Category Date Time Status CHEST X-RAY PORTABLE* [RAD] Stat Radiology 07/05/17 09:58 Ordered <Yosi Rainey - Last Filed: 07/05/17 17:41> Medical Decision Making - Medical Decision Making 07/05/17 13:10 Dr. Trish Conteh was paged and notified via phone service. 07/05/17 15:36 Dr. Trish Conteh was paged for follow-up. 07/05/17 15:41 Dr. Torres was paged and notified via phone service. <Liz Shafer - Last Filed: 07/05/17 15:40> - Medical Decision Making 07/05/17 13:01 The patient is a 62F with a PMH including EtOH abuse who presents with diffuse abdominal pain and nausea/vomiting. Lipase hemolyzed, including CMP. CT read: IMPRESSION: 1. Findings consistent with acute pancreatitis without abscess or pseudocyst formation. Clinical and laboratory correlation and follow- up recommended. 2. Diffuse fatty infiltration of the liver. Please see above discussion. Will page Dr. Conteh for admission for pancreatitis for Dr. Cross. 07/05/17 13:13 Dr. Conteh accepts admission with Dr. Conte consulted for GI. 07/05/17 17:40 I have discussed the patient with Dr. De Los Santos who accepts admission for ICU. Giving insulin/dextrose and calcium gluconate for hyperK. Wilson inserted. <Yosi Rainey - Last Filed: 07/05/17 17:41> *DC/Admit/Observation/Transfer <Liz Shafer - Last Filed: 07/05/17 15:40> - Discharge Dispostion Admit: Yes <Yosi Rainey - Last Filed: 07/05/17 17:41> Diagnosis at time of Disposition: Acute pancreatitis Qualifiers: Pancreatitis type: alcohol induced Acute pancreatitis complication: unspecified Qualified Code(s): K85.20 - Alcohol induced acute pancreatitis without necrosis or infection - Discharge Dispostion Condition at time of disposition: Stable
[2017-07-05] MEDS ORDERED: MORPHINE SULFATE 10 MG/1 ML *VIAL ONE (10:48)
[2017-07-05] MEDS ORDERED: METOCLOPRAMIDE HCL INJECTION 10 MG/2 ML VIAL ONE (10:48)
[2017-07-05 11:23] LABS: BASO % 0.5 % (0-2.0); HEMATOCRIT 36.4 % (32.4-45.2); HEMOGLOBIN 11.7 GM/dL (10.7-15.3); LYMPH % 13.3 % (8-40); MCH 34.2 pg (25.7-33.7); MCHC 32.2 g/dl (32.0-36.0); MEAN CELL VOLUME 106.2 fl (80-96); MEAN PLT VOLUME 10.6 fl (7.5-11.1); MONO % 6.3 % (3.8-10.2); NEUT % 79.9 % (42.8-82.8); PLATELET COUNT 131 K/MM3 (134-434); RBC 3.43 M/mm3 (3.60-5.2); RDW 13.9 % (11.6-15.6); WHITE BLOOD COUNT 6.8 K/mm3 (4.0-10.0)
[2017-07-05 11:33] LABS: INR 0.85 (0.82-1.09); PROTHROMBIN TIME (PATIENT) 9.6 SEC (9.98-11.88)
--- NOTE | 2017-07-05 12:56 | EKG ---
Test Reason : Blood Pressure : / mmHG Vent. Rate : 061 BPM Atrial Rate : 061 BPM P-R Int : 194 ms QRS Dur : 074 ms QT Int : 424 ms P-R-T Axes : 051 009 032 degrees QTc Int : 426 ms NORMAL SINUS RHYTHM NORMAL ECG Confirmed by Richard Mccabe MD ([id number]) on 07/05/2017 12:56:41 PM Referred By: Confirmed By:Richard Mccabe MD
[2017-07-05 13:51] LABS: ALBUMIN 3.5 g/dl (3.4-5.0); ANION GAP 24 (8-16); BILIRUBIN,TOTAL 0.7 mg/dL (0.2-1.0); BLOOD UREA NITROGEN 76 mg/dL (7-18); CALCIUM 7.6 mg/dL (8.5-10.1); CHLORIDE 96 mmol/L (98-107); CO2 13 mmol/L (21-32); CREATININE 4.9 mg/dL (0.55-1.02); GLUCOSE,RANDOM 139 mg/dL (74-106); SGOT/AST 102 U/L (15-37); SGPT/ALT 48 U/L (12-78); SODIUM 133 mmol/L (136-145); TOT PROT 7.6 g/dl (6.4-8.2)
[2017-07-05 13:54] LABS: ALK PHOS 102 U/L (45-117)
[2017-07-05 14:37] LABS: POTASSIUM 7.1 mmol/L (3.5-5.1)
[2017-07-05 14:39] LABS: LIPASE 34740 U/L (73-393)
[2017-07-05] MEDS ORDERED: CALCIUM GLUCONATE 10% - 1,000 MG/10 ML VIAL IVPB ONE (14:41)
[2017-07-05] MEDS ORDERED: CALCIUM GLUCONATE 10% - 1,000 MG/10 ML VIAL ONE (15:19)
[2017-07-05] MEDS ORDERED: LACTATED RINGERS SOLUTION 1000 ML INFUS.BAG IV ONE ×2 (15:24→16:09)
--- NOTE | 2017-07-05 16:19 | CONSULT ---
Consultation: REQUESTING PROVIDER: Dr. Amin CONSULT REQUEST: We have been asked to medically evaluate this patient for SARA. HISTORY OF PRESENT ILLNESS: Patient is a 62 year old female with a PMHx of HTN, HLD, NIDDMII, GERD, ETOH abuse, A.Fib on no blood thinners, and CKD who presented today complaining of diffuse abdominal pain that started today associated with heart palpitations, nausea and diarrhea. Patient states the pain is crampy, non radiating and constant with an 8/10 intensity. Patient was found to have acute pancreatitis with SARA. On further questioning patient she reports she had "bad kidney function a couple of years ago" and she was told to "drink more water." Patient reports drinking 16 ounces of water a day. Patient reports taking NSAID's at least 4 pills a week. Denies any fever, chills, hematuria, melena, hematochezia , dysuria chest pain, shortness of breath. PMHx: HTN, HLD, NIDDMII, GERD, ETOH abuse, A.Fib on no blood thinners, and CKD PSHx: Denies Social History: Former smoker, quit 30 years ago. 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 Lives with her partner at home Family History: Mother had Diabetes and from lung cancer Father from [place] REVIEW OF SYSTEMS: CONSTITUTIONAL: Absent: fever, chills, diaphoresis, generalized weakness, malaise, loss of appetite, weight change HEENT: Absent: rhinorrhea, nasal congestion, throat pain, throat swelling, difficulty swallowing, mouth swelling, ear pain, eye pain, visual changes CARDIOVASCULAR: palpitations Absent: chest pain, syncope, irregular heart rate, lightheadedness, peripheral edema RESPIRATORY: Absent: cough, shortness of breath, dyspnea with exertion, orthopnea, wheezing, stridor, hemoptysis GASTROINTESTINAL: abdominal pain, vomiting, diarrhea Absent: abdominal distension, nausea, constipation, melena, hematochezia GENITOURINARY: Absent: dysuria, frequency, urgency, hesitancy, hematuria, flank pain, genital pain MUSCULOSKELETAL: Absent: myalgia, arthralgia, joint swelling, back pain, neck pain SKIN: Absent: rash, itching, pallor HEMATOLOGIC/IMMUNOLOGIC: Absent: easy bleeding, easy bruising, lymphadenopathy, frequent infections ENDOCRINE: Absent: unexplained weight gain, unexplained weight loss, heat intolerance, cold intolerance NEUROLOGIC: Absent: headache, focal weakness or paresthesias, dizziness, unsteady gait, seizure, mental status changes, bladder or bowel incontinence PSYCHIATRIC: Absent: anxiety, depression, suicidal or homicidal ideation, hallucinations. PHYSICAL EXAMINATION Vital Signs - 24 hr 07/05/17 07/05/17 07/05/17 09:54 10:12 15:22 Temperature 97.3 F L Pulse Rate 86 Pulse Rate [ 67 Apical] Respiratory 18 17 Rate Blood Pressure 133/63 Blood Pressure 102/58 [Right Arm] O2 Sat by Pulse 100 98 98 Oximetry (%) GENERAL: Awake, alert, and fully oriented, in no acute distress. HEAD: Normal with no signs of trauma. EYES: Pupils equal, round and reactive to light, extraocular movements intact, sclera anicteric, conjunctiva clear. No lid lag. EARS, NOSE, THROAT: Oropharynx clear without exudates. Dry mucous membranes. NECK: Normal range of motion, supple without lymphadenopathy LUNGS: CTA, No wheezes, and no crackles. No accessory muscle use. HEART: RRR, normal S1 and S2 without murmur ABDOMEN: Soft with diffuse tenderness upon palpation. Normoactive bowel sounds. No hepatomegaly MUSCULOSKELETAL: No CVA tenderness. UPPER EXTREMITIES: No peripheral edema. LOWER EXTREMITIES: 2No peripheral edema. NEUROLOGICAL: Cranial nerves II-XII intact. Normal speech PSYCHIATRIC: Cooperative. Good eye contact. Appropriate mood and affect. SKIN: Warm, dry, normal turgor, no rashes or lesions noted. Laboratory Results - last 24 hr 07/05/17 07/05/17 07/05/17 11:10 11:10 11:10 WBC 6.8 D RBC 3.43 L D Hgb 11.7 D Hct 36.4 D MCV 106.2 H MCH 34.2 H MCHC 32.2 RDW 13.9 Plt Count 131 L D MPV 10.6 D Neutrophils % 79.9 D Lymphocytes % 13.3 Monocytes % 6.3 Eosinophils % 0.0 D Basophils % 0.5 PT with INR INR Sodium Cancelled Potassium Cancelled Chloride Cancelled Carbon Dioxide Cancelled Anion Gap Cancelled BUN Cancelled Creatinine Cancelled Creat Clearance w eGFR Cancelled Random Glucose Cancelled Calcium Cancelled Total Bilirubin Cancelled AST Cancelled ALT Cancelled Alkaline Phosphatase Cancelled Creatine Kinase Cancelled Troponin I Cancelled Total Protein Cancelled Albumin Cancelled Lipase Cancelled Blood Type Cancelled Antibody Screen Cancelled 07/05/17 07/05/17 11:10 13:20 WBC RBC Hgb Hct MCV MCH MCHC RDW Plt Count MPV Neutrophils % Lymphocytes % Monocytes % Eosinophils % Basophils % PT with INR 9.60 L INR 0.85 L Sodium 133 L Potassium 7.1 H* Chloride 96 L Carbon Dioxide 13 L Anion Gap 24 H BUN 76 H Creatinine 4.9 H Creat Clearance w eGFR 8.95 Random Glucose 139 H Calcium 7.6 L Total Bilirubin 0.7 D AST 102 H ALT 48 Alkaline Phosphatase 102 Creatine Kinase 100 Troponin I < 0.02 Total Protein 7.6 Albumin 3.5 Lipase 48895 H Blood Type Antibody Screen IMPRESSION: 1. SARA 2. CKD 3. HTN 4. HLD 5. Atrial Fibrillation 6. NIDDMII 7. GERD 8. ETOH abuse 9. Acute Pancreatitis 10. Hyperkalemia PLAN: -Patient likely volume depleted due to excessive alcohol use and lack of H2O intake. Patient with history of CKD but will speak to primary team for records, -U/A pending -Urine electrolyes and creatinine ordered to calculate FeNa -Renal/Kidney U/S -Continue IV Fluid hydration for SARA and acute pancreatitis. Avoid Lactated Ringers and give NS due to hyperkalemia -Hold Valsartan -Avoid nephrotoxic medications -Repeat BMP stat -Low potassium diet -Insulin and D50, Calcium Gluconate given Dispo: We will continue to follow the patient. Thank you for this consultative opportunity. Rochelle Fenton MD-[id number] Visit type - Emergency Visit Emergency Visit: Yes ED Registration Date: 07/05/17 Care time: The patient presented to the Emergency Department on the above date and was hospitalized for further evaluation of their emergent condition. - New Patient This patient is new to me today: Yes Date on this admission: 07/05/17 - Critical Care Critical Care patient: No
[2017-07-05] MEDS ORDERED: DEXTROSE 50%-WATER - 25 GM/50 ML VIAL IVPUSH ONE (16:29)
[2017-07-05] MEDS ORDERED: INSULIN REGULAR HUMAN 100 UNITS/ML *VIAL IVPUSH ONE (16:29)
[2017-07-05 16:48] LABS: URINE APPEARANCE CLOUDY; URINE BILIRUBIN NEGATIVE (NEGATIVE); URINE BLOOD 1+ (NEGATIVE); URINE COLOR YELLOW; URINE GLUCOSE (UA) NEGATIVE (NEGATIVE); URINE KETONE 2+ (NEGATIVE); URINE NITRITE NEGATIVE (NEGATIVE); URINE UROBILINOGEN NEGATIVE mg/dL (0.2-1.0)
[2017-07-05] MEDS ORDERED: DEXTROSE 50%-WATER - 25 GM/50 ML VIAL ONE (17:12)
[2017-07-05] MEDS ORDERED: INSULIN REGULAR HUMAN 100 UNITS/ML *VIAL ONE (17:12)
--- NOTE | 2017-07-05 17:20 | PN ---
Teaching Attending Note Name of Resident: Rochelle Fenton (Nephrology) ATTENDING PHYSICIAN STATEMENT I saw and evaluated the patient. I reviewed the resident's note and discussed the case with the resident. I agree with the resident's findings and plan as documented. Renal Pt is a 62 year old female with pmhx of SARA, hyperkalemia, etoh abuse, CKD and pancreatitis who presents to the ER with abdominal pain and nausea. She was found to be in acute renal failure and I was called to evaluate her. She was also found to be hyperkalemic. She is actively drinking alcohol. She feels that the nausea is starting to improve. pmhx etoh abuse, ckd sara pancreatitis nkda social daily etoh use family hx denies ros abdominal pain Last Vital Signs Temp Pulse Resp BP Pulse Ox 97.3 F L 67 17 102/58 98 07/05/17 09:54 07/05/17 15:22 07/05/17 15:22 07/05/17 15:22 07/05/17 15:22 Current Active Problems Acute pancreatitis (Acute) Laboratory Tests 07/05/17 07/05/17 07/05/17 10:11 13:20 16:33 Sodium 133 L Potassium 7.1 H* Chloride 96 L Carbon Dioxide 13 L Anion Gap 24 H BUN 76 H Creatinine 4.9 H Lipase 39773 H Urine Color Pending Urine Appearance Pending Urine pH Pending Ur Specific [place] Pending Urine Protein Pending Urine Glucose (UA) Pending Urine Ketones Pending Urine Blood Pending Urine Nitrite Pending Urine Bilirubin Pending Ur Leukocyte Esterase Pending Ur Random Sodium [address] reviewed cardio s1s2 pulm clear GI diffuse abdominal pain and tenderness, abd appears distended ext neg edema neuro awake and alert skin neg rash Impression 1. SARA 2. hyperkalemia 3. hx etoh use 4. pancreatitis 5. abdominal pain 6. nausea 7. anemia 8. HTN 9. metabolic acidosis Plan - cont with saline - repeat bmp to evaluate potassium level - ecg reviewed - will need admission to a monitored unit - hold danny - discussed with ER team - discussed with resident and rounds made at bedside - will follow pt Dr Torres
[2017-07-05] MEDS ORDERED: LORazepam 2 MG/ML SDV VIAL IVPUSH PRN (17:45)
[2017-07-05] MEDS ORDERED: chlordiazePOXIDE HCL 25 MG CAPSULE PO PRN (17:45)
[2017-07-05] MEDS ORDERED: ONDANSETRON 4 MG/2 ML VIAL IVPUSH PRN (17:45)
[2017-07-05 17:51] LABS: URINE LEUK ESTERASE 3+ (NEGATIVE); URINE PROTEIN 2+ (NEGATIVE)
[2017-07-05] MEDS: chlordiazePOXIDE HCL 25 MG CAPSULE PO SCH ×2 (17:55→22:05)
[2017-07-05] MEDS: SODIUM CHLORIDE 1,000 ML IV SCH (17:59)
[2017-07-05] MEDS ORDERED: chlordiazePOXIDE HCL 25 MG CAPSULE ONE (18:00)
[2017-07-05 18:46] LABS: ANION GAP 18 (8-16); BLOOD UREA NITROGEN 70 mg/dL (7-18); CHLORIDE 103 mmol/L (98-107); CO2 15 mmol/L (21-32); CREATININE 4.8 mg/dL (0.55-1.02); GLUCOSE,RANDOM 200 mg/dL (74-106); POTASSIUM 5.5 mmol/L (3.5-5.1); SODIUM 136 mmol/L (136-145)
[2017-07-05 18:59] LABS: CALCIUM 6.9 mg/dL (8.5-10.1)
[2017-07-05 19:07] LABS: EPI CELLS RARE /HPF (FEW)
[2017-07-05 19:08] LABS: URINE BACTERIA RARE /hpf (NONE SEEN); URINE HYALINE CAST 2 /lpf
[2017-07-05] MEDS: METOPROLOL TARTRATE 25 MG TABLET (FP) PO SCH (22:04)
[2017-07-06 02:42] VITALS: BMI 21.3
--- NOTE | 2017-07-06 03:03 | CONSULT ---
Consult Consult Specialty:: Pulm/CCM Reason for Consultation:: Hyperkalemia in setting of SARA; Pancreatitis - History of Present Illness Chief Complaint: Abdominal pain History of Present Illness: 62yow with a PMH of NIDDM,HTN, HLD, A-fib, GERD, and ETOH abuse who presents to the ER with c/o abdominal pain, n/v, headache and poor po intake x 4days. She reported 5 episodes of non-bloody diarrhea. She denies any fever, chills, CP , SOB, syncope. In ED T 97.3, HR 86, BP 133/63, O2 sat 100%. Labs notable for K 7.1, BUn/creat 70/4.8,Lipase 34,740, Trop<0.02. UA with WBC 17.CT A/P c/w acute pancreatitis w/ o abscess or pseudocyst formation. Renal US showed no hydronephrosis. Hyperkalemia was treated medically with repeat K 5.5. IV fluids started. Rec'd in ICU drowsy but appropriate, BP 160/70, HR 71, c/o abd pain that radiates to the back, left chest and arms. Abd soft and non tender to palpation. IVF continued. - History Source History Provided By: Patient, Medical Record - Past Medical History Cardio/Vascular: Yes: AFIB (-paroxysmal), Aortic Insufficiency, HTN, Hyperlipdemia, Mitral Insufficiency, Murmur, Pulmonary Hypertension Gastrointestinal: Yes: GERD ENT: Yes: Other (early cataracts) Endocrine: Yes: Diabetes Mellitus (NIDDM- diet controlled, diagnosed > 10 years ago; self d/c'd metformin due to weight loss) - Past Surgical History Past Surgical History: Yes: None - Alcohol/Substance Use Hx Alcohol Use: No History of Substance Use: reports: None - Smoking History Smoking history: Never smoked Have you smoked in the past 12 months: No Aproximately how many cigarettes per day: 0 If you are a former smoker, when did you quit?: 30 years ago - Social History ADL: Independent 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 History of Recent Travel: No Home Medications - Allergies Allergies/Adverse Reactions: Allergies Allergy/AdvReac Type Severity Reaction Status Date / Time No Known Allergies Allergy Verified 07/05/17 09:57 - Home Medications Home Medications: Ambulatory Orders Metoprolol Tartrate [Lopressor -] 12.5 mg PO BID #60 tablet 07/10/15 Atorvastatin Ca [Lipitor] 20 mg PO HS 06/05/16 Valsartan 40 mg PO DAILY 12/22/16 Ranitidine [Zantac -] 150 mg PO BID #60 tablet 12/30/16 Thiamine HCl [Vitamin B1 -] 100 mg PO DAILY #30 tablet 12/30/16 Magnesium Oxide [Mag-Ox -] 400 mg PO DAILY 07/05/17 Family Disease History - Family Disease History Family Disease History: Heart Disease: Father (50 ), CA: Mother (lung 72 ), Other: Sister (? uterine Ca-58, alive) Review of Systems - Review of Systems Constitutional: reports: Loss of Appetite Eyes: reports: No Symptoms HENT: reports: No Symptoms Neck: reports: No Symptoms Cardiovascular: reports: Chest Pain Respiratory: reports: No Symptoms Gastrointestinal: reports: Abdominal Pain, Diarrhea, Nausea, Vomiting Genitourinary: reports: No Symptoms Neurological: reports: Headache Psychiatric: reports: No Symptoms Physical Exam Vital Signs: Vital Signs Temperature 98.3 F 07/06/17 02:21 Pulse Rate 68 07/06/17 02:21 Respiratory Rate 18 07/06/17 02:21 Blood Pressure 158/68 07/06/17 02:21 O2 Sat by Pulse Oximetry (%) 99 07/06/17 02:21 Constitutional: Yes: Well Nourished, Calm Eyes: Yes: PERRL HENT: Yes: Atraumatic, Normocephalic Neck: Yes: Supple, Trachea Midline Cardiovascular: Yes: Regular Rate and Rhythm, S1, S2 Respiratory: Yes: CTA Bilaterally Gastrointestinal: Yes: Soft Renal/: Yes: Wilson Present Extremities: Yes: WNL Edema: No Peripheral Pulses WNL: Yes Integumentary: Yes: WNL Neurological: Yes: Lethargy ...Motor Strength: WNL Labs: CBC, BMP 07/05/17 11:10 07/05/17 17:45 CBC,CMP WBC 6.8 K/mm3 (4.0-10.0) D 07/05/17 11:10 RBC 3.43 M/mm3 (3.60-5.2) L D 07/05/17 11:10 Hgb 11.7 GM/dL (10.7-15.3) D 07/05/17 11:10 Hct 36.4 % (32.4-45.2) D 07/05/17 11:10 MCV 106.2 fl (80-96) H 07/05/17 11:10 MCH 34.2 pg (25.7-33.7) H 07/05/17 11:10 MCHC 32.2 g/dl (32.0-36.0) 07/05/17 11:10 RDW 13.9 % (11.6-15.6) 07/05/17 11:10 Plt Count 131 K/MM3 (134-434) L D 07/05/17 11:10 MPV 10.6 fl (7.5-11.1) D 07/05/17 11:10 Neutrophils % 79.9 % (42.8-82.8) D 07/05/17 11:10 Lymphocytes % 13.3 % (8-40) 07/05/17 11:10 Monocytes % 6.3 % (3.8-10.2) 07/05/17 11:10 Eosinophils % 0.0 % (0-4.5) D 07/05/17 11:10 Basophils % 0.5 % (0-2.0) 07/05/17 11:10 Sodium 136 mmol/L (136-145) 07/05/17 17:45 Potassium 5.5 mmol/L (3.5-5.1) H 07/05/17 17:45 Chloride 103 mmol/L (98-107) 07/05/17 17:45 Carbon Dioxide 15 mmol/L (21-32) L 07/05/17 17:45 Anion Gap 18 (8-16) H 07/05/17 17:45 BUN 70 mg/dL (7-18) H 07/05/17 17:45 Creatinine 4.8 mg/dL (0.55-1.02) H 07/05/17 17:45 Creat Clearance w eGFR 8.95 (>60) 07/05/17 13:20 Random Glucose 200 mg/dL (74-106) H 07/05/17 17:45 Lactic Acid 1.0 mmol/L (0.0-2.0) 07/05/17 17:50 Calcium 6.9 mg/dL (8.5-10.1) L* 07/05/17 17:45 Total Bilirubin 0.7 mg/dL (0.2-1.0) D 07/05/17 13:20 AST 102 U/L (15-37) H 07/05/17 13:20 ALT 48 U/L (12-78) 07/05/17 13:20 Alkaline Phosphatase 102 U/L (45-117) 07/05/17 13:20 Creatine Kinase 100 IU/L (26-192) 07/05/17 13:20 Troponin I < 0.02 ng/ml (0.00-0.05) 07/05/17 13:20 Total Protein 7.6 g/dl (6.4-8.2) 07/05/17 13:20 Albumin 3.5 g/dl (3.4-5.0) 07/05/17 13:20 Lipase 00380 U/L (73-393) H 07/05/17 13:20 Current Medications Chlordiazepoxide HCl (Librium -) 50 mg PO [id number] [facility] Stop: 07/06/17 11:01 Last Admin: 07/05/17 22:05 Dose: 50 mg Chlordiazepoxide HCl (Librium -) 25 mg PO [id number] [facility] Stop: 07/07/17 11:01 Chlordiazepoxide HCl (Librium -) 15 mg PO [id number] [facility] Stop: 07/08/17 11:01 Chlordiazepoxide HCl (Librium -) 25 mg PO Q4H PRN PRN Reason: WITHDRAWAL(CONT SUBST) Stop: 07/08/17 17:44 Sodium Chloride (Normal Saline -) 1,000 mls @ 125 mls/hr IV ASDIR [facility] Last Admin: 07/05/17 17:59 Dose: 125 mls/hr Lorazepam (Ativan Injection -) 1 mg IVPUSH Q8H PRN PRN Reason: ANXIETY Metoprolol Tartrate (Lopressor -) 12.5 mg PO BID [facility] Last Admin: 07/05/17 22:04 Dose: 12.5 mg Ondansetron HCl (Zofran Injection) 4 mg IVPUSH Q6H PRN PRN Reason: NAUSEA Pantoprazole Sodium (Protonix Iv) 40 mg IVPUSH DAILY [facility] Thiamine HCl (Vitamin B1 -) 100 mg PO DAILY [facility] Vital Signs Period Temp Pulse Resp BP Sys/Sharma Pulse Ox Last 24 Hr 97.3 F-98.5 F 67-86 17-21 102-170/58-87 97-100 Imaging - Results Chest X-ray: Report Reviewed Cat Scan: Report Reviewed Ultrasound: Report Reviewed Problem List - Problems (1) Acute pancreatitis Code(s): K85.90 - ACUTE PANCREATITIS WITHOUT NECROSIS OR INFECTION, UNSP Qualifiers: Pancreatitis type: alcohol induced Acute pancreatitis complication: unspecified Qualified Code(s): K85.20 - Alcohol induced acute pancreatitis without necrosis or infection (2) Abdominal pain Code(s): R10.9 - UNSPECIFIED ABDOMINAL PAIN Qualifiers: Abdominal location: generalized Qualified Code(s): R10.84 - Generalized abdominal pain (3) Acute renal failure Code(s): N17.9 - ACUTE KIDNEY FAILURE, UNSPECIFIED Qualifiers: Acute renal failure type: unspecified Qualified Code(s): N17.9 - Acute kidney failure, unspecified (4) Alcohol dependence with uncomplicated withdrawal Code(s): F10.230 - ALCOHOL DEPENDENCE WITH WITHDRAWAL, UNCOMPLICATED (5) Anemia Code(s): D64.9 - ANEMIA, UNSPECIFIED (6) Atypical chest pain Code(s): R07.89 - OTHER CHEST PAIN (7) Elevated lipase Code(s): R74.8 - ABNORMAL LEVELS OF OTHER SERUM ENZYMES (8) Epigastric abdominal pain Code(s): R10.13 - EPIGASTRIC PAIN (9) GERD (gastroesophageal reflux disease) Code(s): K21.9 - GASTRO-ESOPHAGEAL REFLUX DISEASE WITHOUT ESOPHAGITIS Qualifiers: Esophagitis presence: without esophagitis Qualified Code(s): K21.9 - Gastro -esophageal reflux disease without esophagitis (10) Hyperkalemia Code(s): E87.5 - HYPERKALEMIA (11) Pancreatitis Code(s): K85.90 - ACUTE PANCREATITIS WITHOUT NECROSIS OR INFECTION, UNSP Qualifiers: Chronicity: acute Pancreatitis type: unspecified pancreatitis type Acute pancreatitis complication: unspecified Qualified Code(s): K85.90 - Acute pancreatitis without necrosis or infection, unspecified (12) Vomiting Code(s): R11.10 - VOMITING, UNSPECIFIED Qualifiers: Vomiting type: unspecified Vomiting Intractability: intractable Nausea presence: with nausea Qualified Code(s): R11.2 - Nausea with vomiting, unspecified (13) HTN (hypertension) Code(s): I10 - ESSENTIAL (PRIMARY) HYPERTENSION Assessment/Plan 62yow with a PMH of NIDDM,HTN, HLD, A-fib, GERD, and ETOH abuse who presents to the ER with c/o abdominal pain, n/v, headache and poor po intake x 4days found to have acute ETOH pancreatitis ccb acute on chronic renal failure pre renal (FeNa 0.84%) d/t poor po intake, hyperkalemia and UTI. Plan: -Continue IVF NS @125cc/h -Monitor and replete Ca -NPO for now -Trend lipase and LFTs -Monitor UOP and BMP -Manage hyperkalemia medically -O2 support as needed for O2 sat>92% -Pain management -AntiHTN meds held d/t c/f sepsis; hydralazine prn for SBP>180 -CIWA protocol; PRN benzos for ETOH withdrawal -GI and DVT prophylaxis BLANCA [facility] time 35mins
[2017-07-06] MEDS: chlordiazePOXIDE HCL 25 MG CAPSULE PO SCH ×3 (05:40→22:17)
[2017-07-06] MEDS ORDERED: ACETAMINOPHEN 1000 MG/100 ML VIAL (NON FORMULARY) IVPB PRN (05:47)
[2017-07-06] MEDS: SODIUM CHLORIDE 1,000 ML IV SCH ×2 (06:47→18:43)
[2017-07-06 07:07] LABS: BASO % 0.2 % (0-2.0); EOS % 0.5 % (0-4.5); HEMATOCRIT 29.9 % (32.4-45.2); HEMOGLOBIN 9.7 GM/dL (10.7-15.3); LYMPH % 10.2 % (8-40); MCH 34.1 pg (25.7-33.7); MCHC 32.3 g/dl (32.0-36.0); MEAN CELL VOLUME 105.4 fl (80-96); MEAN PLT VOLUME 9.9 fl (7.5-11.1); MONO % 9.9 % (3.8-10.2); NEUT % 79.2 % (42.8-82.8); PLATELET COUNT 79 K/MM3 (134-434); RBC 2.84 M/mm3 (3.60-5.2); RDW 13.6 % (11.6-15.6); WHITE BLOOD COUNT 5.5 K/mm3 (4.0-10.0)
[2017-07-06 08:01] LABS: ALBUMIN 2.8 g/dl (3.4-5.0); ANION GAP 17 (8-16); BLOOD UREA NITROGEN 60 mg/dL (7-18); CALCIUM 7.4 mg/dL (8.5-10.1); CHLORIDE 108 mmol/L (98-107); CO2 15 mmol/L (21-32); GLUCOSE,RANDOM 94 mg/dL (74-106); POTASSIUM 4.9 mmol/L (3.5-5.1); SODIUM 140 mmol/L (136-145)
[2017-07-06 08:09] LABS: ALK PHOS 76 U/L (45-117); BILIRUBIN,TOTAL 0.3 mg/dL (0.2-1.0); CREATININE 3.3 mg/dL (0.55-1.02); SGOT/AST 68 U/L (15-37); SGPT/ALT 33 U/L (12-78); TOT PROT 5.9 g/dl (6.4-8.2)
[2017-07-06 08:13] LABS: AMYLASE 1104 U/L (25-115); LIPASE 14713 U/L (73-393)
--- NOTE | 2017-07-06 09:23 | PN ---
Physical Exam: SUBJECTIVE: Patient seen and examined OBJECTIVE: Vital Signs Period Temp Pulse Resp BP Sys/Sharma Pulse Ox Last 24 Hr 97.3 F-98.5 F 66-88 16-21 102-173/58-87 97-100 GENERAL: The patient is awake, alert, and fully oriented, in no acute distress. HEAD: Normal with no signs of trauma. EYES: PERRL, extraocular movements intact, sclera anicteric, conjunctiva clear. No ptosis. ENT: Ears normal, nares patent, oropharynx clear without exudates, moist mucous membranes. NECK: Trachea midline, full range of motion, supple. LUNGS: Breath sounds equal, clear to auscultation bilaterally, no wheezes, no crackles, no accessory muscle use. HEART: Regular rate and rhythm, S1, S2 without murmur, rub or gallop. ABDOMEN: Soft, nontender, nondistended, normoactive bowel sounds, no guarding, no rebound, no hepatosplenomegaly, no masses. EXTREMITIES: 2+ pulses, warm, well-perfused, no edema. NEUROLOGICAL: Cranial nerves II through XII grossly intact. Normal speech, gait not observed. PSYCH: Normal mood, normal affect. SKIN: Warm, dry, normal turgor, no rashes or lesions noted Laboratory Results - last 24 hr 07/05/17 07/05/17 07/05/17 10:11 11:10 11:10 WBC 6.8 D RBC 3.43 L D Hgb 11.7 D Hct 36.4 D MCV 106.2 H MCH 34.2 H MCHC 32.2 RDW 13.9 Plt Count 131 L D MPV 10.6 D Neutrophils % 79.9 D Lymphocytes % 13.3 Monocytes % 6.3 Eosinophils % 0.0 D Basophils % 0.5 PT with INR INR Sodium Cancelled Potassium Cancelled Chloride Cancelled Carbon Dioxide Cancelled Anion Gap Cancelled BUN Cancelled Creatinine Cancelled Creat Clearance w eGFR Cancelled Random Glucose Cancelled Lactic Acid Calcium Cancelled Total Bilirubin Cancelled AST Cancelled ALT Cancelled Alkaline Phosphatase Cancelled Creatine Kinase Cancelled Troponin I Cancelled Total Protein Cancelled Albumin Cancelled Total Amylase Lipase Cancelled Urine Color Yellow Urine Appearance Cloudy Urine pH 5.0 Ur Specific [place] 1.012 Urine Protein 2+ H Urine Glucose (UA) Negative Urine Ketones 2+ H Urine Blood 1+ H Urine Nitrite Negative Urine Bilirubin Negative Urine Urobilinogen Negative Ur Leukocyte Esterase 3+ H Urine WBC (Auto) 17 Urine RBC (Auto) No Result Required. Ur Epithelial Cells Rare Urine Bacteria Rare Hyaline Casts 2 Ur Random Sodium Ur Random Potassium Ur Random Chloride Urine Creatinine Blood Type Antibody Screen 07/05/17 07/05/17 07/05/17 11:10 11:10 13:20 WBC RBC Hgb Hct MCV MCH MCHC RDW Plt Count MPV Neutrophils % Lymphocytes % Monocytes % Eosinophils % Basophils % PT with INR 9.60 L INR 0.85 L Sodium 133 L Potassium 7.1 H* Chloride 96 L Carbon Dioxide 13 L Anion Gap 24 H BUN 76 H Creatinine 4.9 H Creat Clearance w eGFR 8.95 Random Glucose 139 H Lactic Acid Calcium 7.6 L Total Bilirubin 0.7 D AST 102 H ALT 48 Alkaline Phosphatase 102 Creatine Kinase 100 Troponin I < 0.02 Total Protein 7.6 Albumin 3.5 Total Amylase Lipase 48815 H Urine Color Urine Appearance Urine pH Ur Specific [place] Urine Protein Urine Glucose (UA) Urine Ketones Urine Blood Urine Nitrite Urine Bilirubin Urine Urobilinogen Ur Leukocyte Esterase Urine WBC (Auto) Urine RBC (Auto) Ur Epithelial Cells Urine Bacteria Hyaline Casts Ur Random Sodium Ur Random Potassium Ur Random Chloride Urine Creatinine Blood Type Cancelled Antibody Screen Cancelled 07/05/17 07/05/17 07/05/17 16:33 16:33 17:45 WBC RBC Hgb Hct MCV MCH MCHC RDW Plt Count MPV Neutrophils % Lymphocytes % Monocytes % Eosinophils % Basophils % PT with INR INR Sodium 136 Potassium 5.5 H Chloride 103 Carbon Dioxide 15 L Anion Gap 18 H BUN 70 H Creatinine 4.8 H Creat Clearance w eGFR Random Glucose 200 H Lactic Acid Calcium 6.9 L* Total Bilirubin AST ALT Alkaline Phosphatase Creatine Kinase Troponin I Total Protein Albumin Total Amylase Lipase Urine Color Urine Appearance Urine pH Ur Specific [place] Urine Protein Urine Glucose (UA) Urine Ketones Urine Blood Urine Nitrite Urine Bilirubin Urine Urobilinogen Ur Leukocyte Esterase Urine WBC (Auto) Urine RBC (Auto) Ur Epithelial Cells Urine Bacteria Hyaline Casts Ur Random Sodium 36 Ur Random Potassium 30.0 Ur Random Chloride < 10 Urine Creatinine 152.0 Blood Type Antibody Screen 07/05/17 07/06/17 07/06/17 17:50 06:45 06:45 WBC 5.5 RBC 2.84 L Hgb 9.7 L D Hct 29.9 L D MCV 105.4 H MCH 34.1 H MCHC 32.3 RDW 13.6 Plt Count 79 L D MPV 9.9 Neutrophils % 79.2 Lymphocytes % 10.2 D Monocytes % 9.9 Eosinophils % 0.5 D Basophils % 0.2 PT with INR INR Sodium 140 Potassium 4.9 Chloride 108 H Carbon Dioxide 15 L Anion Gap 17 H BUN 60 H Creatinine 3.3 H Creat Clearance w eGFR 14.12 Random Glucose 94 Lactic Acid 1.0 Calcium 7.4 L Total Bilirubin 0.3 D AST 68 H ALT 33 Alkaline Phosphatase 76 Creatine Kinase Troponin I Total Protein 5.9 L Albumin 2.8 L Total Amylase 1104 H Lipase 73121 H Urine Color Urine Appearance Urine pH Ur Specific [place] Urine Protein Urine Glucose (UA) Urine Ketones Urine Blood Urine Nitrite Urine Bilirubin Urine Urobilinogen Ur Leukocyte Esterase Urine WBC (Auto) Urine RBC (Auto) Ur Epithelial Cells Urine Bacteria Hyaline Casts Ur Random Sodium Ur Random Potassium Ur Random Chloride Urine Creatinine Blood Type Antibody Screen Active Medications Generic Name Dose Route Start Last Admin Trade Name Freq PRN Reason Stop Dose Admin Acetaminophen 1,000 mg 07/06/17 05:47 07/06/17 06:40 Ofirmev Injection - IVPB 1,000 mg Q6H PRN Administration PAIN LEVEL 1-5 Chlordiazepoxide HCl 50 mg 07/05/17 17:00 07/06/17 05:40 Librium - PO 07/06/17 11:01 50 mg [id number] YONNY Administration Chlordiazepoxide HCl 25 mg 07/06/17 17:00 Librium - PO 07/07/17 11:01 [id number] YONNY Chlordiazepoxide HCl 15 mg 07/07/17 17:00 Librium - PO 07/08/17 11:01 [id number] YONNY Chlordiazepoxide HCl 25 mg 07/05/17 17:45 Librium - PO 07/08/17 17:44 Q4H PRN WITHDRAWAL(CONT SUBST) Sodium Chloride 1,000 mls @ 125 mls/hr 07/05/17 17:45 07/06/17 06:47 Normal Saline - IV 125 mls/hr ASDIR YONNY Administration Lorazepam 1 mg 07/05/17 17:45 Ativan Injection - IVPUSH Q8H PRN ANXIETY Metoprolol Tartrate 12.5 mg 07/05/17 22:00 07/05/17 22:04 Lopressor - PO 12.5 mg BID YONNY Administration Ondansetron HCl 4 mg 07/05/17 17:45 Zofran Injection IVPUSH Q6H PRN NAUSEA Pantoprazole Sodium 40 mg 07/06/17 10:00 Protonix Iv IVPUSH DAILY [facility] Thiamine HCl 100 mg 07/06/17 10:00 Vitamin B1 - PO DAILY [facility] ASSESSMENT/PLAN:
--- NOTE | 2017-07-06 10:05 | HP ---
Admitting History and Physical - Primary Care Physician PCP: Anirudh Cross - Admission Chief Complaint: abdominal pain History of Present Illness: 62 yrs old female admitted in ICU for acute renal failure and hyperkalemia, pancreatitis Pt is sleepy-- on Librium protocol Stated that she had sharp abdominal pain and nausea for 2 days-- drinks 2 shots of vodka daily-- does not drink much water and eat much was taking Advil for the pain History Source: Patient Limitations to Obtaining History: No Limitations - Past Medical History Cardiovascular: Yes: AFIB (-paroxysmal), Aortic Insufficiency, HTN, Hyperlipdemia, Mitral Insufficiency, Murmur, Pulmonary Hypertension Gastrointestinal: Yes: GERD ENT: Yes: Other (early cataracts) Endocrine: Yes: Diabetes Mellitus (NIDDM- diet controlled, diagnosed > 10 years ago; self d/c'd metformin due to weight loss) - Past Surgical History Past Surgical History: Yes: None - Smoking History Smoking history: Never smoked Have you smoked in the past 12 months: No Aproximately how many cigarettes per day: 0 If you are a former smoker, when did you quit?: 30 years ago - Alcohol/Substance Use Hx Alcohol Use: No History of Substance Use: reports: None - Social History ADL: Independent 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 History of Recent Travel: No Home Medications - Allergies Allergies/Adverse Reactions: Allergies Allergy/AdvReac Type Severity Reaction Status Date / Time No Known Allergies Allergy Verified 07/05/17 09:57 - Home Medications Home Medications: Ambulatory Orders Metoprolol Tartrate [Lopressor -] 12.5 mg PO BID #60 tablet 07/10/15 Atorvastatin Ca [Lipitor] 20 mg PO HS 06/05/16 Valsartan 40 mg PO DAILY 12/22/16 Ranitidine [Zantac -] 150 mg PO BID #60 tablet 12/30/16 Thiamine HCl [Vitamin B1 -] 100 mg PO DAILY #30 tablet 12/30/16 Magnesium Oxide [Mag-Ox -] 400 mg PO DAILY 07/05/17 Family Disease History - Family Disease History Family Disease History: Heart Disease: Father (50 ), CA: Mother (lung 72 ), Other: Sister (? uterine Ca-58, alive) Review of Systems - Review of Systems Constitutional: reports: Loss of Appetite. denies: Chills, Fever Cardiovascular: reports: Palpitations. denies: Chest Pain Gastrointestinal: reports: Abdominal Pain, Nausea Physical Examination Vital Signs: Vital Signs Temperature 98.2 F 07/06/17 06:00 Pulse Rate 88 07/06/17 08:00 Respiratory Rate 20 07/06/17 08:00 Blood Pressure 160/65 07/06/17 08:00 O2 Sat by Pulse Oximetry (%) 99 07/06/17 02:21 Constitutional: Yes: No Distress Cardiovascular: Yes: Regular Rate and Rhythm Respiratory: Yes: CTA Bilaterally Gastrointestinal: Yes: Normal Bowel Sounds, Soft, Tenderness, Tenderness, Epigastrium Edema: No Labs: CBC, BMP 07/06/17 06:45 07/06/17 06:45 Imaging - Results Chest X-ray: Image Reviewed (no infiltrate) Cat Scan: Report Reviewed Ultrasound: Report Reviewed EKG: Image Reviewed (NSR) Problem List - Problems (1) Acute pancreatitis Code(s): K85.90 - ACUTE PANCREATITIS WITHOUT NECROSIS OR INFECTION, UNSP Qualifiers: Pancreatitis type: alcohol induced Acute pancreatitis complication: unspecified Qualified Code(s): K85.20 - Alcohol induced acute pancreatitis without necrosis or infection (2) Abdominal pain Code(s): R10.9 - UNSPECIFIED ABDOMINAL PAIN Qualifiers: Abdominal location: generalized Qualified Code(s): R10.84 - Generalized abdominal pain (3) Acute renal failure Code(s): N17.9 - ACUTE KIDNEY FAILURE, UNSPECIFIED Qualifiers: Acute renal failure type: unspecified Qualified Code(s): N17.9 - Acute kidney failure, unspecified (4) Alcohol dependence with uncomplicated withdrawal Code(s): F10.230 - ALCOHOL DEPENDENCE WITH WITHDRAWAL, UNCOMPLICATED Assessment/Plan PLAN Alcoholic pancreatitis check triglyceride level CT abd -- pancreatitis, fatty liver IV fluids NPO Zofran as needed pain control Librium protocol for withdrawal Ativan PRN GI eval Renal eval noted spoke with ICU staff and resident DVT prophylaxis -- Heparin sc Time spent -- 30 min
--- NOTE | 2017-07-06 11:36 | PN ---
Physical Exam: SUBJECTIVE: Patient seen and examined by me at bedside. Patient agitated today likely from alcohol withdrawals. Patient states the abdominal pain has improved but still has some pain. Otherwise, patient denies fever, chills, nausea, vomiting, chest pain, palpitations, shortness of breath, dysuria, hematuria. OBJECTIVE: Vital Signs Period Temp Pulse Resp BP Sys/Sharma Pulse Ox Last 24 Hr 97.7 F-98.5 F 66-100 16-21 102-173/58-87 97-99 GENERAL: Awake, alert, drowsy, in no acute distress. EYES: Pupils equal, round and reactive to light, extraocular movements intact, sclera anicteric, conjunctiva clear. EARS, NOSE, THROAT: Moist mucous membranes. LUNGS: CTA, No wheezes, and no crackles. No accessory muscle use. HEART: RRR, normal S1 and S2 without murmur ABDOMEN: Soft with diffuse tenderness upon palpation. Normoactive bowel sounds. No hepatomegaly LOWER EXTREMITIES: 2No peripheral edema. Laboratory Results - last 24 hr 07/05/17 07/05/17 07/05/17 10:11 11:10 11:10 WBC RBC Hgb Hct MCV MCH MCHC RDW Plt Count MPV Neutrophils % Lymphocytes % Monocytes % Eosinophils % Basophils % PT with INR 9.60 L INR 0.85 L Sodium Cancelled Potassium Cancelled Chloride Cancelled Carbon Dioxide Cancelled Anion Gap Cancelled BUN Cancelled Creatinine Cancelled Creat Clearance w eGFR Cancelled Random Glucose Cancelled Lactic Acid Calcium Cancelled Total Bilirubin Cancelled AST Cancelled ALT Cancelled Alkaline Phosphatase Cancelled Creatine Kinase Cancelled Troponin I Cancelled Total Protein Cancelled Albumin Cancelled Total Amylase Lipase Cancelled Urine Color Yellow Urine Appearance Cloudy Urine pH 5.0 Ur Specific [place] 1.012 Urine Protein 2+ H Urine Glucose (UA) Negative Urine Ketones 2+ H Urine Blood 1+ H Urine Nitrite Negative Urine Bilirubin Negative Urine Urobilinogen Negative Ur Leukocyte Esterase 3+ H Urine WBC (Auto) 17 Urine RBC (Auto) No Result Required. Ur Epithelial Cells Rare Urine Bacteria Rare Hyaline Casts 2 Ur Random Sodium Ur Random Potassium Ur Random Chloride Urine Creatinine 07/05/17 07/05/17 07/05/17 13:20 16:33 16:33 WBC RBC Hgb Hct MCV MCH MCHC RDW Plt Count MPV Neutrophils % Lymphocytes % Monocytes % Eosinophils % Basophils % PT with INR INR Sodium 133 L Potassium 7.1 H* Chloride 96 L Carbon Dioxide 13 L Anion Gap 24 H BUN 76 H Creatinine 4.9 H Creat Clearance w eGFR 8.95 Random Glucose 139 H Lactic Acid Calcium 7.6 L Total Bilirubin 0.7 D AST 102 H ALT 48 Alkaline Phosphatase 102 Creatine Kinase 100 Troponin I < 0.02 Total Protein 7.6 Albumin 3.5 Total Amylase Lipase 28070 H Urine Color Urine Appearance Urine pH Ur Specific [place] Urine Protein Urine Glucose (UA) Urine Ketones Urine Blood Urine Nitrite Urine Bilirubin Urine Urobilinogen Ur Leukocyte Esterase Urine WBC (Auto) Urine RBC (Auto) Ur Epithelial Cells Urine Bacteria Hyaline Casts Ur Random Sodium 36 Ur Random Potassium 30.0 Ur Random Chloride < 10 Urine Creatinine 152.0 07/05/17 07/05/17 07/06/17 17:45 17:50 06:45 WBC 5.5 RBC 2.84 L Hgb 9.7 L D Hct 29.9 L D MCV 105.4 H MCH 34.1 H MCHC 32.3 RDW 13.6 Plt Count 79 L D MPV 9.9 Neutrophils % 79.2 Lymphocytes % 10.2 D Monocytes % 9.9 Eosinophils % 0.5 D Basophils % 0.2 PT with INR INR Sodium 136 Potassium 5.5 H Chloride 103 Carbon Dioxide 15 L Anion Gap 18 H BUN 70 H Creatinine 4.8 H Creat Clearance w eGFR Random Glucose 200 H Lactic Acid 1.0 Calcium 6.9 L* Total Bilirubin AST ALT Alkaline Phosphatase Creatine Kinase Troponin I Total Protein Albumin Total Amylase Lipase Urine Color Urine Appearance Urine pH Ur Specific [place] Urine Protein Urine Glucose (UA) Urine Ketones Urine Blood Urine Nitrite Urine Bilirubin Urine Urobilinogen Ur Leukocyte Esterase Urine WBC (Auto) Urine RBC (Auto) Ur Epithelial Cells Urine Bacteria Hyaline Casts Ur Random Sodium Ur Random Potassium Ur Random Chloride Urine Creatinine 07/06/17 06:45 WBC RBC Hgb Hct MCV MCH MCHC RDW Plt Count MPV Neutrophils % Lymphocytes % Monocytes % Eosinophils % Basophils % PT with INR INR Sodium 140 Potassium 4.9 Chloride 108 H Carbon Dioxide 15 L Anion Gap 17 H BUN 60 H Creatinine 3.3 H Creat Clearance w eGFR 14.12 Random Glucose 94 Lactic Acid Calcium 7.4 L Total Bilirubin 0.3 D AST 68 H ALT 33 Alkaline Phosphatase 76 Creatine Kinase Troponin I Total Protein 5.9 L Albumin 2.8 L Total Amylase 1104 H Lipase 64016 H Urine Color Urine Appearance Urine pH Ur Specific [place] Urine Protein Urine Glucose (UA) Urine Ketones Urine Blood Urine Nitrite Urine Bilirubin Urine Urobilinogen Ur Leukocyte Esterase Urine WBC (Auto) Urine RBC (Auto) Ur Epithelial Cells Urine Bacteria Hyaline Casts Ur Random Sodium Ur Random Potassium Ur Random Chloride Urine Creatinine Active Medications Generic Name Dose Route Start Last Admin Trade Name Freq PRN Reason Stop Dose Admin Acetaminophen 1,000 mg 07/06/17 05:47 07/06/17 06:40 Ofirmev Injection - IVPB 1,000 mg Q6H PRN Administration PAIN LEVEL 1-5 Chlordiazepoxide HCl 25 mg 07/06/17 17:00 Librium - PO 07/07/17 11:01 [id number] YONNY Chlordiazepoxide HCl 15 mg 07/07/17 17:00 Librium - PO 07/08/17 11:01 [id number] YONNY Chlordiazepoxide HCl 25 mg 07/05/17 17:45 Librium - PO 07/08/17 17:44 Q4H PRN WITHDRAWAL(CONT SUBST) Heparin Sodium (Porcine) 5,000 unit 07/06/17 22:00 Heparin - SQ BID [facility] Sodium Chloride 1,000 mls @ 125 mls/hr 07/05/17 17:45 07/06/17 06:47 Normal Saline - IV 125 mls/hr ASDIR YONNY Administration Lorazepam 1 mg 07/05/17 17:45 Ativan Injection - IVPUSH Q8H PRN ANXIETY Metoprolol Tartrate 12.5 mg 07/05/17 22:00 07/05/17 22:04 Lopressor - PO 12.5 mg BID YONNY Administration Ondansetron HCl 4 mg 07/05/17 17:45 Zofran Injection IVPUSH Q6H PRN NAUSEA Pantoprazole Sodium 40 mg 07/06/17 10:00 Protonix Iv IVPUSH DAILY [facility] Thiamine HCl 100 mg 07/06/17 10:00 Vitamin B1 - PO DAILY [facility] IMPRESSION: 1. SARA 2. CKD 3. HTN 4. HLD 5. Atrial Fibrillation 6. NIDDMII 7. GERD 8. ETOH abuse 9. Acute Pancreatitis 10. Hyperkalemia 11. Anemia 12. Thrombocytopenia PLAN: -FeNa 0.8% consistent with pre-renal. -BUN/Creatinine improving -Continue IV NS @125mls/hr -Renal/bladder US negative for any pathology -Hyperkalemia improved. Continue to monitor Potassium -Continue to Hold Valsartan -Avoid nephrotoxic medications -Low potassium diet -Continue Librium protocol, as per Primary and ICU team -Continue thiamine -Will need Iron studies but patient likely has dilutional -Continue daily BMP and Mg Rochelle Fenton [id number] Visit type - Emergency Visit Emergency Visit: Yes ED Registration Date: 07/05/17 Care time: The patient presented to the Emergency Department on the above date and was hospitalized for further evaluation of their emergent condition. - New Patient This patient is new to me today: No - Critical Care Critical Care patient: Yes Total Critical Care Time (in minutes): 45 Critical Care Statement: The care of this patient involved high complexity decision making to prevent further life threatening deterioration of the patient 's condition and/or to evaluate & treat vital organ system(s) failure or risk of failure.
[2017-07-06] MEDS ORDERED: LACTATED RINGERS SOLUTION 1,000 ML/1,000 ML INFUS.BAG IV SCH ×2 (12:15→15:15)
[2017-07-06] MEDS ORDERED: CALCIUM GLUCONATE 10% - 1,000 MG/10 ML VIAL IVPUSH ONE (12:55)
[2017-07-06] MEDS: METOPROLOL TARTRATE 25 MG TABLET (FP) PO SCH ×2 (13:20→21:03)
[2017-07-06] MEDS: PANTOPRAZOLE SODIUM 40 MG VIAL IVPUSH SCH (13:20)
[2017-07-06] MEDS: THIAMINE HCL 100 MG TABLET (FP) PO SCH (13:21)
--- NOTE | 2017-07-06 13:52 | PN ---
Teaching Attending Note Name of Resident: Rochelle Fenton (Nephrology) ATTENDING PHYSICIAN STATEMENT I saw and evaluated the patient. I reviewed the resident's note and discussed the case with the resident. I agree with the resident's findings and plan as documented. Nephrology Pt seen and examined. She feels that the abdominal pain is improved. She says she does have appetite today. She denies chest pain. Current Medications Generic Name Dose Route Start Last Admin Trade Name Freq PRN Reason Stop Dose Admin Acetaminophen 1,000 mg 07/06/17 05:47 07/06/17 06:40 Ofirmev Injection - IVPB 1,000 mg Q6H PRN Administration PAIN LEVEL 1-5 Chlordiazepoxide HCl 25 mg 07/06/17 17:00 Librium - PO 07/07/17 11:01 [id number] YONNY Chlordiazepoxide HCl 15 mg 07/07/17 17:00 Librium - PO 07/08/17 11:01 [id number] YONNY Chlordiazepoxide HCl 25 mg 07/05/17 17:45 Librium - PO 07/08/17 17:44 Q4H PRN WITHDRAWAL(CONT SUBST) Heparin Sodium (Porcine) 5,000 unit 07/06/17 22:00 Heparin - SQ BID YONNY Sodium Chloride 1,000 mls @ 125 mls/hr 07/05/17 17:45 07/06/17 06:47 Normal Saline - IV 125 mls/hr ASDIR YONNY Administration Lactated Ringer's 1,000 ml in 1,000 mls @ 125 mls/hr 07/06/17 12:15 07/06/17 13:20 Lactated Ringers Solution IV 125 mls/hr ASDIR YONYN Administration Lorazepam 1 mg 07/05/17 17:45 Ativan Injection - IVPUSH Q8H PRN ANXIETY Metoprolol Tartrate 12.5 mg 07/05/17 22:00 07/06/17 13:20 Lopressor - PO 12.5 mg BID YONNY Administration Ondansetron HCl 4 mg 07/05/17 17:45 Zofran Injection IVPUSH Q6H PRN NAUSEA Pantoprazole Sodium 40 mg 07/06/17 10:00 07/06/17 13:20 Protonix Iv IVPUSH 40 mg DAILY YONNY Administration Thiamine HCl 100 mg 07/06/17 10:00 07/06/17 13:21 Vitamin B1 - PO 100 mg DAILY YONNY Administration Laboratory Tests 07/05/17 07/06/17 07/06/17 11:10 06:45 06:45 Hgb 11.7 D 9.7 L D Sodium 140 Potassium 4.9 BUN 60 H Creatinine 3.3 H cardio s1s2 pulm clear GI soft, tender ext neg edema neuro awake and alert skin neg rash Impression 1. SARA 2. hyperkalemia 3. hx etoh use 4. pancreatitis 5. abdominal pain 6. nausea 7. anemia 8. HTN 9. metabolic acidosis Plan - potassium is improved - can use LR and monitor lytes - discussed etoh abuse with pt - hold diovan for now - will follow Dr Torres
[2017-07-06 14:03] LABS: TRIGLYCERIDES 125 mg/dL (35-160)
--- NOTE | 2017-07-06 15:25 | CON.GI ---
Consult Consult Specialty:: GI Referred by:: Dr. Trish Conteh Reason for Consultation:: pancreatitis - History of Present Illness Chief Complaint: I was having pain in my stomach History of Present Illness: 62F admitted for evaluation of abdominal pain. The patient is vague about this and tells me that the abdominal pain started two days ago. She came to the ER yesterday for evaluation of this. She was noted to have an elevated WBC, abdominal pain and non-contrast CT scan of the abdomen suggested acute pancreatitis. Ms. Sauceda drinks vodka on a daily basis. She states that it is usually three-four smirnoff vodka sample bottle per day but can be more on the weeekends. She denies ever having had similar episodes in the past however she was seen at [facility] 12/[address] Villegas for acute pancreatitis. She was counseled regarding alcohol cessation at that time. She continues to have abdominal pain. In review of [facility] she had 2 liters on NS in the ER yesterday and was maintained on NS at 125cc/hr while admitted to the ICU. this has been changed to lactated ringers today. There has been no vomiting. She describes loose BM's. There has been no melena/rectal bleeding. She denies any medical problems yet her chart lists otherwise. - History Source History Provided By: Patient, Medical Record Limitations to Obtaining History: Poor Historian - Past Medical History Cardio/Vascular: Yes: AFIB (-paroxysmal), Aortic Insufficiency, HTN, Hyperlipdemia, Mitral Insufficiency, Murmur, Pulmonary Hypertension Gastrointestinal: Yes: GERD ENT: Yes: Other (early cataracts) Endocrine: Yes: Diabetes Mellitus (NIDDM- diet controlled, diagnosed > 10 years ago; self d/c'd metformin due to weight loss) - Past Surgical History Past Surgical History: Yes: None - Alcohol/Substance Use Hx Alcohol Use: Yes (daily as in HPI) History of Substance Use: reports: None - Smoking History Smoking history: Never smoked Have you smoked in the past 12 months: No Aproximately how many cigarettes per day: 0 If you are a former smoker, when did you quit?: 30 years ago - Social History ADL: Independent 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 Place of : Other ([place]) History of Recent Travel: No Home Medications - Allergies Allergies/Adverse Reactions: Allergies Allergy/AdvReac Type Severity Reaction Status Date / Time No Known Allergies Allergy Verified 07/05/17 09:57 - Home Medications Home Medications: Ambulatory Orders Metoprolol Tartrate [Lopressor -] 12.5 mg PO BID #60 tablet 07/10/15 Atorvastatin Ca [Lipitor] 20 mg PO HS 06/05/16 Valsartan 40 mg PO DAILY 12/22/16 Ranitidine [Zantac -] 150 mg PO BID #60 tablet 12/30/16 Thiamine HCl [Vitamin B1 -] 100 mg PO DAILY #30 tablet 12/30/16 Magnesium Oxide [Mag-Ox -] 400 mg PO DAILY 07/05/17 Family Disease History - Family Disease History Family Disease History: Heart Disease: Father (: 50: [place]), CA: Mother (: 72, lung ca), Other: Brother (1, healthy), Sister (1, ? uterine Ca-58, alive), Son (None), Daughter (None) Other Family History: Denies history of colorectal cancer / pancreatitis Review of Systems - Review of Systems Constitutional: denies: Unintentional Wgt. Loss Cardiovascular: denies: Chest Pain Respiratory: denies: SOB Gastrointestinal: reports: Abdominal Pain, Diarrhea, Nausea. denies: Constipation, Dysphagia, Melena, Rectal Bleeding Physical Exam-GI Vital Signs: Vital Signs Temperature 97.7 F 07/06/17 10:00 Pulse Rate 80 07/06/17 12:00 Respiratory Rate 18 07/06/17 12:00 Blood Pressure 161/64 07/06/17 12:00 O2 Sat by Pulse Oximetry (%) 99 07/06/17 02:21 Constitutional: Yes: Calm Eyes: No: Sclera Icterus Cardiovascular: Yes: Tachycardia (regular rhythm) Gastrointestinal Inspection: No: Distention ...Auscultate: Yes: Normoactive Bowel Sounds ...Palpate: Yes: Tenderness (TTP diffusely, particularly in upper abdomen) ...Percussion: No: Tympanitic Edema: No (No LE edema) Neurological: Yes: Alert, Oriented (x person, place,time) Labs: CBC, BMP 07/06/17 06:45 07/06/17 06:45 INR, PTT INR 0.85 (0.82-1.09) L 07/05/17 11:10 Problem List - Problems (1) Acute pancreatitis Assessment/Plan: Suspected alcohol induced given history and lack of elevated in liver enzymes that would be suggestive of biliary source. Triglycerides normal as well. Has had previous episode and non compliant with alcohol cessation Advise: Continuing IV hydration: increased to 200cc/hr. Caution to cardiopulmonary status Strict I's and O's NPO except meds Pain control If pain not improved within 48-[address] NG / nasoduodenal enteral feeding tube and tube feed with elemental formula Explained to Ms. Sauceda she needs to completely abstain from alcohol. I explained that this is the second time she has had pancreatitis and that pancreatitis can lead to potentially life threatening complications. She understands that alcohol precipitates this Code(s): K85.90 - ACUTE PANCREATITIS WITHOUT NECROSIS OR INFECTION, UNSP Qualifiers: Pancreatitis type: alcohol induced Acute pancreatitis complication: unspecified Qualified Code(s): K85.20 - Alcohol induced acute pancreatitis without necrosis or infection
[2017-07-06] MEDS ORDERED: PT OWN MED DRAWER 7, Y5N ONE (20:49)
[2017-07-06] MEDS: HEPARIN NA (PORCINE) 5,000 UNITS/ML 1ML VIAL SQ SCH (21:03)
[2017-07-07 06:02] LABS: HEMATOCRIT 26.9 % (32.4-45.2); MCH 34.9 pg (25.7-33.7); MCHC 33.7 g/dl (32.0-36.0); MEAN CELL VOLUME 103.7 fl (80-96); MEAN PLT VOLUME 9.9 fl (7.5-11.1); PLATELET COUNT 89 K/MM3 (134-434); RBC 2.59 M/mm3 (3.60-5.2); RDW 13.7 % (11.6-15.6); WHITE BLOOD COUNT 6.5 K/mm3 (4.0-10.0)
[2017-07-07] MEDS: chlordiazePOXIDE HCL 25 MG CAPSULE PO SCH ×2 (06:05→14:14)
[2017-07-07 06:06] LABS: SERUM IRON SATURATION 17 (15-55); TOTAL IRON BINDING CAPACITY 192 (250-450); UIBC 159 ug/dL (118-369)
[2017-07-07 06:30] LABS: ALBUMIN 2.4 g/dl (3.4-5.0); ANION GAP 10 (8-16); BLOOD UREA NITROGEN 37 mg/dL (7-18); CALCIUM 8.3 mg/dL (8.5-10.1); CHLORIDE 109 mmol/L (98-107); CO2 21 mmol/L (21-32); GLUCOSE,RANDOM 82 mg/dL (74-106); MAGNESIUM 1.4 mg/dL (1.8-2.4); PHOSPHOROUS 1.9 mg/dL (2.5-4.9); POTASSIUM 4.1 mmol/L (3.5-5.1); SGOT/AST 41 U/L (15-37); SODIUM 140 mmol/L (136-145)
[2017-07-07 06:32] LABS: ALK PHOS 72 U/L (45-117); BILIRUBIN,TOTAL 0.3 mg/dL (0.2-1.0); CREATININE 1.7 mg/dL (0.55-1.02); SGPT/ALT 23 U/L (12-78); TOT PROT 5.4 g/dl (6.4-8.2)
--- NOTE | 2017-07-07 07:43 | PN ---
Physical Exam: SUBJECTIVE: 24hr events: Pt was seen by GI and has continued to improve. Pt compliance better since previous day. Pt currently has minimal abdominal pain and denies any n/v/d/c, f/c, SOB, CP/ discomfort. OBJECTIVE: Vital Signs Period Temp Pulse Resp BP Sys/Sharma Pulse Ox Last 24 Hr 97.7 F-98.8 F 62-100 14-21 157-174/63-87 97-99 GENERAL: NAD, laying in bed comfortable, awake, alert HEENT: LUNGS: CTA bilaterally, no wheezes, no crackles, no accessory muscle use. HEART: RRR, S1, S2 without murmur ABDOMEN: Soft, minimal epigastric tenderness, normoactive bowel sounds, no guarding today, no rebound tenderness today, slightly tympanitic upon percussion, no hepatomegaly, no masses. EXTREMITIES: 2+ DP pulses, warm, well-perfused, no edema. NEUROLOGICAL: Nonfocal exam. Strength grossly intact, sensation grossly intact. Normal speech, gait not observed. PSYCH: Normal mood, normal affect. SKIN: Warm, dry, no rashes or lesions noted Laboratory Results - last 24 hr 07/06/17 07/06/17 07/06/17 06:45 06:45 06:45 WBC RBC Hgb Hct MCV MCH MCHC RDW Plt Count MPV Sodium 140 Potassium 4.9 Chloride 108 H Carbon Dioxide 15 L Anion Gap 17 H BUN 60 H Creatinine 3.3 H Creat Clearance w eGFR 14.12 Random Glucose 94 Calcium 7.4 L Phosphorus Magnesium Iron 33 TIBC 192 L Iron Saturation 17 Ferritin 668.150 H Cancelled Total Bilirubin 0.3 D AST 68 H ALT 33 Alkaline Phosphatase 76 Total Protein 5.9 L Albumin 2.8 L Triglycerides 125 Total Amylase 1104 H Lipase 37564 H 07/06/17 07/07/17 07/07/17 06:45 05:07 05:07 WBC 6.5 RBC 2.59 L Hgb 9.0 L Hct 26.9 L MCV 103.7 H MCH 34.9 H MCHC 33.7 RDW 13.7 Plt Count 89 L MPV 9.9 Sodium 140 Potassium 4.1 Chloride 109 H Carbon Dioxide 21 Anion Gap 10 BUN 37 H Creatinine 1.7 H Creat Clearance w eGFR 30.36 Random Glucose 82 Calcium 8.3 L Phosphorus 1.9 L Magnesium 1.4 L Iron TIBC Iron Saturation Ferritin Total Bilirubin 0.3 AST 41 H ALT 23 Alkaline Phosphatase 72 Total Protein 5.4 L Albumin 2.4 L Triglycerides Cancelled Total Amylase Lipase Active Medications Generic Name Dose Route Start Last Admin Trade Name Freq PRN Reason Stop Dose Admin Acetaminophen 1,000 mg 07/06/17 05:47 07/06/17 06:40 Ofirmev Injection - IVPB 1,000 mg Q6H PRN Administration PAIN LEVEL 1-5 Chlordiazepoxide HCl 25 mg 07/06/17 17:00 07/07/17 06:05 Librium - PO 07/07/17 11:01 25 mg [id number] YONNY Administration Chlordiazepoxide HCl 15 mg 07/07/17 17:00 Librium - PO 07/08/17 11:01 [id number] YONNY Chlordiazepoxide HCl 25 mg 07/05/17 17:45 Librium - PO 07/08/17 17:44 Q4H PRN WITHDRAWAL(CONT SUBST) Heparin Sodium (Porcine) 5,000 unit 07/06/17 22:00 07/06/17 21:03 Heparin - SQ 5,000 unit BID YONNY Administration Sodium Chloride 1,000 mls @ 125 mls/hr 07/05/17 17:45 07/06/17 18:43 Normal Saline - IV Not Given ASDIR YONNY Lactated Ringer's 1,000 ml in 1,000 mls @ 200 mls/hr 07/06/17 15:15 07/06/17 15:00 Lactated Ringers Solution IV 200 mls/hr ASDIR YONNY Administration Lorazepam 1 mg 07/05/17 17:45 Ativan Injection - IVPUSH Q8H PRN ANXIETY Magnesium Oxide 400 mg 07/07/17 09:00 Mag-Ox - PO 07/07/17 09:01 ONCE ONE Metoprolol Tartrate 12.5 mg 07/05/17 22:00 07/06/17 21:03 Lopressor - PO 12.5 mg BID YONNY Administration Ondansetron HCl 4 mg 07/05/17 17:45 Zofran Injection IVPUSH Q6H PRN NAUSEA Pantoprazole Sodium 40 mg 07/06/17 10:00 07/06/17 13:20 Protonix Iv IVPUSH 40 mg DAILY YONNY Administration Potassium Phos/Sodium Phos 1 packet 07/07/17 09:00 Phos-Nak Packet - PO 07/07/17 09:01 ONCE ONE Thiamine HCl 100 mg 07/06/17 10:00 07/06/17 13:21 Vitamin B1 - PO 100 mg DAILY YNONY Administration ASSESSMENT/PLAN: Neuro: Neurologically intact Alcohol withdrawal --Librium protocol to continue (ends 07/08) --Ativan 1mg IVP q8h for anxiety agitation if needed --Continue to monitor --CIWA 0 currently --Continue Thiamine Respiratory: No distress Cardiovascular: HTN --Lopressor 12.5mg PO BID --Given elevation in BP persistantly can titrate up to 25mg BID if HR allows GI: Alcohol induced pancreatitis: --No alcohol level on admission; original lipase 34,740 on admission --TGs WNL --CT Abd reviewed --Decrease LR @100cc/hr --Zofran 4mg IVP q6h PRN if nauseous --GI on board (Dr. Conte) --Protonix 40mg IVP 40mg qDaily --Pt continues to improve and has minimal tenderness on exam; will upgrade diet to clears Renal: SARA --BUN/Cr improving with fluids --Continue to monitor --FeNa 0.3%; pre-renal due to third-spacing etiology in pancreatitis setting --Continue to hydrate FEN: Fluids: LR @100cc/hr Electrolyte abnormalities: Hypokalemia, HypoMg (repleted) Nutrition: Will upgrade to clears PPX: DVT - Heparin 5000 SQ TID GI - Protonix 40mg IVP qDaily Dispo: Transfer to Med-surg Case discussed with Dr. Hugo García, DO - IM PGY-1 Visit type - Emergency Visit Emergency Visit: No - New Patient This patient is new to me today: No - Critical Care Critical Care patient: Yes Total Critical Care Time (in minutes): 35 Critical Care Statement: The care of this patient involved high complexity decision making to prevent further life threatening deterioration of the patient 's condition and/or to evaluate & treat vital organ system(s) failure or risk of failure.
[2017-07-07 08:06] LABS: TRANSFERRIN 144 mg/dL (200-370)
[2017-07-07] MEDS ORDERED: NAPH,MB-DB/K PH,MBDB POWDER PACKET PO ONE (09:00)
[2017-07-07] MEDS ORDERED: MAGNESIUM OXIDE 400 MG TABLET (FP) PO ONE (09:00)
--- NOTE | 2017-07-07 09:22 | PN ---
Progress Note, Physician Chief Complaint: Awake No distress - Current Medication List Current Medications: Active Medications Acetaminophen (Ofirmev Injection -) 1,000 mg IVPB Q6H PRN PRN Reason: PAIN LEVEL 1-5 Last Admin: 07/06/17 06:40 Dose: 1,000 mg Chlordiazepoxide HCl (Librium -) 25 mg PO [id number] [facility] Stop: 07/07/17 11:01 Last Admin: 07/07/17 06:05 Dose: 25 mg Chlordiazepoxide HCl (Librium -) 15 mg PO [id number] [facility] Stop: 07/08/17 11:01 Chlordiazepoxide HCl (Librium -) 25 mg PO Q4H PRN PRN Reason: WITHDRAWAL(CONT SUBST) Stop: 07/08/17 17:44 Heparin Sodium (Porcine) (Heparin -) 5,000 unit SQ BID [facility] Last Admin: 07/06/17 21:03 Dose: 5,000 unit Sodium Chloride (Normal Saline -) 1,000 mls @ 125 mls/hr IV ASDIR [facility] Last Admin: 07/06/17 18:43 Dose: Not Given Lactated Ringer's (Lactated Ringers Solution) 1,000 ml in 1,000 mls @ 200 mls/ hr IV ASDIR [facility] Last Admin: 07/06/17 15:00 Dose: 200 mls/hr Lorazepam (Ativan Injection -) 1 mg IVPUSH Q8H PRN PRN Reason: ANXIETY Metoprolol Tartrate (Lopressor -) 12.5 mg PO BID [facility] Last Admin: 07/06/17 21:03 Dose: 12.5 mg Ondansetron HCl (Zofran Injection) 4 mg IVPUSH Q6H PRN PRN Reason: NAUSEA Pantoprazole Sodium (Protonix Iv) 40 mg IVPUSH DAILY [facility] Last Admin: 07/06/17 13:20 Dose: 40 mg Thiamine HCl (Vitamin B1 -) 100 mg PO DAILY [facility] Last Admin: 07/06/17 13:21 Dose: 100 mg - Objective Vital Signs: Vital Signs Temperature 98.8 F 07/06/17 22:00 Pulse Rate 73 07/07/17 08:00 Respiratory Rate 16 07/07/17 08:41 Blood Pressure 179/71 07/07/17 08:00 O2 Sat by Pulse Oximetry (%) 97 07/07/17 08:41 Constitutional: Yes: No Distress Cardiovascular: Yes: Regular Rate and Rhythm Respiratory: Yes: CTA Bilaterally Gastrointestinal: Yes: Normal Bowel Sounds, Soft, Tenderness (decreased). No: Distention Edema: No Labs: CBC, BMP 07/07/17 05:07 07/07/17 05:07 INR, PTT INR 0.85 (0.82-1.09) L 07/05/17 11:10 Problem List - Problems (1) Acute pancreatitis Code(s): K85.90 - ACUTE PANCREATITIS WITHOUT NECROSIS OR INFECTION, UNSP Qualifiers: Pancreatitis type: alcohol induced Acute pancreatitis complication: unspecified Qualified Code(s): K85.20 - Alcohol induced acute pancreatitis without necrosis or infection (2) Abdominal pain Code(s): R10.9 - UNSPECIFIED ABDOMINAL PAIN Qualifiers: Abdominal location: generalized Qualified Code(s): R10.84 - Generalized abdominal pain (3) Acute renal failure Code(s): N17.9 - ACUTE KIDNEY FAILURE, UNSPECIFIED Qualifiers: Acute renal failure type: unspecified Qualified Code(s): N17.9 - Acute kidney failure, unspecified (4) Alcohol dependence with uncomplicated withdrawal Code(s): F10.230 - ALCOHOL DEPENDENCE WITH WITHDRAWAL, UNCOMPLICATED Assessment/Plan PLAN Alcoholic pancreatitis CT abd -- pancreatitis, fatty liver IV fluids NPO Zofran as needed pain control Librium protocol for withdrawal Ativan PRN GI eval appreciated Renal eval noted renal function better DVT prophylaxis -- Heparin sc
[2017-07-07] MEDS: HEPARIN NA (PORCINE) 5,000 UNITS/ML 1ML VIAL SQ SCH ×2 (10:05→21:38)
[2017-07-07] MEDS: METOPROLOL TARTRATE 25 MG TABLET (FP) PO SCH ×2 (10:06→21:38)
[2017-07-07] MEDS: THIAMINE HCL 100 MG TABLET (FP) PO SCH (10:07)
[2017-07-07] MEDS: PANTOPRAZOLE SODIUM 40 MG VIAL IVPUSH SCH (10:07)
[2017-07-07] MEDS ORDERED: LACTATED RINGERS SOLUTION 1,000 ML/1,000 ML INFUS.BAG IV SCH (12:33)
--- NOTE | 2017-07-07 12:55 | PN ---
Teaching Attending Note Name of Resident: [place] ATTENDING PHYSICIAN STATEMENT I saw and evaluated the patient. I reviewed the resident's note and discussed the case with the resident. I agree with the resident's findings and plan as documented. SUBJECTIVE: Patient seen and examined in the ICU. Awake and alert. Reports abdominal pain is improving. Denies CP or SOB. Intake & Output 07/04/17 07/05/17 07/06/17 07/07/17 23:59 23:59 23:59 23:59 Intake Total 1740 2018 Output Total 200 1300 200 Balance -109 776 5440 Weight 125 lb 128 lb 5 oz 145 lb 3 oz Last Vital Signs Temp Pulse Resp BP Pulse Ox 99.3 F 67 29 H 169/65 97 07/07/17 10:00 07/07/17 10:00 07/07/17 10:00 07/07/17 10:00 07/07/17 08:41 Active Medications Acetaminophen (Ofirmev Injection -) 1,000 mg IVPB Q6H PRN PRN Reason: PAIN LEVEL 1-5 Last Admin: 07/06/17 06:40 Dose: 1,000 mg Chlordiazepoxide HCl (Librium -) 15 mg PO [id number] YONNY Stop: 07/08/17 11:01 Chlordiazepoxide HCl (Librium -) 25 mg PO Q4H PRN PRN Reason: WITHDRAWAL(CONT SUBST) Stop: 07/08/17 17:44 Heparin Sodium (Porcine) (Heparin -) 5,000 unit SQ BID [facility] Last Admin: 07/07/17 10:05 Dose: 5,000 unit Lactated Ringer's (Lactated Ringers Solution) 1,000 ml in 1,000 mls @ 100 mls/ hr IV ASDIR [facility] Lorazepam (Ativan Injection -) 1 mg IVPUSH Q8H PRN PRN Reason: ANXIETY Metoprolol Tartrate (Lopressor -) 12.5 mg PO BID [facility] Last Admin: 07/07/17 10:06 Dose: 12.5 mg Ondansetron HCl (Zofran Injection) 4 mg IVPUSH Q6H PRN PRN Reason: NAUSEA Pantoprazole Sodium (Protonix Iv) 40 mg IVPUSH DAILY [facility] Last Admin: 07/07/17 10:07 Dose: 40 mg Thiamine HCl (Vitamin B1 -) 100 mg PO DAILY [facility] Last Admin: 07/07/17 10:07 Dose: 100 mg Constitutional: Yes: Awake, NAD Eyes: Yes: PERRL HENT: Yes: Atraumatic, Normocephalic Neck: Yes: Supple, Trachea Midline Cardiovascular: Yes: Regular Rate and Rhythm, S1, S2 Respiratory: Yes: CTA Bilaterally Gastrointestinal: Yes: Soft, (+) BS Renal/: Yes: Wilson Present Extremities: Yes: WNL Edema: No Peripheral Pulses WNL: Yes Integumentary: Yes: WNL Neurological: Yes: Non-focal ...Motor Strength: WNL Labs: Laboratory Results - last 24 hr 07/06/17 07/06/17 07/06/17 06:45 06:45 06:45 WBC RBC Hgb Hct MCV MCH MCHC RDW Plt Count MPV Sodium 140 Potassium 4.9 Chloride 108 H Carbon Dioxide 15 L Anion Gap 17 H BUN 60 H Creatinine 3.3 H Creat Clearance w eGFR 14.12 Random Glucose 94 Calcium 7.4 L Phosphorus Magnesium Iron 33 TIBC 192 L Iron Saturation 17 Transferrin 144 L Ferritin 668.150 H Total Bilirubin 0.3 D AST 68 H ALT 33 Alkaline Phosphatase 76 Total Protein 5.9 L Albumin 2.8 L Triglycerides 125 Cancelled Total Amylase 1104 H Lipase 12933 H 07/07/17 07/07/17 05:07 05:07 WBC 6.5 RBC 2.59 L Hgb 9.0 L Hct 26.9 L MCV 103.7 H MCH 34.9 H MCHC 33.7 RDW 13.7 Plt Count 89 L MPV 9.9 Sodium 140 Potassium 4.1 Chloride 109 H Carbon Dioxide 21 Anion Gap 10 BUN 37 H Creatinine 1.7 H Creat Clearance w eGFR 30.36 Random Glucose 82 Calcium 8.3 L Phosphorus 1.9 L Magnesium 1.4 L Iron TIBC Iron Saturation Transferrin Ferritin Total Bilirubin 0.3 AST 41 H ALT 23 Alkaline Phosphatase 72 Total Protein 5.4 L Albumin 2.4 L Triglycerides Total Amylase Lipase Problem List - Problems (1) Acute pancreatitis Code(s): K85.90 - ACUTE PANCREATITIS WITHOUT NECROSIS OR INFECTION, UNSP Qualifiers: Pancreatitis type: alcohol induced Acute pancreatitis complication: unspecified Qualified Code(s): K85.20 - Alcohol induced acute pancreatitis without necrosis or infection (2) Abdominal pain Code(s): R10.9 - UNSPECIFIED ABDOMINAL PAIN Qualifiers: Abdominal location: generalized Qualified Code(s): R10.84 - Generalized abdominal pain (3) Acute renal failure Code(s): N17.9 - ACUTE KIDNEY FAILURE, UNSPECIFIED Qualifiers: Acute renal failure type: unspecified Qualified Code(s): N17.9 - Acute kidney failure, unspecified (4) Alcohol dependence with uncomplicated withdrawal Code(s): F10.230 - ALCOHOL DEPENDENCE WITH WITHDRAWAL, UNCOMPLICATED (5) Anemia Code(s): D64.9 - ANEMIA, UNSPECIFIED (6) Atypical chest pain Code(s): R07.89 - OTHER CHEST PAIN (7) Elevated lipase Code(s): R74.8 - ABNORMAL LEVELS OF OTHER SERUM ENZYMES (8) Epigastric abdominal pain Code(s): R10.13 - EPIGASTRIC PAIN (9) GERD (gastroesophageal reflux disease) Code(s): K21.9 - GASTRO-ESOPHAGEAL REFLUX DISEASE WITHOUT ESOPHAGITIS Qualifiers: Esophagitis presence: without esophagitis Qualified Code(s): K21.9 - Gastro -esophageal reflux disease without esophagitis (10) Hyperkalemia Code(s): E87.5 - HYPERKALEMIA (11) Pancreatitis Code(s): K85.90 - ACUTE PANCREATITIS WITHOUT NECROSIS OR INFECTION, UNSP Qualifiers: Chronicity: acute Pancreatitis type: unspecified pancreatitis type Acute pancreatitis complication: unspecified Qualified Code(s): K85.90 - Acute pancreatitis without necrosis or infection, unspecified (12) Vomiting Code(s): R11.10 - VOMITING, UNSPECIFIED Qualifiers: Vomiting type: unspecified Vomiting Intractability: intractable Nausea presence: with nausea Qualified Code(s): R11.2 - Nausea with vomiting, unspecified (13) HTN (hypertension) Code(s): I10 - ESSENTIAL (PRIMARY) HYPERTENSION Assessment/Plan -IVF -Monitor and replete Lytes -Trial of PO if ok with GI -Monitor UOP -O2 support as needed for O2 sat>92% -Pain management -CIWA protocol; PRN benzos for ETOH withdrawal -GI and DVT prophylaxis -Floor Dr Arias Critical care time spent in reviewing chart, evaluating patient and formulating plan - 36 minutes.
--- NOTE | 2017-07-07 17:02 | PN ---
GI Progress Note Subjective: No acute events States feeling much better Her partner was with her at bedside - Objective Vital Signs: Vital Signs Temperature 97.8 F 07/07/17 15:10 Pulse Rate 76 07/07/17 15:10 Respiratory Rate 28 H 07/07/17 12:00 Blood Pressure 150/82 07/07/17 15:10 O2 Sat by Pulse Oximetry (%) 97 07/07/17 08:41 Constitutional: Calm Eyes: No: Sclera Icterus Cardiovascular: Yes: Regular Rate and Rhythm Respiratory: Yes: Diminished (at bases b/l) Gastrointestinal Inspection: No: Distention ...Auscultate: Yes: Normoactive Bowel Sounds ...Palpate: No: Tenderness Neurological: Yes: Alert Labs: CBC, BMP 07/07/17 05:07 07/07/17 05:07 INR, PTT INR 0.85 (0.82-1.09) L 07/05/17 11:10 Hepatic Panel Total Bilirubin 0.3 mg/dL (0.2-1.0) 07/07/17 05:07 AST 41 U/L (15-37) H 07/07/17 05:07 ALT 23 U/L (12-78) 07/07/17 05:07 Alkaline Phosphatase 72 U/L (45-117) 07/07/17 05:07 Albumin 2.4 g/dl (3.4-5.0) L 07/07/17 05:07 Problem List - Problems (1) Acute pancreatitis Assessment/Plan: Clinically much improved from yesterday and tolerating clears - Advance to full liquids in AM and then continue to advance to low fat / low sodium diet if continued improvement - If continued pain free, d/c IV fluids - I spoke with Ms. Sauceda and her partner in detail regarding the need for complete abstinence of alcohol. Apparently Ms. Sauceda's partner drinks heavily as well and I explained that it would be easier for Ms. Sauceda to stop drinking if she did as well Code(s): K85.90 - ACUTE PANCREATITIS WITHOUT NECROSIS OR INFECTION, UNSP Qualifiers: Pancreatitis type: alcohol induced Acute pancreatitis complication: unspecified Qualified Code(s): K85.20 - Alcohol induced acute pancreatitis without necrosis or infection
[2017-07-07] MEDS: chlordiazePOXIDE 5 MG CAPSULE PO SCH ×2 (17:20→22:36)
--- NOTE | 2017-07-07 19:06 | PN ---
Progress Note, Physician History of Present Illness: Pt seen and examined at bedside. She is awake and alert. She denies abdominal pain. - Current Medication List Current Medications: Active Medications Acetaminophen (Ofirmev Injection -) 1,000 mg IVPB Q6H PRN PRN Reason: PAIN LEVEL 1-5 Last Admin: 07/06/17 06:40 Dose: 1,000 mg Chlordiazepoxide HCl (Librium -) 15 mg PO [id number] [facility] Stop: 07/08/17 11:01 Last Admin: 07/07/17 17:20 Dose: 15 mg Chlordiazepoxide HCl (Librium -) 25 mg PO Q4H PRN PRN Reason: WITHDRAWAL(CONT SUBST) Stop: 07/08/17 17:44 Heparin Sodium (Porcine) (Heparin -) 5,000 unit SQ BID [facility] Last Admin: 07/07/17 10:05 Dose: 5,000 unit Lactated Ringer's (Lactated Ringers Solution) 1,000 ml in 1,000 mls @ 100 mls/ hr IV ASDIR [facility] Last Admin: 07/07/17 14:13 Dose: 100 mls/hr Lorazepam (Ativan Injection -) 1 mg IVPUSH Q8H PRN PRN Reason: ANXIETY Metoprolol Tartrate (Lopressor -) 12.5 mg PO BID [facility] Last Admin: 07/07/17 10:06 Dose: 12.5 mg Ondansetron HCl (Zofran Injection) 4 mg IVPUSH Q6H PRN PRN Reason: NAUSEA Thiamine HCl (Vitamin B1 -) 100 mg PO DAILY [facility] Last Admin: 07/07/17 10:07 Dose: 100 mg - Objective Vital Signs: Vital Signs Temperature 98.9 F 07/07/17 18:55 Pulse Rate 68 07/07/17 18:55 Respiratory Rate 24 07/07/17 18:55 Blood Pressure 167/77 07/07/17 18:55 O2 Sat by Pulse Oximetry (%) 97 07/07/17 08:41 Constitutional: Yes: Calm Eyes: Yes: Conjunctiva Clear HENT: Yes: Atraumatic Neck: Yes: Supple Cardiovascular: Yes: S1, S2 Respiratory: Yes: CTA Bilaterally Gastrointestinal: Yes: Soft Genitourinary: Yes: WNL Musculoskeletal: Yes: WNL Edema: No Neurological: Yes: Oriented Psychiatric: Yes: Oriented Labs: CBC, BMP 07/07/17 05:07 07/07/17 05:07 INR, PTT INR 0.85 (0.82-1.09) L 07/05/17 11:10 Problem List - Problems (1) Acute pancreatitis Code(s): K85.90 - ACUTE PANCREATITIS WITHOUT NECROSIS OR INFECTION, UNSP Qualifiers: Pancreatitis type: alcohol induced Acute pancreatitis complication: unspecified Qualified Code(s): K85.20 - Alcohol induced acute pancreatitis without necrosis or infection (2) Hyperkalemia Code(s): E87.5 - HYPERKALEMIA (3) Pancreatitis Code(s): K85.90 - ACUTE PANCREATITIS WITHOUT NECROSIS OR INFECTION, UNSP Qualifiers: Chronicity: acute Pancreatitis type: unspecified pancreatitis type Acute pancreatitis complication: unspecified Qualified Code(s): K85.90 - Acute pancreatitis without necrosis or infection, unspecified Assessment/Plan Current Medications Generic Name Dose Route Start Last Admin Trade Name Freq PRN Reason Stop Dose Admin Acetaminophen 1,000 mg 07/06/17 05:47 07/06/17 06:40 Ofirmev Injection - IVPB 1,000 mg Q6H PRN Administration PAIN LEVEL 1-5 Chlordiazepoxide HCl 15 mg 07/07/17 17:00 07/07/17 17:20 Librium - PO 07/08/17 11:01 15 mg [id number] YONNY Administration Chlordiazepoxide HCl 25 mg 07/05/17 17:45 Librium - PO 07/08/17 17:44 Q4H PRN WITHDRAWAL(CONT SUBST) Heparin Sodium (Porcine) 5,000 unit 07/06/17 22:00 07/07/17 10:05 Heparin - SQ 5,000 unit BID YONNY Administration Lactated Ringer's 1,000 ml in 1,000 mls @ 100 mls/hr 07/07/17 12:33 07/07/17 14:13 Lactated Ringers Solution IV 100 mls/hr ASDIR YONNY Administration Lorazepam 1 mg 07/05/17 17:45 Ativan Injection - IVPUSH Q8H PRN ANXIETY Metoprolol Tartrate 12.5 mg 07/05/17 22:00 07/07/17 10:06 Lopressor - PO 12.5 mg BID YONNY Administration Ondansetron HCl 4 mg 07/05/17 17:45 Zofran Injection IVPUSH Q6H PRN NAUSEA Thiamine HCl 100 mg 07/06/17 10:00 07/07/17 10:07 Vitamin B1 - PO 100 mg DAILY YONNY Administration Impression 1. SARA 2. hyperkalemia 3. hx etoh use 4. pancreatitis 5. abdominal pain 6. nausea 7. anemia 8. HTN 9. metabolic acidosis Plan - renal function is improving - potassium stable - can decrease rate of fluids - repeat labs in am - advance diet per GI - replace mag - hold diovan for now - will follow
[2017-07-07] MEDS: LACTATED RINGERS SOLUTION 1,000 ML/1,000 ML INFUS.BAG IV SCH (21:37)
[2017-07-08] MEDS: chlordiazePOXIDE 5 MG CAPSULE PO SCH (05:45)
[2017-07-08] MEDS ORDERED: chlordiazePOXIDE HCL 25 MG CAPSULE PO PRN (07:45)
[2017-07-08] MEDS ORDERED: ACETAMINOPHEN 1000 MG/100 ML VIAL (NON FORMULARY) IVPB PRN (07:45)
[2017-07-08] MEDS ORDERED: ONDANSETRON 4 MG/2 ML VIAL IVPUSH PRN (07:45)
[2017-07-08] MEDS ORDERED: LORazepam 2 MG/ML SDV VIAL IVPUSH PRN (07:45)
[2017-07-08 08:26] LABS: HEMATOCRIT 27.7 % (32.4-45.2); HEMOGLOBIN 9.1 GM/dL (10.7-15.3); MCH 33.9 pg (25.7-33.7); MCHC 32.9 g/dl (32.0-36.0); MEAN CELL VOLUME 102.9 fl (80-96); MEAN PLT VOLUME 9.6 fl (7.5-11.1); PLATELET COUNT 112 K/MM3 (134-434); RBC 2.69 M/mm3 (3.60-5.2); RDW 13.5 % (11.6-15.6); WHITE BLOOD COUNT 6.5 K/mm3 (4.0-10.0)
[2017-07-08] MEDS: LACTATED RINGERS SOLUTION 1,000 ML/1,000 ML INFUS.BAG IV SCH (08:41)
[2017-07-08 08:43] LABS: CHLORIDE 105 mmol/L (98-107); POTASSIUM 3.9 mmol/L (3.5-5.1); SODIUM 138 mmol/L (136-145)
[2017-07-08 08:53] LABS: ALBUMIN 2.4 g/dl (3.4-5.0); ALK PHOS 76 U/L (45-117); ANION GAP 12 (8-16); BILIRUBIN,TOTAL 0.4 mg/dL (0.2-1.0); BLOOD UREA NITROGEN 18 mg/dL (7-18); CALCIUM 8.7 mg/dL (8.5-10.1); CO2 21 mmol/L (21-32); CREATININE 1.1 mg/dL (0.55-1.02); GLUCOSE,RANDOM 118 mg/dL (74-106); MAGNESIUM 1.4 mg/dL (1.8-2.4); PHOSPHOROUS 1.6 mg/dL (2.5-4.9); SGOT/AST 25 U/L (15-37); SGPT/ALT 21 U/L (12-78); TOT PROT 5.5 g/dl (6.4-8.2)
[2017-07-08] MEDS: METOPROLOL TARTRATE 25 MG TABLET (FP) PO SCH ×2 (09:50→21:19)
[2017-07-08] MEDS: THIAMINE HCL 100 MG TABLET (FP) PO SCH (09:50)
[2017-07-08] MEDS: HEPARIN NA (PORCINE) 5,000 UNITS/ML 1ML VIAL SQ SCH ×2 (09:51→21:14)
--- NOTE | 2017-07-08 10:53 | PN ---
Progress Note, Physician History of Present Illness: pt seen/ examined . chart reviewed comfortable somewhat drowsy tolerating liquids - Current Medication List Current Medications: Active Medications Acetaminophen (Ofirmev Injection -) 1,000 mg IVPB Q6H PRN PRN Reason: PAIN LEVEL 1-5 Chlordiazepoxide HCl (Librium -) 25 mg PO Q4H PRN PRN Reason: WITHDRAWAL(CONT SUBST) Stop: 07/08/17 17:44 Chlordiazepoxide HCl (Librium -) 15 mg PO [id number] [facility] Stop: 07/08/17 11:01 Heparin Sodium (Porcine) (Heparin -) 5,000 unit SQ BID [facility] Last Admin: 07/08/17 09:51 Dose: 5,000 unit Lactated Ringer's (Lactated Ringers Solution) 1,000 ml in 1,000 mls @ 83 mls/ hr IV ASDIR [facility] Last Admin: 07/08/17 08:41 Dose: 83 mls/hr Lorazepam (Ativan Injection -) 1 mg IVPUSH Q8H PRN PRN Reason: ANXIETY Metoprolol Tartrate (Lopressor -) 12.5 mg PO BID [facility] Last Admin: 07/08/17 09:50 Dose: 12.5 mg Ondansetron HCl (Zofran Injection) 4 mg IVPUSH Q6H PRN PRN Reason: NAUSEA Thiamine HCl (Vitamin B1 -) 100 mg PO DAILY [facility] Last Admin: 07/08/17 09:50 Dose: 100 mg - Objective Vital Signs: Vital Signs Temperature 98.7 F 07/08/17 07:05 Pulse Rate 68 07/08/17 07:05 Respiratory Rate 20 07/08/17 09:00 Blood Pressure 148/70 07/08/17 07:05 O2 Sat by Pulse Oximetry (%) 97 07/08/17 09:00 Constitutional: Yes: No Distress, Calm Eyes: Yes: Conjunctiva Clear Neck: Yes: Supple Cardiovascular: Yes: Regular Rate and Rhythm Respiratory: Yes: CTA Bilaterally Gastrointestinal: Yes: Soft (mild tenderness + -- epigastric bs +) Edema: No Labs: CBC, BMP 07/08/17 07:15 07/08/17 07:15 INR, PTT INR 0.85 (0.82-1.09) L 07/05/17 11:10 Problem List - Problems (1) Acute pancreatitis Code(s): K85.90 - ACUTE PANCREATITIS WITHOUT NECROSIS OR INFECTION, UNSP Qualifiers: Pancreatitis type: alcohol induced Acute pancreatitis complication: unspecified Qualified Code(s): K85.20 - Alcohol induced acute pancreatitis without necrosis or infection (2) Alcohol withdrawal Code(s): F10.239 - ALCOHOL DEPENDENCE WITH WITHDRAWAL, UNSPECIFIED Qualifiers: Complication of substance-induced condition: with unspecified complication Qualified Code(s): F10.239 - Alcohol dependence with withdrawal, unspecified (3) Anemia Code(s): D64.9 - ANEMIA, UNSPECIFIED Assessment/Plan Improving. Meds reviewed. Continue present care Advance diet slowly Alcohol cessation counselling will follow' discussed with nursing staff.
[2017-07-08] MEDS ORDERED: chlordiazePOXIDE 5 MG CAPSULE PO SCH (11:00)
--- NOTE | 2017-07-08 16:08 | PN ---
GI Progress Note Subjective: No acute events No abdominal pain - Objective Vital Signs: Vital Signs Temperature 97.9 F 07/08/17 14:19 Pulse Rate 73 07/08/17 14:19 Respiratory Rate 20 07/08/17 09:00 Blood Pressure 134/78 07/08/17 14:19 O2 Sat by Pulse Oximetry (%) 97 07/08/17 09:00 Constitutional: Calm Eyes: No: Sclera Icterus Cardiovascular: Yes: Regular Rate and Rhythm Respiratory: Yes: CTA Bilaterally Gastrointestinal Inspection: No: Distention ...Auscultate: Yes: Normoactive Bowel Sounds ...Palpate: No: Hepatomegaly, Splenomegaly, Tenderness ...Percussion: No: Tympanitic Edema: No (No LE edema) Neurological: Yes: Alert, Oriented Labs: CBC, BMP 07/08/17 07:15 07/08/17 07:15 INR, PTT INR 0.85 (0.82-1.09) L 07/05/17 11:10 Hepatic Panel Total Bilirubin 0.4 mg/dL (0.2-1.0) D 07/08/17 07:15 AST 25 U/L (15-37) 07/08/17 07:15 ALT 21 U/L (12-78) 07/08/17 07:15 Alkaline Phosphatase 76 U/L (45-117) 07/08/17 07:15 Albumin 2.4 g/dl (3.4-5.0) L 07/08/17 07:15 Problem List - Problems (1) Acute pancreatitis Assessment/Plan: Clinically improved Advance to low fat / Na controlled diet Advised complete alcohol cessation Code(s): K85.90 - ACUTE PANCREATITIS WITHOUT NECROSIS OR INFECTION, UNSP Qualifiers: Pancreatitis type: alcohol induced Acute pancreatitis complication: unspecified Qualified Code(s): K85.20 - Alcohol induced acute pancreatitis without necrosis or infection
[2017-07-08] MEDS ORDERED: MAGNESIUM SULF 50% (8.12 MEQ/2 ML-1 GM VIAL) IVPB ONE (16:17)
--- NOTE | 2017-07-08 16:17 | PN ---
Progress Note, Physician History of Present Illness: Pt seen and examined at bedside. She is tolerating diet so far. She denies abdominal pain. - Current Medication List Current Medications: Active Medications Acetaminophen (Ofirmev Injection -) 1,000 mg IVPB Q6H PRN PRN Reason: PAIN LEVEL 1-5 Chlordiazepoxide HCl (Librium -) 25 mg PO Q4H PRN PRN Reason: WITHDRAWAL(CONT SUBST) Stop: 07/08/17 17:44 Heparin Sodium (Porcine) (Heparin -) 5,000 unit SQ BID [facility] Last Admin: 07/08/17 09:51 Dose: 5,000 unit Lactated Ringer's (Lactated Ringers Solution) 1,000 ml in 1,000 mls @ 83 mls/ hr IV ASDIR [facility] Last Admin: 07/08/17 08:41 Dose: 83 mls/hr Lorazepam (Ativan Injection -) 1 mg IVPUSH Q8H PRN PRN Reason: ANXIETY Metoprolol Tartrate (Lopressor -) 12.5 mg PO BID [facility] Last Admin: 07/08/17 09:50 Dose: 12.5 mg Ondansetron HCl (Zofran Injection) 4 mg IVPUSH Q6H PRN PRN Reason: NAUSEA Thiamine HCl (Vitamin B1 -) 100 mg PO DAILY [facility] Last Admin: 07/08/17 09:50 Dose: 100 mg - Objective Vital Signs: Vital Signs Temperature 97.9 F 07/08/17 14:19 Pulse Rate 73 07/08/17 14:19 Respiratory Rate 20 07/08/17 09:00 Blood Pressure 134/78 07/08/17 14:19 O2 Sat by Pulse Oximetry (%) 97 07/08/17 09:00 Constitutional: Yes: Calm Eyes: Yes: Conjunctiva Clear HENT: Yes: Atraumatic Neck: Yes: Supple Cardiovascular: Yes: S1, S2 Respiratory: Yes: CTA Bilaterally Gastrointestinal: Yes: Normal Bowel Sounds, Soft Genitourinary: Yes: WNL Musculoskeletal: Yes: WNL Edema: No Neurological: Yes: Oriented Psychiatric: Yes: Oriented Labs: CBC, BMP 07/08/17 07:15 07/08/17 07:15 INR, PTT INR 0.85 (0.82-1.09) L 07/05/17 11:10 Problem List - Problems (1) Acute pancreatitis Code(s): K85.90 - ACUTE PANCREATITIS WITHOUT NECROSIS OR INFECTION, UNSP Qualifiers: Pancreatitis type: alcohol induced Acute pancreatitis complication: unspecified Qualified Code(s): K85.20 - Alcohol induced acute pancreatitis without necrosis or infection (2) Hyperkalemia Code(s): E87.5 - HYPERKALEMIA (3) Pancreatitis Code(s): K85.90 - ACUTE PANCREATITIS WITHOUT NECROSIS OR INFECTION, UNSP Qualifiers: Chronicity: acute Pancreatitis type: unspecified pancreatitis type Acute pancreatitis complication: unspecified Qualified Code(s): K85.90 - Acute pancreatitis without necrosis or infection, unspecified Assessment/Plan Current Medications Generic Name Dose Route Start Last Admin Trade Name Freq PRN Reason Stop Dose Admin Acetaminophen 1,000 mg 07/06/17 05:47 07/06/17 06:40 Ofirmev Injection - IVPB 1,000 mg Q6H PRN Administration PAIN LEVEL 1-5 Chlordiazepoxide HCl 15 mg 07/07/17 17:00 07/07/17 17:20 Librium - PO 07/08/17 11:01 15 mg [id number] YONNY Administration Chlordiazepoxide HCl 25 mg 07/05/17 17:45 Librium - PO 07/08/17 17:44 Q4H PRN WITHDRAWAL(CONT SUBST) Heparin Sodium (Porcine) 5,000 unit 07/06/17 22:00 07/07/17 10:05 Heparin - SQ 5,000 unit BID YONNY Administration Lactated Ringer's 1,000 ml in 1,000 mls @ 100 mls/hr 07/07/17 12:33 07/07/17 14:13 Lactated Ringers Solution IV 100 mls/hr ASDIR YONNY Administration Lorazepam 1 mg 07/05/17 17:45 Ativan Injection - IVPUSH Q8H PRN ANXIETY Metoprolol Tartrate 12.5 mg 07/05/17 22:00 07/07/17 10:06 Lopressor - PO 12.5 mg BID YONNY Administration Ondansetron HCl 4 mg 07/05/17 17:45 Zofran Injection IVPUSH Q6H PRN NAUSEA Thiamine HCl 100 mg 07/06/17 10:00 07/07/17 10:07 Vitamin B1 - PO 100 mg DAILY YONNY Administration Impression 1. SARA 2. hyperkalemia 3. hx etoh use 4. pancreatitis 5. abdominal pain 6. nausea 7. anemia 8. HTN 9. metabolic acidosis Plan - renal function is stabilizing - replace mag - can decrease fluids - advance diet - monitor renal function - will follow PRN - can restart low dose diovan and monitor renal function
[2017-07-08] MEDS ORDERED: MAGNESIUM SULFATE IN WATER 2 GM/50 ML IVPB IVPB ONE (17:00)
[2017-07-09] MEDS ORDERED: MAG HYDROX/AL HYDROX/SIMETH 30 ML UNIT-DOSE CUP PO ONE (02:08)
[2017-07-09] MEDS: LACTATED RINGERS SOLUTION 1,000 ML/1,000 ML INFUS.BAG IV SCH ×2 (03:04→21:13)
[2017-07-09] MEDS: METOPROLOL TARTRATE 25 MG TABLET (FP) PO SCH ×2 (09:45→21:20)
[2017-07-09] MEDS: VALSARTAN 80 MG TABLET (UD) PO SCH (09:45)
[2017-07-09] MEDS: HEPARIN NA (PORCINE) 5,000 UNITS/ML 1ML VIAL SQ SCH ×2 (09:45→21:19)
[2017-07-09] MEDS: THIAMINE HCL 100 MG TABLET (FP) PO SCH (09:45)
[2017-07-09] MEDS ORDERED: MAGNESIUM SULF 50% (8.12 MEQ/2 ML-1 GM VIAL) IVPB ONE (11:34)
[2017-07-09] MEDS ORDERED: NAPH,MB-DB/K PH,MBDB POWDER PACKET PO ONE (11:35)
[2017-07-09] MEDS ORDERED: ACETAMINOPHEN 325 MG TABLET (FP) PO PRN (12:19)
[2017-07-09] MEDS ORDERED: METOPROLOL TARTRATE 25 MG TABLET (FP) PO ONE (12:19)
[2017-07-09] MEDS ORDERED: MELATONIN 5 MG TABLETS PO PRN (12:19)
[2017-07-09 12:35] LABS: ANION GAP 8 (8-16); BLOOD UREA NITROGEN 12 mg/dL (7-18); CALCIUM 8.3 mg/dL (8.5-10.1); CHLORIDE 105 mmol/L (98-107); CO2 24 mmol/L (21-32); CREATININE 1.1 mg/dL (0.55-1.02); GLUCOSE,RANDOM 171 mg/dL (74-106); PHOSPHOROUS 1.5 mg/dL (2.5-4.9); POTASSIUM 3.8 mmol/L (3.5-5.1); SODIUM 137 mmol/L (136-145)
--- NOTE | 2017-07-09 12:37 | PN ---
Progress Note, Physician Chief Complaint: pt has unsteady gait per staff no c/o pain - Current Medication List Current Medications: Active Medications Acetaminophen (Tylenol -) 650 mg PO Q6H PRN PRN Reason: PAIN Heparin Sodium (Porcine) (Heparin -) 5,000 unit SQ BID [facility] Last Admin: 07/09/17 09:45 Dose: 5,000 unit Lactated Ringer's (Lactated Ringers Solution) 1,000 ml in 1,000 mls @ 65 mls/ hr IV ASDIR [facility] Last Admin: 07/09/17 03:04 Dose: 65 mls/hr Melatonin (Melatonin) 5 mg PO HS PRN PRN Reason: INSOMNIA Metoprolol Tartrate (Lopressor -) 25 mg PO BID [facility] Ondansetron HCl (Zofran Injection) 4 mg IVPUSH Q6H PRN PRN Reason: NAUSEA Last Admin: 07/09/17 00:12 Dose: 4 mg Pantoprazole Sodium (Protonix -) 40 mg PO DAILY [facility] Thiamine HCl (Vitamin B1 -) 100 mg PO DAILY [facility] Last Admin: 07/09/17 09:45 Dose: 100 mg Valsartan (Diovan -) 80 mg PO DAILY [facility] Last Admin: 07/09/17 09:45 Dose: 80 mg - Objective Vital Signs: Vital Signs Temperature 98 F 07/09/17 09:00 Pulse Rate 74 07/09/17 12:21 Respiratory Rate 20 07/09/17 12:21 Blood Pressure 169/79 07/09/17 12:21 O2 Sat by Pulse Oximetry (%) 97 07/09/17 09:00 Constitutional: Yes: No Distress Cardiovascular: Yes: Regular Rate and Rhythm Respiratory: Yes: CTA Bilaterally Gastrointestinal: Yes: Normal Bowel Sounds, Soft. No: Tenderness Edema: No Labs: CBC, BMP 07/08/17 07:15 07/09/17 11:55 INR, PTT INR 0.85 (0.82-1.09) L 07/05/17 11:10 Problem List - Problems (1) Acute pancreatitis Code(s): K85.90 - ACUTE PANCREATITIS WITHOUT NECROSIS OR INFECTION, UNSP Qualifiers: Pancreatitis type: alcohol induced Acute pancreatitis complication: unspecified Qualified Code(s): K85.20 - Alcohol induced acute pancreatitis without necrosis or infection (2) Abdominal pain Code(s): R10.9 - UNSPECIFIED ABDOMINAL PAIN Qualifiers: Abdominal location: generalized Qualified Code(s): R10.84 - Generalized abdominal pain (3) Acute renal failure Code(s): N17.9 - ACUTE KIDNEY FAILURE, UNSPECIFIED Qualifiers: Acute renal failure type: unspecified Qualified Code(s): N17.9 - Acute kidney failure, unspecified (4) Alcohol dependence with uncomplicated withdrawal Code(s): F10.230 - ALCOHOL DEPENDENCE WITH WITHDRAWAL, UNCOMPLICATED Assessment/Plan completed Librium PT eval counselled on abstaining from alcohol renal function better pain control with Tylenol only BP elevated-- increase Lopressor continue with thiamine
[2017-07-09] MEDS: PANTOPRAZOLE 40 MG TABLET (FP) PO SCH (13:46)
[2017-07-10] MEDS: HEPARIN NA (PORCINE) 5,000 UNITS/ML 1ML VIAL SQ SCH ×2 (10:02→21:28)
[2017-07-10] MEDS: PANTOPRAZOLE 40 MG TABLET (FP) PO SCH (10:02)
[2017-07-10] MEDS: THIAMINE HCL 100 MG TABLET (FP) PO SCH (10:02)
[2017-07-10] MEDS: VALSARTAN 80 MG TABLET (UD) PO SCH (10:02)
[2017-07-10] MEDS: METOPROLOL TARTRATE 25 MG TABLET (FP) PO SCH ×2 (10:02→21:29)
--- NOTE | 2017-07-10 12:07 | PN ---
Progress Note, Physician Chief Complaint: significant other at bedside pt sleepy librium completed pt did not receive Ativan , eyt she is sleepy has poor po intake-she is a picky eater per partner - Current Medication List Current Medications: Active Medications Acetaminophen (Tylenol -) 650 mg PO Q6H PRN PRN Reason: PAIN Heparin Sodium (Porcine) (Heparin -) 5,000 unit SQ BID [facility] Last Admin: 07/10/17 10:02 Dose: 5,000 unit Lactated Ringer's (Lactated Ringers Solution) 1,000 ml in 1,000 mls @ 65 mls/ hr IV ASDIR [facility] Last Admin: 07/09/17 21:13 Dose: Not Given Melatonin (Melatonin) 5 mg PO HS PRN PRN Reason: INSOMNIA Metoprolol Tartrate (Lopressor -) 25 mg PO BID [facility] Last Admin: 07/10/17 10:02 Dose: 25 mg Ondansetron HCl (Zofran Injection) 4 mg IVPUSH Q6H PRN PRN Reason: NAUSEA Last Admin: 07/09/17 00:12 Dose: 4 mg Pantoprazole Sodium (Protonix -) 40 mg PO DAILY [facility] Last Admin: 07/10/17 10:02 Dose: 40 mg Thiamine HCl (Vitamin B1 -) 100 mg PO DAILY [facility] Last Admin: 07/10/17 10:02 Dose: 100 mg Valsartan (Diovan -) 80 mg PO DAILY [facility] Last Admin: 07/10/17 10:02 Dose: 80 mg - Objective Vital Signs: Vital Signs Temperature 98.7 F 07/10/17 06:00 Pulse Rate 88 07/10/17 10:00 Respiratory Rate 20 07/10/17 10:00 Blood Pressure 148/76 07/10/17 10:00 O2 Sat by Pulse Oximetry (%) 96 07/10/17 09:00 Constitutional: Yes: No Distress Cardiovascular: Yes: Regular Rate and Rhythm Respiratory: Yes: CTA Bilaterally Gastrointestinal: Yes: Normal Bowel Sounds, Soft. No: Tenderness Edema: No Labs: CBC, BMP 07/08/17 07:15 07/09/17 11:55 INR, PTT INR 0.85 (0.82-1.09) L 07/05/17 11:10 Problem List - Problems (1) Acute pancreatitis Code(s): K85.90 - ACUTE PANCREATITIS WITHOUT NECROSIS OR INFECTION, UNSP Qualifiers: Pancreatitis type: alcohol induced Acute pancreatitis complication: unspecified Qualified Code(s): K85.20 - Alcohol induced acute pancreatitis without necrosis or infection (2) Abdominal pain Code(s): R10.9 - UNSPECIFIED ABDOMINAL PAIN Qualifiers: Abdominal location: generalized Qualified Code(s): R10.84 - Generalized abdominal pain (3) Acute renal failure Code(s): N17.9 - ACUTE KIDNEY FAILURE, UNSPECIFIED Qualifiers: Acute renal failure type: unspecified Qualified Code(s): N17.9 - Acute kidney failure, unspecified (4) Alcohol dependence with uncomplicated withdrawal Code(s): F10.230 - ALCOHOL DEPENDENCE WITH WITHDRAWAL, UNCOMPLICATED Assessment/Plan completed Librium PT eval counselled on abstaining from alcohol renal function better pain control with Tylenol only continue with thiamine
[2017-07-10] MEDS: LACTATED RINGERS SOLUTION 1,000 ML/1,000 ML INFUS.BAG IV SCH ×2 (16:50→21:27)
[2017-07-11 08:03] LABS: BLOOD UREA NITROGEN 9 mg/dL (7-18); CALCIUM 8.9 mg/dL (8.5-10.1); CHLORIDE 102 mmol/L (98-107); POTASSIUM 4.4 mmol/L (3.5-5.1); SODIUM 137 mmol/L (136-145)
[2017-07-11 08:05] LABS: ANION GAP 13 (8-16); CO2 22 mmol/L (21-32); GLUCOSE,RANDOM 188 mg/dL (74-106); MAGNESIUM 1.8 mg/dL (1.8-2.4)
[2017-07-11 09:18] VITALS: BP 160/83; PULSE 80; TEMP 98.7
[2017-07-11 10:05] LABS: HEMATOCRIT 26.7 % (32.4-45.2); HEMOGLOBIN 8.6 GM/dL (10.7-15.3); MCH 33.8 pg (25.7-33.7); MCHC 32.3 g/dl (32.0-36.0); MEAN CELL VOLUME 104.7 fl (80-96); MEAN PLT VOLUME 8.7 fl (7.5-11.1); PLATELET COUNT 230 K/MM3 (134-434); RBC 2.55 M/mm3 (3.60-5.2); WHITE BLOOD COUNT 6.6 K/mm3 (4.0-10.0)
[2017-07-11] MEDS: PANTOPRAZOLE 40 MG TABLET (FP) PO SCH (10:09)
[2017-07-11] MEDS: THIAMINE HCL 100 MG TABLET (FP) PO SCH (10:09)
[2017-07-11] MEDS: METOPROLOL TARTRATE 25 MG TABLET (FP) PO SCH (10:09)
[2017-07-11] MEDS: VALSARTAN 80 MG TABLET (UD) PO SCH (10:09)
[2017-07-11] MEDS: HEPARIN NA (PORCINE) 5,000 UNITS/ML 1ML VIAL SQ SCH (10:11)
--- NOTE | 2017-07-11 11:32 | DS ---
Physical Examination Vital Signs: Vital Signs Temperature 98.7 F 07/11/17 09:00 Pulse Rate 80 07/11/17 09:00 Respiratory Rate 20 07/11/17 09:00 Blood Pressure 160/83 07/11/17 09:00 O2 Sat by Pulse Oximetry (%) 96 07/10/17 21:00 Findings/Remarks: Awake/ comfortable feels ok. eating ok. denies pain. off librium Constitutional: Yes: No Distress, Calm Eyes: Yes: Conjunctiva Clear Neck: Yes: Supple Cardiovascular: Yes: Regular Rate and Rhythm Respiratory: Yes: CTA Bilaterally Gastrointestinal: Yes: Normal Bowel Sounds, Soft Edema: No Neurological: Yes: Alert Psychiatric: Yes: Alert Labs: CBC, BMP 07/11/17 06:20 07/11/17 06:00 Discharge Summary Reason For Visit: ACUTE PANCREATITIS Current Active Problems Acute pancreatitis (Acute) Hospital Course: admitted for acute pancreatits/ arf/etoh withdrawl Treated with fluids/ librium gi followed now better arf resolved completed librium detox Discussed in detail with pt Strongly counselled to quit drinking pt follow with her pmd - Dr. Cross. pt in agreement Meds reconcilled d/c time 30 min in examining/ documenting ad coordating care Condition: Stable - Instructions Referrals: Anirudh Cross MD [Primary Care Provider] - Disposition: HOME - Home Medications Comprehensive Discharge Medication List: Ambulatory Orders Atorvastatin Ca [Lipitor] 20 mg PO HS 06/05/16 Ranitidine [Zantac -] 150 mg PO BID #60 tablet 12/30/16 Thiamine HCl [Vitamin B1 -] 100 mg PO DAILY #30 tablet 12/30/16 Magnesium Oxide [Mag-Ox -] 400 mg PO DAILY 07/05/17 Metoprolol Tartrate [Lopressor -] 25 mg PO BID #60 tablet 07/11/17 Pantoprazole Sodium [Protonix -] 40 mg PO DAILY #30 tablet.ec 07/11/17 Valsartan [Diovan] 80 mg PO DAILY 30 Days #30 tablet 07/11/17
[2017-07-11 14:15] LABS: MACROCYTOSIS 1+; PLATELET ESTIMATE NORMAL
== END 2017-07-11 14:26 | disposition home or self-care (01) | DRG 439 ==
LOC: JER 09:33 → JERBED 13:14 → JICU 07-06 02:13 → J6S 07-07 14:54
PROVIDERS: ADMIT Internal Medicine; ATTEND Internal Medicine
PROC: HZ2ZZZZ Detoxification Services for Substance Abuse Treatment (ICD-10-PCS; principal; 2017-07-06)
DX: K85.20 Alcohol induced acute pancreatitis without necrosis or infection (principal); N17.9 Acute kidney failure, unspecified; E87.2 Acidosis; F10.230 Alcohol dependence with withdrawal, uncomplicated; E87.5 Hyperkalemia; E11.9 Type 2 diabetes mellitus without complications; E78.5 Hyperlipidemia, unspecified; K21.9 Gastro-esophageal reflux disease without esophagitis; R11.2 Nausea with vomiting, unspecified; R10.84 Generalized abdominal pain; R10.13 Epigastric pain; I12.9 Hypertensive chronic kidney disease with stage 1 through stage 4 chronic kidney disease, or unspecified chronic kidney disease; N18.9 Chronic kidney disease, unspecified; D64.9 Anemia, unspecified; R74.8 Abnormal levels of other serum enzymes; I27.20 Pulmonary hypertension, unspecified; I08.0 Rheumatic disorders of both mitral and aortic valves; I48.0 Paroxysmal atrial fibrillation; E87.6 Hypokalemia; E83.42 Hypomagnesemia; Z87.891 Personal history of nicotine dependence
CPT/HCPCS: 36415; 71045-TC-FY; 74176-TC; 76705-TC; 76775-TC; 76856-TC; 80048; 80053; 81003; 81015; 82150; 82436; 82550; 82570; 82728; 83036; 83540; 83550; 83605; 83690; 83735; 84100; 84133; 84300; 84466; 84478; 84484; 85025; 85027; 85610; 87086; 93005; 93010; 97116-GP; 97161-GP; 99285-25; J1644

== ENCOUNTER 2019-12-20 13:48 | Emergency (ER) | payer BC, OTHER ==
[2019-12-20] MEDS ORDERED: FOLIC ACID INJECTION - 1 MG, THIAMINE HCL 100 MG, MULTIVIT INJECTION ADULT 10 ML in SOD... IVPB ONE (14:12)
[2019-12-20 14:21] VITALS: BP 108/59; PULSE 90; TEMP 98.3; BMI 25.0
[2019-12-20 15:23] LABS: BASO % 1.6 % (0-2.0); EOS % 0.1 % (0-4.5); HEMATOCRIT 28.3 % (32.4-45.2); HEMOGLOBIN 8.9 GM/dL (10.7-15.3); LYMPH % 20.2 % (8-40); MCH 31.1 pg (25.7-33.7); MCHC 31.3 g/dl (32.0-36.0); MEAN CELL VOLUME 99.2 fl (80-96); MEAN PLT VOLUME 8.8 fl (7.5-11.1); MONO % 6.7 % (3.8-10.2); NEUT % 71.4 % (42.8-82.8); PLATELET COUNT 367 K/MM3 (134-434); RBC 2.85 M/mm3 (3.60-5.2); RDW 15.7 % (11.6-15.6); WHITE BLOOD COUNT 9.9 K/mm3 (4.0-10.0)
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
[2019-12-20 15:33] LABS: COCAINE, UR NEGATIVE ng/ml (CUTOFF=300); METHADONE, UR NEGATIVE ng/ml (CUTOFF=300); OPIATES, URI NEGATIVE ng/ml (CUTOFF=300); PHENCYCLIDINE,URINE NEGATIVE ng/ml (CUTOFF=25); URINE AMPHETAMINES NEGATIVE ng/ml (CUTOFF=500); URINE BARBITURATES NEGATIVE ng/ml (CUTOFF=200)
[2019-12-20 15:35] LABS: URINE BENZODIAZEPINES POSITIVE ng/ml (CUTOFF=200)
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
[2019-12-20 15:52] LABS: ALBUMIN 2.4 g/dl (3.4-5.0); BILIRUBIN,TOTAL 0.3 mg/dL (0.2-1); BLOOD UREA NITROGEN 13.2 mg/dL (7-18); CREATININE 1.4 mg/dL (0.55-1.3); POTASSIUM 4.4 mmol/L (3.5-5.1)
== END 2019-12-20 17:10 | disposition home or self-care (01) ==
LOC: JER 13:48
PROC: 3E033GC Introduction of Other Therapeutic Substance into Peripheral Vein, Percutaneous Approach (ICD-10-PCS; principal; 2019-12-20)
DX: F10.920 Alcohol use, unspecified with intoxication, uncomplicated (principal)
CPT/HCPCS: 36415; 80053; 80307; 82140; 82962; 83690; 85025; 99285-25

== ENCOUNTER 2020-01-29 16:17 | Emergency (ER) | payer BC ==
--- NOTE | 2020-01-29 16:36 | PDOC ---
Rapid Medical Evaluation Time Seen by Provider: 01/29/20 16:35 Medical Evaluation: Allergies Allergy/AdvReac Type Severity Reaction Status Date / Time almond AdvReac Verified 12/06/19 13:37 almond milk Allergy Uncoded 12/07/19 13:04 01/29/20 16:35 I have performed a brief in-person evaluation of this patient The patient presents with a chief complaint of: Lower abd pain w/ ?vaginal itching x > [address] Cross who wrote note stating pt was sent in for diarrhea and need cdif and CT a/p. Note also states pt was on augmentin recently but pt states she does not remember. States she only had 3 e/o diarrhea this am, NB, no n/v/f/c. Pt has h/o ETOH and recurrent pancreatitis and was admitted for same 01/02 Pertinent physical exam findings:stable, ananth uncomfortable I have ordered the following:labs The patient will proceed to the ED for further evaluation 01/29/20 16:41 Discharge Disposition - Diagnosis Diarrhea Qualifiers: Diarrhea type: unspecified type Qualified Code(s): R19.7 - Diarrhea, unspecified Abdominal pain Qualifiers: Abdominal location: unspecified location Qualified Code(s): R10.9 - Unspecified abdominal pain - Referrals - Patient Instructions - Post Discharge Activity
[2020-01-29 16:41] VITALS: BP 117/63; PULSE 78; TEMP 98.1; BMI 25.0
--- NOTE | 2020-01-29 17:19 | PDOC ---
History of Present Illness - General Chief Complaint: Pain, Acute Stated Complaint: ABD PAIN Time Seen by Provider: 01/29/20 16:35 Past History - Medical History Allergies/Adverse Reactions: Allergies Allergy/AdvReac Type Severity Reaction Status Date / Time almond AdvReac Verified 01/29/20 16:36 almond milk Allergy Uncoded 01/29/20 16:36 Home Medications: Ambulatory Orders Atorvastatin Ca [Lipitor] 20 mg PO HS 06/05/16 Thiamine HCl [Vitamin B1 -] 100 mg PO DAILY #30 tablet 12/30/16 Magnesium Oxide [Mag-Ox -] 400 mg PO DAILY 07/05/17 Metoprolol Tartrate [Lopressor -] 25 mg PO BID #60 tablet 07/11/17 Pantoprazole Sodium [Protonix -] 40 mg PO DAILY #30 tablet.ec 07/11/17 Valsartan [Diovan] 80 mg PO DAILY 30 Days #30 tablet 07/11/17 Folic Acid - 1 mg PO DAILY tablet 12/15/19 Anemia: No Asthma: No Cancer: No Cardiac Disorders: No CVA: No COPD: No CHF: No Dementia: No Diabetes: Yes (NIDDM - diet controlled) GI Disorders: Yes (GERD) Disorders: Yes (occasional UTIs) HTN: Yes Hypercholesterolemia: Yes Liver Disease: No Seizures: No Thyroid Disease: No - Surgical History Abdominal Surgery: No Appendectomy: No Cardiac Surgery: No Cholecystectomy: No Lung Surgery: No Neurologic Surgery: No Orthopedic Surgery: No - Reproductive History Is Patient Now?: No - Immunization History Immunization Up to Date: Yes - Psycho-Social/Smoking History Smoking Status: Yes Smoking History: Former smoker Have you smoked in the past 12 months: No Number of Cigarettes Smoked Daily: 0 If you are a former smoker, when did you quit?: 30 years ago Information on smoking cessation initiated: No - Substance Abuse Hx (Audit-C & DAST Scrn) How often the patient has a drink containing alcohol: 2-4 times / month Number of drinks the patient has on a typical day: 5 or 6 How often the patient has six or more drinks on one occasion: Monthly Score: In Men: 4 or > Positive; In Women: 3 or > Positive: 6 Screen Result (Pos requires Nsg. Audit-10AR): Positive In the last yr the pt used illegal drug/Rx for NonMed reason: No Score: Yes response is considered Positive: 0 Screen Result (Positive result requires Nsg. DAST-10): Negative *Physical Exam - Vital Signs Last Vital Signs Temp Pulse Resp BP Pulse Ox 98.1 F 78 18 117/63 98 01/29/20 16:38 01/29/20 16:38 01/29/20 16:38 01/29/20 16:38 01/29/20 16:38 Discharge - Discharge Information Clinical Impression/Diagnosis: Diarrhea Qualifiers: Diarrhea type: unspecified type Qualified Code(s): R19.7 - Diarrhea, unspecified Abdominal pain Qualifiers: Abdominal location: unspecified location Qualified Code(s): R10.9 - Unspecified abdominal pain - Follow up/Referral Referrals: Anirudh Cross MD [Primary Care Provider] - - Patient Discharge Instructions - Post Discharge Activity
[2020-01-29] MEDS ORDERED: SODIUM CHLORIDE 1,000 ML IV STA (17:35)
--- NOTE | 2020-01-29 17:43 | PDOC ---
History of Present Illness - General Chief Complaint: Pain, Acute Stated Complaint: ABD PAIN Time Seen by Provider: 01/29/20 16:35 Past History - Medical History Allergies/Adverse Reactions: Allergies Allergy/AdvReac Type Severity Reaction Status Date / Time almond AdvReac Verified 01/29/20 16:36 almond milk Allergy Uncoded 01/29/20 16:36 Home Medications: Ambulatory Orders Atorvastatin Ca [Lipitor] 20 mg PO HS 06/05/16 Thiamine HCl [Vitamin B1 -] 100 mg PO DAILY #30 tablet 12/30/16 Magnesium Oxide [Mag-Ox -] 400 mg PO DAILY 07/05/17 Metoprolol Tartrate [Lopressor -] 25 mg PO BID #60 tablet 07/11/17 Pantoprazole Sodium [Protonix -] 40 mg PO DAILY #30 tablet.ec 07/11/17 Valsartan [Diovan] 80 mg PO DAILY 30 Days #30 tablet 07/11/17 Folic Acid - 1 mg PO DAILY tablet 12/15/19 Anemia: No Asthma: No Cancer: No Cardiac Disorders: No CVA: No COPD: No CHF: No Dementia: No Diabetes: Yes (NIDDM - diet controlled) GI Disorders: Yes (GERD) Disorders: Yes (occasional UTIs) HTN: Yes Hypercholesterolemia: Yes Liver Disease: No Seizures: No Thyroid Disease: No - Surgical History Abdominal Surgery: No Appendectomy: No Cardiac Surgery: No Cholecystectomy: No Lung Surgery: No Neurologic Surgery: No Orthopedic Surgery: No - Reproductive History Is Patient Now?: No - Immunization History Immunization Up to Date: Yes - Psycho-Social/Smoking History Smoking Status: Yes Smoking History: Former smoker Have you smoked in the past 12 months: No Number of Cigarettes Smoked Daily: 0 If you are a former smoker, when did you quit?: 30 years ago Information on smoking cessation initiated: No - Substance Abuse Hx (Audit-C & DAST Scrn) How often the patient has a drink containing alcohol: 2-4 times / month Number of drinks the patient has on a typical day: 5 or 6 How often the patient has six or more drinks on one occasion: Monthly Score: In Men: 4 or > Positive; In Women: 3 or > Positive: 6 Screen Result (Pos requires Nsg. Audit-10AR): Positive In the last yr the pt used illegal drug/Rx for NonMed reason: No Score: Yes response is considered Positive: 0 Screen Result (Positive result requires Nsg. DAST-10): Negative *Physical Exam - Vital Signs Last Vital Signs Temp Pulse Resp BP Pulse Ox 98.1 F 78 18 117/63 98 01/29/20 16:38 01/29/20 16:38 01/29/20 16:38 01/29/20 16:38 01/29/20 16:38 ED Treatment Course - RADIOLOGY Radiology Studies Ordered: Category Date Time Status ABDOMEN & PELVIS CT WITH CONTR [CT] Stat CT Scan 01/29/20 17:35 Ordered Discharge - Discharge Information Clinical Impression/Diagnosis: Diarrhea Qualifiers: Diarrhea type: unspecified type Qualified Code(s): R19.7 - Diarrhea, u nspecified Abdominal pain Qualifiers: Abdominal location: unspecified location Qualified Code(s): R10.9 - Unspecified abdominal pain - Follow up/Referral Referrals: Anirudh Cross MD [Primary Care Provider] - - Patient Discharge Instructions - Post Discharge Activity
[2020-01-29 18:49] LABS: BASO % 0.4 % (0-2.0); EOS % 1.3 % (0-4.5); HEMATOCRIT 29.7 % (32.4-45.2); HEMOGLOBIN 9.9 GM/dL (10.7-15.3); LYMPH % 11.9 % (8-40); MCH 33.4 pg (25.7-33.7); MCHC 33.4 g/dl (32.0-36.0); MEAN CELL VOLUME 99.9 fl (80-96); MONO % 6.8 % (3.8-10.2); NEUT % 79.6 % (42.8-82.8); RBC 2.98 M/mm3 (3.60-5.2); RDW 19.3 % (11.6-15.6)
--- OUTSIDE RECORDS SUMMARY | 2020-01-29 18:49 | XMS ---
:1955 Author Organization [facility] Support Name Relationship Address Phone GRACIELA ALLREDS Unavailable [address] [place] [address] BRIGIDA Unavailable [address] [place] [address] NICOL MARTIN PARTNER [address] [place] [address] Re-disclosure Warning The records that you are about to access may contain information from federally- assisted alcohol or drug abuse programs. If such information is present, then the following federally mandated warning applies: This information has been disclosed to you from records protected by federal confidentiality rules (42 CFR part 2). The federal rules prohibit you from making any further disclosure of this information unless further disclosure is expressly permitted by the written consent of the person to whom it pertains or as otherwise permitted by 42 CFR part 2. A general authorization for the release of medical or other information is NOT sufficient for this purpose. The Federal rules restrict any use of the information to criminally investigate or prosecute any alcohol or drug abuse patient.The records that you are about to access may contain highly sensitive health information, the redisclosure of which is protected by Article 27-F of the [facility] Public Health law. If you continue you may haveaccess to information: Regarding HIV / AIDS; Provided by facilities licensed or operated by the [facility] Office of Mental Health; or Provided by the [facility] Office for People With Developmental Disabilities. If such information is present, then the following [facility] mandated warning applies: This information has been disclosed to you from confidential records which are protected by state law. State law prohibits you from making any further disclosure of this information without the specific written consent of the person to whom it pertains, or as otherwise permitted by law. Any unauthorized further disclosure in violation of state law may result in a fine or long-term sentence or both. A general authorization for the release of medical or other information is NOT sufficient authorization for further disclosure. Insurance Providers Payer name Policy type Policy ID Covered Covered libertarian's Policy P qi / Coverage libertarian ID relationship to [employer] Inf ormation type lowe BC OUT OF [id number] SP [id number] [place] 46 MEDICARE [id number] SP [id number] 4 MEDICARE [id number] SP [id number] Results ID Date Data Source [id number] 12/10/2019 03:00:00 PM EDT [facility] Name Value Range Interpretation Description Data Sup porting Code Source(s) Document(s ) SARS [facility] coronavirus 2 RNA This lab was ordered by [facility] and reported by [facility]. ID Date Data Source [id number] 12/05/2019 11:35:00 AM EDT [facility] Name Value Range Interpretation Description Data Sup porting Code Source(s) Document(s ) SARS [facility] coronavirus 2 RNA This lab was ordered by [facility] and reported by [facility]. Procedure
[2020-01-29 19:20] LABS: ALBUMIN 2.2 g/dl (3.4-5.0); BILIRUBIN,TOTAL 0.6 mg/dL (0.2-1); BLOOD UREA NITROGEN 18.1 mg/dL (7-18); CALCIUM 9.7 mg/dL (8.5-10.1); CREATININE 1.4 mg/dL (0.55-1.3); POTASSIUM 4.9 mmol/L (3.5-5.1); TOT PROT 8.3 g/dl (6.4-8.2)
[2020-01-29] MEDS ORDERED: ACETAMINOPHEN 1000 MG/100 ML VIAL (NON FORMULARY) IVPB ONE (19:49)
[2020-01-29 19:56] LABS: ANISOCYTOSIS 0; HELMET CELLS 0; HOWELL-JOLLY BODIES 0; MACROCYTOSIS 0; OVALOCYTE 0; PLATELET ESTIMATE NORMAL; ROULEAU 0; SICKELED CELLS 0; TARGET CELLS 0; TEAR DROP CELLS 0; TOXIC GRANULATION 0
[2020-01-29 20:36] LABS: WHITE BLOOD COUNT 15.6 K/mm3 (4.0-10.0)
[2020-01-29 20:37] LABS: MEAN PLT VOLUME 8.4 fl (7.5-11.1); PLATELET COUNT 401 K/MM3 (134-434)
--- NOTE | 2020-01-29 21:14 | PDOC ---
*Physical Exam - Vital Signs Last Vital Signs Temp Pulse Resp BP Pulse Ox 98.1 F 78 18 117/63 98 01/29/20 16:38 01/29/20 16:38 01/29/20 16:38 01/29/20 16:38 01/29/20 16:38 - Physical Exam General Appearance: Yes: Appropriately Dressed Gastrointestinal/Abdominal: positive: Tender (lower abdominal area tenderness) Integumentary: positive: Normal Color, Dry, Warm Neurologic: positive: Fully Oriented, Alert ED Treatment Course - LABORATORY CBC & Chemistry Diagram: 01/29/20 18:38 01/29/20 18:38 - ADDITIONAL ORDERS Additional order review: Laboratory Results 01/29/20 18:38 Sodium 130 L Potassium 4.9 Chloride 101 Carbon Dioxide 17 L Anion Gap 12 BUN 18.1 H Creatinine 1.4 H Est GFR (CKD-EPI)AfAm 45.58 Est GFR (CKD-EPI)NonAf 39.33 Random Glucose 281 H Calcium 9.7 Total Bilirubin 0.6 AST 63 H ALT 19 Alkaline Phosphatase 197 H Total Protein 8.3 H Albumin 2.2 L Lipase 470 H 01/29/20 18:38 RBC 2.98 L MCV 99.9 H MCHC 33.4 RDW 19.3 H MPV 8.4 Neutrophils % 79.6 Lymphocytes % 11.9 D Monocytes % 6.8 Eosinophils % 1.3 D Basophils % 0.4 - RADIOLOGY Radiology Studies Ordered: Category Date Time Status ABDOMEN & PELVIS CT W/O CONTR [CT] Stat CT Scan 01/29/20 21:13 Ordered Medical Decision Making - Medical Decision Making 01/29/20 21:13 patient refused IV insert for larger gauge IV catheter. patient currently has a 24-gauge IV for not ideal for IV CAT scan with contrast. Changed to CAT scan without contrast 01/30/20 01:04 Patient reports some pain relief. CTAP reviewed with patient patient is admitted under hospitalist service. Report given to Louisa Flores NP 01/30/20 01:36 Patient not in vertical area. Patient eloped while in treatment patient called at home reports that she removed her IV. Charge nurse Jerri Olivia called [facility] to check on IV site. Discharge - Discharge Information Problems reviewed: Yes Clinical Impression/Diagnosis: Diverticulitis Diarrhea Qualifiers: Diarrhea type: unspecified type Qualified Code(s): R19.7 - Diarrhea, unspecified Abdominal pain Qualifiers: Abdominal location: unspecified location Qualified Code(s): R10.9 - Unspecified abdominal pain Disposition: ELOPED - Admission No - Follow up/Referral - Patient Discharge Instructions - Post Discharge Activity
[2020-01-29] MEDS ORDERED: PIPERACILLIN/TAZOBACTAM 4.5 GM VIAL IVPB ONE (23:21)
--- NOTE | 2020-01-30 00:52 | HP ---
Admitting History and Physical - Primary Care Physician PCP: Anirudh Cross - Past Medical History Cardiovascular: Yes: AFIB (-paroxysmal), Aortic Insufficiency, HTN, Hyperlipdemia, Mitral Insufficiency, Murmur, Pulmonary Hypertension Gastrointestinal: Yes: GERD ...: No ENT: Yes: Other (early cataracts) Endocrine: Yes: Diabetes Mellitus (NIDDM- diet controlled, diagnosed > 10 years ago; self d/c'd metformin due to weight loss) - Past Surgical History Past Surgical History: Yes: None - Smoking History Smoking history: Former smoker Have you smoked in the past 12 months: No Aproximately how many cigarettes per day: 0 If you are a former smoker, when did you quit?: 30 years ago - Alcohol/Substance Use Hx Alcohol Use: Yes (daily as in HPI) History of Substance Use: reports: None - Social History ADL: Independent 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 History of Recent Travel: No Home Medications - Allergies Allergies/Adverse Reactions: Allergies Allergy/AdvReac Type Severity Reaction Status Date / Time almond AdvReac Verified 01/29/20 16:36 almond milk Allergy Uncoded 01/29/20 16:36 - Home Medications Home Medications: Ambulatory Orders Atorvastatin Ca [Lipitor] 20 mg PO HS 06/05/16 Thiamine HCl [Vitamin B1 -] 100 mg PO DAILY #30 tablet 12/30/16 Magnesium Oxide [Mag-Ox -] 400 mg PO DAILY 07/05/17 Metoprolol Tartrate [Lopressor -] 25 mg PO BID #60 tablet 07/11/17 Pantoprazole Sodium [Protonix -] 40 mg PO DAILY #30 tablet.ec 07/11/17 Valsartan [Diovan] 80 mg PO DAILY 30 Days #30 tablet 07/11/17 Folic Acid - 1 mg PO DAILY tablet 12/15/19 Physical Examination Vital Signs: Vital Signs Temperature 98.1 F 01/29/20 16:38 Pulse Rate 78 01/29/20 16:38 Respiratory Rate 18 01/29/20 16:38 Blood Pressure 117/63 01/29/20 16:38 O2 Sat by Pulse Oximetry (%) 98 01/29/20 16:38 Labs: CBC, BMP 01/29/20 18:38 01/29/20 18:38
[2020-01-30] MEDS ORDERED: DEXTROSE 5%-0.45% SALINE 1,000 ML IV SCH (01:00)
--- OUTSIDE RECORDS SUMMARY | 2020-01-30 01:11 | XMS ---
:1955 Author Organization [facility] Support Name Relationship Address Phone GRACIELA ALLREDS Unavailable [address] [place] [address] BRIGIDA Unavailable [address] [place] [address] NICOL MARTIN PARTNER [address] ( [phone] [place] [address] Re-disclosure Warning The records that you are [...] is protected by Article 27-F of the [facility] Public Health law. If you continue you may haveaccess to information: Regarding HIV / AIDS; Provided by facilities licensed or operated by the [facility] Office of Mental Health; or Provided by the [facility] Office for People With Developmental Disabilities. If such information is present, then the following [facility] mandated warning applies: This information has been [...] law may result in a fine or care home sentence or both. A general authorization for the release of medical or other information is NOT sufficient authorization for further disclosure. Insurance Providers Payer name Policy type Policy ID Covered Covered constitution party's Policy P qi / Coverage constitution party ID relationship to [employer] Inf ormation type lowe BC OUT OF [id number] SP [id number] STATE 46 MEDICARE [id number] SP [id number] 74 4 MEDICARE [id number] [place] [id number] 4 Results ID Date Data Source [id number] 12/10/2019 03:00:00 PM EDT [facility] Name Value Range Interpretation Description Data Sup porting Code Source(s) Document(s ) SARS [facility] coronavirus 2 RNA This lab was ordered by [facility] and reported by [facility]. ID Date Data Source [id number] 12/05/2019 11:35:00 AM EDT [facility] Name Value Range Interpretation Description Data Sup porting Code Source(s) Document(s ) SARS [facility] coronavirus 2 RNA This lab was ordered by [facility] and reported by [facility]. Procedure
[2020-01-30] MEDS ORDERED: PIPERACILLIN/TAZOB 4.5 GM 4.5 GM/100 ML BAG IVPB ONE (01:21)
--- NOTE | 2020-01-30 01:42 | HOSP ---
Subjective - Review of Symptoms Events since last encounter: Hospitalist Encounter Arrived to ED, patient not found. Patient left ED without being admitted Physical Examination Vital Signs: Vital Signs Temperature 98.1 F 01/29/20 16:38 Pulse Rate 78 01/29/20 16:38 Respiratory Rate 18 01/29/20 16:38 Blood Pressure 117/63 01/29/20 16:38 O2 Sat by Pulse Oximetry (%) 98 01/29/20 16:38 Labs: CBC, BMP 01/29/20 18:38 01/29/20 18:38
--- NOTE | 2020-01-30 09:05 | EKG ---
Test Reason : Blood Pressure : / mmHG Vent. Rate : 073 BPM Atrial Rate : 073 BPM P-R Int : 172 ms QRS Dur : 072 ms QT Int : 390 ms P-R-T Axes : 027 010 024 degrees QTc Int : 429 ms NORMAL SINUS RHYTHM NORMAL ECG WHEN COMPARED WITH ECG OF 05-DEC-2019 10:14, NO SIGNIFICANT CHANGE WAS FOUND Confirmed by MD KALE, VIRGIL ([id number]) on 01/30/2020 9:04:43 AM Referred By: Confirmed By:VIRGIL HENLEY MD
== END 2020-01-30 01:00 | disposition left against medical advice (07) ==
LOC: JER 16:17 → UNDOADMIN 01-30 01:04 → JERBED 01-30 01:04
PROC: 3E0333Z Introduction of Anti-inflammatory into Peripheral Vein, Percutaneous Approach (ICD-10-PCS; principal; 2020-01-29)
PROC: 3E0337Z Introduction of Electrolytic and Water Balance Substance into Peripheral Vein, Percutaneous Approach (ICD-10-PCS; 2020-01-29)
DX: R19.7 Diarrhea, unspecified (principal); R10.9 Unspecified abdominal pain
CPT/HCPCS: 36415; 74176-TC; 80053; 83690; 85025; 93005; 93010; 99285-25; J0131

== ENCOUNTER 2020-06-25 18:14 | Inpatient (IN) | payer BC, OTHER ==
[2020-06-25] MEDS ORDERED: morphine CARPU-JECT 4 MG/1 ML DISP.SYRIN IVPUSH ONE (21:11)
[2020-06-25] MEDS ORDERED: morphine SULFATE 4 MG/ML VIAL ONE (21:19)
[2020-06-25] MEDS ORDERED: SODIUM CHLORIDE 0.9% 500 ML INFUS.BAG IV ONE (21:51)
[2020-06-25 21:54] LABS: BASO % 1.1 % (0-2.0); EOS % 1.4 % (0-4.5); HEMATOCRIT 28.8 % (32.4-45.2); HEMOGLOBIN 9.7 GM/dL (10.7-15.3); LYMPH % 19.3 % (8-40); MCH 32.9 pg (25.7-33.7); MCHC 33.5 g/dl (32.0-36.0); MEAN CELL VOLUME 98.1 fl (80-96); MEAN PLT VOLUME 8.7 fl (7.5-11.1); MONO % 6.5 % (3.8-10.2); NEUT % 71.7 % (42.8-82.8); RBC 2.94 M/mm3 (3.60-5.2); RDW 15.2 % (11.6-15.6); WHITE BLOOD COUNT 12.4 K/mm3 (4.0-10.0)
[2020-06-25 22:16] LABS: CHLORIDE 107 mmol/L (98-107); POTASSIUM 4.6 mmol/L (3.5-5.1); SODIUM 133 mmol/L (136-145)
[2020-06-25 22:18] LABS: CALCIUM 9.3 mg/dL (8.5-10.1)
[2020-06-25 22:19] LABS: ALBUMIN 3.1 g/dl (3.4-5.0); ANION GAP 7 MMOL/L (8-16); BLOOD UREA NITROGEN 32.1 mg/dL (7-18); CO2 19 mmol/L (21-32); GLUCOSE,RANDOM 162 mg/dL (74-106); LIPASE 128 U/L (73-393)
[2020-06-25 22:21] LABS: SGOT/AST 19 U/L (15-37); SGPT/ALT 10 U/L (13-61)
[2020-06-25 22:23] LABS: BILIRUBIN,TOTAL 0.4 mg/dL (0.2-1); TOT PROT 8.2 g/dl (6.4-8.2)
[2020-06-25 22:24] LABS: ALK PHOS 111 U/L (45-117)
[2020-06-25 22:27] LABS: PLATELET COUNT 306 K/MM3 (134-434); PLATELET ESTIMATE ADEQUATE
[2020-06-26] MEDS ORDERED: PIPERACILLIN/TAZOB 3.375 GM 3.375 GM in DEXTROSE 5%-WATER - 50 ML IVPB ONE (00:05)
[2020-06-26] MEDS ORDERED: SODIUM CHLORIDE 1,000 ML IV SCH (01:00)
[2020-06-26] MEDS ORDERED: PIPERACILLIN/TAZOB 3.375 GM 3.375 GM/50 ML BAG IVPB ONE (01:13)
[2020-06-26] MEDS ORDERED: MORPHINE SULFATE 2 MG/ML VIAL ONE (01:27)
[2020-06-26] MEDS: MORPHINE SULFATE 2 MG/ML VIAL IVPUSH PRN ×2 (01:33→20:03)
[2020-06-26 01:51] LABS: INR 1.03 (0.83-1.09); PROTHROMBIN TIME (PATIENT) 12.6 SEC (9.7-13.0)
[2020-06-26] MEDS ORDERED: PIPERACILLIN/TAZOB 2.25 GM 2.25 GM in DEXTROSE 5%-WATER - 50 ML IVPB SCH ×2 (02:00→10:00)
[2020-06-26 05:23] VITALS: BMI 21.2
[2020-06-26 07:36] LABS: HEMATOCRIT 28.7 % (32.4-45.2); HEMOGLOBIN 9.7 GM/dL (10.7-15.3); MCHC 33.9 g/dl (32.0-36.0); MEAN CELL VOLUME 97.3 fl (80-96); MEAN PLT VOLUME 8.1 fl (7.5-11.1); PLATELET COUNT 269 K/MM3 (134-434); RBC 2.95 M/mm3 (3.60-5.2); RDW 15.1 % (11.6-15.6); WHITE BLOOD COUNT 10.6 K/mm3 (4.0-10.0)
[2020-06-26 08:00] LABS: POTASSIUM 4.4 mmol/L (3.5-5.1)
[2020-06-26 08:02] LABS: BLOOD UREA NITROGEN 29.2 mg/dL (7-18); CALCIUM 9.1 mg/dL (8.5-10.1)
[2020-06-26 08:06] LABS: CREATININE 1.6 mg/dL (0.55-1.3)
[2020-06-26] MEDS ORDERED: PNEUMOC 13-VAL CONJ-DIP CRM/PF 0.5 ML DISP.SYRIN IM ONE (10:00)
[2020-06-26] MEDS ORDERED: PIPERACILLIN/TAZOBACTAM 2.25 GM VIAL IVPB ONE ×2 (10:01→16:46)
[2020-06-26] MEDS ORDERED: DEXTROSE 5%-WATER - 50 ML IVPB ONE ×2 (10:01→16:46)
[2020-06-26] MEDS: PANTOPRAZOLE 40 MG TABLET PO SCH (10:13)
[2020-06-26] MEDS: PIPERACILLIN/TAZOB 2.25 GM 2.25 GM in DEXTROSE 5%-WATER - 50 ML IVPB SCH ×2 (10:14→17:16)
[2020-06-26] MEDS: LACTATED RINGERS SOLUTION 1,000 ML/1,000 ML INFUS.BAG IV SCH (17:15)
[2020-06-26 18:20] LABS: URINE APPEARANCE CLEAR; URINE BILIRUBIN NEGATIVE (NEGATIVE); URINE COLOR YELLOW; URINE GLUCOSE (UA) NEGATIVE (NEGATIVE); URINE KETONE NEGATIVE (NEGATIVE); URINE LEUK ESTERASE NEGATIVE (NEGATIVE); URINE NITRITE NEGATIVE (NEGATIVE); URINE PROTEIN NEGATIVE (NEGATIVE); URINE UROBILINOGEN 0.2 mg/dL (0.2-1.0)
[2020-06-27] MEDS ORDERED: PIPERACILLIN/TAZOBACTAM 2.25 GM VIAL IVPB ONE (01:08)
[2020-06-27] MEDS ORDERED: DEXTROSE 5%-WATER - 50 ML IVPB ONE (01:08)
[2020-06-27] MEDS: PIPERACILLIN/TAZOB 2.25 GM 2.25 GM in DEXTROSE 5%-WATER - 50 ML IVPB SCH (01:19)
[2020-06-27 08:07] LABS: HEMATOCRIT 28.6 % (32.4-45.2); HEMOGLOBIN 9.8 GM/dL (10.7-15.3); MCH 33.5 pg (25.7-33.7); MCHC 34.2 g/dl (32.0-36.0); MEAN CELL VOLUME 97.9 fl (80-96); MEAN PLT VOLUME 8.3 fl (7.5-11.1); PLATELET COUNT 272 K/MM3 (134-434); RBC 2.93 M/mm3 (3.60-5.2); RDW 15.2 % (11.6-15.6); WHITE BLOOD COUNT 9.4 K/mm3 (4.0-10.0)
[2020-06-27 09:04] LABS: POTASSIUM 4.4 mmol/L (3.5-5.1)
[2020-06-27 09:06] LABS: ALBUMIN 2.4 g/dl (3.4-5.0); BLOOD UREA NITROGEN 20.1 mg/dL (7-18); CALCIUM 9.3 mg/dL (8.5-10.1)
[2020-06-27 09:09] LABS: CREATININE 1.4 mg/dL (0.55-1.3)
[2020-06-27 09:11] LABS: BILIRUBIN,TOTAL 0.3 mg/dL (0.2-1); TOT PROT 6.5 g/dl (6.4-8.2)
[2020-06-27] MEDS: LACTATED RINGERS SOLUTION 1,000 ML/1,000 ML INFUS.BAG IV SCH ×2 (09:32→18:41)
[2020-06-27] MEDS: PANTOPRAZOLE 40 MG TABLET PO SCH (09:33)
[2020-06-27] MEDS: MORPHINE SULFATE 2 MG/ML VIAL IVPUSH PRN ×2 (14:41→22:09)
[2020-06-27] MEDS ORDERED: FAMOTIDINE 20 MG TABLET PO PRN (20:37)
[2020-06-28 03:17] VITALS: PULSE 61
[2020-06-28] MEDS: MORPHINE SULFATE 2 MG/ML VIAL IVPUSH PRN (06:04)
[2020-06-28 07:45] LABS: BASO % 0.4 % (0-2.0); HEMATOCRIT 28.7 % (32.4-45.2); HEMOGLOBIN 9.9 GM/dL (10.7-15.3); LYMPH % 17.5 % (8-40); MCH 33.1 pg (25.7-33.7); MCHC 34.6 g/dl (32.0-36.0); MEAN CELL VOLUME 95.7 fl (80-96); MEAN PLT VOLUME 8.1 fl (7.5-11.1); MONO % 10.3 % (3.8-10.2); NEUT % 70.8 % (42.8-82.8); PLATELET COUNT 297 K/MM3 (134-434); RDW 15.1 % (11.6-15.6); WHITE BLOOD COUNT 9.3 K/mm3 (4.0-10.0)
[2020-06-28 08:11] LABS: POTASSIUM 4.6 mmol/L (3.5-5.1)
[2020-06-28 08:15] LABS: CALCIUM 9.4 mg/dL (8.5-10.1)
[2020-06-28 08:16] LABS: BLOOD UREA NITROGEN 15.1 mg/dL (7-18)
[2020-06-28 08:19] LABS: CREATININE 1.2 mg/dL (0.55-1.3)
[2020-06-28 11:17] VITALS: BP 138/97; TEMP 97.5
== END 2020-06-28 13:40 | disposition home or self-care (01) | DRG 392 ==
LOC: JER 18:14 → JERBED 23:51 → J4W 06-26 04:52
PROVIDERS: ADMIT Hospitalist; ATTEND Internal Medicine
DX: K57.92 Diverticulitis of intestine, part unspecified, without perforation or abscess without bleeding (principal); N17.9 Acute kidney failure, unspecified; I50.22 Chronic systolic (congestive) heart failure; I42.6 Alcoholic cardiomyopathy; K62.5 Hemorrhage of anus and rectum; I48.0 Paroxysmal atrial fibrillation; K70.30 Alcoholic cirrhosis of liver without ascites; K21.9 Gastro-esophageal reflux disease without esophagitis; I27.20 Pulmonary hypertension, unspecified; I11.0 Hypertensive heart disease with heart failure; F10.10 Alcohol abuse, uncomplicated
CPT/HCPCS: 36415; 74176-TC; 80048; 80053; 81003; 82272; 82550; 83605; 83690; 84484; 85025; 85027; 85610; 86140; 86850; 86900; 86901; 87086; 93005; 93010; 99285-25; C9803; U0003

== ENCOUNTER 2020-08-14 13:14 | Inpatient (IN) | payer BC, OTHER ==
[2020-08-14] MEDS ORDERED: ACETAMINOPHEN 500 MG TABLET (FP) PO ONE (13:50)
[2020-08-14] MEDS ORDERED: ACETAMINOPHEN 325 MG TABLET (FP) ONE (17:24)
[2020-08-14] MEDS ORDERED: morphine CARPU-JECT 4 MG/1 ML DISP.SYRIN IVPUSH ONE (18:17)
[2020-08-14] MEDS ORDERED: morphine SULFATE 4 MG/ML VIAL ONE (19:20)
[2020-08-14 20:07] LABS: BASO % 0.5 % (0-2.0); EOS % 1.9 % (0-4.5); HEMATOCRIT 29.4 % (32.4-45.2); HEMOGLOBIN 9.9 GM/dL (10.7-15.3); LYMPH % 13.8 % (8-40); MCH 32.7 pg (25.7-33.7); MCHC 33.5 g/dl (32.0-36.0); MEAN CELL VOLUME 97.7 fl (80-96); MEAN PLT VOLUME 7.9 fl (7.5-11.1); MONO % 6.8 % (3.8-10.2); PLATELET COUNT 344 K/MM3 (134-434); RBC 3.01 M/mm3 (3.60-5.2); RDW 14.7 % (11.6-15.6); WHITE BLOOD COUNT 10.3 K/mm3 (4.0-10.0)
[2020-08-14 20:08] LABS: INR 1.08 (0.83-1.09)
[2020-08-14 20:11] LABS: ACTIVATED PTT 31.8 SECONDS (25.2-36.5)
[2020-08-14 20:17] LABS: CHLORIDE 108 mmol/L (98-107); SODIUM 137 mmol/L (136-145)
[2020-08-14 20:19] LABS: CALCIUM 9.6 mg/dL (8.5-10.1)
[2020-08-14 20:20] LABS: ALBUMIN 2.8 g/dl (3.4-5.0); ANION GAP 10 MMOL/L (8-16); BLOOD UREA NITROGEN 21.4 mg/dL (7-18); CO2 18 mmol/L (21-32); GLUCOSE,RANDOM 107 mg/dL (74-106)
[2020-08-14 20:22] LABS: SGPT/ALT 12 U/L (13-61)
[2020-08-14 20:23] LABS: CREATININE 1.4 mg/dL (0.55-1.3); SGOT/AST 14 U/L (15-37)
[2020-08-14 20:24] LABS: BILIRUBIN,TOTAL 0.3 mg/dL (0.2-1); TOT PROT 7.7 g/dl (6.4-8.2)
[2020-08-14 20:26] LABS: ALK PHOS 81 U/L (45-117)
[2020-08-14] MEDS ORDERED: CEFTRIAXONE 2 GM/50 ML BAG IVPB ONE (21:17)
[2020-08-14] MEDS ORDERED: MORPHINE SULFATE 2 MG/ML VIAL ONE (23:54)
[2020-08-15] MEDS ORDERED: morphine SULFATE 4 MG/ML VIAL IVPUSH PRN (00:11)
[2020-08-15] MEDS ORDERED: ACETAMINOPHEN 1000 MG/100 ML VIAL (NON FORMULARY) IVPB PRN ×2 (00:12→19:28)
[2020-08-15] MEDS ORDERED: DEXTROSE 5%-0.45% SALINE 1,000 ML IV SCH (02:00)
[2020-08-15 09:27] LABS: BASO % 0.6 % (0-2.0); EOS % 2.5 % (0-4.5); HEMATOCRIT 28.6 % (32.4-45.2); HEMOGLOBIN 9.7 GM/dL (10.7-15.3); LYMPH % 13.8 % (8-40); MCHC 33.9 g/dl (32.0-36.0); MEAN CELL VOLUME 97.3 fl (80-96); MEAN PLT VOLUME 7.6 fl (7.5-11.1); MONO % 7.7 % (3.8-10.2); NEUT % 75.4 % (42.8-82.8); PLATELET COUNT 331 K/MM3 (134-434); RBC 2.93 M/mm3 (3.60-5.2); RDW 14.9 % (11.6-15.6); WHITE BLOOD COUNT 10.1 K/mm3 (4.0-10.0)
[2020-08-15] MEDS ORDERED: CEFTRIAXONE 2 GM/50 ML BAG IVPB SCH (10:00)
[2020-08-15 10:02] LABS: ALBUMIN 2.5 g/dl (3.4-5.0); CALCIUM 9.5 mg/dL (8.5-10.1)
[2020-08-15 10:03] LABS: BLOOD UREA NITROGEN 16.3 mg/dL (7-18)
[2020-08-15 10:05] LABS: CREATININE 1.1 mg/dL (0.55-1.3)
[2020-08-15 10:06] LABS: BILIRUBIN,TOTAL 0.3 mg/dL (0.2-1)
[2020-08-15 10:07] LABS: TOT PROT 6.8 g/dl (6.4-8.2)
[2020-08-15] MEDS ORDERED: CEFTRIAXONE 2 GM in DEXTROSE 5%-WATER 2 GM/100 ML BAG IVPB SCH (10:30)
[2020-08-15] MEDS ORDERED: diphenhydrAMINE HCL 25 MG CAPSULE (FP) PO ONE ×2 (11:15→12:30)
[2020-08-15] MEDS ORDERED: DEXTROSE 5%-WATER 100 ML IVPB ONE (12:15)
[2020-08-15] MEDS ORDERED: FAMOTIDINE 20 MG TABLET PO PRN (12:36)
[2020-08-15 15:47] LABS: EPI CELLS >36 /uL (0-25.1); HYALINE CASTS 3 /uL (0-3.1); PH,URINE 6.5 (5.0-8.0); URINE APPEARANCE CLOUDY; URINE BACTERIA 2138 /uL (0-1359); URINE BILIRUBIN NEGATIVE (NEGATIVE); URINE COLOR YELLOW; URINE GLUCOSE (UA) NEGATIVE (NEGATIVE); URINE KETONE NEGATIVE (NEGATIVE); URINE LEUK ESTERASE 2+ (NEGATIVE); URINE NITRITE NEGATIVE (NEGATIVE); URINE PROTEIN TRACE (NEGATIVE); URINE RBC 12 /uL (0-23.9); URINE UROBILINOGEN 0.2 mg/dL (0.2-1.0); URINE WBC 784 /uL (0-25.8)
[2020-08-15] MEDS ORDERED: EPHEDRINE SULFATE/0.9% NACL/PF 50 MG/10 ML SYRINGE NR ONE (17:43)
[2020-08-15] MEDS ORDERED: PROPOFOL 20 ML ONE (17:43)
[2020-08-15] MEDS ORDERED: MIDAZOLAM HCL 2 MG/2 ML SINGLE DOSE VIAL ONE ×2 (17:44→18:02)
[2020-08-15] MEDS ORDERED: ONDANSETRON 4 MG/2 ML VIAL ONE (18:37)
[2020-08-15] MEDS ORDERED: DEXAMETHASONE SOD PHOSPHATE 4 MG/1 ML VIAL ONE (18:37)
[2020-08-15] MEDS: morphine SULFATE 4 MG/ML VIAL IVPUSH PRN (20:43)
[2020-08-15] MEDS: ATORVASTATIN CA 20 MG TABLET (FP) PO SCH (21:05)
[2020-08-15] MEDS ORDERED: ATORVASTATIN CA 20 MG TABLET (FP) PO SCH (22:00)
[2020-08-15] MEDS: FAMOTIDINE 20 MG TABLET PO PRN (22:39)
[2020-08-16] MEDS: morphine SULFATE 4 MG/ML VIAL IVPUSH PRN ×3 (01:31→18:35)
[2020-08-16] MEDS ORDERED: DEXTROSE 5%-WATER 100 ML IVPB ONE (09:37)
[2020-08-16] MEDS: CHOLECALCIFEROL (VIT D3) 1,000 UNIT (25 MCG) TABLET PO SCH (09:43)
[2020-08-16] MEDS: THIAMINE HCL 100 MG TABLET (FP) PO SCH (09:43)
[2020-08-16] MEDS: MAGNESIUM OXIDE 400 MG TABLET (FP) PO SCH (09:43)
[2020-08-16] MEDS: FOLIC ACID 1 MG TABLET (FP) PO SCH (09:44)
[2020-08-16] MEDS: ENOXAPARIN NA (PORCINE) 40 MG/0.4 ML DISP.SYRIN SQ SCH (09:44)
[2020-08-16] MEDS: CEFTRIAXONE 2 GM in DEXTROSE 5%-WATER 2 GM/100 ML BAG IVPB SCH (09:45)
[2020-08-16] MEDS ORDERED: FOLIC ACID 1 MG TABLET (FP) PO SCH (10:00)
[2020-08-16] MEDS ORDERED: THIAMINE HCL 100 MG TABLET (FP) PO SCH (10:00)
[2020-08-16] MEDS ORDERED: MAGNESIUM OXIDE 400 MG TABLET (FP) PO SCH (10:00)
[2020-08-16] MEDS: SODIUM CHLORIDE 0.45% 1,000 ML IV SCH (12:00)
[2020-08-16] MEDS: ATORVASTATIN CA 20 MG TABLET (FP) PO SCH (21:09)
[2020-08-17] MEDS: morphine SULFATE 4 MG/ML VIAL IVPUSH PRN ×4 (01:38→21:31)
[2020-08-17] MEDS: SODIUM CHLORIDE 0.45% 1,000 ML IV SCH ×3 (05:13→18:04)
[2020-08-17 08:34] LABS: BASO % 0.4 % (0-2.0); EOS % 2.7 % (0-4.5); HEMATOCRIT 29.1 % (32.4-45.2); HEMOGLOBIN 9.6 GM/dL (10.7-15.3); LYMPH % 15.2 % (8-40); MCH 32.4 pg (25.7-33.7); MEAN CELL VOLUME 98.2 fl (80-96); MEAN PLT VOLUME 7.9 fl (7.5-11.1); NEUT % 67.7 % (42.8-82.8); PLATELET COUNT 326 K/MM3 (134-434); RBC 2.96 M/mm3 (3.60-5.2); RDW 15.1 % (11.6-15.6); WHITE BLOOD COUNT 6.7 K/mm3 (4.0-10.0)
[2020-08-17 08:56] LABS: CALCIUM 9.3 mg/dL (8.5-10.1)
[2020-08-17 08:57] LABS: BLOOD UREA NITROGEN 12.6 mg/dL (7-18)
[2020-08-17 09:00] LABS: CREATININE 1.2 mg/dL (0.55-1.3)
[2020-08-17] MEDS ORDERED: DEXTROSE 5%-WATER 100 ML IVPB ONE (09:00)
[2020-08-17] MEDS: MAGNESIUM OXIDE 400 MG TABLET (FP) PO SCH (09:28)
[2020-08-17] MEDS: CHOLECALCIFEROL (VIT D3) 1,000 UNIT (25 MCG) TABLET PO SCH (09:28)
[2020-08-17] MEDS: THIAMINE HCL 100 MG TABLET (FP) PO SCH (09:28)
[2020-08-17] MEDS: FOLIC ACID 1 MG TABLET (FP) PO SCH (09:29)
[2020-08-17] MEDS: CEFTRIAXONE 2 GM in DEXTROSE 5%-WATER 2 GM/100 ML BAG IVPB SCH (09:29)
[2020-08-17] MEDS: ENOXAPARIN NA (PORCINE) 40 MG/0.4 ML DISP.SYRIN SQ SCH (09:29)
[2020-08-17] MEDS: FAMOTIDINE 20 MG TABLET PO PRN (09:30)
[2020-08-17] MEDS: ATORVASTATIN CA 20 MG TABLET (FP) PO SCH (21:04)
[2020-08-18] MEDS: morphine SULFATE 4 MG/ML VIAL IVPUSH PRN ×4 (03:33→21:16)
[2020-08-18] MEDS ORDERED: PT OWN MED DRAWER 7, Y5N ONE (09:20)
[2020-08-18] MEDS ORDERED: DEXTROSE 5%-WATER 100 ML IVPB ONE (09:26)
[2020-08-18] MEDS: MAGNESIUM OXIDE 400 MG TABLET (FP) PO SCH (09:54)
[2020-08-18] MEDS: ENOXAPARIN NA (PORCINE) 40 MG/0.4 ML DISP.SYRIN SQ SCH (09:54)
[2020-08-18] MEDS: FOLIC ACID 1 MG TABLET (FP) PO SCH (09:55)
[2020-08-18] MEDS: CHOLECALCIFEROL (VIT D3) 1,000 UNIT (25 MCG) TABLET PO SCH (09:55)
[2020-08-18] MEDS: CEFTRIAXONE 2 GM in DEXTROSE 5%-WATER 2 GM/100 ML BAG IVPB SCH (09:55)
[2020-08-18] MEDS: THIAMINE HCL 100 MG TABLET (FP) PO SCH (09:55)
[2020-08-18] MEDS: SODIUM CHLORIDE 0.45% 1,000 ML IV SCH ×3 (09:58→20:35)
[2020-08-18 10:44] LABS: ALBUMIN 2.4 g/dl (3.4-5.0); BLOOD UREA NITROGEN 8.6 mg/dL (7-18)
[2020-08-18 10:48] LABS: CREATININE 1.1 mg/dL (0.55-1.3)
[2020-08-18 10:49] LABS: BILIRUBIN,TOTAL 0.2 mg/dL (0.2-1); TOT PROT 6.9 g/dl (6.4-8.2)
[2020-08-18 10:50] LABS: CALCIUM 9.1 mg/dL (8.5-10.1)
[2020-08-18 12:59] LABS: BASO % 0.6 % (0-2.0); EOS % 3.6 % (0-4.5); HEMATOCRIT 31.8 % (32.4-45.2); HEMOGLOBIN 10.4 GM/dL (10.7-15.3); LYMPH % 18.3 % (8-40); MCH 32.4 pg (25.7-33.7); MCHC 32.6 g/dl (32.0-36.0); MEAN CELL VOLUME 99.6 fl (80-96); MEAN PLT VOLUME 8.2 fl (7.5-11.1); MONO % 15.5 % (3.8-10.2); PLATELET COUNT 312 K/MM3 (134-434); RBC 3.19 M/mm3 (3.60-5.2); RDW 15.1 % (11.6-15.6); WHITE BLOOD COUNT 7.8 K/mm3 (4.0-10.0)
[2020-08-18] MEDS: ATORVASTATIN CA 20 MG TABLET (FP) PO SCH (21:39)
[2020-08-19] MEDS: morphine SULFATE 4 MG/ML VIAL IVPUSH PRN ×3 (02:54→17:19)
[2020-08-19 09:47] LABS: CHLORIDE 109 mmol/L (98-107); SODIUM 136 mmol/L (136-145)
[2020-08-19 10:05] LABS: CALCIUM 8.8 mg/dL (8.5-10.1)
[2020-08-19 10:06] LABS: ALBUMIN 2.1 g/dl (3.4-5.0); ANION GAP 11 MMOL/L (8-16); BLOOD UREA NITROGEN 8.1 mg/dL (7-18); CO2 16 mmol/L (21-32); GLUCOSE,RANDOM 88 mg/dL (74-106)
[2020-08-19 10:09] LABS: CREATININE 1.1 mg/dL (0.55-1.3); SGOT/AST 6 U/L (15-37)
[2020-08-19 10:11] LABS: BILIRUBIN,TOTAL 0.3 mg/dL (0.2-1); TOT PROT 6.3 g/dl (6.4-8.2)
[2020-08-19 10:12] LABS: ALK PHOS 53 U/L (45-117); SGPT/ALT < 6 U/L (13-61)
[2020-08-19] MEDS ORDERED: DEXTROSE 5%-WATER 100 ML IVPB ONE (10:21)
[2020-08-19] MEDS: CEFTRIAXONE 2 GM in DEXTROSE 5%-WATER 2 GM/100 ML BAG IVPB SCH (10:26)
[2020-08-19] MEDS: FOLIC ACID 1 MG TABLET (FP) PO SCH (10:27)
[2020-08-19] MEDS: MAGNESIUM OXIDE 400 MG TABLET (FP) PO SCH (10:27)
[2020-08-19] MEDS: ENOXAPARIN NA (PORCINE) 40 MG/0.4 ML DISP.SYRIN SQ SCH (10:27)
[2020-08-19] MEDS: CHOLECALCIFEROL (VIT D3) 1,000 UNIT (25 MCG) TABLET PO SCH (10:27)
[2020-08-19] MEDS: THIAMINE HCL 100 MG TABLET (FP) PO SCH (10:27)
[2020-08-19] MEDS: SODIUM CHLORIDE 0.45% 1,000 ML IV SCH (11:15)
[2020-08-19] MEDS: DEXTROSE 5%-0.45% SALINE 1,000 ML IV SCH (12:27)
[2020-08-19] MEDS: ATORVASTATIN CA 20 MG TABLET (FP) PO SCH (21:17)
[2020-08-19] MEDS ORDERED: ACETAMINOPHEN 1000 MG/100 ML VIAL (NON FORMULARY) IVPB ONE (21:24)
[2020-08-19] MEDS ORDERED: MORPHINE SULFATE 2 MG/ML VIAL IVPUSH STA (21:36)
[2020-08-20] MEDS: DEXTROSE 5%-0.45% SALINE 1,000 ML IV SCH ×3 (01:19→18:52)
[2020-08-20] MEDS: morphine SULFATE 4 MG/ML VIAL IVPUSH PRN ×3 (01:37→18:04)
[2020-08-20] MEDS ORDERED: PT OWN MED DRAWER 7, Y5N ONE (11:10)
[2020-08-20] MEDS ORDERED: DEXTROSE 5%-WATER 100 ML IVPB ONE (11:11)
[2020-08-20] MEDS: FOLIC ACID 1 MG TABLET (FP) PO SCH (11:17)
[2020-08-20] MEDS: MAGNESIUM OXIDE 400 MG TABLET (FP) PO SCH (11:17)
[2020-08-20] MEDS: CHOLECALCIFEROL (VIT D3) 1,000 UNIT (25 MCG) TABLET PO SCH (11:18)
[2020-08-20] MEDS: THIAMINE HCL 100 MG TABLET (FP) PO SCH (11:18)
[2020-08-20] MEDS: ENOXAPARIN NA (PORCINE) 40 MG/0.4 ML DISP.SYRIN SQ SCH (11:20)
[2020-08-20] MEDS: CEFTRIAXONE 2 GM in DEXTROSE 5%-WATER 2 GM/100 ML BAG IVPB SCH (13:00)
[2020-08-20] MEDS: ATORVASTATIN CA 20 MG TABLET (FP) PO SCH (21:12)
[2020-08-21] MEDS: morphine SULFATE 4 MG/ML VIAL IVPUSH PRN ×4 (00:02→20:09)
[2020-08-21 08:38] LABS: BASO % 0.6 % (0-2.0); EOS % 3.7 % (0-4.5); HEMATOCRIT 27.9 % (32.4-45.2); HEMOGLOBIN 9.1 GM/dL (10.7-15.3); LYMPH % 19.9 % (8-40); MCH 31.7 pg (25.7-33.7); MCHC 32.5 g/dl (32.0-36.0); MEAN CELL VOLUME 97.7 fl (80-96); MEAN PLT VOLUME 7.9 fl (7.5-11.1); MONO % 20.2 % (3.8-10.2); NEUT % 55.6 % (42.8-82.8); PLATELET COUNT 350 K/MM3 (134-434); RBC 2.85 M/mm3 (3.60-5.2); RDW 14.6 % (11.6-15.6); WHITE BLOOD COUNT 5.7 K/mm3 (4.0-10.0)
[2020-08-21 09:09] LABS: CHLORIDE 110 mmol/L (98-107); SODIUM 136 mmol/L (136-145)
[2020-08-21 09:13] LABS: CALCIUM 8.2 mg/dL (8.5-10.1)
[2020-08-21 09:14] LABS: ALBUMIN 2.1 g/dl (3.4-5.0); ANION GAP 9 MMOL/L (8-16); BLOOD UREA NITROGEN 3.7 mg/dL (7-18); CO2 17 mmol/L (21-32); GLUCOSE,RANDOM 227 mg/dL (74-106)
[2020-08-21 09:17] LABS: CREATININE 1.1 mg/dL (0.55-1.3); SGOT/AST 6 U/L (15-37); SGPT/ALT < 6 U/L (13-61)
[2020-08-21 09:18] LABS: ALK PHOS 47 U/L (45-117); BILIRUBIN,TOTAL 0.6 mg/dL (0.2-1)
[2020-08-21] MEDS ORDERED: PT OWN MED DRAWER 7, Y5N ONE ×3 (10:10→18:59)
[2020-08-21] MEDS ORDERED: DEXTROSE 5%-WATER 100 ML IVPB ONE (10:10)
[2020-08-21] MEDS: MAGNESIUM OXIDE 400 MG TABLET (FP) PO SCH (10:13)
[2020-08-21] MEDS: FOLIC ACID 1 MG TABLET (FP) PO SCH (10:13)
[2020-08-21] MEDS: THIAMINE HCL 100 MG TABLET (FP) PO SCH (10:14)
[2020-08-21] MEDS: CHOLECALCIFEROL (VIT D3) 1,000 UNIT (25 MCG) TABLET PO SCH (10:14)
[2020-08-21] MEDS: ENOXAPARIN NA (PORCINE) 40 MG/0.4 ML DISP.SYRIN SQ SCH (10:16)
[2020-08-21] MEDS: CEFTRIAXONE 2 GM in DEXTROSE 5%-WATER 2 GM/100 ML BAG IVPB SCH (11:06)
[2020-08-21 11:39] LABS: ANISOCYTOSIS 1+; MACROCYTOSIS 0; PLATELET ESTIMATE NORMAL
[2020-08-21] MEDS: DEXTROSE 5%-0.45% SALINE 1,000 ML IV SCH (13:10)
[2020-08-21] MEDS ORDERED: POTASSIUM CHLORIDE ORAL LIQUID 20 MEQ/15 ML PO ONE (17:26)
[2020-08-21] MEDS: SODIUM BICARBONATE 325 MG TABLET PO SCH (19:02)
[2020-08-21] MEDS: SODIUM CHLORIDE 0.45% 1,000 ML IV SCH (20:03)
[2020-08-21] MEDS: ATORVASTATIN CA 20 MG TABLET (FP) PO SCH (21:23)
[2020-08-22] MEDS: morphine SULFATE 4 MG/ML VIAL IVPUSH PRN ×4 (02:49→21:12)
[2020-08-22] MEDS ORDERED: DEXTROSE 5%-WATER 100 ML IVPB ONE (08:52)
[2020-08-22] MEDS: CEFTRIAXONE 2 GM in DEXTROSE 5%-WATER 2 GM/100 ML BAG IVPB SCH (10:56)
[2020-08-22] MEDS: MAGNESIUM OXIDE 400 MG TABLET (FP) PO SCH (10:57)
[2020-08-22] MEDS: ENOXAPARIN NA (PORCINE) 40 MG/0.4 ML DISP.SYRIN SQ SCH (10:57)
[2020-08-22] MEDS: THIAMINE HCL 100 MG TABLET (FP) PO SCH (10:57)
[2020-08-22] MEDS: CHOLECALCIFEROL (VIT D3) 1,000 UNIT (25 MCG) TABLET PO SCH (10:58)
[2020-08-22] MEDS: SODIUM BICARBONATE 325 MG TABLET PO SCH (11:00)
[2020-08-22] MEDS: FOLIC ACID 1 MG TABLET (FP) PO SCH (11:01)
[2020-08-22] MEDS: SODIUM CHLORIDE 0.45% 1,000 ML IV SCH (18:11)
[2020-08-22] MEDS ORDERED: PT OWN MED DRAWER 7, Y5N ONE (19:57)
[2020-08-22] MEDS: AMPICILLIN NA/SULBACTAM NA 3 GM in SODIUM CHLORIDE 100 ML IVPB SCH (21:05)
[2020-08-22] MEDS: ATORVASTATIN CA 20 MG TABLET (FP) PO SCH (21:06)
[2020-08-23] MEDS: AMPICILLIN NA/SULBACTAM NA 3 GM in SODIUM CHLORIDE 100 ML IVPB SCH ×4 (02:07→20:29)
[2020-08-23] MEDS: morphine SULFATE 4 MG/ML VIAL IVPUSH PRN ×5 (02:07→21:10)
[2020-08-23] MEDS: FAMOTIDINE 20 MG TABLET PO PRN (06:39)
[2020-08-23] MEDS ORDERED: PT OWN MED DRAWER 7, Y5N ONE ×3 (09:49→19:26)
[2020-08-23 09:51] LABS: ALBUMIN 2.2 g/dl (3.4-5.0); CALCIUM 9.2 mg/dL (8.5-10.1)
[2020-08-23] MEDS: CHOLECALCIFEROL (VIT D3) 1,000 UNIT (25 MCG) TABLET PO SCH (09:51)
[2020-08-23] MEDS: THIAMINE HCL 100 MG TABLET (FP) PO SCH (09:51)
[2020-08-23 09:52] LABS: BLOOD UREA NITROGEN 6.5 mg/dL (7-18)
[2020-08-23] MEDS: FOLIC ACID 1 MG TABLET (FP) PO SCH (09:52)
[2020-08-23 09:55] LABS: CREATININE 1.2 mg/dL (0.55-1.3)
[2020-08-23 09:57] LABS: BILIRUBIN,TOTAL 0.1 mg/dL (0.2-1); TOT PROT 6.7 g/dl (6.4-8.2)
[2020-08-23] MEDS: SODIUM BICARBONATE 325 MG TABLET PO SCH (10:08)
[2020-08-23] MEDS: SODIUM CHLORIDE 0.45% 1,000 ML IV SCH (17:09)
[2020-08-23] MEDS: ATORVASTATIN CA 20 MG TABLET (FP) PO SCH (21:10)
[2020-08-24] MEDS: morphine SULFATE 4 MG/ML VIAL IVPUSH PRN ×4 (01:12→21:54)
[2020-08-24] MEDS: AMPICILLIN NA/SULBACTAM NA 3 GM in SODIUM CHLORIDE 100 ML IVPB SCH ×4 (02:27→21:42)
[2020-08-24] MEDS: FOLIC ACID 1 MG TABLET (FP) PO SCH (09:29)
[2020-08-24] MEDS: THIAMINE HCL 100 MG TABLET (FP) PO SCH (09:29)
[2020-08-24] MEDS: CHOLECALCIFEROL (VIT D3) 1,000 UNIT (25 MCG) TABLET PO SCH (09:29)
[2020-08-24] MEDS: SODIUM BICARBONATE 325 MG TABLET PO SCH (09:30)
[2020-08-24] MEDS ORDERED: oxyCODONE HCL 5 MG TABLET PO PRN ×2 (11:36→11:57)
[2020-08-24] MEDS ORDERED: MORPHINE SULFATE 2 MG/ML VIAL IVPUSH PRN ×2 (11:37→11:57)
[2020-08-24 13:15] LABS: HEMATOCRIT 28.4 % (32.4-45.2); HEMOGLOBIN 9.3 GM/dL (10.7-15.3); MCH 31.8 pg (25.7-33.7); MCHC 32.8 g/dl (32.0-36.0); MEAN PLT VOLUME 7.8 fl (7.5-11.1); PLATELET COUNT 452 K/MM3 (134-434); RBC 2.93 M/mm3 (3.60-5.2); RDW 14.9 % (11.6-15.6); WHITE BLOOD COUNT 8.2 K/mm3 (4.0-10.0)
[2020-08-24 13:36] LABS: CALCIUM 9.4 mg/dL (8.5-10.1)
[2020-08-24 13:38] LABS: BLOOD UREA NITROGEN 9.5 mg/dL (7-18); MAGNESIUM 1.8 mg/dL (1.8-2.4)
[2020-08-24 13:40] LABS: CREATININE 1.2 mg/dL (0.55-1.3); PHOSPHOROUS 3.4 mg/dL (2.5-4.9)
[2020-08-24] MEDS ORDERED: PT OWN MED DRAWER 7, Y5N ONE (19:58)
[2020-08-24] MEDS: ATORVASTATIN CA 20 MG TABLET (FP) PO SCH (21:42)
[2020-08-25] MEDS: AMPICILLIN NA/SULBACTAM NA 3 GM in SODIUM CHLORIDE 100 ML IVPB SCH ×4 (02:38→21:26)
[2020-08-25] MEDS: morphine SULFATE 4 MG/ML VIAL IVPUSH PRN ×4 (02:46→23:07)
[2020-08-25] MEDS ORDERED: DEXTROSE 5%-0.45% SALINE 1,000 ML IV SCH ×2 (07:00→20:30)
[2020-08-25] MEDS ORDERED: PT OWN MED DRAWER 7, Y5N ONE ×3 (08:53→20:35)
[2020-08-25] MEDS: THIAMINE HCL 100 MG TABLET (FP) PO SCH (09:06)
[2020-08-25] MEDS: CHOLECALCIFEROL (VIT D3) 1,000 UNIT (25 MCG) TABLET PO SCH (09:06)
[2020-08-25] MEDS: SODIUM BICARBONATE 325 MG TABLET PO SCH (09:07)
[2020-08-25] MEDS: FOLIC ACID 1 MG TABLET (FP) PO SCH (09:07)
[2020-08-25 09:54] LABS: INR 1.18 (0.83-1.09); PROTHROMBIN TIME (PATIENT) 14.5 SEC (9.7-13.0)
[2020-08-25] MEDS ORDERED: BENZOIN/ALOE VERA/STORAX/TOLU 58 ML BOTTLE ONE (15:08)
[2020-08-25] MEDS ORDERED: SUCCINYLCHOLINE CHLORIDE 200 MG/10 ML SYRINGE ONE (15:35)
[2020-08-25] MEDS ORDERED: ROCURONIUM BROMIDE 50 MG/5 ML SYRINGE ONE (15:35)
[2020-08-25] MEDS ORDERED: EPHEDRINE SULFATE/0.9% NACL/PF 50 MG/10 ML SYRINGE NR ONE (15:35)
[2020-08-25] MEDS ORDERED: LIDOCAINE HCL 2% JELLY (5 ML/TUBE) ONE (15:37)
[2020-08-25] MEDS ORDERED: ETOMIDATE 20 MG/10 ML AMPUL IVPUSH ONE (15:37)
[2020-08-25] MEDS ORDERED: LIDOCAINE HCL/PF 2% SDV 5ML VIAL ONE (15:37)
[2020-08-25] MEDS ORDERED: ONDANSETRON 4 MG/2 ML VIAL ONE (15:37)
[2020-08-25] MEDS ORDERED: DEXMEDETOMIDINE HCL 200 MCG/2 ML IVPB ONE (15:43)
[2020-08-25] MEDS ORDERED: ACETAMINOPHEN INJECTION 100 ML IVPB ONE (15:44)
[2020-08-25] MEDS ORDERED: INSULIN SLIDING SCALE (NOVOLOG) 1 VIAL SQ SCH (16:30)
[2020-08-25] MEDS ORDERED: fentaNYL CITRATE 250 MCG/5 ML VIAL ONE (17:12)
[2020-08-25] MEDS ORDERED: PROPOFOL 20 ML ONE ×2 (17:13→19:00)
[2020-08-25] MEDS ORDERED: BUPIVACAINE HCL/PF 0.5% (5 MG/ML) 30 ML VIAL IJ ONE ×3 (17:36→17:51)
[2020-08-25] MEDS ORDERED: KETAMINE HCL 200 MG/20 ML VIAL ONE (17:58)
[2020-08-25] MEDS ORDERED: GLYCOPYRROLATE 0.2 MG/1 ML VIAL ONE ×2 (17:59→18:59)
[2020-08-25] MEDS ORDERED: NEOSTIGMINE METHYLSULFATE 0.5 MG/1 ML - 10 ML MDV ONE ×2 (17:59→18:51)
[2020-08-25] MEDS ORDERED: LABETALOL HCL 5 MG/1 ML (100MG/20 ML VIAL) ONE (18:48)
[2020-08-25] MEDS ORDERED: LACTATED RINGERS SOLUTION 1,000 ML IV SCH ×2 (19:45→20:30)
[2020-08-25] MEDS ORDERED: oxyCODONE HCL 5 MG TABLET PO PRN (20:30)
[2020-08-25] MEDS ORDERED: FAMOTIDINE 20 MG TABLET PO PRN (20:30)
[2020-08-25] MEDS ORDERED: PROPOFOL 1000 MG/100 ML VIAL IVPB ONE (20:45)
[2020-08-25] MEDS ORDERED: PROPOFOL 1,000,000 MCG/100 ML VIAL ONE (20:45)
[2020-08-25 21:14] LABS: ARTERIAL BLD GAS O2 SATURATION 99.1 mmHg (95-98); ARTERIAL BLOOD GAS PO2 163.6 mmHg (80-100); ARTERIAL BLOOD GAS pH 7.389 (7.350-7.450)
[2020-08-25 21:19] LABS: ALLENS TEST POSITIVE; VENT MODE A/C; VENT RATE 10
[2020-08-25] MEDS: ATORVASTATIN CA 20 MG TABLET (FP) PO SCH (22:33)
[2020-08-25] MEDS: MUPIROCIN 2% TOPICAL OINTMENT FOR DECOLONIZATION NS SCH (22:36)
[2020-08-25] MEDS: CHLORHEXIDINE GLUCONATE 4% CLEANSER FOR DECOLONIZATION TP SCH (22:37)
[2020-08-26] MEDS: PROPOFOL 1,000,000 MCG/100 ML VIAL IVPB SCH (01:18)
[2020-08-26] MEDS: AMPICILLIN NA/SULBACTAM NA 3 GM in SODIUM CHLORIDE 100 ML IVPB SCH ×4 (02:20→21:18)
[2020-08-26] MEDS: morphine SULFATE 4 MG/ML VIAL IVPUSH PRN ×4 (06:10→19:27)
[2020-08-26] MEDS: INSULIN SLIDING SCALE (NOVOLOG) 1 VIAL SQ SCH ×2 (06:26→18:10)
[2020-08-26 06:59] LABS: BASO % 0.7 % (0-2.0); EOS % 2.9 % (0-4.5); HEMATOCRIT 25.6 % (32.4-45.2); HEMOGLOBIN 8.6 GM/dL (10.7-15.3); LYMPH % 11.3 % (8-40); MCH 32.2 pg (25.7-33.7); MCHC 33.4 g/dl (32.0-36.0); MEAN CELL VOLUME 96.4 fl (80-96); MEAN PLT VOLUME 7.6 fl (7.5-11.1); NEUT % 78.1 % (42.8-82.8); PLATELET COUNT 429 K/MM3 (134-434); RBC 2.66 M/mm3 (3.60-5.2); WHITE BLOOD COUNT 10.5 K/mm3 (4.0-10.0)
[2020-08-26 07:17] LABS: CHLORIDE 112 mmol/L (98-107); SODIUM 140 mmol/L (136-145)
[2020-08-26 07:19] LABS: BLOOD UREA NITROGEN 7.8 mg/dL (7-18); CALCIUM 8.9 mg/dL (8.5-10.1)
[2020-08-26 07:20] LABS: ANION GAP 7 MMOL/L (8-16); CO2 21 mmol/L (21-32); GLUCOSE,RANDOM 155 mg/dL (74-106)
[2020-08-26 07:22] LABS: CREATININE 1.2 mg/dL (0.55-1.3); SGOT/AST 13 U/L (15-37)
[2020-08-26 07:23] LABS: SGPT/ALT < 6 U/L (13-61)
[2020-08-26 07:25] LABS: BILIRUBIN,TOTAL 0.4 mg/dL (0.2-1); TOT PROT 5.8 g/dl (6.4-8.2)
[2020-08-26 07:26] LABS: ALK PHOS 54 U/L (45-117)
[2020-08-26] MEDS ORDERED: ACETAMINOPHEN 1000 MG/100 ML VIAL (NON FORMULARY) IVPB ONE (08:43)
[2020-08-26] MEDS: MUPIROCIN 2% TOPICAL OINTMENT FOR DECOLONIZATION NS SCH ×2 (10:02→21:18)
[2020-08-26] MEDS: SODIUM BICARBONATE 325 MG TABLET PO SCH (10:17)
[2020-08-26] MEDS: FOLIC ACID 1 MG TABLET (FP) PO SCH (10:17)
[2020-08-26] MEDS: CHOLECALCIFEROL (VIT D3) 1,000 UNIT (25 MCG) TABLET PO SCH (10:18)
[2020-08-26] MEDS: THIAMINE HCL 100 MG TABLET (FP) PO SCH (10:18)
[2020-08-26] MEDS ORDERED: POTASSIUM CHLORIDE 10 MEQ in AMINO ACIDS 4.25%/D5W 1,000 ML IV SCH (14:00)
[2020-08-26] MEDS ORDERED: PT OWN MED DRAWER 7, Y5N ONE (21:06)
[2020-08-26] MEDS: CHLORHEXIDINE GLUCONATE 4% CLEANSER FOR DECOLONIZATION TP SCH (21:18)
[2020-08-26] MEDS: ATORVASTATIN CA 20 MG TABLET (FP) PO SCH (21:18)
[2020-08-27] MEDS: morphine SULFATE 4 MG/ML VIAL IVPUSH PRN ×3 (00:01→20:45)
[2020-08-27] MEDS ORDERED: PT OWN MED DRAWER 7, Y5N ONE ×3 (02:12→11:11)
[2020-08-27] MEDS: AMPICILLIN NA/SULBACTAM NA 3 GM in SODIUM CHLORIDE 100 ML IVPB SCH ×4 (02:17→22:45)
[2020-08-27] MEDS: PROPOFOL 1,000,000 MCG/100 ML VIAL IVPB SCH (02:19)
[2020-08-27] MEDS: INSULIN SLIDING SCALE (NOVOLOG) 1 VIAL SQ SCH ×2 (06:22→18:10)
[2020-08-27 07:26] LABS: HEMATOCRIT 26.3 % (32.4-45.2); HEMOGLOBIN 8.9 GM/dL (10.7-15.3); MCH 32.2 pg (25.7-33.7); MCHC 33.7 g/dl (32.0-36.0); MEAN CELL VOLUME 95.6 fl (80-96); MEAN PLT VOLUME 7.8 fl (7.5-11.1); PLATELET COUNT 449 K/MM3 (134-434); RBC 2.75 M/mm3 (3.60-5.2); RDW 14.7 % (11.6-15.6); WHITE BLOOD COUNT 9.4 K/mm3 (4.0-10.0)
[2020-08-27 07:37] LABS: ALBUMIN 2.2 g/dl (3.4-5.0); CALCIUM 9.2 mg/dL (8.5-10.1)
[2020-08-27 07:40] LABS: CREATININE 1.1 mg/dL (0.55-1.3); MAGNESIUM 1.7 mg/dL (1.8-2.4)
[2020-08-27 07:41] LABS: PHOSPHOROUS 3.1 mg/dL (2.5-4.9)
[2020-08-27 07:42] LABS: BILIRUBIN,TOTAL 0.3 mg/dL (0.2-1)
[2020-08-27 07:47] LABS: TOT PROT 6.8 g/dl (6.4-8.2)
[2020-08-27] MEDS ORDERED: MAGNESIUM 2GM/50ML STERILE WATER IVPB IVPB ONE (11:00)
[2020-08-27] MEDS: FOLIC ACID 1 MG TABLET (FP) PO SCH (11:07)
[2020-08-27] MEDS: THIAMINE HCL 100 MG TABLET (FP) PO SCH (11:08)
[2020-08-27] MEDS: SODIUM BICARBONATE 325 MG TABLET PO SCH (11:08)
[2020-08-27] MEDS: CHOLECALCIFEROL (VIT D3) 1,000 UNIT (25 MCG) TABLET PO SCH (11:08)
[2020-08-27] MEDS ORDERED: MAGNESIUM SULF 50% (8.12 MEQ/2 ML-1 GM VIAL) IVPB ONE (11:39)
[2020-08-27 13:42] VITALS: BMI 20.6
[2020-08-27] MEDS: MUPIROCIN 2% TOPICAL OINTMENT FOR DECOLONIZATION NS SCH (14:56)
[2020-08-27 17:10] LABS: FATS, NEUTRAL Normal (.)
[2020-08-27] MEDS: ATORVASTATIN CA 20 MG TABLET (FP) PO SCH (21:00)
[2020-08-28] MEDS: morphine SULFATE 4 MG/ML VIAL IVPUSH PRN ×3 (00:08→09:32)
[2020-08-28] MEDS ORDERED: PT OWN MED DRAWER 7, Y5N ONE ×2 (04:09→09:24)
[2020-08-28] MEDS: AMPICILLIN NA/SULBACTAM NA 3 GM in SODIUM CHLORIDE 100 ML IVPB SCH ×2 (04:18→10:12)
[2020-08-28] MEDS ORDERED: INSULIN SLIDING SCALE (NOVOLOG) 1 VIAL SQ SCH (07:00)
[2020-08-28] MEDS ORDERED: INSULIN (NOVOLOG) ASPART 100 UNITS/ML 10ML VIAL ONE (07:52)
[2020-08-28] MEDS: THIAMINE HCL 100 MG TABLET (FP) PO SCH (09:30)
[2020-08-28] MEDS: FOLIC ACID 1 MG TABLET (FP) PO SCH (09:31)
[2020-08-28] MEDS: CHOLECALCIFEROL (VIT D3) 1,000 UNIT (25 MCG) TABLET PO SCH (09:31)
[2020-08-28] MEDS: FAMOTIDINE 20 MG TABLET PO PRN (10:12)
[2020-08-28] MEDS ORDERED: INSULIN (NOVOLOG) ASPART 100 UNITS/ML 10ML VIAL SQ ONE (12:30)
[2020-08-28] MEDS: oxyCODONE HCL 5 MG TABLET PO PRN (12:46)
[2020-08-28 12:47] LABS: HEMATOCRIT 24.7 % (32.4-45.2); HEMOGLOBIN 8.3 GM/dL (10.7-15.3); MCH 31.8 pg (25.7-33.7); MCHC 33.5 g/dl (32.0-36.0); MEAN PLT VOLUME 7.9 fl (7.5-11.1); PLATELET COUNT 432 K/MM3 (134-434); RDW 14.7 % (11.6-15.6); WHITE BLOOD COUNT 7.1 K/mm3 (4.0-10.0)
[2020-08-28 13:12] LABS: CALCIUM 8.9 mg/dL (8.5-10.1)
[2020-08-28 13:13] LABS: BLOOD UREA NITROGEN 6.9 mg/dL (7-18)
[2020-08-28 13:16] LABS: CREATININE 1.2 mg/dL (0.55-1.3)
[2020-08-28 13:17] LABS: BILIRUBIN,TOTAL 0.2 mg/dL (0.2-1); TOT PROT 6.5 g/dl (6.4-8.2)
[2020-08-28] MEDS: INSULIN SLIDING SCALE (NOVOLOG) 1 VIAL SQ SCH (16:28)
[2020-08-28] MEDS: MORPHINE SULFATE 2 MG/ML VIAL IVPUSH PRN (17:10)
[2020-08-28] MEDS: ATORVASTATIN CA 20 MG TABLET (FP) PO SCH (21:43)
[2020-08-29] MEDS: MORPHINE SULFATE 2 MG/ML VIAL IVPUSH PRN ×6 (00:29→23:43)
[2020-08-29] MEDS: INSULIN SLIDING SCALE (NOVOLOG) 1 VIAL SQ SCH ×3 (06:29→17:51)
[2020-08-29] MEDS: oxyCODONE HCL 5 MG TABLET PO PRN ×2 (07:28→18:30)
[2020-08-29] MEDS: THIAMINE HCL 100 MG TABLET (FP) PO SCH (10:19)
[2020-08-29] MEDS: CHOLECALCIFEROL (VIT D3) 1,000 UNIT (25 MCG) TABLET PO SCH (10:19)
[2020-08-29] MEDS: FOLIC ACID 1 MG TABLET (FP) PO SCH (10:20)
[2020-08-29] MEDS: FAMOTIDINE 20 MG TABLET PO PRN ×2 (10:25→22:23)
[2020-08-29] MEDS: ATORVASTATIN CA 20 MG TABLET (FP) PO SCH (21:27)
[2020-08-29] MEDS ORDERED: INSULIN (NOVOLOG) ASPART 100 UNITS/ML 10ML VIAL SQ ONE (21:32)
[2020-08-30] MEDS: oxyCODONE HCL 5 MG TABLET PO PRN ×2 (01:39→17:51)
[2020-08-30] MEDS: MORPHINE SULFATE 2 MG/ML VIAL IVPUSH PRN ×3 (04:01→16:23)
[2020-08-30] MEDS: INSULIN SLIDING SCALE (NOVOLOG) 1 VIAL SQ SCH ×3 (06:04→17:31)
[2020-08-30] MEDS: FOLIC ACID 1 MG TABLET (FP) PO SCH (09:06)
[2020-08-30] MEDS: CHOLECALCIFEROL (VIT D3) 1,000 UNIT (25 MCG) TABLET PO SCH (09:06)
[2020-08-30] MEDS: THIAMINE HCL 100 MG TABLET (FP) PO SCH (09:06)
[2020-08-30] MEDS ORDERED: ACETAMINOPHEN 325 MG TABLET (FP) PO ONE (19:38)
[2020-08-30] MEDS: INSULIN (LEVEMIR) 100 UNITS/ML UNITS SQ SCH (21:06)
[2020-08-30] MEDS: FAMOTIDINE 20 MG TABLET PO PRN (21:07)
[2020-08-30] MEDS: ATORVASTATIN CA 20 MG TABLET (FP) PO SCH (21:07)
[2020-08-31] MEDS: oxyCODONE HCL 5 MG TABLET PO PRN ×4 (00:57→19:50)
[2020-08-31] MEDS: MORPHINE SULFATE 2 MG/ML VIAL IVPUSH PRN ×4 (02:49→22:41)
[2020-08-31] MEDS: INSULIN SLIDING SCALE (NOVOLOG) 1 VIAL SQ SCH ×3 (06:52→16:39)
[2020-08-31] MEDS: CHOLECALCIFEROL (VIT D3) 1,000 UNIT (25 MCG) TABLET PO SCH (09:44)
[2020-08-31] MEDS: FAMOTIDINE 20 MG TABLET PO PRN ×2 (09:44→21:45)
[2020-08-31] MEDS: FOLIC ACID 1 MG TABLET (FP) PO SCH (09:44)
[2020-08-31] MEDS: THIAMINE HCL 100 MG TABLET (FP) PO SCH (09:44)
[2020-08-31] MEDS: INSULIN (LEVEMIR) 100 UNITS/ML UNITS SQ SCH (21:44)
[2020-08-31] MEDS: ATORVASTATIN CA 20 MG TABLET (FP) PO SCH (21:45)
[2020-09-01] MEDS: oxyCODONE HCL 5 MG TABLET PO PRN ×3 (04:58→17:31)
[2020-09-01] MEDS: INSULIN SLIDING SCALE (NOVOLOG) 1 VIAL SQ SCH ×3 (06:58→16:03)
[2020-09-01] MEDS: MORPHINE SULFATE 2 MG/ML VIAL IVPUSH PRN ×3 (08:37→22:13)
[2020-09-01 09:29] LABS: BASO % 0.8 % (0-2.0); EOS % 3.7 % (0-4.5); HEMATOCRIT 26.1 % (32.4-45.2); HEMOGLOBIN 8.5 GM/dL (10.7-15.3); LYMPH % 22.4 % (8-40); MCH 31.5 pg (25.7-33.7); MCHC 32.7 g/dl (32.0-36.0); MEAN CELL VOLUME 96.4 fl (80-96); MEAN PLT VOLUME 7.8 fl (7.5-11.1); MONO % 8.5 % (3.8-10.2); NEUT % 64.6 % (42.8-82.8); PLATELET COUNT 431 K/MM3 (134-434); RBC 2.71 M/mm3 (3.60-5.2); RDW 14.6 % (11.6-15.6); WHITE BLOOD COUNT 8.7 K/mm3 (4.0-10.0)
[2020-09-01 10:01] LABS: BLOOD UREA NITROGEN 10.7 mg/dL (7-18); CALCIUM 9.5 mg/dL (8.5-10.1)
[2020-09-01 10:02] LABS: ALBUMIN 2.3 g/dl (3.4-5.0)
[2020-09-01] MEDS: FOLIC ACID 1 MG TABLET (FP) PO SCH (10:02)
[2020-09-01] MEDS: THIAMINE HCL 100 MG TABLET (FP) PO SCH (10:02)
[2020-09-01] MEDS: CHOLECALCIFEROL (VIT D3) 1,000 UNIT (25 MCG) TABLET PO SCH (10:03)
[2020-09-01 10:04] LABS: CREATININE 1.3 mg/dL (0.55-1.3)
[2020-09-01 10:06] LABS: BILIRUBIN,TOTAL 0.3 mg/dL (0.2-1); TOT PROT 6.8 g/dl (6.4-8.2)
[2020-09-01] MEDS: FAMOTIDINE 20 MG TABLET PO PRN (10:10)
[2020-09-01] MEDS: SODIUM BICARBONATE 325 MG TABLET PO SCH (16:27)
[2020-09-01] MEDS: ATORVASTATIN CA 20 MG TABLET (FP) PO SCH (22:13)
[2020-09-01] MEDS: INSULIN (LEVEMIR) 100 UNITS/ML UNITS SQ SCH (22:16)
[2020-09-02] MEDS: MORPHINE SULFATE 2 MG/ML VIAL IVPUSH PRN (06:12)
[2020-09-02] MEDS: INSULIN SLIDING SCALE (NOVOLOG) 1 VIAL SQ SCH ×3 (07:45→18:04)
[2020-09-02] MEDS ORDERED: PT OWN MED DRAWER 7, Y5N ONE (10:01)
[2020-09-02] MEDS: THIAMINE HCL 100 MG TABLET (FP) PO SCH (10:08)
[2020-09-02] MEDS: FOLIC ACID 1 MG TABLET (FP) PO SCH (10:08)
[2020-09-02] MEDS: oxyCODONE HCL 5 MG TABLET PO PRN (10:08)
[2020-09-02] MEDS: CHOLECALCIFEROL (VIT D3) 1,000 UNIT (25 MCG) TABLET PO SCH (10:08)
[2020-09-02] MEDS: FAMOTIDINE 20 MG TABLET PO PRN (10:09)
[2020-09-02] MEDS: SODIUM BICARBONATE 325 MG TABLET PO SCH (12:11)
[2020-09-02] MEDS ORDERED: ACETAMINOPHEN 325 MG TABLET (FP) PO PRN (12:17)
[2020-09-02] MEDS: morphine SULFATE IMMEDIATE RELEASE 30 MG TAB PO PRN ×2 (14:20→21:13)
[2020-09-02] MEDS: INSULIN (LEVEMIR) 100 UNITS/ML UNITS SQ SCH (21:13)
[2020-09-02] MEDS: ATORVASTATIN CA 20 MG TABLET (FP) PO SCH (21:13)
[2020-09-03] MEDS: morphine SULFATE IMMEDIATE RELEASE 30 MG TAB PO PRN ×4 (05:59→21:38)
[2020-09-03] MEDS: INSULIN SLIDING SCALE (NOVOLOG) 1 VIAL SQ SCH ×3 (06:00→16:43)
[2020-09-03] MEDS ORDERED: PT OWN MED DRAWER 7, Y5N ONE (08:56)
[2020-09-03] MEDS: THIAMINE HCL 100 MG TABLET (FP) PO SCH (09:28)
[2020-09-03] MEDS: FOLIC ACID 1 MG TABLET (FP) PO SCH (09:28)
[2020-09-03] MEDS: CHOLECALCIFEROL (VIT D3) 1,000 UNIT (25 MCG) TABLET PO SCH (09:28)
[2020-09-03] MEDS: SODIUM BICARBONATE 325 MG TABLET PO SCH (09:29)
[2020-09-03] MEDS: FAMOTIDINE 20 MG TABLET PO PRN (09:30)
[2020-09-03 09:42] LABS: HEMATOCRIT 27.4 % (32.4-45.2); HEMOGLOBIN 9.1 GM/dL (10.7-15.3); MCH 31.7 pg (25.7-33.7); MCHC 33.3 g/dl (32.0-36.0); MEAN CELL VOLUME 95.3 fl (80-96); MEAN PLT VOLUME 7.9 fl (7.5-11.1); PLATELET COUNT 448 K/MM3 (134-434); RBC 2.88 M/mm3 (3.60-5.2); RDW 14.9 % (11.6-15.6)
[2020-09-03 10:26] LABS: BILIRUBIN,TOTAL 0.3 mg/dL (0.2-1)
[2020-09-03 10:31] LABS: ALBUMIN 2.6 g/dl (3.4-5.0); BLOOD UREA NITROGEN 13.4 mg/dL (7-18); CALCIUM 11.2 mg/dL (8.5-10.1); CREATININE 1.2 mg/dL (0.55-1.3); TOT PROT 7.9 g/dl (6.4-8.2)
[2020-09-03] MEDS ORDERED: MAG HYDROX/AL HYDROX/SIMETH 30 ML UNIT-DOSE CUP PO PRN (12:17)
[2020-09-03] MEDS ORDERED: ONDANSETRON 4 MG/2 ML VIAL IVPUSH PRN (12:17)
[2020-09-03] MEDS: PANTOPRAZOLE 40 MG TABLET PO SCH (13:18)
[2020-09-03] MEDS: SODIUM CHLORIDE 1,000 ML IV SCH ×2 (13:21→23:37)
[2020-09-03] MEDS: ATORVASTATIN CA 20 MG TABLET (FP) PO SCH (21:38)
[2020-09-03] MEDS: INSULIN (LEVEMIR) 100 UNITS/ML UNITS SQ SCH (21:38)
[2020-09-04] MEDS: morphine SULFATE IMMEDIATE RELEASE 30 MG TAB PO PRN ×3 (06:06→14:08)
[2020-09-04] MEDS: INSULIN SLIDING SCALE (NOVOLOG) 1 VIAL SQ SCH ×3 (06:13→16:45)
[2020-09-04] MEDS: PANTOPRAZOLE 40 MG TABLET PO SCH (09:18)
[2020-09-04] MEDS: FOLIC ACID 1 MG TABLET (FP) PO SCH (09:18)
[2020-09-04] MEDS: CHOLECALCIFEROL (VIT D3) 1,000 UNIT (25 MCG) TABLET PO SCH (09:18)
[2020-09-04] MEDS: THIAMINE HCL 100 MG TABLET (FP) PO SCH (09:19)
[2020-09-04] MEDS: SODIUM CHLORIDE 1,000 ML IV SCH ×2 (10:14→12:49)
[2020-09-04 10:35] LABS: CALCIUM 10.1 mg/dL (8.5-10.1)
[2020-09-04 10:36] LABS: ALBUMIN 2.5 g/dl (3.4-5.0); BLOOD UREA NITROGEN 14.4 mg/dL (7-18)
[2020-09-04 10:39] LABS: CREATININE 1.2 mg/dL (0.55-1.3)
[2020-09-04 10:40] LABS: BILIRUBIN,TOTAL 0.6 mg/dL (0.2-1)
[2020-09-04 10:41] LABS: TOT PROT 7.3 g/dl (6.4-8.2)
[2020-09-04] MEDS: SODIUM BICARBONATE 325 MG TABLET PO SCH (11:01)
[2020-09-04 18:11] VITALS: BP 142/64; PULSE 67; TEMP 97.4
[2020-09-05] MEDS ORDERED: SODIUM BICARBONATE 650 MG TABLET PO SCH (10:00)
== END 2020-09-04 19:49 | disposition home or self-care (01) | DRG 308 ==
LOC: JER 13:14 → JERBED 18:20 → J8W 22:47 → J2W 08-25 21:51 → J8W 08-27 18:07 → J5S 08-28 18:53
PROVIDERS: ADMIT Hospitalist; ATTEND Internal Medicine
PROC: 0QS604Z Reposition Right Upper Femur with Internal Fixation Device, Open Approach (ICD-10-PCS; principal; 2020-08-15 16:30)
PROC: BT1B1ZZ Fluoroscopy of Bladder and Urethra using Low Osmolar Contrast (ICD-10-PCS; 2020-08-20)
PROC: 0D1L4Z4 Bypass Transverse Colon to Cutaneous, Percutaneous Endoscopic Approach (ICD-10-PCS; 2020-08-25)
PROC: 5A1935Z Respiratory Ventilation, Less than 24 Consecutive Hours (ICD-10-PCS; 2020-08-25)
DX: S72.044A Nondisplaced fracture of base of neck of right femur, initial encounter for closed fracture (principal); W01.198A Fall on same level from slipping, tripping and stumbling with subsequent striking against other object, initial encounter; Y93.01 Activity, walking, marching and hiking; Y92.89 Other specified places as the place of occurrence of the external cause; Y99.0 Civilian activity done for income or pay; Z87.891 Personal history of nicotine dependence; E78.5 Hyperlipidemia, unspecified; K57.92 Diverticulitis of intestine, part unspecified, without perforation or abscess without bleeding; N82.3 Fistula of vagina to large intestine; D64.9 Anemia, unspecified; I48.0 Paroxysmal atrial fibrillation; I11.0 Hypertensive heart disease with heart failure; E11.9 Type 2 diabetes mellitus without complications; I50.22 Chronic systolic (congestive) heart failure; N17.9 Acute kidney failure, unspecified; E87.2 Acidosis; E86.0 Dehydration; Q44.5 Other congenital malformations of bile ducts; R10.9 Unspecified abdominal pain; E83.52 Hypercalcemia
CPT/HCPCS: 36415; 36600; 51600; 71045-TC-FY; 72192-TC; 73523-TC-FY; 74176-TC; 74177-TC; 74430-TC-FY; 76000-TC-FY; 80048; 80053; 80307; 81003; 82150; 82310; 82705; 82803; 82962; 82977; 83036; 83690; 83735; 83970; 84100; 85025; 85027; 85610; 85730; 86140; 86301; 86850; 86900; 86901; 87086; 87186; 93005; 93010; 94002; 94760; 97116-GP; 97161-GP; 99285-25; C9803; J0131; Q9967; U0003; U0005

== ENCOUNTER 2020-09-15 23:35 | Emergency (ER) | payer BC, OTHER ==
[2020-09-16 00:14] VITALS: BMI 21.6
[2020-09-16 04:00] VITALS: BP 120/58; PULSE 63; TEMP 98.9
== END 2020-09-16 04:00 | disposition home or self-care (01) ==
LOC: JER 23:35
DX: Z48.00 Encounter for change or removal of nonsurgical wound dressing (principal)
CPT/HCPCS: 99281-25

== ENCOUNTER 2020-12-19 12:54 | Emergency (ER) | payer BC, OTHER ==
[2020-12-19 14:09] VITALS: BMI 23.3
[2020-12-19 14:54] LABS: BASO % 0.1 % (0-2.0); HEMATOCRIT 29.9 % (32.4-45.2); HEMOGLOBIN 9.7 GM/dL (10.7-15.3); LYMPH % 2.7 % (8-40); MCH 33.2 pg (25.7-33.7); MCHC 32.3 g/dl (32.0-36.0); MEAN CELL VOLUME 102.7 fl (80-96); MEAN PLT VOLUME 8.1 fl (7.5-11.1); MONO % 4.3 % (3.8-10.2); NEUT % 92.9 % (42.8-82.8); PLATELET COUNT 624 10^3/uL (134-434); RBC 2.91 M/mm3 (3.60-5.2)
[2020-12-19] MEDS ORDERED: PANTOPRAZOLE SODIUM 40 MG VIAL IVPUSH ONE (14:55)
[2020-12-19] MEDS ORDERED: ONDANSETRON 4 MG/2 ML VIAL IVPUSH ONE (14:55)
[2020-12-19] MEDS ORDERED: ONDANSETRON 4 MG/2 ML VIAL ONE (14:57)
[2020-12-19] MEDS ORDERED: PANTOPRAZOLE SODIUM 40 MG VIAL ONE (14:57)
[2020-12-19 15:01] LABS: INR 1.43 (0.83-1.09); PROTHROMBIN TIME (PATIENT) 17.1 SEC (9.7-13.0)
[2020-12-19 15:04] LABS: ACTIVATED PTT 24.3 SECONDS (25.2-36.5)
[2020-12-19 15:14] LABS: CHLORIDE 101 mmol/L (98-107); SODIUM 139 mmol/L (136-145)
[2020-12-19 15:16] LABS: BLOOD UREA NITROGEN 40.5 mg/dL (7-18); CALCIUM 7.6 mg/dL (8.5-10.1)
[2020-12-19 15:17] LABS: ALBUMIN 2.5 g/dl (3.4-5.0); CO2 7 mmol/L (21-32); GLUCOSE,RANDOM 144 mg/dL (74-106)
[2020-12-19 15:19] LABS: SGPT/ALT 15 U/L (13-61)
[2020-12-19 15:20] LABS: SGOT/AST 42 U/L (15-37)
[2020-12-19 15:22] LABS: ALK PHOS 92 U/L (45-117)
[2020-12-19 15:34] LABS: ANISOCYTOSIS 1+; MACROCYTOSIS 2+; PLATELET ESTIMATE INCREASED
[2020-12-19 15:37] LABS: ANION GAP 31 MMOL/L (8-16)
[2020-12-19] MEDS ORDERED: PIPERACILLIN/TAZOB 4.5 GM 4.5 GM in DEXTROSE 5%-WATER 100 ML IVPB ONE (15:57)
[2020-12-19] MEDS ORDERED: VANCOMYCIN 1 GM in D5W (PRE-DOCKED) 1,000 MG/250 ML IVPB ONE (15:57)
[2020-12-19] MEDS ORDERED: LACTATED RINGERS SOLUTION 1000 ML INFUS.BAG IV ONE (15:59)
[2020-12-19] MEDS ORDERED: ACETAMINOPHEN 325 MG TABLET (FP) PO ONE (16:12)
[2020-12-19] MEDS ORDERED: ACETAMINOPHEN INJECTION 100 ML IVPB ONE (16:14)
[2020-12-19] MEDS ORDERED: ACETAMINOPHEN 1000 MG/100 ML VIAL (NON FORMULARY) IVPB ONE (16:14)
[2020-12-19] MEDS ORDERED: VANCOMYCIN 1 GRAM (PRE-DOCKED) 1,000 MG/250 ML BAG IVPB ONE (16:15)
[2020-12-19] MEDS ORDERED: PIPERACILLIN/TAZOB 4.5 GM 4.5 GM/100 ML BAG IVPB ONE (16:15)
[2020-12-19 16:24] LABS: VENOUS BASE EXCESS -21.1 mmol/L (-2-2); VENOUS PCO2 21.4 mmHg (38-52)
[2020-12-19 16:27] LABS: VENOUS PH 7.109 (7.310-7.410)
[2020-12-19] MEDS ORDERED: SODIUM BICARBONATE 8.4% 50 MEQ/50 ML DISP.SYRIN IVPUSH ONE (18:12)
[2020-12-19 18:59] LABS: CHLORIDE 103 mmol/L (98-107); SODIUM 141 mmol/L (136-145)
[2020-12-19 19:01] LABS: CALCIUM 7.7 mg/dL (8.5-10.1)
[2020-12-19 19:02] LABS: ALBUMIN 2.3 g/dl (3.4-5.0); BLOOD UREA NITROGEN 46.6 mg/dL (7-18); CO2 6 mmol/L (21-32); GLUCOSE,RANDOM 172 mg/dL (74-106)
[2020-12-19 19:05] LABS: CREATININE 1.9 mg/dL (0.55-1.3); SGOT/AST 23 U/L (15-37); SGPT/ALT 12 U/L (13-61)
[2020-12-19 19:06] LABS: BILIRUBIN,TOTAL 0.8 mg/dL (0.2-1)
[2020-12-19 19:08] LABS: ALK PHOS 77 U/L (45-117)
[2020-12-19] MEDS ORDERED: SODIUM BICARBONATE 8.4% - 50 ML ONE (19:22)
[2020-12-19] MEDS ORDERED: SODIUM BICARBONATE 8.4% 50 MEQ/50 ML VIAL ONE (19:24)
[2020-12-19 19:25] LABS: ANION GAP 32 MMOL/L (8-16)
[2020-12-19 22:31] VITALS: BP 156/61; PULSE 86; TEMP 97.4
== END 2020-12-19 21:26 | disposition short-term general hospital (02) ==
LOC: JER 12:54
PROC: 3E0333Z Introduction of Anti-inflammatory into Peripheral Vein, Percutaneous Approach (ICD-10-PCS; principal; 2020-12-19)
PROC: 3E033GC Introduction of Other Therapeutic Substance into Peripheral Vein, Percutaneous Approach (ICD-10-PCS; 2020-12-19)
PROC: 3E033GC Introduction of Other Therapeutic Substance into Peripheral Vein, Percutaneous Approach (ICD-10-PCS; 2020-12-19)
PROC: 3E03329 Introduction of Other Anti-infective into Peripheral Vein, Percutaneous Approach (ICD-10-PCS; 2020-12-19)
PROC: 3E033GC Introduction of Other Therapeutic Substance into Peripheral Vein, Percutaneous Approach (ICD-10-PCS; 2020-12-19)
PROC: 3E03329 Introduction of Other Anti-infective into Peripheral Vein, Percutaneous Approach (ICD-10-PCS; 2020-12-19)
DX: K92.2 Gastrointestinal hemorrhage, unspecified (principal)
CPT/HCPCS: 36415; 71045-TC-FY; 80053; 80307; 82010; 82272; 82803; 83605; 84484; 85025; 85610; 85730; 86850; 86900; 86901; 87040; 93005; 93010; 96374; 96375; 99291; C9803; J0131; U0003; U0005

== ENCOUNTER 2021-06-11 00:25 | Inpatient (IN) | payer BC, OTHER ==
[2021-06-11] MEDS ORDERED: ONDANSETRON 4 MG/2 ML VIAL ONE ×2 (01:50→08:18)
[2021-06-11] MEDS ORDERED: PANTOPRAZOLE SODIUM 40 MG VIAL ONE (01:50)
[2021-06-11] MEDS ORDERED: SODIUM CHLORIDE 0.9% 1000 ML INFUS.BAG IV ONE (01:56)
[2021-06-11] MEDS ORDERED: PANTOPRAZOLE SODIUM 40 MG VIAL IVPUSH ONE (01:56)
[2021-06-11] MEDS ORDERED: ONDANSETRON 4 MG/2 ML VIAL IVPUSH ONE (01:56)
[2021-06-11 02:40] LABS: BASO % 0.9 % (0-2.0); EOS % 0.2 % (0-4.5); HEMOGLOBIN 9.3 GM/dL (10.7-15.3); LYMPH % 13.2 % (8-40); MCH 33.1 pg (25.7-33.7); MEAN CELL VOLUME 103.2 fl (80-96); MEAN PLT VOLUME 7.7 fl (7.5-11.1); MONO % 9.3 % (3.8-10.2); NEUT % 76.4 % (42.8-82.8); PLATELET COUNT 266 10^3/uL (134-434); RBC 2.81 M/mm3 (3.60-5.2); RDW 16.9 % (11.6-15.6); WHITE BLOOD COUNT 6.2 K/mm3 (4.0-10.0)
[2021-06-11 02:48] LABS: INR 0.89 (0.83-1.09); PROTHROMBIN TIME (PATIENT) 10.2 SEC (9.7-13.0)
[2021-06-11 02:50] LABS: ACTIVATED PTT 34.9 SECONDS (25.2-36.5)
[2021-06-11 02:58] LABS: CHLORIDE 97 mmol/L (98-107); SODIUM 138 mmol/L (136-145)
[2021-06-11 03:00] LABS: CALCIUM 8.9 mg/dL (8.5-10.1)
[2021-06-11 03:01] LABS: ALBUMIN 2.8 g/dl (3.4-5.0); ANION GAP 26 MMOL/L (8-16); BLOOD UREA NITROGEN 11.7 mg/dL (7-18); CO2 16 mmol/L (21-32); GLUCOSE,RANDOM 68 mg/dL (74-106); LIPASE 104 U/L (73-393); MAGNESIUM 1.5 mg/dL (1.8-2.4)
[2021-06-11 03:04] LABS: CREATININE 1.1 mg/dL (0.55-1.3); PHOSPHOROUS 4.6 mg/dL (2.5-4.9); SGOT/AST 147 U/L (15-37); SGPT/ALT 26 U/L (13-61)
[2021-06-11 03:05] LABS: TOT PROT 7.5 g/dl (6.4-8.2)
[2021-06-11 03:06] LABS: BILIRUBIN,TOTAL 0.4 mg/dL (0.2-1)
[2021-06-11 03:07] LABS: ALK PHOS 175 U/L (45-117)
[2021-06-11 03:21] LABS: LACTIC ACID 2.9 mmol/L (0.4-2.0)
[2021-06-11] MEDS ORDERED: DEXTROSE 50%-WATER - 25 GM/50 ML VIAL IVPUSH ONE ×2 (03:23→09:08)
[2021-06-11] MEDS ORDERED: DEXTROSE 50%-WATER 25 GM/50 ML DISP.SYRIN ONE ×2 (03:53→09:11)
[2021-06-11] MEDS ORDERED: MAGNESIUM 1GM/D5W - 1 GM/100 ML IVPB IVPB ONE (03:53)
[2021-06-11] MEDS: INSULIN SLIDING SCALE (NOVOLOG) 1 VIAL SQ SCH ×4 (07:38→21:23)
[2021-06-11] MEDS: ONDANSETRON 4 MG/2 ML VIAL IVPUSH PRN (08:25)
[2021-06-11] MEDS: DEXTROSE 5%-NORMAL SALINE 1,000 ML IV SCH (09:43)
[2021-06-11] MEDS ORDERED: PANTOPRAZOLE 40 MG TABLET PO SCH (10:00)
[2021-06-11] MEDS ORDERED: MULTIVITAMINS (DAILY MVI) TABLET (FP) PO SCH (10:00)
[2021-06-11] MEDS ORDERED: MAGNESIUM OXIDE 400 MG TABLET (FP) PO SCH (10:00)
[2021-06-11] MEDS ORDERED: FOLIC ACID 1 MG TABLET (FP) PO SCH (10:00)
[2021-06-11] MEDS ORDERED: THIAMINE HCL 100 MG TABLET (FP) PO SCH (10:00)
[2021-06-11 13:16] LABS: BLOOD UREA NITROGEN 9.9 mg/dL (7-18); CALCIUM 8.6 mg/dL (8.5-10.1)
[2021-06-11 13:19] LABS: CREATININE 1.1 mg/dL (0.55-1.3)
[2021-06-11] MEDS ORDERED: PNEUMOC 13-VAL CONJ-DIP CRM/PF 0.5 ML DISP.SYRIN IM ONE (17:30)
[2021-06-11] MEDS ORDERED: FLU VACC QS2021-22(6MOS UP)/PF 60 MCG/0.5 ML SYRINGE IM ONE (17:30)
[2021-06-12] MEDS: INSULIN SLIDING SCALE (NOVOLOG) 1 VIAL SQ SCH ×4 (06:30→21:07)
[2021-06-12 08:49] LABS: URINE APPEARANCE CLEAR; URINE COLOR YELLOW; URINE GLUCOSE (UA) NEGATIVE (NEGATIVE)
[2021-06-12 08:50] LABS: EPI CELLS 4.8 /uL (0-25.1); URINE BILIRUBIN NEGATIVE (NEGATIVE); URINE KETONE 15 mg/dl (NEGATIVE); URINE LEUK ESTERASE NEGATIVE (NEGATIVE); URINE NITRITE NEGATIVE (NEGATIVE); URINE PROTEIN 1+ (NEGATIVE); URINE RBC 5.5 /uL (0-23.9); URINE WBC 2.8 /uL (0-25.8)
[2021-06-12 08:51] LABS: HYALINE CASTS 0.12 /uL (0-3.1)
[2021-06-12 09:14] LABS: BASO % 0.5 % (0-2.0); EOS % 1.1 % (0-4.5); HEMATOCRIT 20.1 % (32.4-45.2); LYMPH % 25.6 % (8-40); MCH 33.3 pg (25.7-33.7); MCHC 33.2 g/dl (32.0-36.0); MEAN CELL VOLUME 100.5 fl (80-96); MEAN PLT VOLUME 7.9 fl (7.5-11.1); MONO % 7.3 % (3.8-10.2); NEUT % 65.5 % (42.8-82.8); PLATELET COUNT 175 10^3/uL (134-434); RDW 16.7 % (11.6-15.6); WHITE BLOOD COUNT 3.8 K/mm3 (4.0-10.0)
[2021-06-12 09:31] LABS: TOTAL IRON BINDING CAPACITY 90 ug/dL (250-450)
[2021-06-12 09:32] LABS: IRON SERUM 55 ug/dL (50-175)
[2021-06-12 09:51] LABS: HEMOGLOBIN 6.7 GM/dL (10.7-15.3)
[2021-06-12] MEDS ORDERED: PANTOPRAZOLE SODIUM 40 MG VIAL IVPUSH SCH (10:00)
[2021-06-12] MEDS: DEXTROSE 5%-NORMAL SALINE 1,000 ML IV SCH ×3 (11:20→22:26)
[2021-06-12 11:37] LABS: ALBUMIN 2.1 g/dl (3.4-5.0); BILIRUBIN,TOTAL 0.3 mg/dL (0.2-1); BLOOD UREA NITROGEN 6.2 mg/dL (7-18); CALCIUM 7.9 mg/dL (8.5-10.1); CREATININE 1.4 mg/dL (0.55-1.3); MAGNESIUM 1.4 mg/dL (1.8-2.4); TOT PROT 5.7 g/dl (6.4-8.2)
[2021-06-12 11:51] LABS: BASO % 0.6 % (0-2.0); EOS % 1.2 % (0-4.5); HEMATOCRIT 21.8 % (32.4-45.2); LYMPH % 20.6 % (8-40); MCH 32.3 pg (25.7-33.7); MCHC 31.9 g/dl (32.0-36.0); MEAN CELL VOLUME 101.4 fl (80-96); MEAN PLT VOLUME 8.4 fl (7.5-11.1); MONO % 14.4 % (3.8-10.2); NEUT % 63.2 % (42.8-82.8); PLATELET COUNT 184 10^3/uL (134-434); RBC 2.15 M/mm3 (3.60-5.2); RDW 16.8 % (11.6-15.6); WHITE BLOOD COUNT 4.3 K/mm3 (4.0-10.0)
[2021-06-12 11:56] LABS: HEMOGLOBIN 6.9 GM/dL (10.7-15.3)
[2021-06-12] MEDS ORDERED: POTASSIUM CHLORIDE ORAL LIQUID 20 MEQ/15 ML PO ONE (12:16)
[2021-06-12] MEDS: ONDANSETRON 4 MG/2 ML VIAL IVPUSH PRN (12:40)
[2021-06-12] MEDS: KCL 10 MEQ IVPB 10 MEQ/100 ML INFUS.BAG IVPB SCH ×3 (13:42→17:11)
[2021-06-12] MEDS ORDERED: METOCLOPRAMIDE HCL INJECTION 10 MG/2 ML VIAL IVPUSH SCH (16:30)
[2021-06-12 16:50] VITALS: BMI 13.8
[2021-06-13] MEDS: INSULIN SLIDING SCALE (NOVOLOG) 1 VIAL SQ SCH ×4 (06:20→22:43)
[2021-06-13] MEDS: DEXTROSE 5%-NORMAL SALINE 1,000 ML IV SCH ×3 (07:51→16:22)
[2021-06-13 14:14] LABS: BLOOD UREA NITROGEN 3.5 mg/dL (7-18); CALCIUM 7.5 mg/dL (8.5-10.1)
[2021-06-13 14:17] LABS: CREATININE 1.1 mg/dL (0.55-1.3)
[2021-06-13 14:18] LABS: BILIRUBIN,TOTAL 0.3 mg/dL (0.2-1)
[2021-06-13 14:19] LABS: TOT PROT 5.4 g/dl (6.4-8.2)
[2021-06-13 14:21] LABS: WHITE BLOOD COUNT 5.5 K/mm3 (4.0-10.0)
[2021-06-13 14:22] LABS: BASO % 0.4 % (0-2.0); EOS % 1.5 % (0-4.5); HEMOGLOBIN 8.5 GM/dL (10.7-15.3); LYMPH % 22.9 % (8-40); MCH 31.6 pg (25.7-33.7); MCHC 32.6 g/dl (32.0-36.0); MEAN CELL VOLUME 96.9 fl (80-96); MEAN PLT VOLUME 8.5 fl (7.5-11.1); MONO % 9.4 % (3.8-10.2); NEUT % 65.8 % (42.8-82.8); PLATELET COUNT 179 10^3/uL (134-434); RBC 2.68 M/mm3 (3.60-5.2); RDW 20.5 % (11.6-15.6)
[2021-06-13 15:11] LABS: ANISOCYTOSIS 1+; MACROCYTOSIS 1+; PLATELET ESTIMATE NORMAL
[2021-06-13] MEDS: D5-1/2NS+20 MEQ KCL - 20 MEQ/1,000 ML INFUS.BAG IV SCH (17:37)
[2021-06-13] MEDS ORDERED: FLU VACC QS2021-22(6MOS UP)/PF 60 MCG/0.5 ML SYRINGE IM ONE (18:00)
[2021-06-13] MEDS ORDERED: PNEUMOC 13-VAL CONJ-DIP CRM/PF 0.5 ML DISP.SYRIN IM ONE (18:00)
[2021-06-14] MEDS: D5-1/2NS+20 MEQ KCL - 20 MEQ/1,000 ML INFUS.BAG IV SCH ×4 (06:18→23:16)
[2021-06-14] MEDS: INSULIN SLIDING SCALE (NOVOLOG) 1 VIAL SQ SCH ×4 (06:18→21:31)
[2021-06-14 10:06] LABS: BASO % 0.5 % (0-2.0); EOS % 1.2 % (0-4.5); HEMATOCRIT 23.9 % (32.4-45.2); LYMPH % 18.3 % (8-40); MCH 32.1 pg (25.7-33.7); MCHC 33.4 g/dl (32.0-36.0); MEAN CELL VOLUME 96.1 fl (80-96); MEAN PLT VOLUME 8.4 fl (7.5-11.1); MONO % 9.6 % (3.8-10.2); NEUT % 70.4 % (42.8-82.8); PLATELET COUNT 163 10^3/uL (134-434); RBC 2.49 M/mm3 (3.60-5.2); RDW 20.2 % (11.6-15.6); WHITE BLOOD COUNT 5.9 K/mm3 (4.0-10.0)
[2021-06-14 10:23] LABS: CHLORIDE 110 mmol/L (98-107); SODIUM 138 mmol/L (136-145)
[2021-06-14 10:33] LABS: ALBUMIN 1.8 g/dl (3.4-5.0); ANION GAP 8 MMOL/L (8-16); CALCIUM 7.1 mg/dL (8.5-10.1); CO2 20 mmol/L (21-32); GLUCOSE,RANDOM 157 mg/dL (74-106)
[2021-06-14 10:36] LABS: CREATININE 0.9 mg/dL (0.55-1.3); SGOT/AST 42 U/L (15-37); SGPT/ALT 12 U/L (13-61)
[2021-06-14 10:38] LABS: BILIRUBIN,TOTAL 0.4 mg/dL (0.2-1)
[2021-06-14 10:39] LABS: ALK PHOS 103 U/L (45-117)
[2021-06-14 11:18] LABS: BLOOD UREA NITROGEN 1.9 mg/dL (7-18)
[2021-06-14] MEDS ORDERED: MAGNESIUM 2GM/50ML STERILE WATER IVPB IVPB ONE (12:45)
[2021-06-14] MEDS: ESCITALOPRAM OXALATE 10 MG TABLET PO SCH (13:39)
[2021-06-15] MEDS: INSULIN SLIDING SCALE (NOVOLOG) 1 VIAL SQ SCH ×4 (06:10→21:19)
[2021-06-15] MEDS: D5-1/2NS+20 MEQ KCL - 20 MEQ/1,000 ML INFUS.BAG IV SCH ×3 (09:01→21:18)
[2021-06-15] MEDS: ESCITALOPRAM OXALATE 10 MG TABLET PO SCH (09:45)
[2021-06-15] MEDS ORDERED: ONDANSETRON 4 MG/2 ML VIAL IVPB PRN (12:08)
[2021-06-15 14:01] LABS: BASO % 0.4 % (0-2.0); EOS % 0.8 % (0-4.5); HEMATOCRIT 29.4 % (32.4-45.2); HEMOGLOBIN 9.6 GM/dL (10.7-15.3); LYMPH % 10.6 % (8-40); MCH 31.4 pg (25.7-33.7); MCHC 32.5 g/dl (32.0-36.0); MEAN CELL VOLUME 96.6 fl (80-96); MONO % 10.2 % (3.8-10.2); PLATELET COUNT 190 10^3/uL (134-434); RBC 3.04 M/mm3 (3.60-5.2); RDW 19.6 % (11.6-15.6); WHITE BLOOD COUNT 5.8 K/mm3 (4.0-10.0)
[2021-06-15 14:21] LABS: CHLORIDE 109 mmol/L (98-107); SODIUM 138 mmol/L (136-145)
[2021-06-15 14:22] LABS: CALCIUM 7.8 mg/dL (8.5-10.1)
[2021-06-15 14:23] LABS: ANION GAP 9 MMOL/L (8-16); CO2 20 mmol/L (21-32); GLUCOSE,RANDOM 193 mg/dL (74-106); MAGNESIUM 1.5 mg/dL (1.8-2.4)
[2021-06-15 14:26] LABS: CREATININE 0.7 mg/dL (0.55-1.3)
[2021-06-15 14:30] LABS: BLOOD UREA NITROGEN 2.8 mg/dL (7-18)
[2021-06-15 16:07] LABS: COLD AGGLUTININS Negative (Neg <1:32)
[2021-06-15] MEDS: MIRTAZAPINE 15 MG TABLET (FP) PO SCH (21:23)
[2021-06-16] MEDS: INSULIN SLIDING SCALE (NOVOLOG) 1 VIAL SQ SCH ×4 (06:30→23:11)
[2021-06-16] MEDS: VALSARTAN 80 MG TABLET PO SCH (10:55)
[2021-06-16] MEDS: METOCLOPRAMIDE HCL INJECTION 10 MG/2 ML VIAL IVPUSH SCH ×2 (13:45→23:12)
[2021-06-16] MEDS: D5-1/2NS+20 MEQ KCL - 20 MEQ/1,000 ML INFUS.BAG IV SCH ×2 (16:01→23:23)
[2021-06-16] MEDS: MIRTAZAPINE 15 MG TABLET (FP) PO SCH (23:12)
[2021-06-17] MEDS: METOCLOPRAMIDE HCL INJECTION 10 MG/2 ML VIAL IVPUSH SCH ×3 (06:01→22:11)
[2021-06-17] MEDS: INSULIN SLIDING SCALE (NOVOLOG) 1 VIAL SQ SCH ×4 (08:09→22:08)
[2021-06-17] MEDS: VALSARTAN 80 MG TABLET PO SCH (11:59)
[2021-06-17 13:18] LABS: BASO % 0.6 % (0-2.0); EOS % 1.7 % (0-4.5); HEMATOCRIT 32.4 % (32.4-45.2); HEMOGLOBIN 10.7 GM/dL (10.7-15.3); LYMPH % 12.9 % (8-40); MCH 32.2 pg (25.7-33.7); MCHC 33.1 g/dl (32.0-36.0); MEAN CELL VOLUME 97.3 fl (80-96); MEAN PLT VOLUME 8.1 fl (7.5-11.1); MONO % 20.8 % (3.8-10.2); PLATELET COUNT 231 10^3/uL (134-434); RBC 3.33 M/mm3 (3.60-5.2); RDW 20.4 % (11.6-15.6); WHITE BLOOD COUNT 4.9 K/mm3 (4.0-10.0)
[2021-06-17 13:49] LABS: ANISOCYTOSIS 1+; MACROCYTOSIS 0; PLATELET ESTIMATE NORMAL
[2021-06-17 14:11] LABS: ALBUMIN 2.1 g/dl (3.4-5.0); BLOOD UREA NITROGEN 4.5 mg/dL (7-18); CALCIUM 8.7 mg/dL (8.5-10.1); MAGNESIUM 1.2 mg/dL (1.8-2.4)
[2021-06-17 14:14] LABS: PHOSPHOROUS 1.2 mg/dL (2.5-4.9)
[2021-06-17 14:16] LABS: TOT PROT 6.2 g/dl (6.4-8.2)
[2021-06-17 14:30] LABS: BILIRUBIN,TOTAL 0.4 mg/dL (0.2-1); CREATININE 0.8 mg/dL (0.55-1.3)
[2021-06-17] MEDS: D5-1/2NS+20 MEQ KCL - 20 MEQ/1,000 ML INFUS.BAG IV SCH (17:58)
[2021-06-17] MEDS ORDERED: MAGNESIUM SULF 50% (8.12 MEQ/2 ML-1 GM VIAL) IVPB ONE (19:06)
[2021-06-17] MEDS: MIRTAZAPINE 15 MG TABLET (FP) PO SCH (22:11)
[2021-06-17] MEDS: NAPH,MB-DB/K PH,MBDB POWDER PACKET PO SCH (22:11)
[2021-06-18] MEDS: METOCLOPRAMIDE HCL INJECTION 10 MG/2 ML VIAL IVPUSH SCH ×2 (06:01→21:42)
[2021-06-18] MEDS: INSULIN SLIDING SCALE (NOVOLOG) 1 VIAL SQ SCH ×4 (06:02→21:41)
[2021-06-18] MEDS: NAPH,MB-DB/K PH,MBDB POWDER PACKET PO SCH ×2 (10:59→21:42)
[2021-06-18] MEDS: VALSARTAN 80 MG TABLET PO SCH (10:59)
[2021-06-18] MEDS ORDERED: INSULIN (NOVOLOG) ASPART 100 UNITS/ML 10ML VIAL ONE (11:06)
[2021-06-18] MEDS: D5-1/2NS+20 MEQ KCL - 20 MEQ/1,000 ML INFUS.BAG IV SCH ×2 (13:56→17:14)
[2021-06-18 15:41] LABS: HEMATOCRIT 30.3 % (32.4-45.2); HEMOGLOBIN 9.8 GM/dL (10.7-15.3); MCH 31.6 pg (25.7-33.7); MCHC 32.5 g/dl (32.0-36.0); MEAN CELL VOLUME 97.2 fl (80-96); MEAN PLT VOLUME 8.5 fl (7.5-11.1); PLATELET COUNT 316 10^3/uL (134-434); RBC 3.12 M/mm3 (3.60-5.2); RDW 20.4 % (11.6-15.6); WHITE BLOOD COUNT 7.7 K/mm3 (4.0-10.0)
[2021-06-18 15:53] LABS: CHLORIDE 110 mmol/L (98-107); SODIUM 137 mmol/L (136-145)
[2021-06-18 15:56] LABS: ALBUMIN 2.1 g/dl (3.4-5.0); ANION GAP 5 MMOL/L (8-16); BLOOD UREA NITROGEN 5.1 mg/dL (7-18); CO2 23 mmol/L (21-32); MAGNESIUM 1.8 mg/dL (1.8-2.4)
[2021-06-18 15:59] LABS: CREATININE 0.7 mg/dL (0.55-1.3); SGOT/AST 26 U/L (15-37); SGPT/ALT 15 U/L (13-61)
[2021-06-18 16:00] LABS: TOT PROT 6.2 g/dl (6.4-8.2)
[2021-06-18 16:01] LABS: BILIRUBIN,TOTAL 0.4 mg/dL (0.2-1)
[2021-06-18 16:02] LABS: ALK PHOS 143 U/L (45-117)
[2021-06-18 16:05] LABS: GLUCOSE,RANDOM 32 mg/dL (74-106); PHOSPHOROUS 1.2 mg/dL (2.5-4.9)
[2021-06-18] MEDS: VANCOMYCIN 250 MG/5 ML ORAL SOLUTION PO SCH (17:53)
[2021-06-18 18:07] LABS: PLATELET ESTIMATE NORMAL
[2021-06-18] MEDS: MIRTAZAPINE 15 MG TABLET (FP) PO SCH (21:41)
[2021-06-19] MEDS: VANCOMYCIN 250 MG/5 ML ORAL SOLUTION PO SCH ×4 (00:56→17:31)
[2021-06-19] MEDS: D5-1/2NS+20 MEQ KCL - 20 MEQ/1,000 ML INFUS.BAG IV SCH ×2 (00:57→17:38)
[2021-06-19] MEDS: INSULIN SLIDING SCALE (NOVOLOG) 1 VIAL SQ SCH ×4 (06:59→21:24)
[2021-06-19] MEDS: VALSARTAN 80 MG TABLET PO SCH (10:59)
[2021-06-19] MEDS: METOCLOPRAMIDE HCL INJECTION 10 MG/2 ML VIAL IVPUSH SCH ×2 (10:59→21:15)
[2021-06-19] MEDS: NAPH,MB-DB/K PH,MBDB POWDER PACKET PO SCH ×2 (10:59→21:16)
[2021-06-19] MEDS: MIRTAZAPINE 15 MG TABLET (FP) PO SCH (21:16)
[2021-06-20] MEDS: VANCOMYCIN 250 MG/5 ML ORAL SOLUTION PO SCH ×4 (00:21→17:17)
[2021-06-20] MEDS: D5-1/2NS+20 MEQ KCL - 20 MEQ/1,000 ML INFUS.BAG IV SCH (03:50)
[2021-06-20] MEDS ORDERED: INSULIN (NOVOLOG) ASPART 100 UNITS/ML 10ML VIAL ONE (05:33)
[2021-06-20] MEDS: INSULIN SLIDING SCALE (NOVOLOG) 1 VIAL SQ SCH ×4 (07:36→22:06)
[2021-06-20 09:43] LABS: BASO % 0.7 % (0-2.0); EOS % 1.6 % (0-4.5); HEMATOCRIT 29.6 % (32.4-45.2); HEMOGLOBIN 9.6 GM/dL (10.7-15.3); LYMPH % 30.2 % (8-40); MCH 32.2 pg (25.7-33.7); MCHC 32.4 g/dl (32.0-36.0); MEAN CELL VOLUME 99.3 fl (80-96); MEAN PLT VOLUME 8.5 fl (7.5-11.1); MONO % 15.2 % (3.8-10.2); NEUT % 52.3 % (42.8-82.8); PLATELET COUNT 312 10^3/uL (134-434); RBC 2.98 M/mm3 (3.60-5.2); RDW 20.4 % (11.6-15.6)
[2021-06-20 10:05] LABS: ALBUMIN 2.1 g/dl (3.4-5.0); BLOOD UREA NITROGEN 4.9 mg/dL (7-18)
[2021-06-20 10:06] LABS: CREATININE 0.9 mg/dL (0.55-1.3)
[2021-06-20 10:09] LABS: TOT PROT 6.2 g/dl (6.4-8.2)
[2021-06-20 10:10] LABS: BILIRUBIN,TOTAL 0.4 mg/dL (0.2-1)
[2021-06-20] MEDS: METOCLOPRAMIDE HCL INJECTION 10 MG/2 ML VIAL IVPUSH SCH ×2 (10:17→21:59)
[2021-06-20] MEDS: NAPH,MB-DB/K PH,MBDB POWDER PACKET PO SCH ×2 (10:36→21:59)
[2021-06-20] MEDS: VALSARTAN 80 MG TABLET PO SCH (10:36)
[2021-06-20] MEDS: MIRTAZAPINE 15 MG TABLET (FP) PO SCH (21:59)
[2021-06-21] MEDS: VANCOMYCIN 250 MG/5 ML ORAL SOLUTION PO SCH ×4 (00:38→17:17)
[2021-06-21] MEDS: INSULIN SLIDING SCALE (NOVOLOG) 1 VIAL SQ SCH ×4 (06:26→21:47)
[2021-06-21 09:52] LABS: BASO % 0.7 % (0-2.0); EOS % 0.8 % (0-4.5); HEMATOCRIT 35.2 % (32.4-45.2); HEMOGLOBIN 11.2 GM/dL (10.7-15.3); MCH 31.5 pg (25.7-33.7); MEAN CELL VOLUME 98.6 fl (80-96); MEAN PLT VOLUME 8.4 fl (7.5-11.1); MONO % 11.9 % (3.8-10.2); NEUT % 60.6 % (42.8-82.8); PLATELET COUNT 451 10^3/uL (134-434); RBC 3.57 M/mm3 (3.60-5.2); RDW 20.5 % (11.6-15.6); WHITE BLOOD COUNT 6.4 K/mm3 (4.0-10.0)
[2021-06-21 10:00] LABS: BLOOD UREA NITROGEN 8.4 mg/dL (7-18); CALCIUM 9.5 mg/dL (8.5-10.1)
[2021-06-21 10:05] LABS: BILIRUBIN,TOTAL 0.4 mg/dL (0.2-1); TOT PROT 7.5 g/dl (6.4-8.2)
[2021-06-21 10:12] LABS: ALBUMIN 2.5 g/dl (3.4-5.0)
[2021-06-21] MEDS: METOCLOPRAMIDE HCL INJECTION 10 MG/2 ML VIAL IVPUSH SCH ×2 (10:15→21:40)
[2021-06-21] MEDS: VALSARTAN 80 MG TABLET PO SCH (10:15)
[2021-06-21] MEDS: NAPH,MB-DB/K PH,MBDB POWDER PACKET PO SCH ×2 (10:15→21:40)
[2021-06-21] MEDS ORDERED: INSULIN (NOVOLOG) ASPART 100 UNITS/ML 10ML VIAL ONE (11:53)
[2021-06-21] MEDS: SODIUM CHLORIDE 1,000 ML IV SCH (17:22)
[2021-06-21] MEDS: MIRTAZAPINE 15 MG TABLET (FP) PO SCH (21:40)
[2021-06-22] MEDS: VANCOMYCIN 250 MG/5 ML ORAL SOLUTION PO SCH ×4 (00:12→17:10)
[2021-06-22] MEDS: SODIUM CHLORIDE 1,000 ML IV SCH ×2 (06:09→16:03)
[2021-06-22] MEDS: INSULIN SLIDING SCALE (NOVOLOG) 1 VIAL SQ SCH ×4 (06:16→22:35)
[2021-06-22] MEDS: NAPH,MB-DB/K PH,MBDB POWDER PACKET PO SCH ×2 (10:12→22:33)
[2021-06-22] MEDS: METOCLOPRAMIDE HCL INJECTION 10 MG/2 ML VIAL IVPUSH SCH ×2 (10:12→22:34)
[2021-06-22] MEDS ORDERED: INSULIN (NOVOLOG) ASPART 100 UNITS/ML 10ML VIAL ONE (22:25)
[2021-06-22] MEDS: MIRTAZAPINE 15 MG TABLET (FP) PO SCH (22:33)
[2021-06-22] MEDS ORDERED: MELATONIN 1 MG TABLET PO ONE (23:54)
[2021-06-23] MEDS: VANCOMYCIN 250 MG/5 ML ORAL SOLUTION PO SCH ×3 (00:11→11:42)
[2021-06-23] MEDS: INSULIN SLIDING SCALE (NOVOLOG) 1 VIAL SQ SCH ×2 (06:57→11:42)
[2021-06-23 09:15] LABS: EOS % 1.6 % (0-4.5); HEMATOCRIT 26.7 % (32.4-45.2); HEMOGLOBIN 8.7 GM/dL (10.7-15.3); LYMPH % 24.1 % (8-40); MCH 32.3 pg (25.7-33.7); MCHC 32.7 g/dl (32.0-36.0); MEAN CELL VOLUME 98.7 fl (80-96); MONO % 13.6 % (3.8-10.2); NEUT % 59.7 % (42.8-82.8); PLATELET COUNT 275 10^3/uL (134-434); RBC 2.71 M/mm3 (3.60-5.2); RDW 19.8 % (11.6-15.6); WHITE BLOOD COUNT 5.1 K/mm3 (4.0-10.0)
[2021-06-23 09:33] LABS: BLOOD UREA NITROGEN 11.8 mg/dL (7-18)
[2021-06-23 09:36] LABS: CREATININE 1.6 mg/dL (0.55-1.3)
[2021-06-23 09:38] LABS: BILIRUBIN,TOTAL 0.5 mg/dL (0.2-1); TOT PROT 5.8 g/dl (6.4-8.2)
[2021-06-23 09:49] LABS: ALBUMIN 1.9 g/dl (3.4-5.0); CALCIUM 7.6 mg/dL (8.5-10.1)
[2021-06-23] MEDS: NAPH,MB-DB/K PH,MBDB POWDER PACKET PO SCH (10:48)
[2021-06-23] MEDS: METOCLOPRAMIDE HCL INJECTION 10 MG/2 ML VIAL IVPUSH SCH (10:48)
[2021-06-23 14:42] VITALS: BP 145/63; PULSE 63; TEMP 98.7
[2021-06-23] MEDS ORDERED: MELATONIN 1 MG TABLET PO ONE (22:55)
== END 2021-06-23 15:29 | disposition home or self-care (01) | DRG 73 ==
LOC: JER 00:25 → JERBED 03:23 → J5S 16:27 → J6S 06-17 21:24
PROVIDERS: ADMIT Internal Medicine; ATTEND Internal Medicine
DX: E11.43 Type 2 diabetes mellitus with diabetic autonomic (poly)neuropathy (principal); E43 Unspecified severe protein-calorie malnutrition; K86.0 Alcohol-induced chronic pancreatitis; Z68.1 Body mass index [BMI] 19.9 or less, adult; A04.72 Enterocolitis due to Clostridium difficile, not specified as recurrent; I50.22 Chronic systolic (congestive) heart failure; I42.6 Alcoholic cardiomyopathy; E78.5 Hyperlipidemia, unspecified; I48.0 Paroxysmal atrial fibrillation; K29.20 Alcoholic gastritis without bleeding; I27.20 Pulmonary hypertension, unspecified; I08.3 Combined rheumatic disorders of mitral, aortic and tricuspid valves; K21.9 Gastro-esophageal reflux disease without esophagitis; K44.9 Diaphragmatic hernia without obstruction or gangrene; D64.9 Anemia, unspecified; R11.10 Vomiting, unspecified; I11.0 Hypertensive heart disease with heart failure; K31.84 Gastroparesis; R19.7 Diarrhea, unspecified; Z98.890 Other specified postprocedural states
CPT/HCPCS: 36415; 36430; 71045-TC-FY; 74176-TC; 74177-TC; 74240-TC-FY; 80048; 80053; 81003; 82272; 82550; 82607; 82656; 82728; 82746; 82962; 83010; 83540; 83550; 83605; 83615; 83690; 83735; 84100; 84439; 84443; 84484; 85025; 85045; 85610; 85730; 86140; 86157; 86850; 86880; 86900; 86901; 86922; 87040; 87045; 87046; 87086; 87205; 87324; 87449; 90670; 90686; 93005; 93010; 97116-GP; 97161-GP; 99285-25; C9803; G0008; G0009; P9038; P9058; U0003; U0005

== ENCOUNTER 2021-07-17 03:18 | Inpatient (IN) | payer OTHER ==
[2021-07-17 03:49] VITALS: BMI 23.4
[2021-07-17 06:20] LABS: BASO % 0.7 % (0-2.0); EOS % 0.7 % (0-4.5); HEMATOCRIT 34.4 % (32.4-45.2); HEMOGLOBIN 11.3 GM/dL (10.7-15.3); LYMPH % 41.9 % (8-40); MCH 32.9 pg (25.7-33.7); MEAN CELL VOLUME 99.7 fl (80-96); MEAN PLT VOLUME 9.1 fl (7.5-11.1); MONO % 6.7 % (3.8-10.2); PLATELET COUNT 222 10^3/uL (134-434); RBC 3.45 M/mm3 (3.60-5.2); RDW 19.5 % (11.6-15.6); WHITE BLOOD COUNT 3.9 K/mm3 (4.0-10.0)
[2021-07-17 06:44] LABS: PH,URINE 6.5 (5.0-8.0); URINE APPEARANCE CLEAR; URINE BILIRUBIN NEGATIVE (NEGATIVE); URINE COLOR YELLOW; URINE GLUCOSE (UA) NEGATIVE (NEGATIVE); URINE KETONE TRACE (NEGATIVE); URINE LEUK ESTERASE NEGATIVE (NEGATIVE); URINE NITRITE NEGATIVE (NEGATIVE); URINE PROTEIN NEGATIVE (NEGATIVE); URINE UROBILINOGEN 0.2 mg/dL (0.2-1.0)
[2021-07-17 06:46] LABS: INR 1.04 (0.83-1.09)
[2021-07-17 06:47] LABS: BLOOD UREA NITROGEN 4.6 mg/dL (7-18); CALCIUM 8.8 mg/dL (8.5-10.1)
[2021-07-17 06:49] LABS: ACTIVATED PTT 37.6 SECONDS (25.2-36.5)
[2021-07-17 06:50] LABS: CREATININE 0.9 mg/dL (0.55-1.3)
[2021-07-17 06:52] LABS: BILIRUBIN,TOTAL 0.5 mg/dL (0.2-1); TOT PROT 8.2 g/dl (6.4-8.2)
[2021-07-17] MEDS ORDERED: THIAMINE HCL 100 MG TABLET (FP) PO ONE (09:13)
[2021-07-17] MEDS ORDERED: PYRIDOXINE HCL (B-6) 100 MG TABLET PO ONE (09:13)
[2021-07-17] MEDS ORDERED: FOLIC ACID 1 MG TABLET (FP) PO ONE (09:13)
[2021-07-17] MEDS ORDERED: THIAMINE HCL 100 MG TABLET (FP) ONE (10:22)
[2021-07-17] MEDS ORDERED: FOLIC ACID 1 MG TABLET (FP) ONE (10:22)
[2021-07-17] MEDS: THIAMINE HCL 200 MG/2 ML VIAL IM SCH (13:13)
[2021-07-17] MEDS ORDERED: FOLIC ACID INJECTION - 1 MG, THIAMINE HCL 100 MG, MULTIVIT INJECTION ADULT 10 ML in SOD... IVPB ONE (14:00)
[2021-07-17 19:15] LABS: COCAINE, UR NEGATIVE (NEGATIVE); METHADONE, UR NEGATIVE (NEGATIVE); OPIATES, URI NEGATIVE (NEGATIVE); PHENCYCLIDINE,URINE NEGATIVE (NEGATIVE); URINE AMPHETAMINES NEGATIVE (NEGATIVE); URINE BARBITURATES NEGATIVE (NEGATIVE); URINE BENZODIAZEPINES NEGATIVE (NEGATIVE)
[2021-07-17] MEDS ORDERED: INSULIN (LEVEMIR) 100 UNITS/ML UNITS SQ SCH (22:00)
[2021-07-17] MEDS: HEPARIN NA (PORCINE) 5,000 UNITS/ML 1ML VIAL SQ SCH (23:17)
[2021-07-18 07:01] LABS: BASO % 0.9 % (0-2.0); EOS % 0.7 % (0-4.5); HEMATOCRIT 28.5 % (32.4-45.2); HEMOGLOBIN 9.8 GM/dL (10.7-15.3); LYMPH % 20.1 % (8-40); MCH 33.7 pg (25.7-33.7); MCHC 34.4 g/dl (32.0-36.0); MEAN CELL VOLUME 98.1 fl (80-96); MEAN PLT VOLUME 9.2 fl (7.5-11.1); MONO % 9.7 % (3.8-10.2); NEUT % 68.6 % (42.8-82.8); PLATELET COUNT 195 10^3/uL (134-434); WHITE BLOOD COUNT 4.6 K/mm3 (4.0-10.0)
[2021-07-18 07:08] LABS: INR 1.03 (0.83-1.09); PROTHROMBIN TIME (PATIENT) 11.9 SEC (9.7-13.0)
[2021-07-18 07:34] LABS: IRON SERUM 95 ug/dL (50-175); TOTAL IRON BINDING CAPACITY 106 ug/dL (250-450)
[2021-07-18 07:38] LABS: ALBUMIN 2.5 g/dl (3.4-5.0); CALCIUM 8.3 mg/dL (8.5-10.1)
[2021-07-18 07:39] LABS: BLOOD UREA NITROGEN 7.4 mg/dL (7-18)
[2021-07-18 07:41] LABS: ALBUMIN 2.4 g/dl (3.4-5.0); CREATININE 1.1 mg/dL (0.55-1.3)
[2021-07-18 07:43] LABS: TOT PROT 6.8 g/dl (6.4-8.2)
[2021-07-18 07:44] LABS: BILIRUBIN,DIRECT 0.5 mg/dL (0.0-0.2); BILIRUBIN,TOTAL 1.3 mg/dL (0.2-1)
[2021-07-18 07:46] LABS: BILIRUBIN,TOTAL 0.8 mg/dL (0.2-1); TOT PROT 6.6 g/dl (6.4-8.2)
[2021-07-18] MEDS ORDERED: chlordiazePOXIDE HCL 25 MG CAPSULE PO PRN (09:26)
[2021-07-18] MEDS ORDERED: THIAMINE HCL 200 MG/2 ML VIAL ONE (09:45)
[2021-07-18] MEDS ORDERED: MAGNESIUM OXIDE 400 MG TABLET (FP) ONE (09:46)
[2021-07-18] MEDS ORDERED: FOLIC ACID 1 MG TABLET (FP) ONE ×2 (09:46→09:47)
[2021-07-18] MEDS ORDERED: HEPARIN NA (PORCINE) 5,000 UNITS/ML 1ML VIAL ONE (09:46)
[2021-07-18] MEDS: MAGNESIUM OXIDE 400 MG TABLET (FP) PO SCH (09:58)
[2021-07-18] MEDS: FOLIC ACID 1 MG TABLET (FP) PO SCH (09:58)
[2021-07-18] MEDS: HEPARIN NA (PORCINE) 5,000 UNITS/ML 1ML VIAL SQ SCH ×2 (09:58→22:51)
[2021-07-18] MEDS: THIAMINE HCL 200 MG/2 ML VIAL IM SCH (09:59)
[2021-07-18] MEDS ORDERED: ACETAMINOPHEN 325 MG TABLET (FP) ONE (10:20)
[2021-07-18] MEDS: chlordiazePOXIDE HCL 25 MG CAPSULE PO SCH ×3 (11:00→22:50)
[2021-07-18] MEDS ORDERED: chlordiazePOXIDE HCL 25 MG CAPSULE ONE (11:38)
[2021-07-18 12:07] LABS: SARS-CoV-2 NAA Not Detected (Not Detected)
[2021-07-19] MEDS: chlordiazePOXIDE HCL 25 MG CAPSULE PO SCH ×4 (05:34→22:43)
[2021-07-19 09:16] LABS: BASO % 0.7 % (0-2.0); EOS % 1.4 % (0-4.5); HEMATOCRIT 29.3 % (32.4-45.2); HEMOGLOBIN 9.7 GM/dL (10.7-15.3); LYMPH % 22.5 % (8-40); MCH 33.5 pg (25.7-33.7); MCHC 33.1 g/dl (32.0-36.0); MEAN CELL VOLUME 101.1 fl (80-96); MEAN PLT VOLUME 9.8 fl (7.5-11.1); MONO % 8.1 % (3.8-10.2); NEUT % 67.3 % (42.8-82.8); PLATELET COUNT 188 10^3/uL (134-434); WHITE BLOOD COUNT 4.2 K/mm3 (4.0-10.0)
[2021-07-19 09:23] LABS: CALCIUM 8.3 mg/dL (8.5-10.1)
[2021-07-19 09:24] LABS: ALBUMIN 2.4 g/dl (3.4-5.0); BLOOD UREA NITROGEN 6.1 mg/dL (7-18)
[2021-07-19 09:29] LABS: BILIRUBIN,TOTAL 0.7 mg/dL (0.2-1); TOT PROT 6.5 g/dl (6.4-8.2)
[2021-07-19 09:32] LABS: INR 0.97 (0.83-1.09); PROTHROMBIN TIME (PATIENT) 11.2 SEC (9.7-13.0)
[2021-07-19] MEDS: MAGNESIUM OXIDE 400 MG TABLET (FP) PO SCH (10:03)
[2021-07-19] MEDS: FAMOTIDINE 20 MG TABLET PO PRN (10:03)
[2021-07-19] MEDS: HEPARIN NA (PORCINE) 5,000 UNITS/ML 1ML VIAL SQ SCH ×2 (10:03→22:44)
[2021-07-19] MEDS: FOLIC ACID 1 MG TABLET (FP) PO SCH (10:03)
[2021-07-19] MEDS: THIAMINE HCL 200 MG/2 ML VIAL IM SCH (10:03)
[2021-07-20] MEDS: chlordiazePOXIDE HCL 25 MG CAPSULE PO SCH ×4 (04:58→23:42)
[2021-07-20] MEDS ORDERED: chlordiazePOXIDE HCL 25 MG CAPSULE PO SCH (05:00)
[2021-07-20] MEDS: THIAMINE HCL 200 MG/2 ML VIAL IM SCH (10:10)
[2021-07-20] MEDS: HEPARIN NA (PORCINE) 5,000 UNITS/ML 1ML VIAL SQ SCH ×2 (10:10→23:41)
[2021-07-20] MEDS: MAGNESIUM OXIDE 400 MG TABLET (FP) PO SCH (10:10)
[2021-07-20] MEDS: FOLIC ACID 1 MG TABLET (FP) PO SCH (10:11)
[2021-07-21] MEDS ORDERED: chlordiazePOXIDE HCL 10 MG CAPSULE PO PRN
[2021-07-21] MEDS: chlordiazePOXIDE HCL 10 MG CAPSULE PO SCH ×2 (05:38→11:46)
[2021-07-21] MEDS: FAMOTIDINE 20 MG TABLET PO PRN (09:49)
[2021-07-21] MEDS: FOLIC ACID 1 MG TABLET (FP) PO SCH (09:49)
[2021-07-21] MEDS: MAGNESIUM OXIDE 400 MG TABLET (FP) PO SCH (09:49)
[2021-07-21] MEDS: HEPARIN NA (PORCINE) 5,000 UNITS/ML 1ML VIAL SQ SCH ×2 (09:50→21:06)
[2021-07-21] MEDS: THIAMINE HCL 200 MG/2 ML VIAL IM SCH (09:50)
[2021-07-22] MEDS ORDERED: chlordiazePOXIDE HCL 10 MG CAPSULE PO SCH (05:00)
[2021-07-22 09:07] LABS: ALBUMIN 2.2 g/dl (3.4-5.0); BLOOD UREA NITROGEN 5.1 mg/dL (7-18)
[2021-07-22 09:12] LABS: CREATININE 0.9 mg/dL (0.55-1.3); TOT PROT 6.2 g/dl (6.4-8.2)
[2021-07-22 09:14] LABS: BILIRUBIN,TOTAL 0.4 mg/dL (0.2-1)
[2021-07-22 09:18] LABS: CALCIUM 9.7 mg/dL (8.5-10.1)
[2021-07-22] MEDS: HEPARIN NA (PORCINE) 5,000 UNITS/ML 1ML VIAL SQ SCH ×2 (09:39→21:07)
[2021-07-22] MEDS: MAGNESIUM OXIDE 400 MG TABLET (FP) PO SCH (09:40)
[2021-07-22] MEDS: THIAMINE HCL 200 MG/2 ML VIAL IM SCH (09:40)
[2021-07-22] MEDS: FOLIC ACID 1 MG TABLET (FP) PO SCH (09:40)
[2021-07-22] MEDS: MULTIVITAMINS (DAILY MVI) TABLET (FP) PO SCH (17:06)
[2021-07-23] MEDS ORDERED: chlordiazePOXIDE HCL 10 MG CAPSULE PO ONE (05:00)
[2021-07-23] MEDS: MAGNESIUM OXIDE 400 MG TABLET (FP) PO SCH (11:19)
[2021-07-23] MEDS: FOLIC ACID 1 MG TABLET (FP) PO SCH (11:19)
[2021-07-23] MEDS: MULTIVITAMINS (DAILY MVI) TABLET (FP) PO SCH (11:19)
[2021-07-23] MEDS: HEPARIN NA (PORCINE) 5,000 UNITS/ML 1ML VIAL SQ SCH ×2 (11:20→22:35)
[2021-07-23] MEDS: THIAMINE HCL 200 MG/2 ML VIAL IM SCH (11:22)
[2021-07-23] MEDS: ONDANSETRON 4 MG/2 ML VIAL IVPUSH PRN ×2 (16:46→23:33)
[2021-07-24 07:25] LABS: BASO % 0.6 % (0-2.0); EOS % 0.8 % (0-4.5); HEMATOCRIT 27.6 % (32.4-45.2); HEMOGLOBIN 9.4 GM/dL (10.7-15.3); LYMPH % 28.7 % (8-40); MCH 34.2 pg (25.7-33.7); MCHC 34.2 g/dl (32.0-36.0); MEAN CELL VOLUME 100.1 fl (80-96); MEAN PLT VOLUME 9.4 fl (7.5-11.1); MONO % 16.9 % (3.8-10.2); PLATELET COUNT 199 10^3/uL (134-434); RBC 2.76 M/mm3 (3.60-5.2); RDW 19.7 % (11.6-15.6); WHITE BLOOD COUNT 5.1 K/mm3 (4.0-10.0)
[2021-07-24 07:44] LABS: CALCIUM 8.8 mg/dL (8.5-10.1)
[2021-07-24 07:45] LABS: ALBUMIN 2.1 g/dl (3.4-5.0); BLOOD UREA NITROGEN 7.5 mg/dL (7-18)
[2021-07-24 07:49] LABS: BILIRUBIN,TOTAL 0.6 mg/dL (0.2-1)
[2021-07-24 07:50] LABS: TOT PROT 5.8 g/dl (6.4-8.2)
[2021-07-24] MEDS: MULTIVITAMINS (DAILY MVI) TABLET (FP) PO SCH ×3 (11:47→13:05)
[2021-07-24] MEDS: FOLIC ACID 1 MG TABLET (FP) PO SCH ×2 (11:47→13:05)
[2021-07-24] MEDS: MAGNESIUM OXIDE 400 MG TABLET (FP) PO SCH ×2 (11:47→13:05)
[2021-07-24] MEDS: THIAMINE HCL 200 MG/2 ML VIAL IM SCH (13:05)
[2021-07-24] MEDS: HEPARIN NA (PORCINE) 5,000 UNITS/ML 1ML VIAL SQ SCH (13:06)
[2021-07-25] MEDS: THIAMINE HCL 200 MG/2 ML VIAL IM SCH (09:36)
[2021-07-25] MEDS: FOLIC ACID 1 MG TABLET (FP) PO SCH (09:36)
[2021-07-25] MEDS: MAGNESIUM OXIDE 400 MG TABLET (FP) PO SCH (09:36)
[2021-07-25] MEDS: MULTIVITAMINS (DAILY MVI) TABLET (FP) PO SCH ×2 (09:36→09:38)
[2021-07-26] MEDS: FAMOTIDINE 20 MG TABLET PO PRN (03:42)
[2021-07-26] MEDS: ONDANSETRON 4 MG/2 ML VIAL IVPUSH PRN (03:42)
[2021-07-26] MEDS: MULTIVITAMINS (DAILY MVI) TABLET (FP) PO SCH ×2 (10:12→10:13)
[2021-07-26] MEDS: FOLIC ACID 1 MG TABLET (FP) PO SCH (10:12)
[2021-07-26] MEDS: MAGNESIUM OXIDE 400 MG TABLET (FP) PO SCH (10:12)
[2021-07-26] MEDS: THIAMINE HCL 200 MG/2 ML VIAL IM SCH (10:14)
[2021-07-26] MEDS: AMINO ACIDS 4.25%/D5W 1,000 ML IV SCH (13:48)
[2021-07-27] MEDS: AMINO ACIDS 4.25%/D5W 1,000 ML IV SCH ×3 (02:53→14:59)
[2021-07-27] MEDS: MULTIVITAMINS (DAILY MVI) TABLET (FP) PO SCH ×2 (09:38→09:39)
[2021-07-27] MEDS: THIAMINE HCL 200 MG/2 ML VIAL IM SCH (09:39)
[2021-07-27] MEDS: FOLIC ACID 1 MG TABLET (FP) PO SCH (09:39)
[2021-07-27] MEDS: MAGNESIUM OXIDE 400 MG TABLET (FP) PO SCH (09:39)
[2021-07-27 10:34] LABS: BASO % 0.9 % (0-2.0); EOS % 0.8 % (0-4.5); HEMATOCRIT 27.8 % (32.4-45.2); HEMOGLOBIN 9.3 GM/dL (10.7-15.3); LYMPH % 13.2 % (8-40); MCH 33.6 pg (25.7-33.7); MCHC 33.4 g/dl (32.0-36.0); MEAN CELL VOLUME 100.7 fl (80-96); MEAN PLT VOLUME 8.8 fl (7.5-11.1); MONO % 9.4 % (3.8-10.2); NEUT % 75.7 % (42.8-82.8); PLATELET COUNT 215 10^3/uL (134-434); RBC 2.76 M/mm3 (3.60-5.2); RDW 18.3 % (11.6-15.6); WHITE BLOOD COUNT 5.3 K/mm3 (4.0-10.0)
[2021-07-27 10:52] LABS: CHLORIDE 102 mmol/L (98-107); SODIUM 132 mmol/L (136-145)
[2021-07-27 10:55] LABS: CALCIUM 8.6 mg/dL (8.5-10.1)
[2021-07-27 10:56] LABS: ANION GAP 6 MMOL/L (8-16); BLOOD UREA NITROGEN 14.7 mg/dL (7-18); CO2 25 mmol/L (21-32)
[2021-07-27 10:59] LABS: SGOT/AST 67 U/L (15-37); SGPT/ALT 43 U/L (13-61)
[2021-07-27 11:01] LABS: BILIRUBIN,TOTAL 0.4 mg/dL (0.2-1); TOT PROT 5.6 g/dl (6.4-8.2)
[2021-07-27 11:06] LABS: ALK PHOS 173 U/L (45-117); GLUCOSE,RANDOM 433 mg/dL (74-106)
[2021-07-27] MEDS ORDERED: INSULIN (LEVEMIR) 100 UNITS/ML UNITS SQ ONE (12:39)
[2021-07-27] MEDS: INSULIN SLIDING SCALE (NOVOLOG) 1 VIAL SQ SCH (16:15)
[2021-07-28] MEDS: INSULIN SLIDING SCALE (NOVOLOG) 1 VIAL SQ SCH ×3 (06:45→16:24)
[2021-07-28] MEDS: INSULIN (LEVEMIR) 100 UNITS/ML UNITS SQ SCH (06:46)
[2021-07-28] MEDS: FOLIC ACID 1 MG TABLET (FP) PO SCH (09:33)
[2021-07-28] MEDS: FAMOTIDINE 20 MG TABLET PO PRN (09:33)
[2021-07-28] MEDS: MAGNESIUM OXIDE 400 MG TABLET (FP) PO SCH (09:33)
[2021-07-28] MEDS: MULTIVITAMINS (DAILY MVI) TABLET (FP) PO SCH (09:33)
[2021-07-28] MEDS: THIAMINE HCL 100 MG TABLET (FP) PO SCH (09:39)
[2021-07-29] MEDS: INSULIN SLIDING SCALE (NOVOLOG) 1 VIAL SQ SCH ×3 (06:31→17:01)
[2021-07-29] MEDS: INSULIN (LEVEMIR) 100 UNITS/ML UNITS SQ SCH (06:31)
[2021-07-29] MEDS: MULTIVITAMINS (DAILY MVI) TABLET (FP) PO SCH (10:24)
[2021-07-29] MEDS: FOLIC ACID 1 MG TABLET (FP) PO SCH (10:24)
[2021-07-29] MEDS: THIAMINE HCL 100 MG TABLET (FP) PO SCH (10:24)
[2021-07-29] MEDS: MAGNESIUM OXIDE 400 MG TABLET (FP) PO SCH (10:24)
[2021-07-29 11:09] LABS: SARS-CoV-2 NAA Not Detected (Not Detected)
[2021-07-29 13:39] VITALS: BP 116/69; PULSE 77; TEMP 98
[2021-07-29] MEDS: FAMOTIDINE 20 MG TABLET PO PRN (19:57)
== END 2021-07-29 20:40 | DRG 897 ==
LOC: JER 03:18 → JERBED 10:43 → J7W 07-18 16:14
PROVIDERS: ADMIT Internal Medicine; ATTEND Internal Medicine
PROC: HZ2ZZZZ Detoxification Services for Substance Abuse Treatment (ICD-10-PCS; principal; 2021-07-18)
DX: F10.239 Alcohol dependence with withdrawal, unspecified (principal); K86.0 Alcohol-induced chronic pancreatitis; R64 Cachexia; E11.9 Type 2 diabetes mellitus without complications; E78.5 Hyperlipidemia, unspecified; I48.0 Paroxysmal atrial fibrillation; K21.9 Gastro-esophageal reflux disease without esophagitis; R74.8 Abnormal levels of other serum enzymes; K44.9 Diaphragmatic hernia without obstruction or gangrene; K70.10 Alcoholic hepatitis without ascites; I27.20 Pulmonary hypertension, unspecified; R74.01 Elevation of levels of liver transaminase levels; M60.9 Myositis, unspecified; R19.7 Diarrhea, unspecified; D51.3 Other dietary vitamin B12 deficiency anemia; I11.0 Hypertensive heart disease with heart failure; I50.9 Heart failure, unspecified; I08.3 Combined rheumatic disorders of mitral, aortic and tricuspid valves; R63.0 Anorexia; Z68.23 Body mass index [BMI] 23.0-23.9, adult; Z98.890 Other specified postprocedural states; W06.XXXA Fall from bed, initial encounter; Y92.098 Other place in other non-institutional residence as the place of occurrence of the external cause
CPT/HCPCS: 36415; 70450-TC; 71045-TC-FY; 71260-TC; 72125-TC; 74177-TC; 76705-TC; 80053; 80076; 80307; 81003; 82140; 82550; 82728; 82962; 82977; 83036; 83540; 83550; 83615; 83690; 84080; 84484; 85025; 85610; 85730; 86140; 86704; 86803; 86850; 86900; 86901; 87086; 87186; 87340; 87517; 93005; 93010; 97116-GP; 97162-GP; 99285-25; C9803; J1644; Q9967; U0003; U0005

== ENCOUNTER 2021-09-17 22:55 | Inpatient (IN) | payer OTHER ==
[2021-09-17] MEDS ORDERED: ONDANSETRON 4 MG/2 ML VIAL IVPUSH ONE (23:12)
[2021-09-17] MEDS ORDERED: FAMOTIDINE 20 MG/50 ML IVPB 20 MG/50 ML MG IVPB ONE (23:12)
[2021-09-17] MEDS ORDERED: SODIUM CHLORIDE 0.9% 500 ML INFUS.BAG IV ONE (23:13)
[2021-09-17] MEDS ORDERED: FAMOTIDINE 10 MG/ML VIAL IVPB ONE (23:23)
[2021-09-17] MEDS ORDERED: ONDANSETRON 4 MG/2 ML VIAL ONE (23:23)
[2021-09-18] MEDS ORDERED: ACETAMINOPHEN INJECTION 100 ML IVPB ONE (00:09)
[2021-09-18] MEDS ORDERED: ACETAMINOPHEN 1000 MG/100 ML BAG IVPB ONE (00:10)
[2021-09-18 00:22] LABS: EOS % 0.8 % (0-4.5); HEMATOCRIT 37.7 % (32.4-45.2); HEMOGLOBIN 12.4 GM/dL (10.7-15.3); LYMPH % 16.2 % (8-40); MCH 33.1 pg (25.7-33.7); MCHC 32.8 g/dl (32.0-36.0); MEAN CELL VOLUME 100.8 fl (80-96); MEAN PLT VOLUME 7.4 fl (7.5-11.1); MONO % 5.7 % (3.8-10.2); NEUT % 76.3 % (42.8-82.8); PLATELET COUNT 232 10^3/uL (134-434); RBC 3.73 M/mm3 (3.60-5.2); RDW 17.5 % (11.6-15.6); WHITE BLOOD COUNT 5.5 K/mm3 (4.0-10.0)
[2021-09-18 00:42] LABS: ALBUMIN 2.7 g/dl (3.4-5.0); BLOOD UREA NITROGEN 11.1 mg/dL (7-18); CALCIUM 8.8 mg/dL (8.5-10.1); MAGNESIUM 2.1 mg/dL (1.8-2.4)
[2021-09-18 00:47] LABS: TOT PROT 7.6 g/dl (6.4-8.2)
[2021-09-18] MEDS ORDERED: POTASSIUM CHLORIDE TABS 20 MEQ TABLET.ER (FP) PO ONE (01:02)
[2021-09-18 01:09] LABS: LACTIC ACID 2.7 mmol/L (0.4-2.0)
[2021-09-18 01:17] LABS: INR 0.94 (0.83-1.09); PROTHROMBIN TIME (PATIENT) 10.8 SEC (9.7-13.0)
[2021-09-18 01:19] LABS: ACTIVATED PTT 30.7 SECONDS (25.2-36.5)
[2021-09-18] MEDS ORDERED: POTASSIUM CHLORIDE ORAL LIQUID 20 MEQ/15 ML ONE (01:47)
[2021-09-18] MEDS ORDERED: POTASSIUM CHLORIDE ORAL LIQUID 20 MEQ/15 ML PO ONE (01:53)
[2021-09-18 02:28] LABS: EPI CELLS 3 /uL (0-25.1); HYALINE CASTS 0 /uL (0-3.1); PH,URINE 6.5 (5.0-8.0); URINE APPEARANCE CLEAR; URINE BACTERIA 6037 /uL (0-1359); URINE BILIRUBIN NEGATIVE (NEGATIVE); URINE COLOR YELLOW; URINE GLUCOSE (UA) NEGATIVE (NEGATIVE); URINE KETONE NEGATIVE (NEGATIVE); URINE LEUK ESTERASE 1+ (NEGATIVE); URINE NITRITE NEGATIVE (NEGATIVE); URINE PROTEIN NEGATIVE (NEGATIVE); URINE RBC 1 /uL (0-23.9); URINE WBC 14 /uL (0-25.8)
[2021-09-18 02:47] LABS: LACTIC ACID 2.4 mmol/L (0.4-2.0)
[2021-09-18] MEDS: INSULIN SLIDING SCALE (NOVOLOG) 1 VIAL SQ SCH ×4 (07:18→23:03)
[2021-09-18] MEDS: DEXTROSE 5%-0.45% SALINE 1,000 ML IV SCH (08:59)
[2021-09-18] MEDS ORDERED: ASPIRIN 81 MG CHEWABLE TABLETS ONE (09:39)
[2021-09-18 09:46] LABS: INR 1.07 (0.83-1.09); PROTHROMBIN TIME (PATIENT) 12.3 SEC (9.7-13.0)
[2021-09-18 09:48] LABS: BASO % 0.5 % (0-2.0); HEMATOCRIT 31.9 % (32.4-45.2); HEMOGLOBIN 10.4 GM/dL (10.7-15.3); MCHC 32.7 g/dl (32.0-36.0); MEAN CELL VOLUME 101.1 fl (80-96); MEAN PLT VOLUME 8.4 fl (7.5-11.1); MONO % 5.5 % (3.8-10.2); PLATELET COUNT 182 10^3/uL (134-434); RBC 3.15 M/mm3 (3.60-5.2); RDW 17.5 % (11.6-15.6); WHITE BLOOD COUNT 8.1 K/mm3 (4.0-10.0)
[2021-09-18 10:04] LABS: ALBUMIN 2.4 g/dl (3.4-5.0); BLOOD UREA NITROGEN 9.8 mg/dL (7-18); CALCIUM 8.2 mg/dL (8.5-10.1)
[2021-09-18 10:05] LABS: BILIRUBIN,TOTAL 2.3 mg/dL (0.2-1)
[2021-09-18 10:06] LABS: BILIRUBIN,DIRECT 1.7 mg/dL (0.0-0.2)
[2021-09-18 10:07] LABS: CREATININE 0.9 mg/dL (0.55-1.3)
[2021-09-18 10:09] LABS: TOT PROT 6.6 g/dl (6.4-8.2)
[2021-09-18] MEDS ORDERED: PIPERACILLIN/TAZOBACTAM 3.375 GM VIAL IVPB ONE ×2 (11:37→16:02)
[2021-09-18] MEDS ORDERED: DEXTROSE 5%-WATER - 50 ML IVPB ONE ×2 (11:37→16:02)
[2021-09-18] MEDS: PIPERACILLIN/TAZOB 3.375 GM 3.375 GM in DEXTROSE 5%-WATER - 50 ML IVPB SCH ×2 (11:48→17:07)
[2021-09-18] MEDS ORDERED: ACETAMINOPHEN 1000 MG/100 ML BAG IVPB PRN (13:15)
[2021-09-18 14:19] LABS: URINE BENZODIAZEPINES NEGATIVE (NEGATIVE)
[2021-09-18 14:20] LABS: COCAINE, UR NEGATIVE (NEGATIVE); METHADONE, UR NEGATIVE (NEGATIVE); OPIATES, URI NEGATIVE (NEGATIVE)
[2021-09-18 14:21] LABS: PHENCYCLIDINE,URINE NEGATIVE (NEGATIVE)
[2021-09-18 14:48] LABS: URINE AMPHETAMINES NEGATIVE (NEGATIVE); URINE BARBITURATES NEGATIVE (NEGATIVE)
[2021-09-19] MEDS ORDERED: DEXTROSE 5%-WATER - 50 ML IVPB ONE ×3 (01:52→17:19)
[2021-09-19] MEDS ORDERED: PIPERACILLIN/TAZOBACTAM 3.375 GM VIAL IVPB ONE ×3 (01:52→17:18)
[2021-09-19] MEDS: DEXTROSE 5%-0.45% SALINE 1,000 ML IV SCH ×2 (01:53→11:18)
[2021-09-19] MEDS: PIPERACILLIN/TAZOB 3.375 GM 3.375 GM in DEXTROSE 5%-WATER - 50 ML IVPB SCH ×3 (01:54→17:38)
[2021-09-19] MEDS: INSULIN SLIDING SCALE (NOVOLOG) 1 VIAL SQ SCH ×4 (05:59→22:27)
[2021-09-19 10:08] LABS: BASO % 0.3 % (0-2.0); EOS % 0.9 % (0-4.5); HEMATOCRIT 29.1 % (32.4-45.2); HEMOGLOBIN 9.7 GM/dL (10.7-15.3); LYMPH % 12.7 % (8-40); MCH 33.9 pg (25.7-33.7); MCHC 33.4 g/dl (32.0-36.0); MEAN CELL VOLUME 101.3 fl (80-96); MEAN PLT VOLUME 8.7 fl (7.5-11.1); NEUT % 78.1 % (42.8-82.8); PLATELET COUNT 141 10^3/uL (134-434); RBC 2.87 M/mm3 (3.60-5.2); RDW 17.4 % (11.6-15.6)
[2021-09-19 10:22] LABS: BLOOD UREA NITROGEN 13.5 mg/dL (7-18); CALCIUM 8.2 mg/dL (8.5-10.1)
[2021-09-19 10:25] LABS: BILIRUBIN,DIRECT 2.9 mg/dL (0.0-0.2)
[2021-09-19 10:27] LABS: BILIRUBIN,TOTAL 3.3 mg/dL (0.2-1)
[2021-09-19 10:28] LABS: CREATININE 1.2 mg/dL (0.55-1.3); TOT PROT 5.9 g/dl (6.4-8.2)
[2021-09-19 14:06] VITALS: BMI 19.2
[2021-09-19] MEDS ORDERED: METOCLOPRAMIDE HCL INJECTION 10 MG/2 ML VIAL IVPB ONE (19:37)
[2021-09-20] MEDS ORDERED: PIPERACILLIN/TAZOBACTAM 3.375 GM VIAL IVPB ONE ×3 (01:03→16:41)
[2021-09-20] MEDS ORDERED: DEXTROSE 5%-WATER - 50 ML IVPB ONE ×3 (01:03→16:42)
[2021-09-20] MEDS: PIPERACILLIN/TAZOB 3.375 GM 3.375 GM in DEXTROSE 5%-WATER - 50 ML IVPB SCH ×3 (01:11→17:21)
[2021-09-20] MEDS: INSULIN SLIDING SCALE (NOVOLOG) 1 VIAL SQ SCH ×4 (05:47→23:15)
[2021-09-20] MEDS: DEXTROSE 5%-0.45% SALINE 1,000 ML IV SCH ×2 (07:08→11:38)
[2021-09-20 13:50] LABS: BASO % 0.4 % (0-2.0); EOS % 1.3 % (0-4.5); HEMATOCRIT 30.7 % (32.4-45.2); HEMOGLOBIN 10.3 GM/dL (10.7-15.3); MCH 33.7 pg (25.7-33.7); MCHC 33.4 g/dl (32.0-36.0); MEAN CELL VOLUME 100.8 fl (80-96); MEAN PLT VOLUME 8.9 fl (7.5-11.1); MONO % 9.5 % (3.8-10.2); NEUT % 72.8 % (42.8-82.8); PLATELET COUNT 150 10^3/uL (134-434); RBC 3.04 M/mm3 (3.60-5.2); RDW 16.9 % (11.6-15.6); WHITE BLOOD COUNT 4.9 K/mm3 (4.0-10.0)
[2021-09-20 14:13] LABS: CALCIUM 8.4 mg/dL (8.5-10.1)
[2021-09-20 14:14] LABS: BLOOD UREA NITROGEN 7.1 mg/dL (7-18)
[2021-09-20 14:18] LABS: BILIRUBIN,TOTAL 3.5 mg/dL (0.2-1)
[2021-09-20 14:19] LABS: TOT PROT 5.9 g/dl (6.4-8.2)
[2021-09-21] MEDS ORDERED: PIPERACILLIN/TAZOBACTAM 3.375 GM VIAL IVPB ONE ×3 (01:36→16:58)
[2021-09-21] MEDS ORDERED: DEXTROSE 5%-WATER - 50 ML IVPB ONE ×3 (01:36→16:58)
[2021-09-21] MEDS: PIPERACILLIN/TAZOB 3.375 GM 3.375 GM in DEXTROSE 5%-WATER - 50 ML IVPB SCH ×3 (01:38→18:32)
[2021-09-21] MEDS: INSULIN SLIDING SCALE (NOVOLOG) 1 VIAL SQ SCH ×3 (05:15→18:31)
[2021-09-21] MEDS: DEXTROSE 5%-0.45% SALINE 1,000 ML IV SCH (09:46)
[2021-09-22] MEDS: INSULIN SLIDING SCALE (NOVOLOG) 1 VIAL SQ SCH ×4 (00:03→17:51)
[2021-09-22] MEDS ORDERED: PIPERACILLIN/TAZOBACTAM 3.375 GM VIAL IVPB ONE ×3 (01:12→17:46)
[2021-09-22] MEDS ORDERED: DEXTROSE 5%-WATER - 50 ML IVPB ONE ×3 (01:12→17:46)
[2021-09-22] MEDS: PIPERACILLIN/TAZOB 3.375 GM 3.375 GM in DEXTROSE 5%-WATER - 50 ML IVPB SCH ×3 (01:17→17:49)
[2021-09-22 08:42] LABS: BASO % 0.4 % (0-2.0); HEMATOCRIT 31.7 % (32.4-45.2); HEMOGLOBIN 10.5 GM/dL (10.7-15.3); LYMPH % 16.6 % (8-40); MCH 33.6 pg (25.7-33.7); MCHC 33.1 g/dl (32.0-36.0); MEAN CELL VOLUME 101.5 fl (80-96); MEAN PLT VOLUME 8.9 fl (7.5-11.1); MONO % 12.9 % (3.8-10.2); NEUT % 69.1 % (42.8-82.8); PLATELET COUNT 166 10^3/uL (134-434); RBC 3.13 M/mm3 (3.60-5.2); RDW 16.9 % (11.6-15.6); WHITE BLOOD COUNT 5.5 K/mm3 (4.0-10.0)
[2021-09-22 08:52] LABS: INR 1.13 (0.83-1.09)
[2021-09-22 09:23] LABS: BLOOD UREA NITROGEN 8.1 mg/dL (7-18); CALCIUM 8.5 mg/dL (8.5-10.1)
[2021-09-22 09:25] LABS: CREATININE 0.9 mg/dL (0.55-1.3)
[2021-09-22 09:26] LABS: BILIRUBIN,DIRECT 1.5 mg/dL (0.0-0.2); TOT PROT 6.1 g/dl (6.4-8.2)
[2021-09-22 09:27] LABS: BILIRUBIN,TOTAL 1.8 mg/dL (0.2-1)
[2021-09-22] MEDS ORDERED: POTASSIUM CHLORIDE ORAL LIQUID 20 MEQ/15 ML PO ONE (13:12)
[2021-09-22] MEDS ORDERED: FAMOTIDINE 20 MG TABLET PO PRN (13:16)
[2021-09-22] MEDS: HEPARIN NA (PORCINE) 5,000 UNITS/ML 1ML VIAL SQ SCH (21:41)
[2021-09-22] MEDS: NAPH,MB-DB/K PH,MBDB POWDER PACKET PO SCH (21:41)
[2021-09-22] MEDS: MIRTAZAPINE 15 MG TABLET (FP) PO SCH (21:41)
[2021-09-23] MEDS: INSULIN SLIDING SCALE (NOVOLOG) 1 VIAL SQ SCH ×5 (00:03→22:24)
[2021-09-23] MEDS ORDERED: DEXTROSE 5%-WATER - 50 ML IVPB ONE ×3 (01:41→17:52)
[2021-09-23] MEDS ORDERED: PIPERACILLIN/TAZOBACTAM 3.375 GM VIAL IVPB ONE ×3 (01:41→17:52)
[2021-09-23] MEDS: PIPERACILLIN/TAZOB 3.375 GM 3.375 GM in DEXTROSE 5%-WATER - 50 ML IVPB SCH ×3 (01:47→17:56)
[2021-09-23 07:38] LABS: BASO % 0.4 % (0-2.0); EOS % 2.2 % (0-4.5); HEMATOCRIT 32.9 % (32.4-45.2); LYMPH % 19.6 % (8-40); MCH 33.8 pg (25.7-33.7); MCHC 33.3 g/dl (32.0-36.0); MEAN CELL VOLUME 101.5 fl (80-96); MEAN PLT VOLUME 8.1 fl (7.5-11.1); MONO % 13.1 % (3.8-10.2); NEUT % 64.7 % (42.8-82.8); PLATELET COUNT 194 10^3/uL (134-434); RBC 3.24 M/mm3 (3.60-5.2); RDW 16.7 % (11.6-15.6); WHITE BLOOD COUNT 5.3 K/mm3 (4.0-10.0)
[2021-09-23 08:17] LABS: ALBUMIN 2.1 g/dl (3.4-5.0); BLOOD UREA NITROGEN 10.6 mg/dL (7-18); CALCIUM 8.9 mg/dL (8.5-10.1)
[2021-09-23 08:21] LABS: CREATININE 0.9 mg/dL (0.55-1.3)
[2021-09-23 08:22] LABS: BILIRUBIN,TOTAL 1.4 mg/dL (0.2-1); TOT PROT 6.4 g/dl (6.4-8.2)
[2021-09-23] MEDS: NAPH,MB-DB/K PH,MBDB POWDER PACKET PO SCH ×2 (11:14→21:34)
[2021-09-23] MEDS: THIAMINE HCL 100 MG TABLET (FP) PO SCH (11:14)
[2021-09-23] MEDS: FOLIC ACID 1 MG TABLET (FP) PO SCH (11:14)
[2021-09-23] MEDS: HEPARIN NA (PORCINE) 5,000 UNITS/ML 1ML VIAL SQ SCH ×2 (11:14→21:34)
[2021-09-23] MEDS ORDERED: INSULIN (NOVOLOG) ASPART 100 UNITS/ML 10ML VIAL ONE (21:30)
[2021-09-23] MEDS: MIRTAZAPINE 15 MG TABLET (FP) PO SCH (21:34)
[2021-09-24] MEDS ORDERED: DEXTROSE 5%-WATER - 50 ML IVPB ONE ×2 (00:56→09:44)
[2021-09-24] MEDS ORDERED: PIPERACILLIN/TAZOBACTAM 3.375 GM VIAL IVPB ONE ×2 (00:56→09:44)
[2021-09-24] MEDS: PIPERACILLIN/TAZOB 3.375 GM 3.375 GM in DEXTROSE 5%-WATER - 50 ML IVPB SCH ×2 (02:31→10:03)
[2021-09-24] MEDS: INSULIN SLIDING SCALE (NOVOLOG) 1 VIAL SQ SCH ×4 (06:16→22:16)
[2021-09-24] MEDS ORDERED: INSULIN (NOVOLOG) ASPART 100 UNITS/ML 10ML VIAL ONE ×2 (07:15→11:31)
[2021-09-24] MEDS: THIAMINE HCL 100 MG TABLET (FP) PO SCH (10:02)
[2021-09-24] MEDS: NAPH,MB-DB/K PH,MBDB POWDER PACKET PO SCH ×2 (10:02→22:03)
[2021-09-24] MEDS: FOLIC ACID 1 MG TABLET (FP) PO SCH (10:02)
[2021-09-24] MEDS: HEPARIN NA (PORCINE) 5,000 UNITS/ML 1ML VIAL SQ SCH ×2 (10:04→22:03)
[2021-09-24] MEDS ORDERED: BISMUTH SUBSALICYLATE 524 MG/30 ML PO PRN (12:56)
[2021-09-24] MEDS: LACTOBACILLUS ACIDOPHILUS 1 TABLET PO SCH (13:40)
[2021-09-24] MEDS: MIRTAZAPINE 15 MG TABLET (FP) PO SCH (22:03)
[2021-09-25] MEDS: INSULIN SLIDING SCALE (NOVOLOG) 1 VIAL SQ SCH ×4 (06:12→23:04)
[2021-09-25 09:07] LABS: ALBUMIN 2.3 g/dl (3.4-5.0); BILIRUBIN,TOTAL 0.9 mg/dL (0.2-1); BLOOD UREA NITROGEN 18.7 mg/dL (7-18); CALCIUM 8.8 mg/dL (8.5-10.1); CREATININE 1.2 mg/dL (0.55-1.3)
[2021-09-25] MEDS: HEPARIN NA (PORCINE) 5,000 UNITS/ML 1ML VIAL SQ SCH ×2 (09:24→22:03)
[2021-09-25] MEDS: THIAMINE HCL 100 MG TABLET (FP) PO SCH (09:24)
[2021-09-25] MEDS: LACTOBACILLUS ACIDOPHILUS 1 TABLET PO SCH (09:24)
[2021-09-25] MEDS: FOLIC ACID 1 MG TABLET (FP) PO SCH (09:24)
[2021-09-25] MEDS: NAPH,MB-DB/K PH,MBDB POWDER PACKET PO SCH ×2 (09:24→22:03)
[2021-09-25] MEDS ORDERED: CEFTRIAXONE 1 GM in DEXTROSE 5%-WATER - 50 ML IVPB SCH (10:00)
[2021-09-25 10:20] LABS: BASO % 1.3 % (0-2.0); EOS % 1.5 % (0-4.5); HEMATOCRIT 35.2 % (32.4-45.2); HEMOGLOBIN 11.5 GM/dL (10.7-15.3); LYMPH % 16.4 % (8-40); MCH 33.3 pg (25.7-33.7); MCHC 32.6 g/dl (32.0-36.0); MEAN CELL VOLUME 102.1 fl (80-96); MEAN PLT VOLUME 8.7 fl (7.5-11.1); MONO % 12.8 % (3.8-10.2); PLATELET COUNT 343 10^3/uL (134-434); RBC 3.45 M/mm3 (3.60-5.2); RDW 16.3 % (11.6-15.6); WHITE BLOOD COUNT 5.6 K/mm3 (4.0-10.0)
[2021-09-25] MEDS: MIRTAZAPINE 15 MG TABLET (FP) PO SCH (22:03)
[2021-09-26] MEDS: INSULIN SLIDING SCALE (NOVOLOG) 1 VIAL SQ SCH ×4 (06:28→23:25)
[2021-09-26] MEDS: FOLIC ACID 1 MG TABLET (FP) PO SCH (09:21)
[2021-09-26] MEDS: LACTOBACILLUS ACIDOPHILUS 1 TABLET PO SCH (09:21)
[2021-09-26] MEDS: HEPARIN NA (PORCINE) 5,000 UNITS/ML 1ML VIAL SQ SCH ×2 (09:21→21:34)
[2021-09-26] MEDS: NAPH,MB-DB/K PH,MBDB POWDER PACKET PO SCH ×2 (09:21→21:34)
[2021-09-26] MEDS: THIAMINE HCL 100 MG TABLET (FP) PO SCH (09:22)
[2021-09-26] MEDS: BISMUTH SUBSALICYLATE 524 MG/30 ML PO PRN (10:44)
[2021-09-26] MEDS ORDERED: INSULIN (NOVOLOG) ASPART 100 UNITS/ML 10ML VIAL ONE (21:32)
[2021-09-26] MEDS: MIRTAZAPINE 15 MG TABLET (FP) PO SCH (21:34)
[2021-09-27] MEDS: INSULIN SLIDING SCALE (NOVOLOG) 1 VIAL SQ SCH ×4 (05:53→23:05)
[2021-09-27] MEDS: LACTOBACILLUS ACIDOPHILUS 1 TABLET PO SCH (09:57)
[2021-09-27] MEDS: FOLIC ACID 1 MG TABLET (FP) PO SCH (09:58)
[2021-09-27] MEDS: THIAMINE HCL 100 MG TABLET (FP) PO SCH (09:58)
[2021-09-27] MEDS: NAPH,MB-DB/K PH,MBDB POWDER PACKET PO SCH ×2 (09:58→21:11)
[2021-09-27] MEDS: HEPARIN NA (PORCINE) 5,000 UNITS/ML 1ML VIAL SQ SCH ×2 (09:58→21:11)
[2021-09-27] MEDS: BISMUTH SUBSALICYLATE 524 MG/30 ML PO PRN (10:30)
[2021-09-27] MEDS ORDERED: INSULIN (NOVOLOG) ASPART 100 UNITS/ML 10ML VIAL ONE (16:49)
[2021-09-27] MEDS: MIRTAZAPINE 15 MG TABLET (FP) PO SCH (21:11)
[2021-09-28] MEDS: INSULIN SLIDING SCALE (NOVOLOG) 1 VIAL SQ SCH ×2 (04:16→11:57)
[2021-09-28 07:46] VITALS: BP 134/68; PULSE 69; TEMP 98.6
[2021-09-28] MEDS: HEPARIN NA (PORCINE) 5,000 UNITS/ML 1ML VIAL SQ SCH (10:34)
[2021-09-28] MEDS: LACTOBACILLUS ACIDOPHILUS 1 TABLET PO SCH (10:43)
[2021-09-28] MEDS: NAPH,MB-DB/K PH,MBDB POWDER PACKET PO SCH (10:43)
[2021-09-28] MEDS: FOLIC ACID 1 MG TABLET (FP) PO SCH (10:43)
[2021-09-28] MEDS: THIAMINE HCL 100 MG TABLET (FP) PO SCH (10:44)
[2021-09-28] MEDS ORDERED: INSULIN (NOVOLOG) ASPART 100 UNITS/ML 10ML VIAL ONE (12:27)
== END 2021-09-28 15:14 | disposition home or self-care (01) | DRG 445 ==
LOC: JER 22:55 → JERBED 09-18 05:16 → J8W 09-18 09:44
PROVIDERS: ADMIT Internal Medicine; ATTEND Internal Medicine
DX: K81.9 Cholecystitis, unspecified (principal); N39.0 Urinary tract infection, site not specified; K86.1 Other chronic pancreatitis; E87.2 Acidosis; R64 Cachexia; Z68.1 Body mass index [BMI] 19.9 or less, adult; E86.1 Hypovolemia; I27.20 Pulmonary hypertension, unspecified; K74.60 Unspecified cirrhosis of liver; E11.9 Type 2 diabetes mellitus without complications; I11.0 Hypertensive heart disease with heart failure; F10.220 Alcohol dependence with intoxication, uncomplicated; K70.9 Alcoholic liver disease, unspecified; K76.0 Fatty (change of) liver, not elsewhere classified; K70.10 Alcoholic hepatitis without ascites; K21.9 Gastro-esophageal reflux disease without esophagitis; E78.5 Hyperlipidemia, unspecified; R74.01 Elevation of levels of liver transaminase levels; F17.200 Nicotine dependence, unspecified, uncomplicated; R35.0 Frequency of micturition; B96.20 Unspecified Escherichia coli [E. coli] as the cause of diseases classified elsewhere
CPT/HCPCS: 36415; 70450-TC; 71045-TC-FY; 72125-TC; 72128-TC; 72131-TC; 74177-TC; 74181-TC; 76705-TC; 80048; 80053; 80076; 80307; 81003; 82150; 82248; 82962; 83605; 83690; 83735; 84484; 85025; 85610; 85730; 86140; 87040; 87086; 87186; 93005; 93010; 97116-GP; 97161-GP; 99285-25; C9803-CS; J1644; U0003; U0005

== ENCOUNTER 2022-01-05 19:43 | Observation (INO) | payer OTHER ==
[2022-01-05 20:09] VITALS: BMI 23.8
[2022-01-05 21:34] LABS: BASO % 0.4 % (0-2.0); EOS % 1.8 % (0-4.5); HEMATOCRIT 30.5 % (32.4-45.2); HEMOGLOBIN 10.2 GM/dL (10.7-15.3); LYMPH % 39.2 % (8-40); MCHC 33.5 g/dl (32.0-36.0); MEAN CELL VOLUME 101.6 fl (80-96); MEAN PLT VOLUME 8.7 fl (7.5-11.1); MONO % 10.7 % (3.8-10.2); NEUT % 47.9 % (42.8-82.8); PLATELET COUNT 187 10^3/uL (134-434); RDW 14.4 % (11.6-15.6); WHITE BLOOD COUNT 4.9 K/mm3 (4.0-10.0)
[2022-01-05 21:42] LABS: INR 0.9 (0.83-1.09); PROTHROMBIN TIME (PATIENT) 10.3 SEC (9.7-13.0)
[2022-01-05 21:44] LABS: ACTIVATED PTT 27.7 SECONDS (25.2-36.5)
[2022-01-05 21:49] LABS: ALBUMIN 3.1 g/dl (3.4-5.0); CALCIUM 9.1 mg/dL (8.5-10.1)
[2022-01-05 21:52] LABS: CREATININE 1.2 mg/dL (0.55-1.3)
[2022-01-05 21:54] LABS: BILIRUBIN,TOTAL 0.3 mg/dL (0.2-1); TOT PROT 7.5 g/dl (6.4-8.2)
[2022-01-05] MEDS ORDERED: ACETAMINOPHEN 325 MG TABLET (FP) PO PRN (22:55)
[2022-01-05] MEDS ORDERED: LORazepam 1 MG TABLET PO PRN (23:14)
[2022-01-05] MEDS ORDERED: PANTOPRAZOLE SODIUM 40 MG VIAL IVPUSH ONE (23:24)
[2022-01-05] MEDS ORDERED: ONDANSETRON 4 MG/2 ML VIAL IVPUSH PRN (23:25)
[2022-01-05] MEDS: LORazepam 2 MG TABLET PO SCH (23:41)
[2022-01-06] MEDS ORDERED: FOLIC ACID INJECTION - 1 MG, THIAMINE HCL 100 MG, MULTIVIT INJECTION ADULT 10 ML in SOD... IVPB ONE ×2
[2022-01-06] MEDS ORDERED: LORazepam 1 MG TABLET ONE (05:58)
[2022-01-06] MEDS: LORazepam 2 MG TABLET PO SCH ×2 (06:00→11:08)
[2022-01-06 06:28] VITALS: BP 134/87; PULSE 86; RESP 16; TEMP 98.5
[2022-01-06 06:50] LABS: MCH 33.6 pg (25.7-33.7); MCHC 33.2 g/dl (32.0-36.0); MEAN CELL VOLUME 101.1 fl (80-96); MEAN PLT VOLUME 8.8 fl (7.5-11.1); PLATELET COUNT 176 10^3/uL (134-434); RBC 2.97 M/mm3 (3.60-5.2); RDW 14.1 % (11.6-15.6); WHITE BLOOD COUNT 3.9 K/mm3 (4.0-10.0)
[2022-01-06 07:10] LABS: CALCIUM 8.7 mg/dL (8.5-10.1)
[2022-01-06 07:11] LABS: BLOOD UREA NITROGEN 20.2 mg/dL (7-18); MAGNESIUM 1.3 mg/dL (1.8-2.4)
[2022-01-06] MEDS: INSULIN SLIDING SCALE (NOVOLOG) 1 VIAL SQ SCH ×2 (07:31→11:08)
[2022-01-06] MEDS ORDERED: MAGNESIUM SULFATE IN WATER 2 GM/50 ML IVPB IVPB ONE ×2 (08:14→08:27)
[2022-01-06] MEDS ORDERED: MAGNESIUM OXIDE 400 MG TABLET (FP) ONE (08:28)
[2022-01-06] MEDS ORDERED: FERROUS SO4 325 MG TABLET (FP) ONE (08:28)
[2022-01-06] MEDS ORDERED: PANTOPRAZOLE 20 MG TABLET PO ONE (08:57)
[2022-01-06] MEDS ORDERED: NAPH,MB-DB/K PH,MBDB POWDER PACKET ONE (08:57)
[2022-01-06] MEDS ORDERED: FERROUS SO4 325 MG TABLET (FP) PO SCH (10:00)
[2022-01-06] MEDS ORDERED: MAGNESIUM OXIDE 400 MG TABLET (FP) PO SCH (10:00)
[2022-01-06] MEDS ORDERED: PANTOPRAZOLE 40 MG TABLET PO SCH (10:00)
[2022-01-06] MEDS ORDERED: NAPH,MB-DB/K PH,MBDB POWDER PACKET PO SCH (10:00)
[2022-01-06] MEDS ORDERED: PANTOPRAZOLE 20 MG TABLET PO SCH (10:00)
[2022-01-06] MEDS ORDERED: MIRTAZAPINE 15 MG TABLET (FP) PO SCH (22:00)
[2022-01-07] MEDS ORDERED: LORazepam 1 MG TABLET PO SCH (05:00)
[2022-01-07] MEDS ORDERED: MULTIVITAMINS (DAILY MVI) TABLET (FP) PO SCH (10:00)
[2022-01-07] MEDS ORDERED: THIAMINE HCL 100 MG TABLET (FP) PO SCH (10:00)
[2022-01-07] MEDS ORDERED: FOLIC ACID 1 MG TABLET (FP) PO SCH (10:00)
[2022-01-08] MEDS ORDERED: LORazepam 0.5 MG TABLET PO PRN
[2022-01-08] MEDS ORDERED: LORazepam 0.5 MG TABLET PO SCH (05:00)
[2022-01-09] MEDS ORDERED: LORazepam 0.5 MG TABLET PO ONE (05:00)
== END 2022-01-06 11:10 | disposition left against medical advice (07) ==
LOC: JER 19:43 → INTOOBSV 22:51 → JERBED 22:51
PROVIDERS: ADMIT Hospitalist; ATTEND Internal Medicine
PROC: 3E033GC Introduction of Other Therapeutic Substance into Peripheral Vein, Percutaneous Approach (ICD-10-PCS; principal; 2022-01-05)
PROC: 3E013VG Introduction of Insulin into Subcutaneous Tissue, Percutaneous Approach (ICD-10-PCS; 2022-01-05)
DX: S00.03XA Contusion of scalp, initial encounter (principal); R29.6 Repeated falls; F10.929 Alcohol use, unspecified with intoxication, unspecified; U07.1 COVID-19; I50.9 Heart failure, unspecified; I48.0 Paroxysmal atrial fibrillation; K21.9 Gastro-esophageal reflux disease without esophagitis; E83.42 Hypomagnesemia; W18.39XA Other fall on same level, initial encounter; Y93.89 Activity, other specified; Y92.89 Other specified places as the place of occurrence of the external cause
CPT/HCPCS: 36415; 70450-TC; 72125-TC; 80048; 80053; 80307; 82728; 82962; 83615; 83735; 84484; 85025; 85027; 85610; 85730; 86140; 93005; 93010; 96365; 96375; 99285-25; C9803-CS; G0378; U0003; U0005

== ENCOUNTER 2022-07-19 07:59 | Observation (INO) | payer OTHER ==
[2022-07-19] MEDS ORDERED: DEXTROSE 50%-WATER 25 GM/50 ML DISP.SYRIN ONE (08:11)
[2022-07-19] MEDS ORDERED: VANCOMYCIN 1 GM in D5W (PRE-DOCKED) 1,000 MG/250 ML IVPB ONE (08:25)
[2022-07-19] MEDS ORDERED: PIPERACILLIN/TAZOB 2.25 GM 2.25 GM in DEXTROSE 5%-WATER - 50 ML IVPB ONE (08:25)
[2022-07-19] MEDS ORDERED: LORazepam 2 MG/ML SDV VIAL IVPUSH ONE (08:26)
[2022-07-19] MEDS ORDERED: THIAMINE HCL 200 MG/2 ML VIAL IVPB ONE (08:27)
[2022-07-19] MEDS ORDERED: THIAMINE HCL 200 MG/2 ML VIAL ONE (09:27)
[2022-07-19] MEDS ORDERED: VANCOMYCIN/WATER FOR INJ (PEG) 1,000 MG/200 ML BAG IVPB ONE (09:27)
[2022-07-19] MEDS ORDERED: PIPERACILLIN/TAZOB 2.25 GM 2.25 GM/50 ML BAG IVPB ONE (09:27)
[2022-07-19 10:29] LABS: BASO % 0.2 % (0-2.0); EOS % 0.2 % (0-4.5); HEMATOCRIT 30.2 % (32.4-45.2); MCH 35.4 pg (25.7-33.7); MCHC 32.9 g/dl (32.0-36.0); MEAN CELL VOLUME 107.4 fl (80-96); MEAN PLT VOLUME 9.7 fl (7.5-11.1); MONO % 8.9 % (3.8-10.2); NEUT % 84.7 % (42.8-82.8); PLATELET COUNT 174 10^3/uL (134-434); RBC 2.81 M/mm3 (3.60-5.2); RDW 14.3 % (11.6-15.6); WHITE BLOOD COUNT 7.7 K/mm3 (4.0-10.0)
[2022-07-19 10:35] LABS: VENOUS O2 SATURATION 30.4 % (70-80); VENOUS PCO2 40.5 mmHg (38-52); VENOUS PH 7.274 (7.310-7.410)
[2022-07-19 10:36] LABS: INR 1.1 (0.83-1.09); PROTHROMBIN TIME (PATIENT) 12.7 SEC (9.7-13.0)
[2022-07-19 10:39] LABS: ACTIVATED PTT 31.8 SECONDS (25.2-36.5)
[2022-07-19 10:58] LABS: ALBUMIN 2.3 g/dl (3.4-5.0); CALCIUM 7.8 mg/dL (8.5-10.1); CHLORIDE 118 mmol/L (98-107); CO2 20 mmol/L (21-32); GLUCOSE,RANDOM 209 mg/dL (74-106); SODIUM 145 mmol/L (136-145)
[2022-07-19 11:02] LABS: CREATININE 0.9 mg/dL (0.55-1.3); SGOT/AST 52 U/L (15-37); SGPT/ALT 23 U/L (13-61)
[2022-07-19 11:04] LABS: ALK PHOS 97 U/L (45-117); BILIRUBIN,TOTAL 0.4 mg/dL (0.2-1); TOT PROT 6.4 g/dl (6.4-8.2)
[2022-07-19 11:09] LABS: ANISOCYTOSIS 1+; MACROCYTOSIS 1+
[2022-07-19 11:12] LABS: LACTIC ACID 2.6 mmol/L (0.4-2.0)
[2022-07-19 11:14] LABS: ANION GAP 7 MMOL/L (8-16)
[2022-07-19 12:13] LABS: PH,URINE 6.5 (5.0-8.0); URINE APPEARANCE CLEAR; URINE BILIRUBIN NEGATIVE (NEGATIVE); URINE COLOR YELLOW; URINE GLUCOSE (UA) TRACE (NEGATIVE); URINE KETONE NEGATIVE (NEGATIVE); URINE LEUK ESTERASE NEGATIVE (NEGATIVE); URINE NITRITE NEGATIVE (NEGATIVE); URINE PROTEIN NEGATIVE (NEGATIVE); URINE UROBILINOGEN 0.2 mg/dL (0.2-1.0)
[2022-07-19 16:05] LABS: LACTIC ACID 2.2 mmol/L (0.4-2.0)
[2022-07-19 16:25] VITALS: BMI 18.8
[2022-07-19] MEDS ORDERED: LACTATED RINGERS SOLUTION 1,000 ML/1,000 ML INFUS.BAG IV SCH (23:00)
[2022-07-20] MEDS: INSULIN SLIDING SCALE (NOVOLOG) 1 VIAL SQ SCH ×4 (07:13→23:40)
[2022-07-20] MEDS: HEPARIN NA (PORCINE) 5,000 UNITS/ML 1ML VIAL SQ SCH ×3 (07:13→22:23)
[2022-07-20] MEDS: MULTIVITAMINS (DAILY MVI) TABLET (FP) PO SCH (09:34)
[2022-07-20] MEDS: FOLIC ACID 1 MG TABLET (FP) PO SCH (09:34)
[2022-07-20] MEDS: THIAMINE HCL 100 MG TABLET (FP) PO SCH (09:34)
[2022-07-20] MEDS: PANTOPRAZOLE 20 MG TABLET PO SCH (09:34)
[2022-07-20] MEDS: LACTOBACILLUS ACIDOPHILUS 1 TABLET PO SCH (09:34)
[2022-07-20 11:53] LABS: HEMATOCRIT 31.1 % (32.4-45.2); HEMOGLOBIN 10.3 GM/dL (10.7-15.3); MCH 35.4 pg (25.7-33.7); MCHC 33.1 g/dl (32.0-36.0); MEAN CELL VOLUME 107.1 fl (80-96); MEAN PLT VOLUME 9.9 fl (7.5-11.1); PLATELET COUNT 181 10^3/uL (134-434); RDW 14.3 % (11.6-15.6); WHITE BLOOD COUNT 6.4 K/mm3 (4.0-10.0)
[2022-07-20 12:01] LABS: BLOOD UREA NITROGEN 10.3 mg/dL (7-18); CALCIUM 7.8 mg/dL (8.5-10.1); MAGNESIUM 1.2 mg/dL (1.8-2.4)
[2022-07-20 12:05] LABS: CREATININE 0.8 mg/dL (0.55-1.3); PHOSPHOROUS 2.3 mg/dL (2.5-4.9)
[2022-07-20] MEDS ORDERED: MAGNESIUM SULFATE IN WATER 2 GM/50 ML IVPB IVPB ONE (13:15)
[2022-07-20] MEDS: NAPH,MB-DB/K PH,MBDB POWDER PACKET PO SCH ×2 (13:20→22:24)
[2022-07-20 15:44] VITALS: RESP 18
[2022-07-20 16:21] LABS: LACTIC ACID 2.6 mmol/L (0.4-2.0)
[2022-07-20] MEDS ORDERED: VANCOMYCIN 1 GM/200 ML PREMIX BAG (RESTRICTED TO ID ONLY) IVPB ONE (17:43)
[2022-07-20] MEDS ORDERED: SODIUM CHLORIDE 1,000 ML IV SCH (17:45)
[2022-07-20] MEDS ORDERED: MIRTAZAPINE 15 MG TABLET (FP) PO SCH (22:00)
[2022-07-20] MEDS ORDERED: INSULIN (NOVOLOG) ASPART 100 UNITS/ML 10ML VIAL ONE (22:19)
[2022-07-21] MEDS: HEPARIN NA (PORCINE) 5,000 UNITS/ML 1ML VIAL SQ SCH ×2 (06:50→15:04)
[2022-07-21] MEDS: INSULIN SLIDING SCALE (NOVOLOG) 1 VIAL SQ SCH ×2 (06:51→12:26)
[2022-07-21 09:30] LABS: BLOOD UREA NITROGEN 12.6 mg/dL (7-18); CALCIUM 7.7 mg/dL (8.5-10.1); MAGNESIUM 1.8 mg/dL (1.8-2.4)
[2022-07-21 09:34] LABS: CREATININE 0.8 mg/dL (0.55-1.3); PHOSPHOROUS 2.7 mg/dL (2.5-4.9)
[2022-07-21] MEDS: THIAMINE HCL 100 MG TABLET (FP) PO SCH (11:02)
[2022-07-21] MEDS: LACTOBACILLUS ACIDOPHILUS 1 TABLET PO SCH (11:02)
[2022-07-21] MEDS: NAPH,MB-DB/K PH,MBDB POWDER PACKET PO SCH (11:03)
[2022-07-21] MEDS: MULTIVITAMINS (DAILY MVI) TABLET (FP) PO SCH (11:03)
[2022-07-21] MEDS: PANTOPRAZOLE 20 MG TABLET PO SCH (11:03)
[2022-07-21] MEDS: FOLIC ACID 1 MG TABLET (FP) PO SCH (11:03)
[2022-07-21 14:49] VITALS: BP 149/74; PULSE 79; TEMP 97.6
== END 2022-07-21 15:04 | disposition home or self-care (01) ==
LOC: JER 07:59 → JERBED 13:06 → J8W 15:40
PROVIDERS: ADMIT Internal Medicine; ATTEND Internal Medicine
PROC: 3E023GC Introduction of Other Therapeutic Substance into Muscle, Percutaneous Approach (ICD-10-PCS; principal; 2022-07-19)
PROC: 3E033GC Introduction of Other Therapeutic Substance into Peripheral Vein, Percutaneous Approach (ICD-10-PCS; 2022-07-19)
PROC: 3E013VG Introduction of Insulin into Subcutaneous Tissue, Percutaneous Approach (ICD-10-PCS; 2022-07-19)
PROC: 3E03329 Introduction of Other Anti-infective into Peripheral Vein, Percutaneous Approach (ICD-10-PCS; 2022-07-19)
DX: E11.649 Type 2 diabetes mellitus with hypoglycemia without coma (principal); F10.930 Alcohol use, unspecified with withdrawal, uncomplicated; I48.0 Paroxysmal atrial fibrillation; I11.0 Hypertensive heart disease with heart failure; I50.9 Heart failure, unspecified; R01.1 Cardiac murmur, unspecified; E78.5 Hyperlipidemia, unspecified; Z91.018 Allergy to other foods
CPT/HCPCS: 0241U-QW; 36415; 70450-TC; 71045-TC-FY; 80048; 80053; 81003; 82553; 82607; 82746; 82803; 82962; 83036; 83605; 83735; 84100; 84484; 85025; 85027; 85610; 85730; 86850; 86900; 86901; 87040; 87086; 93005; 93010; 96365; 96372; 96375; 96376; 97116-GP; 97161-GP; 99291; G0378; J1644

== ENCOUNTER 2023-03-24 10:13 | Inpatient (IN) | payer OTHER ==
[2023-03-24] MEDS ORDERED: ACETAMINOPHEN 1000 MG/100 ML BAG IVPB ONE (11:28)
[2023-03-24] MEDS ORDERED: TRIMETHOBENZAMIDE HCL 200MG/2ML INJ IM ONE ×2 (11:40→11:42)
[2023-03-24] MEDS ORDERED: ACETAMINOPHEN INJECTION 100 ML IVPB ONE (11:41)
[2023-03-24 12:58] LABS: VENOUS BASE EXCESS -21.2 mmol/L (-2-2); VENOUS O2 SATURATION 73.1 % (70-80); VENOUS PCO2 20.4 mmHg (38-52)
[2023-03-24 12:59] LABS: VENOUS PH 7.115 (7.310-7.410)
[2023-03-24 13:00] LABS: INR 1.12 (0.83-1.09)
[2023-03-24 13:03] LABS: ACTIVATED PTT 26.5 SECONDS (25.2-36.5)
[2023-03-24 13:26] LABS: CHLORIDE 103 mmol/L (98-107); SODIUM 138 mmol/L (136-145)
[2023-03-24 13:27] LABS: CALCIUM 7.2 mg/dL (8.5-10.1)
[2023-03-24 13:28] LABS: ALBUMIN 2.9 g/dl (3.4-5.0); ANION GAP 28 mmol/L (4-13); BLOOD UREA NITROGEN 66.5 mg/dL (7-18); CO2 7 mmol/L (21-32); GLUCOSE,RANDOM 192 mg/dL (74-106)
[2023-03-24 13:31] LABS: CREATININE 5.1 mg/dL (0.55-1.3); SGOT/AST 103 U/L (15-37); SGPT/ALT 34 U/L (13-61)
[2023-03-24 13:33] LABS: BILIRUBIN,TOTAL 0.8 mg/dL (0.2-1); TOT PROT 7.5 g/dl (6.4-8.2)
[2023-03-24 13:34] LABS: ALK PHOS 144 U/L (45-117)
[2023-03-24] MEDS ORDERED: THIAMINE HCL 200 MG/2 ML VIAL IVPB ONE (13:41)
[2023-03-24 13:51] LABS: EPI CELLS >36 /uL (0-25.1); HYALINE CASTS 1 /uL (0-3.1); PH,URINE 5.5 (5.0-8.0); URINE APPEARANCE CLEAR; URINE BACTERIA 446 /uL (0-1359); URINE BILIRUBIN NEGATIVE (NEGATIVE); URINE COLOR YELLOW; URINE GLUCOSE (UA) NEGATIVE (NEGATIVE); URINE KETONE 2+ (NEGATIVE); URINE LEUK ESTERASE NEGATIVE (NEGATIVE); URINE NITRITE NEGATIVE (NEGATIVE); URINE PROTEIN 2+ (NEGATIVE); URINE RBC 15 /uL (0-23.9); URINE WBC 39 /uL (0-25.8)
[2023-03-24 14:02] LABS: ERYTHROCYTE SEDIMENTATION RATE 33 mm/hr (0-30)
[2023-03-24 14:08] LABS: HEMATOCRIT 21.2 % (32.4-45.2); MCH 34.2 pg (25.7-33.7); MCHC 32.5 g/dl (32.0-36.0); MEAN CELL VOLUME 105.3 fl (80-96); MEAN PLT VOLUME 9.8 fl (7.5-11.1); PLATELET COUNT 138 10^3/uL (134-434); RBC 2.01 M/mm3 (3.60-5.2); RDW 13.3 % (11.6-15.6); WHITE BLOOD COUNT 9.9 K/mm3 (4.0-10.0)
[2023-03-24 14:09] LABS: PHOSPHOROUS 5.1 mg/dL (2.5-4.9)
[2023-03-24 14:14] LABS: HEMOGLOBIN 6.9 GM/dL (10.7-15.3)
[2023-03-24] MEDS ORDERED: THIAMINE HCL 200 MG/2 ML VIAL ONE (14:25)
[2023-03-24 15:02] LABS: MAGNESIUM 1.9 mg/dL (1.8-2.4)
[2023-03-24] MEDS ORDERED: LACTATED RINGERS SOLUTION 1000 ML INFUS.BAG IV ONE (15:02)
[2023-03-24 15:06] LABS: PHOSPHOROUS 4.5 mg/dL (2.5-4.9)
[2023-03-24 15:12] LABS: ANISOCYTOSIS 0; MACROCYTOSIS 1+; ROULEAU 2+
[2023-03-24] MEDS ORDERED: FOMEPIZOLE IVPB ONE ×2 (15:15→17:40)
[2023-03-24] MEDS ORDERED: SODIUM CHLORIDE IVPB ONE ×2 (15:15→17:40)
[2023-03-24 15:25] LABS: CALCIUM 7.3 mg/dL (8.5-10.1); CHLORIDE 105 mmol/L (98-107); POTASSIUM 4.6 mmol/L (3.5-5.1); SODIUM 143 mmol/L (136-145)
[2023-03-24 15:26] LABS: ANION GAP 32 mmol/L (4-13); BLOOD UREA NITROGEN 67.9 mg/dL (7-18); CO2 6 mmol/L (21-32); GLUCOSE,RANDOM 205 mg/dL (74-106)
[2023-03-24 15:29] LABS: CREATININE 4.9 mg/dL (0.55-1.3)
[2023-03-24] MEDS ORDERED: VANCOMYCIN 1,000 MG in DEXTROSE 5%-WATER - 250 ML IVPB ONE (15:38)
[2023-03-24] MEDS ORDERED: PIPERACILLIN/TAZOB 4.5 GM 4.5 GM in DEXTROSE 5%-WATER 100 ML IVPB ONE (15:38)
[2023-03-24] MEDS ORDERED: VANCOMYCIN 1 GRAM (PRE-DOCKED) 1,000 MG/250 ML BAG IVPB ONE (15:42)
[2023-03-24] MEDS ORDERED: PIPERACILLIN/TAZOB 4.5 GM 4.5 GM/100 ML BAG IVPB ONE (15:42)
[2023-03-24 15:44] LABS: VENOUS O2 SATURATION 59.1 % (70-80); VENOUS PCO2 < 16.7 mmHg (38-52)
[2023-03-24] MEDS ORDERED: DEXTROSE 5%-LACTATED RINGERS 1,000 ML IV SCH (15:45)
[2023-03-24 16:19] LABS: POTASSIUM 4.1 mmol/L (3.5-5.1)
[2023-03-24 16:20] LABS: CALCIUM 7.1 mg/dL (8.5-10.1)
[2023-03-24 16:24] LABS: CREATININE 4.9 mg/dL (0.55-1.3)
[2023-03-24] MEDS ORDERED: SODIUM BICARBONATE 8.4% 50 MEQ/50 ML VIAL IV ONE (16:49)
[2023-03-24] MEDS ORDERED: SODIUM BICARBONATE 8.4% 50 MEQ/50 ML DISP.SYRIN IVPUSH ONE (16:55)
[2023-03-24] MEDS ORDERED: LACTATED RINGERS SOLUTION 1,000 ML/1,000 ML INFUS.BAG IV STA (16:56)
[2023-03-24] MEDS ORDERED: PANTOPRAZOLE SODIUM 40 MG VIAL IVPUSH ONE (16:59)
[2023-03-24] MEDS ORDERED: FOLIC ACID INJECTION - 1 MG, THIAMINE HCL 100 MG, MULTIVIT INJECTION ADULT 10 ML in SOD... IVPB ONE (17:47)
[2023-03-24] MEDS ORDERED: FENTANYL CITRATE/PF 50 MCG/ML VIAL IVPUSH ONE (19:32)
[2023-03-24] MEDS ORDERED: DEXTROSE 50%-WATER 25 GM/50 ML DISP.SYRIN IVPUSH PRN (20:46)
[2023-03-24] MEDS ORDERED: INSULIN REGULAR 100 UNITS in SODIUM CHLORIDE 99 ML IVPB SCH (21:00)
[2023-03-24] MEDS ORDERED: DEXTROSE 5%-WATER - 1,000 ML with SODIUM BICARBONATE 8.4% - 150 MEQ IV SCH (21:00)
[2023-03-24 21:09] LABS: CHLORIDE 105 mmol/L (98-107); POTASSIUM 3.6 mmol/L (3.5-5.1); SODIUM 141 mmol/L (136-145)
[2023-03-24 21:11] LABS: ALBUMIN 2.5 g/dl (3.4-5.0); ANION GAP 27 mmol/L (4-13); BLOOD UREA NITROGEN 68.8 mg/dL (7-18); CO2 9 mmol/L (21-32); GLUCOSE,RANDOM 249 mg/dL (74-106)
[2023-03-24 21:14] LABS: CREATININE 4.6 mg/dL (0.55-1.3); SGOT/AST 75 U/L (15-37); SGPT/ALT 27 U/L (13-61)
[2023-03-24 21:16] LABS: BILIRUBIN,TOTAL 0.8 mg/dL (0.2-1); TOT PROT 6.2 g/dl (6.4-8.2)
[2023-03-24 21:17] LABS: ALK PHOS 119 U/L (45-117)
[2023-03-24 21:23] LABS: CALCIUM 6.8 mg/dL (8.5-10.1)
[2023-03-24 22:10] LABS: VENOUS BASE EXCESS -16.3 mmol/L (-2-2); VENOUS PCO2 21.1 mmHg (38-52); VENOUS PH 7.258 (7.310-7.410)
[2023-03-24] MEDS: SODIUM BICARBONATE 8.4% - 150 MEQ in DEXTROSE 5%-WATER - 1,000 ML IV SCH (22:44)
[2023-03-24] MEDS: KCL 20 MEQ PREMIX BAG 100 ML IVPB SCH ×2 (22:45→23:38)
[2023-03-24] MEDS: CHLORHEXIDINE GLUCONATE 4% CLEANSER FOR DECOLONIZATION TP SCH (22:52)
[2023-03-24] MEDS: MUPIROCIN 2% TOPICAL OINTMENT FOR DECOLONIZATION NS SCH (22:52)
[2023-03-24] MEDS: THIAMINE HCL 200 MG/2 ML VIAL IVPB SCH (23:39)
[2023-03-25 00:54] LABS: CHLORIDE 112 mmol/L (98-107); SODIUM 146 mmol/L (136-145)
[2023-03-25 00:57] LABS: ALBUMIN 2.3 g/dl (3.4-5.0); ANION GAP 21 mmol/L (4-13); CO2 13 mmol/L (21-32); GLUCOSE,RANDOM 117 mg/dL (74-106); MAGNESIUM 1.7 mg/dL (1.8-2.4)
[2023-03-25 01:00] LABS: CREATININE 4.3 mg/dL (0.55-1.3); PHOSPHOROUS 1.9 mg/dL (2.5-4.9); SGOT/AST 65 U/L (15-37); SGPT/ALT 25 U/L (13-61)
[2023-03-25 01:02] LABS: BILIRUBIN,TOTAL 0.7 mg/dL (0.2-1); TOT PROT 5.8 g/dl (6.4-8.2)
[2023-03-25 01:03] LABS: ALK PHOS 104 U/L (45-117)
[2023-03-25 01:16] LABS: CALCIUM 6.4 mg/dL (8.5-10.1)
[2023-03-25] MEDS ORDERED: DEXTROSE 5%-LACTATED RINGERS 1,000 ML IV SCH (01:16)
[2023-03-25] MEDS ORDERED: MAGNESIUM 1GM/D5W - 1 GM/100 ML IVPB IVPB ONE (02:00)
[2023-03-25 04:47] LABS: HEMATOCRIT 27.1 % (32.4-45.2); HEMOGLOBIN 9.3 GM/dL (10.7-15.3); MCH 33.3 pg (25.7-33.7); MCHC 34.3 g/dl (32.0-36.0); MEAN PLT VOLUME 9.6 fl (7.5-11.1); PLATELET COUNT 66 10^3/uL (134-434); RDW 14.7 % (11.6-15.6); WHITE BLOOD COUNT 7.2 K/mm3 (4.0-10.0)
[2023-03-25 04:52] LABS: MEAN CELL VOLUME 96.8 fl (80-96)
[2023-03-25 05:19] LABS: CHLORIDE 111 mmol/L (98-107); POTASSIUM 3.2 mmol/L (3.5-5.1); SODIUM 144 mmol/L (136-145)
[2023-03-25 05:22] LABS: ALBUMIN 2.3 g/dl (3.4-5.0); ANION GAP 15 mmol/L (4-13); BLOOD UREA NITROGEN 58.9 mg/dL (7-18); CO2 17 mmol/L (21-32); GLUCOSE,RANDOM 250 mg/dL (74-106); MAGNESIUM 1.9 mg/dL (1.8-2.4)
[2023-03-25 05:25] LABS: CREATININE 4.4 mg/dL (0.55-1.3); SGOT/AST 72 U/L (15-37); SGPT/ALT 23 U/L (13-61)
[2023-03-25 05:27] LABS: BILIRUBIN,TOTAL 0.7 mg/dL (0.2-1); TOT PROT 5.6 g/dl (6.4-8.2)
[2023-03-25 05:28] LABS: ALK PHOS 108 U/L (45-117)
[2023-03-25 05:32] LABS: CALCIUM 6.8 mg/dL (8.5-10.1)
[2023-03-25 05:59] LABS: PHOSPHOROUS 0.7 mg/dL (2.5-4.9)
[2023-03-25] MEDS: THIAMINE HCL 200 MG/2 ML VIAL IVPB SCH ×3 (06:03→21:07)
[2023-03-25 06:08] LABS: ANISOCYTOSIS 1+; MACROCYTOSIS 0
[2023-03-25] MEDS ORDERED: KCL 20 MEQ PREMIX BAG 100 ML IVPB SCH (08:00)
[2023-03-25] MEDS ORDERED: POTASSIUM PHOSPHATE 30 MM in SODIUM CHLORIDE 250 ML IVPB ONE (09:00)
[2023-03-25] MEDS: LACTATED RINGERS SOLUTION 1,000 ML/1,000 ML INFUS.BAG IV SCH (09:31)
[2023-03-25] MEDS ORDERED: PANTOPRAZOLE SODIUM 40 MG VIAL IVPUSH SCH ×2 (10:00→22:00)
[2023-03-25 11:29] LABS: HEMATOCRIT 27.6 % (32.4-45.2); HEMOGLOBIN 9.2 GM/dL (10.7-15.3); MCH 32.2 pg (25.7-33.7); MCHC 33.2 g/dl (32.0-36.0); MEAN PLT VOLUME 9.7 fl (7.5-11.1); PLATELET COUNT 62 10^3/uL (134-434); RBC 2.85 M/mm3 (3.60-5.2); RDW 14.6 % (11.6-15.6); WHITE BLOOD COUNT 7.4 K/mm3 (4.0-10.0)
[2023-03-25 11:36] LABS: INR 1.15 (0.83-1.09); PROTHROMBIN TIME (PATIENT) 13.3 SEC (9.7-13.0)
[2023-03-25 12:16] LABS: POTASSIUM 3.1 mmol/L (3.5-5.1)
[2023-03-25 12:18] LABS: ALBUMIN 2.2 g/dl (3.4-5.0)
[2023-03-25 12:19] LABS: ANISOCYTOSIS 0; HELMET CELLS 0; HOWELL-JOLLY BODIES 0; MACROCYTOSIS 0; OVALOCYTE 0; ROULEAU 0; SICKELED CELLS 0; TARGET CELLS 0; TEAR DROP CELLS 0; TOXIC GRANULATION 0
[2023-03-25 12:21] LABS: CREATININE 3.9 mg/dL (0.55-1.3)
[2023-03-25 12:22] LABS: BILIRUBIN,TOTAL 0.9 mg/dL (0.2-1)
[2023-03-25 12:23] LABS: TOT PROT 5.6 g/dl (6.4-8.2)
[2023-03-25 15:42] LABS: BASO % 0.5 % (0-2.0); EOS % 1.2 % (0-4.5); HEMATOCRIT 32.7 % (32.4-45.2); LYMPH % 7.7 % (8-40); MCH 32.9 pg (25.7-33.7); MCHC 33.7 g/dl (32.0-36.0); MEAN CELL VOLUME 97.6 fl (80-96); MEAN PLT VOLUME 9.9 fl (7.5-11.1); NEUT % 79.6 % (42.8-82.8); RBC 3.35 M/mm3 (3.60-5.2)
[2023-03-25 15:44] LABS: WHITE BLOOD COUNT 10.7 K/mm3 (4.0-10.0)
[2023-03-25] MEDS ORDERED: PANTOPRAZOLE SODIUM 160 MG in SODIUM CHLORIDE 290 ML IVPB SCH (16:00)
[2023-03-25] MEDS ORDERED: CEFTRIAXONE 1 GM in DEXTROSE 5%-WATER - 50 ML IVPB SCH (16:00)
[2023-03-25 18:15] LABS: PLATELET COUNT 84 10^3/uL (134-434)
[2023-03-25 18:17] LABS: POTASSIUM 3.2 mmol/L (3.5-5.1)
[2023-03-25 18:18] LABS: CALCIUM 7.1 mg/dL (8.5-10.1)
[2023-03-25 18:19] LABS: BLOOD UREA NITROGEN 48.7 mg/dL (7-18)
[2023-03-25 18:22] LABS: CREATININE 3.6 mg/dL (0.55-1.3)
[2023-03-25] MEDS: KCL 10 MEQ IVPB 10 MEQ/100 ML INFUS.BAG IVPB SCH ×3 (18:46→21:43)
[2023-03-25] MEDS: SODIUM BICARBONATE 8.4% - 150 MEQ in DEXTROSE 5%-WATER - 1,000 ML IV SCH (20:19)
[2023-03-25] MEDS: MUPIROCIN 2% TOPICAL OINTMENT FOR DECOLONIZATION NS SCH ×2 (20:30→21:07)
[2023-03-25] MEDS: CHLORHEXIDINE GLUCONATE 4% CLEANSER FOR DECOLONIZATION TP SCH (21:07)
[2023-03-25] MEDS ORDERED: INSULIN SLIDING SCALE (NOVOLOG) 1 VIAL SQ SCH (22:00)
[2023-03-25] MEDS ORDERED: INSULIN (NOVOLOG) ASPART 100 UNITS/ML 10ML VIAL ONE (22:42)
[2023-03-25] MEDS: INSULIN SLIDING SCALE (NOVOLOG) 1 VIAL SQ SCH (22:49)
[2023-03-26] MEDS: THIAMINE HCL 200 MG/2 ML VIAL IVPB SCH ×3 (05:52→21:16)
[2023-03-26] MEDS: INSULIN SLIDING SCALE (NOVOLOG) 1 VIAL SQ SCH ×4 (06:29→21:19)
[2023-03-26 07:28] LABS: HEMATOCRIT 27.7 % (32.4-45.2); HEMOGLOBIN 9.3 GM/dL (10.7-15.3); MCH 32.6 pg (25.7-33.7); MCHC 33.4 g/dl (32.0-36.0); MEAN CELL VOLUME 97.6 fl (80-96); MEAN PLT VOLUME 9.9 fl (7.5-11.1); PLATELET COUNT 53 10^3/uL (134-434); RBC 2.84 M/mm3 (3.60-5.2); RDW 14.8 % (11.6-15.6); WHITE BLOOD COUNT 7.6 K/mm3 (4.0-10.0)
[2023-03-26 08:01] LABS: CHLORIDE 112 mmol/L (98-107); SODIUM 147 mmol/L (136-145)
[2023-03-26 08:15] LABS: BLOOD UREA NITROGEN 41.6 mg/dL (7-18); CALCIUM 7.2 mg/dL (8.5-10.1); GLUCOSE,RANDOM 167 mg/dL (74-106)
[2023-03-26 08:16] LABS: ALBUMIN 2.2 g/dl (3.4-5.0); CO2 25 mmol/L (21-32); MAGNESIUM 1.3 mg/dL (1.8-2.4)
[2023-03-26 08:17] LABS: SGOT/AST 75 U/L (15-37); SGPT/ALT 25 U/L (13-61)
[2023-03-26 08:19] LABS: BILIRUBIN,TOTAL 0.9 mg/dL (0.2-1); PHOSPHOROUS 1.6 mg/dL (2.5-4.9); TOT PROT 5.6 g/dl (6.4-8.2)
[2023-03-26 08:20] LABS: ALK PHOS 120 U/L (45-117)
[2023-03-26 08:23] LABS: ANION GAP 11 mmol/L (4-13); POTASSIUM 2.8 mmol/L (3.5-5.1)
[2023-03-26] MEDS: LACTATED RINGERS SOLUTION 1,000 ML/1,000 ML INFUS.BAG IV SCH ×2 (09:01→21:14)
[2023-03-26] MEDS: MUPIROCIN 2% TOPICAL OINTMENT FOR DECOLONIZATION NS SCH ×2 (09:03→21:16)
[2023-03-26] MEDS: PANTOPRAZOLE SODIUM 40 MG VIAL IVPUSH SCH (09:03)
[2023-03-26] MEDS ORDERED: KCL 20 MEQ PREMIX BAG 100 ML IVPB STA (09:09)
[2023-03-26 10:10] LABS: ANISOCYTOSIS 0; HELMET CELLS 0; HOWELL-JOLLY BODIES 0; MACROCYTOSIS 0; OVALOCYTE 0; ROULEAU 0; SICKELED CELLS 0; TARGET CELLS 0; TEAR DROP CELLS 0; TOXIC GRANULATION 0
[2023-03-26] MEDS: BISMUTH SUBSALICYLATE 262 MG/15 ML BTL PO SCH (12:07)
[2023-03-26] MEDS: CHLORHEXIDINE GLUCONATE 4% CLEANSER FOR DECOLONIZATION TP SCH (21:16)
[2023-03-27] MEDS: THIAMINE HCL 200 MG/2 ML VIAL IVPB SCH ×2 (05:11→14:52)
[2023-03-27] MEDS: INSULIN SLIDING SCALE (NOVOLOG) 1 VIAL SQ SCH ×4 (06:04→22:05)
[2023-03-27 07:27] LABS: HEMOGLOBIN 9.3 GM/dL (10.7-15.3); MCH 32.7 pg (25.7-33.7); MCHC 33.3 g/dl (32.0-36.0); MEAN CELL VOLUME 98.1 fl (80-96); MEAN PLT VOLUME 10.2 fl (7.5-11.1); PLATELET COUNT 57 10^3/uL (134-434); RBC 2.85 M/mm3 (3.60-5.2); RDW 14.7 % (11.6-15.6); WHITE BLOOD COUNT 6.1 K/mm3 (4.0-10.0)
[2023-03-27 07:32] LABS: CHLORIDE 107 mmol/L (98-107); SODIUM 142 mmol/L (136-145)
[2023-03-27 07:36] LABS: ANION GAP 9 mmol/L (4-13); BLOOD UREA NITROGEN 28.9 mg/dL (7-18); CO2 26 mmol/L (21-32); GLUCOSE,RANDOM 122 mg/dL (74-106); MAGNESIUM 1.1 mg/dL (1.8-2.4)
[2023-03-27 07:40] LABS: CREATININE 2.3 mg/dL (0.55-1.3)
[2023-03-27 07:43] LABS: PHOSPHOROUS 1.1 mg/dL (2.5-4.9)
[2023-03-27] MEDS ORDERED: MAGNESIUM SULFATE IN WATER 2 GM/50 ML IVPB IVPB ONE (08:30)
[2023-03-27] MEDS ORDERED: MAGNESIUM 1GM/D5W - 1 GM/100 ML IVPB IVPB ONE (09:30)
[2023-03-27] MEDS: MUPIROCIN 2% TOPICAL OINTMENT FOR DECOLONIZATION NS SCH ×2 (09:33→21:19)
[2023-03-27] MEDS: PANTOPRAZOLE SODIUM 40 MG VIAL IVPUSH SCH (09:33)
[2023-03-27] MEDS ORDERED: POTASSIUM PHOSPHATE 30 MM in DEXTROSE 5%-WATER - 250 ML IVPB ONE (10:00)
[2023-03-27] MEDS: LACTATED RINGERS SOLUTION 1,000 ML/1,000 ML INFUS.BAG IV SCH (12:05)
[2023-03-27] MEDS: NAPH,MB-DB/K PH,MBDB POWDER PACKET PO SCH ×2 (14:51→21:18)
[2023-03-27] MEDS: BISMUTH SUBSALICYLATE 262 MG/15 ML BTL PO SCH (17:18)
[2023-03-27] MEDS ORDERED: FLU VACCINE (FLULAVAL) PF 60 MCG/0.5 ML SYRINGE 2023-2024 IM ONE (17:36)
[2023-03-27] MEDS: CHLORHEXIDINE GLUCONATE 4% CLEANSER FOR DECOLONIZATION TP SCH (21:18)
[2023-03-28] MEDS: LACTATED RINGERS SOLUTION 1,000 ML/1,000 ML INFUS.BAG IV SCH ×2 (02:55→08:30)
[2023-03-28] MEDS: NAPH,MB-DB/K PH,MBDB POWDER PACKET PO SCH ×3 (05:32→22:24)
[2023-03-28] MEDS: INSULIN SLIDING SCALE (NOVOLOG) 1 VIAL SQ SCH ×4 (06:07→22:28)
[2023-03-28 08:09] LABS: HEMATOCRIT 27.4 % (32.4-45.2); HEMOGLOBIN 9.1 GM/dL (10.7-15.3); MCH 32.7 pg (25.7-33.7); MCHC 33.1 g/dl (32.0-36.0); MEAN CELL VOLUME 98.7 fl (80-96); PLATELET COUNT 75 10^3/uL (134-434); POTASSIUM 3.2 mmol/L (3.5-5.1); RBC 2.78 M/mm3 (3.60-5.2); RDW 14.4 % (11.6-15.6); WHITE BLOOD COUNT 5.6 K/mm3 (4.0-10.0)
[2023-03-28 08:12] LABS: BLOOD UREA NITROGEN 21.4 mg/dL (7-18); CALCIUM 7.2 mg/dL (8.5-10.1)
[2023-03-28 08:15] LABS: PHOSPHOROUS 2.7 mg/dL (2.5-4.9)
[2023-03-28 08:17] LABS: BILIRUBIN,TOTAL 0.5 mg/dL (0.2-1); TOT PROT 5.1 g/dl (6.4-8.2)
[2023-03-28] MEDS: BISMUTH SUBSALICYLATE 524 MG/30 ML PO SCH (09:44)
[2023-03-28] MEDS: PANTOPRAZOLE SODIUM 40 MG VIAL IVPUSH SCH (09:44)
[2023-03-28] MEDS: MUPIROCIN 2% TOPICAL OINTMENT FOR DECOLONIZATION NS SCH (09:44)
[2023-03-28 10:23] LABS: ANISOCYTOSIS 0; MACROCYTOSIS 0
[2023-03-28] MEDS ORDERED: LACTATED RINGERS SOLUTION 1,000 ML/1,000 ML INFUS.BAG IV SCH (19:52)
[2023-03-28 22:35] VITALS: RESP 18
[2023-03-29] MEDS: NAPH,MB-DB/K PH,MBDB POWDER PACKET PO SCH ×3 (05:51→21:36)
[2023-03-29] MEDS: INSULIN SLIDING SCALE (NOVOLOG) 1 VIAL SQ SCH ×4 (06:10→21:36)
[2023-03-29] MEDS: BISMUTH SUBSALICYLATE 524 MG/30 ML PO SCH (09:17)
[2023-03-29] MEDS ORDERED: PANTOPRAZOLE SODIUM 40 MG VIAL IVPUSH SCH (10:00)
[2023-03-29] MEDS ORDERED: ONDANSETRON *ODT* 4 MG TABLET SL PRN (10:54)
[2023-03-29] MEDS ORDERED: INSULIN (NOVOLOG) ASPART 100 UNITS/ML 10ML VIAL ONE (11:00)
[2023-03-29] MEDS: PANTOPRAZOLE 40 MG TABLET PO SCH (11:23)
[2023-03-30] MEDS: NAPH,MB-DB/K PH,MBDB POWDER PACKET PO SCH ×3 (06:18→21:22)
[2023-03-30] MEDS: INSULIN SLIDING SCALE (NOVOLOG) 1 VIAL SQ SCH ×4 (06:18→21:25)
[2023-03-30] MEDS: BISMUTH SUBSALICYLATE 524 MG/30 ML PO SCH (09:04)
[2023-03-30] MEDS: PANTOPRAZOLE 40 MG TABLET PO SCH (09:05)
[2023-03-30 10:34] LABS: HEMATOCRIT 27.9 % (32.4-45.2); MCH 32.5 pg (25.7-33.7); MCHC 32.3 g/dl (32.0-36.0); MEAN CELL VOLUME 100.5 fl (80-96); MEAN PLT VOLUME 9.1 fl (7.5-11.1); PLATELET COUNT 159 10^3/uL (134-434); RBC 2.77 M/mm3 (3.60-5.2); RDW 14.6 % (11.6-15.6)
[2023-03-30] MEDS ORDERED: INSULIN (NOVOLOG) ASPART 100 UNITS/ML 10ML VIAL ONE ×2 (10:47→21:19)
[2023-03-30 11:00] LABS: POTASSIUM 3.9 mmol/L (3.5-5.1)
[2023-03-30 11:06] LABS: CALCIUM 7.3 mg/dL (8.5-10.1)
[2023-03-30 11:07] LABS: ALBUMIN 1.8 g/dl (3.4-5.0); BLOOD UREA NITROGEN 11.6 mg/dL (7-18); MAGNESIUM 1.4 mg/dL (1.8-2.4)
[2023-03-30 11:09] LABS: BILIRUBIN,DIRECT 0.2 mg/dL (0.0-0.2)
[2023-03-30 11:10] LABS: PHOSPHOROUS 2.8 mg/dL (2.5-4.9)
[2023-03-30 11:11] LABS: BILIRUBIN,TOTAL 0.4 mg/dL (0.2-1); CREATININE 1.7 mg/dL (0.55-1.3); TOT PROT 4.9 g/dl (6.4-8.2)
[2023-03-30] MEDS ORDERED: MAGNESIUM SULFATE IN WATER 2 GM/50 ML IVPB IVPB ONE (11:30)
[2023-03-30 11:32] LABS: ANISOCYTOSIS 0; MACROCYTOSIS 0
[2023-03-30] MEDS ORDERED: MAGNESIUM OXIDE 400 MG TABLET (FP) PO ONE (13:00)
[2023-03-30 16:55] VITALS: BMI 19.2
[2023-03-31] MEDS: INSULIN SLIDING SCALE (NOVOLOG) 1 VIAL SQ SCH ×2 (06:36→10:48)
[2023-03-31] MEDS: NAPH,MB-DB/K PH,MBDB POWDER PACKET PO SCH ×2 (06:36→13:33)
[2023-03-31 08:26] VITALS: BP 130/56; PULSE 85; TEMP 97.8
[2023-03-31] MEDS: BISMUTH SUBSALICYLATE 524 MG/30 ML PO SCH (09:25)
[2023-03-31] MEDS: PANTOPRAZOLE 40 MG TABLET PO SCH (09:25)
== END 2023-03-31 17:10 | disposition home or self-care (01) | DRG 640 ==
LOC: JER 10:13 → JICU 16:56 → J6S 03-28 18:04
PROVIDERS: ADMIT Internal Medicine; ATTEND Internal Medicine
PROC: 30233N1 Transfusion of Nonautologous Red Blood Cells into Peripheral Vein, Percutaneous Approach (ICD-10-PCS; principal; 2023-03-24)
PROC: 0DJ08ZZ Inspection of Upper Intestinal Tract, Via Natural or Artificial Opening Endoscopic (ICD-10-PCS; 2023-03-25)
DX: E87.29 Other acidosis (principal); K29.21 Alcoholic gastritis with bleeding; I50.22 Chronic systolic (congestive) heart failure; I13.0 Hypertensive heart and chronic kidney disease with heart failure and stage 1 through stage 4 chronic kidney disease, or unspecified chronic kidney disease; K86.1 Other chronic pancreatitis; N17.9 Acute kidney failure, unspecified; I42.6 Alcoholic cardiomyopathy; E44.0 Moderate protein-calorie malnutrition; Z68.1 Body mass index [BMI] 19.9 or less, adult; R64 Cachexia; K92.1 Melena; E87.0 Hyperosmolality and hypernatremia; I48.0 Paroxysmal atrial fibrillation; F10.10 Alcohol abuse, uncomplicated; K70.9 Alcoholic liver disease, unspecified; N18.9 Chronic kidney disease, unspecified; K29.80 Duodenitis without bleeding; E87.6 Hypokalemia; R19.7 Diarrhea, unspecified; D64.9 Anemia, unspecified; K70.10 Alcoholic hepatitis without ascites; E86.0 Dehydration; E83.39 Other disorders of phosphorus metabolism; E83.42 Hypomagnesemia; K44.9 Diaphragmatic hernia without obstruction or gangrene
CPT/HCPCS: 0241U-QW; 36415; 36430; 70450-TC; 71045-TC-FY; 74176-TC; 80048; 80053; 80076; 80307; 81003; 82010; 82105; 82140; 82272; 82436; 82550; 82553; 82570; 82728; 82803; 82962; 83540; 83550; 83605; 83690; 83735; 83930; 83935; 84100; 84133; 84300; 84484; 85025; 85027; 85045; 85610; 85651; 85730; 86140; 86850; 86900; 86901; 86922; 87040; 87045; 87046; 87086; 90686; 93005; 93010; 93306-TC; 93970-TC; 97116-GP; 97162-GP; 99285-25; G0008; P9058

== ENCOUNTER 2023-08-26 19:31 | Inpatient (IN) | payer OTHER ==
[2023-08-26] MEDS: SODIUM CHLORIDE 0.9% 500 ML INFUS.BAG IV ONE (20:22)
[2023-08-26 20:25] LABS: BASO % 0.4 % (0-2.0); EOS % 0.7 % (0-4.5); HEMATOCRIT 34.2 % (32.4-45.2); HEMOGLOBIN 11.2 GM/dL (10.7-15.3); LYMPH % 26.4 % (8-40); MCH 30.5 pg (25.7-33.7); MCHC 32.8 g/dl (32.0-36.0); MEAN CELL VOLUME 93.1 fl (80-96); MEAN PLT VOLUME 9.8 fl (7.5-11.1); MONO % 7.4 % (3.8-10.2); NEUT % 65.1 % (42.8-82.8); PLATELET COUNT 166 10^3/uL (134-434); RBC 3.67 M/mm3 (3.60-5.2); RDW 13.2 % (11.6-15.6); WHITE BLOOD COUNT 8.8 K/mm3 (4.0-10.0)
[2023-08-26 20:27] LABS: VENOUS BASE EXCESS -9.8 mmol/L (-2-2); VENOUS O2 SATURATION 62.6 % (70-80); VENOUS PCO2 33.9 mmHg (38-52); VENOUS PH 7.288 (7.310-7.410)
[2023-08-26 20:47] LABS: CHLORIDE 94 mmol/L (98-107); POTASSIUM 3.9 mmol/L (3.5-5.1); SODIUM 121 mmol/L (136-145)
[2023-08-26 20:50] LABS: ALBUMIN 3.3 g/dl (3.4-5.0); ANION GAP 11 mmol/L (4-13); CALCIUM 9.1 mg/dL (8.5-10.1); CO2 15 mmol/L (21-32)
[2023-08-26 20:51] LABS: BLOOD UREA NITROGEN 44.6 mg/dL (7-18); MAGNESIUM 1.9 mg/dL (1.8-2.4)
[2023-08-26 20:53] LABS: PHOSPHOROUS 4.1 mg/dL (2.5-4.9); SGPT/ALT 32 U/L (13-61)
[2023-08-26 20:54] LABS: BILIRUBIN,TOTAL 0.4 mg/dL (0.2-1); CREATININE 2.1 mg/dL (0.55-1.3); SGOT/AST 35 U/L (15-37)
[2023-08-26 20:55] LABS: TOT PROT 7.7 g/dl (6.4-8.2)
[2023-08-26 20:56] LABS: ALK PHOS 205 U/L (45-117)
[2023-08-26 21:04] LABS: GLUCOSE,RANDOM 922 mg/dL (74-106)
[2023-08-26] MEDS ORDERED: INSULIN REGULAR HUMAN 100 UNITS/ML *VIAL ONE ×2 (21:42→22:28)
[2023-08-26] MEDS: SODIUM CHLORIDE 0.9%/KCL 20 MEQ/1,000 ML INFUS.BAG IV SCH (21:50)
[2023-08-26] MEDS: INSULIN REGULAR HUMAN 100 UNITS/ML *VIAL IVPUSH ONE (22:42)
[2023-08-27 02:08] LABS: INR 1.03 (0.83-1.09); PROTHROMBIN TIME (PATIENT) 11.9 SEC (9.7-13.0)
[2023-08-27 02:11] LABS: ACTIVATED PTT 31.5 SECONDS (25.2-36.5)
[2023-08-27 02:22] LABS: CHLORIDE 106 mmol/L (98-107); POTASSIUM 3.5 mmol/L (3.5-5.1); SODIUM 132 mmol/L (136-145)
[2023-08-27 02:23] LABS: CHLORIDE 106 mmol/L (98-107); POTASSIUM 3.4 mmol/L (3.5-5.1); SODIUM 131 mmol/L (136-145)
[2023-08-27 02:24] LABS: ANION GAP 12 mmol/L (4-13); CALCIUM 9.2 mg/dL (8.5-10.1); CO2 15 mmol/L (21-32)
[2023-08-27 02:25] LABS: BLOOD UREA NITROGEN 40.7 mg/dL (7-18)
[2023-08-27 02:26] LABS: CALCIUM 9.4 mg/dL (8.5-10.1)
[2023-08-27 02:27] LABS: ALBUMIN 3.3 g/dl (3.4-5.0); AMYLASE 78 U/L (25-115); ANION GAP 12 mmol/L (4-13); BLOOD UREA NITROGEN 40.4 mg/dL (7-18); CO2 14 mmol/L (21-32)
[2023-08-27 02:28] LABS: CREATININE 1.7 mg/dL (0.55-1.3)
[2023-08-27 02:29] LABS: PHOSPHOROUS 2.8 mg/dL (2.5-4.9); SGOT/AST 32 U/L (15-37); SGPT/ALT 31 U/L (13-61)
[2023-08-27 02:30] LABS: CREATININE 1.8 mg/dL (0.55-1.3)
[2023-08-27 02:31] LABS: BILIRUBIN,TOTAL 0.4 mg/dL (0.2-1); GLUCOSE,RANDOM 583 mg/dL (74-106)
[2023-08-27 02:32] LABS: ALK PHOS 202 U/L (45-117)
[2023-08-27 02:36] LABS: GLUCOSE,RANDOM 579 mg/dL (74-106)
[2023-08-27] MEDS: INSULIN REGULAR 100 UNITS in SODIUM CHLORIDE 99 ML IVPB SCH ×3 (02:45→19:49)
[2023-08-27] MEDS: FOLIC ACID 5 MG/1 ML SQ ONE (06:29)
[2023-08-27] MEDS: SODIUM CHLORIDE 0.45% 1,000 ML IV SCH (06:30)
[2023-08-27] MEDS: KCL 10 MEQ IVPB 10 MEQ/100 ML INFUS.BAG IVPB SCH (06:31)
[2023-08-27 06:36] LABS: BASO % 0.6 % (0-2.0); EOS % 1.2 % (0-4.5); HEMATOCRIT 30.2 % (32.4-45.2); HEMOGLOBIN 10.4 GM/dL (10.7-15.3); LYMPH % 31.2 % (8-40); MCH 31.1 pg (25.7-33.7); MCHC 34.3 g/dl (32.0-36.0); MEAN CELL VOLUME 90.7 fl (80-96); MEAN PLT VOLUME 9.6 fl (7.5-11.1); MONO % 7.4 % (3.8-10.2); NEUT % 59.6 % (42.8-82.8); PLATELET COUNT 168 10^3/uL (134-434); RBC 3.33 M/mm3 (3.60-5.2); RDW 12.5 % (11.6-15.6); WHITE BLOOD COUNT 8.5 K/mm3 (4.0-10.0)
[2023-08-27] MEDS: HEPARIN NA (PORCINE) 5,000 UNITS/ML 1ML VIAL SQ SCH (06:48)
[2023-08-27 07:10] LABS: CHLORIDE 114 mmol/L (98-107); SODIUM 136 mmol/L (136-145)
[2023-08-27 07:14] LABS: CALCIUM 9.2 mg/dL (8.5-10.1)
[2023-08-27 07:15] LABS: ALBUMIN 2.9 g/dl (3.4-5.0); BLOOD UREA NITROGEN 34.1 mg/dL (7-18); CO2 16 mmol/L (21-32); GLUCOSE,RANDOM 259 mg/dL (74-106); MAGNESIUM 1.8 mg/dL (1.8-2.4)
[2023-08-27 07:18] LABS: CREATININE 1.6 mg/dL (0.55-1.3); PHOSPHOROUS 2.2 mg/dL (2.5-4.9); SGOT/AST 25 U/L (15-37); SGPT/ALT 25 U/L (13-61)
[2023-08-27 07:20] LABS: BILIRUBIN,TOTAL 0.3 mg/dL (0.2-1); TOT PROT 6.9 g/dl (6.4-8.2)
[2023-08-27 07:21] LABS: ALK PHOS 162 U/L (45-117); ANION GAP 6 mmol/L (4-13); POTASSIUM 2.9 mmol/L (3.5-5.1)
[2023-08-27] MEDS: DEXTROSE 5%-0.45% SALINE 1,000 ML IV SCH (08:08)
[2023-08-27] MEDS: NAPH,MB-DB/K PH,MBDB POWDER PACKET PO SCH (09:30)
[2023-08-27] MEDS: POTASSIUM CHLORIDE TABS 20 MEQ TABLET.ER (FP) PO ONE (09:30)
[2023-08-27] MEDS: PANTOPRAZOLE SODIUM 40 MG VIAL IVPUSH SCH (09:30)
[2023-08-27] MEDS: FOLIC ACID 1 MG TABLET (FP) PO SCH (09:30)
[2023-08-27] MEDS: THIAMINE HCL 200 MG/2 ML VIAL IVPB SCH (09:31)
[2023-08-27] MEDS ORDERED: INSULIN (NOVOLOG) ASPART 100 UNITS/ML 10ML VIAL ONE (10:51)
[2023-08-27] MEDS: INSULIN ASPART SLIDING SCALE (NOVOLOG) 1 VIAL SQ SCH ×2 (10:56→16:32)
[2023-08-27] MEDS ORDERED: INSULIN (LEVEMIR) 100 UNITS/ML UNITS SQ ONE (10:58)
[2023-08-27] MEDS: INSULIN (LEVEMIR) 100 UNITS/ML UNITS SQ ONE (10:59)
[2023-08-27] MEDS: CYANOCOBALAMIN 1,000 MCG TABLET (FP) PO SCH (11:06)
[2023-08-27] MEDS: MUPIROCIN 2% TOPICAL OINTMENT FOR DECOLONIZATION NS SCH (11:06)
[2023-08-27 13:11] LABS: BLOOD UREA NITROGEN 31.2 mg/dL (7-18); CREATININE 1.4 mg/dL (0.55-1.3); POTASSIUM 4.6 mmol/L (3.5-5.1)
[2023-08-27] MEDS: INSULIN (NOVOLOG) ASPART 100 UNITS/ML 10ML VIAL SQ ONE (15:36)
[2023-08-27 21:23] LABS: URINE APPEARANCE CLOUDY; URINE BILIRUBIN NEGATIVE (NEGATIVE); URINE COLOR YELLOW; URINE GLUCOSE (UA) 2+ (NEGATIVE); URINE KETONE NEGATIVE (NEGATIVE); URINE LEUK ESTERASE NEGATIVE (NEGATIVE); URINE NITRITE NEGATIVE (NEGATIVE); URINE PROTEIN TRACE (NEGATIVE); URINE UROBILINOGEN 0.2 mg/dL (0.2-1.0)
[2023-08-27] MEDS: CHLORHEXIDINE GLUCONATE 4% CLEANSER FOR DECOLONIZATION TP SCH (22:19)
[2023-08-27] MEDS: INSULIN (LEVEMIR) 100 UNITS/ML UNITS SQ SCH (22:29)
[2023-08-28] MEDS: ACETAMINOPHEN 325 MG TABLET (FP) PO PRN (07:02)
[2023-08-28 07:34] LABS: BASO % 0.4 % (0-2.0); HEMATOCRIT 32.5 % (32.4-45.2); HEMOGLOBIN 10.7 GM/dL (10.7-15.3); LYMPH % 30.2 % (8-40); MCH 30.3 pg (25.7-33.7); MEAN CELL VOLUME 91.6 fl (80-96); MEAN PLT VOLUME 9.7 fl (7.5-11.1); MONO % 6.1 % (3.8-10.2); NEUT % 62.3 % (42.8-82.8); PLATELET COUNT 163 10^3/uL (134-434); RBC 3.55 M/mm3 (3.60-5.2); WHITE BLOOD COUNT 8.1 K/mm3 (4.0-10.0)
[2023-08-28 08:13] LABS: POTASSIUM 4.2 mmol/L (3.5-5.1)
[2023-08-28 08:22] LABS: CALCIUM 9.8 mg/dL (8.5-10.1)
[2023-08-28 08:23] LABS: BLOOD UREA NITROGEN 23.7 mg/dL (7-18); MAGNESIUM 1.7 mg/dL (1.8-2.4)
[2023-08-28 08:25] LABS: CREATININE 1.8 mg/dL (0.55-1.3); PHOSPHOROUS 4.2 mg/dL (2.5-4.9)
[2023-08-28 08:26] LABS: ALBUMIN 2.8 g/dl (3.4-5.0)
[2023-08-28 08:27] LABS: BILIRUBIN,TOTAL 0.3 mg/dL (0.2-1)
[2023-08-28] MEDS: PANTOPRAZOLE 40 MG TABLET PO SCH (09:18)
[2023-08-28] MEDS: THIAMINE HCL 100 MG TABLET (FP) PO SCH (09:19)
[2023-08-28] MEDS: MULTIVITAMINS (DAILY MVI) TABLET (FP) PO SCH (09:19)
[2023-08-28] MEDS: MAGNESIUM 2GM/50ML STERILE WATER IVPB IVPB ONE (09:19)
[2023-08-28] MEDS ORDERED: MAGNESIUM SULFATE IN WATER 2 GM/50 ML IVPB IVPB ONE (09:26)
[2023-08-28] MEDS: diphenhydrAMINE HCL 25 MG CAPSULE (FP) PO ONE (09:32)
[2023-08-28] MEDS ORDERED: HYDROCORTISONE 0.5% TOPICAL CREAM 30 GM TUBE TP PRN (09:34)
[2023-08-28] MEDS ORDERED: INSULIN (NOVOLOG) ASPART 100 UNITS/ML 10ML VIAL ONE ×2 (11:39→16:27)
[2023-08-28 13:16] VITALS: BMI 17.6
[2023-08-28] MEDS: INSULIN (LEVEMIR) 100 UNITS/ML UNITS SQ SCH (21:50)
[2023-08-28] MEDS: MIRTAZAPINE 15 MG TABLET (FP) PO SCH (21:51)
[2023-08-29] MEDS: INSULIN ASPART SLIDING SCALE (NOVOLOG) 1 VIAL SQ SCH (06:56)
[2023-08-29 07:32] LABS: BASO % 0.6 % (0-2.0); EOS % 1.8 % (0-4.5); HEMATOCRIT 36.3 % (32.4-45.2); LYMPH % 35.3 % (8-40); MCH 30.4 pg (25.7-33.7); MEAN CELL VOLUME 92.3 fl (80-96); MONO % 7.4 % (3.8-10.2); NEUT % 54.9 % (42.8-82.8); PLATELET COUNT 177 10^3/uL (134-434); RBC 3.93 M/mm3 (3.60-5.2); RDW 13.2 % (11.6-15.6)
[2023-08-29 07:57] LABS: POTASSIUM 3.8 mmol/L (3.5-5.1)
[2023-08-29 08:01] LABS: ALBUMIN 3.2 g/dl (3.4-5.0); BLOOD UREA NITROGEN 21.4 mg/dL (7-18); CALCIUM 10.3 mg/dL (8.5-10.1); MAGNESIUM 2.1 mg/dL (1.8-2.4)
[2023-08-29 08:04] LABS: CREATININE 1.7 mg/dL (0.55-1.3); PHOSPHOROUS 5.2 mg/dL (2.5-4.9)
[2023-08-29 08:06] LABS: BILIRUBIN,TOTAL 0.3 mg/dL (0.2-1); TOT PROT 7.6 g/dl (6.4-8.2)
[2023-08-29 11:11] VITALS: BP 145/68; PULSE 84; RESP 18; TEMP 97.9
== END 2023-08-29 11:21 | disposition home or self-care (01) | DRG 638 ==
LOC: JER 19:31 → JERBED 08-27 01:01 → JICU 08-27 02:35
PROVIDERS: ADMIT Internal Medicine Pulmonary Disease; ATTEND Internal Medicine Pulmonary Disease
DX: E11.10 Type 2 diabetes mellitus with ketoacidosis without coma (principal); N17.9 Acute kidney failure, unspecified; R64 Cachexia; Z68.1 Body mass index [BMI] 19.9 or less, adult; E87.6 Hypokalemia; E11.22 Type 2 diabetes mellitus with diabetic chronic kidney disease; N18.9 Chronic kidney disease, unspecified; D64.9 Anemia, unspecified; I48.91 Unspecified atrial fibrillation; E78.00 Pure hypercholesterolemia, unspecified; E78.5 Hyperlipidemia, unspecified; I12.9 Hypertensive chronic kidney disease with stage 1 through stage 4 chronic kidney disease, or unspecified chronic kidney disease; E11.40 Type 2 diabetes mellitus with diabetic neuropathy, unspecified
CPT/HCPCS: 0241U-QW; 36415; 70450-TC; 71045-TC-FY; 80048; 80053; 81003; 82010; 82150; 82308; 82803; 82962; 83036; 83605; 83690; 83735; 83880; 84100; 84436; 84443; 84484; 85025; 85610; 85730; 87040; 93005; 93010; 97116-GP; 97162-GP; 99285-25; J1644

== ENCOUNTER 2023-10-23 23:39 | Emergency (ER) | payer OTHER ==
[2023-10-24 00:32] VITALS: TEMP 97.9; BMI 19.3
[2023-10-24] MEDS ORDERED: ACETAMINOPHEN 325 MG TABLET (FP) ONE (01:36)
[2023-10-24] MEDS: ACETAMINOPHEN 500 MG TABLET (FP) PO STA (02:02)
[2023-10-24 02:52] LABS: BASO % 0.5 % (0-2.0); EOS % 0.7 % (0-4.5); HEMATOCRIT 35.7 % (32.4-45.2); HEMOGLOBIN 12.3 GM/dL (10.7-15.3); LYMPH % 22.1 % (8-40); MCH 31.1 pg (25.7-33.7); MCHC 34.4 g/dl (32.0-36.0); MEAN CELL VOLUME 90.5 fl (80-96); MEAN PLT VOLUME 9.7 fl (7.5-11.1); MONO % 8.1 % (3.8-10.2); NEUT % 68.6 % (42.8-82.8); PLATELET COUNT 206 10^3/uL (134-434); RBC 3.95 M/mm3 (3.60-5.2); RDW 13.7 % (11.6-15.6); WHITE BLOOD COUNT 7.4 K/mm3 (4.0-10.0)
[2023-10-24 02:58] LABS: INR 0.98 (0.83-1.09); PROTHROMBIN TIME (PATIENT) 11.1 SEC (9.7-13.0)
[2023-10-24 03:00] LABS: ACTIVATED PTT 26.9 SECONDS (25.2-36.5)
[2023-10-24 03:11] LABS: CHLORIDE 95 mmol/L (98-107); POTASSIUM 4.4 mmol/L (3.5-5.1); SODIUM 124 mmol/L (136-145)
[2023-10-24 03:14] LABS: ALBUMIN 3.6 g/dl (3.4-5.0); ANION GAP 12 mmol/L (4-13); BLOOD UREA NITROGEN 31.3 mg/dL (7-18); CO2 17 mmol/L (21-32)
[2023-10-24 03:17] LABS: CREATININE 2.3 mg/dL (0.55-1.3); SGOT/AST 33 U/L (15-37); SGPT/ALT 29 U/L (13-61)
[2023-10-24 03:19] LABS: BILIRUBIN,TOTAL 0.4 mg/dL (0.2-1); TOT PROT 7.8 g/dl (6.4-8.2)
[2023-10-24 03:20] LABS: ALK PHOS 201 U/L (45-117)
[2023-10-24 03:39] LABS: GLUCOSE,RANDOM 740 mg/dL (74-106)
[2023-10-24] MEDS: SODIUM CHLORIDE 1,000 ML IV STA (04:05)
[2023-10-24 05:47] VITALS: BP 135/69; PULSE 60; RESP 14
[2023-10-24] MEDS: SODIUM CHLORIDE 0.9% 500 ML INFUS.BAG IV ONE (08:58)
== END 2023-10-24 15:30 | disposition home or self-care (01) ==
LOC: JER 23:39
PROC: 3E0337Z Introduction of Electrolytic and Water Balance Substance into Peripheral Vein, Percutaneous Approach (ICD-10-PCS; principal; 2023-10-24)
DX: E11.65 Type 2 diabetes mellitus with hyperglycemia (principal); Z20.822 Contact with and (suspected) exposure to COVID-19; W19.XXXA Unspecified fall, initial encounter
CPT/HCPCS: 0241U-QW; 36415; 72170-TC-FY; 73521-TC-FY; 73562-TC-RT-FY; 73700-TC-RT; 80053; 82962; 83690; 84484; 85025; 85610; 85730; 93005; 93010; 96360; 96361; 99285-25

== ENCOUNTER 2023-10-30 16:48 | Inpatient (IN) | payer OTHER ==
[2023-10-30 18:34] LABS: BASO % 0.5 % (0-2.0); EOS % 0.9 % (0-4.5); HEMATOCRIT 39.5 % (32.4-45.2); HEMOGLOBIN 13.2 GM/dL (10.7-15.3); LYMPH % 25.8 % (8-40); MCHC 33.4 g/dl (32.0-36.0); MEAN CELL VOLUME 89.9 fl (80-96); MEAN PLT VOLUME 9.7 fl (7.5-11.1); MONO % 6.9 % (3.8-10.2); NEUT % 65.9 % (42.8-82.8); PLATELET COUNT 229 10^3/uL (134-434); RBC 4.39 M/mm3 (3.60-5.2); RDW 13.8 % (11.6-15.6); WHITE BLOOD COUNT 7.2 K/mm3 (4.0-10.0)
[2023-10-30 18:36] LABS: VENOUS O2 SATURATION 49.3 % (70-80)
[2023-10-30 18:38] LABS: VENOUS PH 7.196 (7.310-7.410)
[2023-10-30 18:53] LABS: CHLORIDE 98 mmol/L (98-107); SODIUM 127 mmol/L (136-145)
[2023-10-30 18:55] LABS: CALCIUM 9.6 mg/dL (8.5-10.1)
[2023-10-30 18:56] LABS: ANION GAP 12 mmol/L (4-13); BLOOD UREA NITROGEN 29.5 mg/dL (7-18); CO2 17 mmol/L (21-32)
[2023-10-30 18:58] LABS: PHOSPHOROUS 3.6 mg/dL (2.5-4.9); SGOT/AST 20 U/L (15-37)
[2023-10-30 18:59] LABS: SGPT/ALT 25 U/L (13-61)
[2023-10-30 19:00] LABS: BILIRUBIN,TOTAL 0.4 mg/dL (0.2-1); TOT PROT 8.5 g/dl (6.4-8.2)
[2023-10-30 19:01] LABS: ALK PHOS 181 U/L (45-117)
[2023-10-30] MEDS: SODIUM CHLORIDE 0.9% 500 ML INFUS.BAG IV ONE (19:14)
[2023-10-30 19:25] LABS: CREATININE 2.2 mg/dL (0.55-1.3); GLUCOSE,RANDOM 642 mg/dL (74-106)
[2023-10-30] MEDS: INSULIN REGULAR HUMAN 100 UNITS/ML *VIAL SQ ONE (19:43)
[2023-10-30 21:38] LABS: EPI CELLS 1 /uL (0-25.1); HYALINE CASTS 0 /uL (0-3.1); PH,URINE 6.5 (5.0-8.0); URINE APPEARANCE CLEAR; URINE BACTERIA 0 /uL (0-1359); URINE BILIRUBIN NEGATIVE (NEGATIVE); URINE COLOR YELLOW; URINE GLUCOSE (UA) 3+ (NEGATIVE); URINE KETONE NEGATIVE (NEGATIVE); URINE LEUK ESTERASE NEGATIVE (NEGATIVE); URINE NITRITE NEGATIVE (NEGATIVE); URINE PROTEIN 1+ (NEGATIVE); URINE RBC 8 /uL (0-23.9); URINE UROBILINOGEN 0.2 mg/dL (0.2-1.0); URINE WBC 1 /uL (0-25.8)
[2023-10-31] MEDS: INSULIN ASPART SLIDING SCALE (NOVOLOG) 1 VIAL SQ SCH (06:31)
[2023-10-31] MEDS: INSULIN (LEVEMIR) 100 UNITS/ML UNITS SQ SCH ×2 (06:32→21:37)
[2023-10-31] MEDS ORDERED: INSULIN ASPART SLIDING SCALE (NOVOLOG) 1 VIAL SQ SCH (07:00)
[2023-10-31 08:04] LABS: POTASSIUM 3.5 mmol/L (3.5-5.1)
[2023-10-31 08:05] LABS: CALCIUM 8.7 mg/dL (8.5-10.1)
[2023-10-31 08:06] LABS: BLOOD UREA NITROGEN 24.6 mg/dL (7-18)
[2023-10-31 08:09] LABS: CREATININE 1.6 mg/dL (0.55-1.3)
[2023-10-31 08:36] LABS: BASO % 0.5 % (0-2.0); EOS % 1.3 % (0-4.5); HEMATOCRIT 34.6 % (32.4-45.2); HEMOGLOBIN 11.8 GM/dL (10.7-15.3); LYMPH % 32.7 % (8-40); MCH 30.3 pg (25.7-33.7); MEAN CELL VOLUME 89.2 fl (80-96); MEAN PLT VOLUME 10.1 fl (7.5-11.1); MONO % 8.2 % (3.8-10.2); NEUT % 57.3 % (42.8-82.8); PLATELET COUNT 205 10^3/uL (134-434); RBC 3.88 M/mm3 (3.60-5.2); RDW 13.3 % (11.6-15.6); WHITE BLOOD COUNT 8.8 K/mm3 (4.0-10.0)
[2023-10-31] MEDS: ENOXAPARIN NA (PORCINE) 30 MG/0.3 ML DISP.SYRIN SQ SCH (11:58)
[2023-10-31] MEDS: ACETAMINOPHEN 325 MG TABLET (FP) PO PRN (11:59)
[2023-10-31] MEDS: PANTOPRAZOLE 20 MG TABLET PO SCH (12:02)
[2023-10-31] MEDS: NAPH,MB-DB/K PH,MBDB POWDER PACKET PO SCH (15:03)
[2023-10-31] MEDS: MIRTAZAPINE 15 MG TABLET (FP) PO SCH (21:36)
[2023-10-31] MEDS: MAGNESIUM OXIDE 400 MG TABLET (FP) PO SCH (21:36)
[2023-10-31] MEDS: ROSUVASTATIN CA 10 MG TABLET PO SCH (21:38)
[2023-10-31] MEDS ORDERED: ROSUVASTATIN CA 20 MG TABLET PO SCH (22:00)
[2023-11-01] MEDS: THIAMINE 100 MG TABLET PO SCH (09:59)
[2023-11-01] MEDS: CYANOCOBALAMIN 1,000 MCG TABLET (FP) PO SCH (09:59)
[2023-11-01] MEDS: PANTOPRAZOLE 20 MG TABLET PO SCH (09:59)
[2023-11-01] MEDS: ENALAPRIL MALEATE 2.5 MG TABLET PO SCH (09:59)
[2023-11-01] MEDS: MULTIVITAMINS (DAILY MVI) TABLET (FP) PO SCH (09:59)
[2023-11-01] MEDS: EMPAGLIFLOZIN (JARDIANCE) 25 MG TABLET PO SCH (12:42)
[2023-11-01] MEDS: INSULIN ASPART SLIDING SCALE (NOVOLOG) 1 VIAL SQ SCH (12:44)
[2023-11-01] MEDS: INSULIN (LEVEMIR) 100 UNITS/ML UNITS SQ SCH (22:07)
[2023-11-02] MEDS: DEXTROSE 50%-WATER 25 GM/50 ML DISP.SYRIN IVPUSH ONE (07:31)
[2023-11-02] MEDS: INSULIN (LEVEMIR) 100 UNITS/ML UNITS SQ SCH (21:46)
[2023-11-02 23:43] VITALS: BMI 19.0
[2023-11-03 12:58] LABS: BASO % 0.4 % (0-2.0); HEMATOCRIT 37.9 % (32.4-45.2); HEMOGLOBIN 12.5 GM/dL (10.7-15.3); LYMPH % 22.6 % (8-40); MCH 29.9 pg (25.7-33.7); MCHC 32.9 g/dl (32.0-36.0); MEAN CELL VOLUME 90.8 fl (80-96); MEAN PLT VOLUME 9.9 fl (7.5-11.1); MONO % 9.2 % (3.8-10.2); NEUT % 66.8 % (42.8-82.8); PLATELET COUNT 202 10^3/uL (134-434); RBC 4.17 M/mm3 (3.60-5.2); RDW 14.3 % (11.6-15.6); WHITE BLOOD COUNT 10.2 K/mm3 (4.0-10.0)
[2023-11-03 13:38] LABS: POTASSIUM 4.8 mmol/L (3.5-5.1)
[2023-11-03 13:41] LABS: BLOOD UREA NITROGEN 21.6 mg/dL (7-18); CALCIUM 8.8 mg/dL (8.5-10.1)
[2023-11-03 13:44] LABS: CREATININE 1.6 mg/dL (0.55-1.3)
[2023-11-03 13:45] LABS: BILIRUBIN,TOTAL 0.3 mg/dL (0.2-1); TOT PROT 6.7 g/dl (6.4-8.2)
[2023-11-03 13:48] LABS: ALBUMIN 2.8 g/dl (3.4-5.0)
[2023-11-03] MEDS: BANATROL PLUS POWDER PACKET PO SCH (14:03)
[2023-11-03] MEDS: LIPASE/PROTEASE/AMYLASE 24,000 UNIT CAPSULE PO SCH (17:38)
[2023-11-04] MEDS: INSULIN (LEVEMIR) 100 UNITS/ML UNITS SQ SCH (21:42)
[2023-11-05] MEDS: INSULIN (LEVEMIR) 100 UNITS/ML UNITS SQ SCH (06:23)
[2023-11-05 07:02] VITALS: TEMP 98.1
[2023-11-05 10:37] VITALS: BP 109/64; PULSE 78; RESP 22
== END 2023-11-05 14:00 | DRG 638 ==
LOC: JER 16:48 → JERBED 22:02 → J4W 10-31 02:34
PROVIDERS: ADMIT Internal Medicine; ATTEND Internal Medicine
DX: E11.65 Type 2 diabetes mellitus with hyperglycemia (principal); E44.0 Moderate protein-calorie malnutrition; G81.91 Hemiplegia, unspecified affecting right dominant side; I50.22 Chronic systolic (congestive) heart failure; I11.0 Hypertensive heart disease with heart failure; I48.0 Paroxysmal atrial fibrillation; E78.5 Hyperlipidemia, unspecified; R00.1 Bradycardia, unspecified; R62.7 Adult failure to thrive; Z68.20 Body mass index [BMI] 20.0-20.9, adult; K21.9 Gastro-esophageal reflux disease without esophagitis
CPT/HCPCS: 36415; 71045-TC-FY; 74230-TC-FY; 80048; 80053; 81003; 82010; 82803; 82962; 83036; 83735; 84100; 84484; 85025; 87635; 92611-GN; 93005; 93010; 97116-GP; 97162-GP; 99285-25

== ENCOUNTER 2024-02-24 14:44 | Emergency (ER) | payer OTHER ==
[2024-02-24 15:19] VITALS: RESP 18; BMI 20.7
[2024-02-24 15:39] LABS: EPI CELLS >36 /uL (0-25.1); HYALINE CASTS 17 /uL (0-3.1); PH,URINE 5.5 (5.0-8.0); URINE APPEARANCE CLEAR; URINE BACTERIA 64 /uL (0-1359); URINE BILIRUBIN NEGATIVE (NEGATIVE); URINE COLOR YELLOW; URINE GLUCOSE (UA) 3+ (NEGATIVE); URINE KETONE NEGATIVE (NEGATIVE); URINE LEUK ESTERASE 2+ (NEGATIVE); URINE NITRITE NEGATIVE (NEGATIVE); URINE PROTEIN 1+ (NEGATIVE); URINE RBC 44 /uL (0-23.9); URINE UROBILINOGEN 0.2 mg/dL (0.2-1.0); URINE WBC 357 /uL (0-25.8)
[2024-02-24] MEDS ORDERED: CEFTRIAXONE 1 GM/50 ML BAG ONE (15:56)
[2024-02-24] MEDS: SODIUM CHLORIDE 0.9% 1000 ML INFUS.BAG IV ONE (16:18)
[2024-02-24] MEDS: CEFTRIAXONE 1 GM in DEXTROSE 5%-WATER - 100 ML IVPB ONE (16:19)
[2024-02-24 16:42] LABS: VENOUS BASE EXCESS -9.4 mmol/L (-2-2); VENOUS O2 SATURATION 38.4 % (70-80); VENOUS PCO2 45.7 mmHg (38-52); VENOUS PH 7.216 (7.310-7.410)
[2024-02-24 16:43] LABS: BASO % 0.5 % (0-2.0); EOS % 3.3 % (0-4.5); HEMATOCRIT 32.3 % (32.4-45.2); HEMOGLOBIN 10.6 GM/dL (10.7-15.3); LYMPH % 27.3 % (8-40); MCH 29.8 pg (25.7-33.7); MCHC 32.8 g/dl (32.0-36.0); MEAN CELL VOLUME 90.8 fl (80-96); MONO % 11.9 % (3.8-10.2); PLATELET COUNT 198 10^3/uL (134-434); RBC 3.56 M/mm3 (3.60-5.2); RDW 14.8 % (11.6-15.6); WHITE BLOOD COUNT 7.5 K/mm3 (4.0-10.0)
[2024-02-24 17:00] LABS: POTASSIUM 5.5 mmol/L (3.5-5.1)
[2024-02-24 17:02] LABS: CALCIUM 9.1 mg/dL (8.5-10.1)
[2024-02-24 17:03] LABS: ALBUMIN 3.2 g/dl (3.4-5.0); BLOOD UREA NITROGEN 42.4 mg/dL (7-18); MAGNESIUM 2.2 mg/dL (1.8-2.4)
[2024-02-24 17:06] LABS: CREATININE 1.9 mg/dL (0.55-1.3); PHOSPHOROUS 4.4 mg/dL (2.5-4.9)
[2024-02-24 17:07] LABS: BILIRUBIN,TOTAL 0.3 mg/dL (0.2-1); TOT PROT 7.7 g/dl (6.4-8.2)
[2024-02-24] MEDS ORDERED: INSULIN REGULAR HUMAN 100 UNITS/ML *VIAL ONE (18:11)
[2024-02-24] MEDS: INSULIN REGULAR HUMAN 100 UNITS/ML *VIAL SQ ONE (18:23)
[2024-02-24 18:31] VITALS: BP 142/61; PULSE 59; TEMP 98.2
[2024-02-24] MEDS: INSULIN REGULAR HUMAN 100 UNITS/ML *VIAL IVPUSH ONE (18:34)
[2024-02-24 20:09] LABS: VENOUS BASE EXCESS -11.2 mmol/L (-2-2); VENOUS O2 SATURATION 95.5 % (70-80); VENOUS PCO2 31.6 mmHg (38-52); VENOUS PH 7.278 (7.310-7.410)
[2024-02-24 20:47] LABS: POTASSIUM 4.5 mmol/L (3.5-5.1)
[2024-02-24 20:49] LABS: BLOOD UREA NITROGEN 39.9 mg/dL (7-18); CALCIUM 8.6 mg/dL (8.5-10.1)
[2024-02-24 20:53] LABS: CREATININE 1.6 mg/dL (0.55-1.3)
== END 2024-02-24 21:46 | disposition home or self-care (01) ==
LOC: JER 14:44
PROC: 3E03329 Introduction of Other Anti-infective into Peripheral Vein, Percutaneous Approach (ICD-10-PCS; principal; 2024-02-24)
PROC: 3E033GC Introduction of Other Therapeutic Substance into Peripheral Vein, Percutaneous Approach (ICD-10-PCS; 2024-02-24)
DX: N39.0 Urinary tract infection, site not specified (principal); E11.65 Type 2 diabetes mellitus with hyperglycemia
CPT/HCPCS: 36415; 80048; 80053; 81003; 82010; 82803; 82962; 83735; 84100; 85025; 93005; 93010; 96365; 96375; 99284-25